=== PATIENT | male | born 1935 | race Caucasian/White ===

== ENCOUNTER → 2016-12-05 | Outpatient (CLI) | payer MEDICARE ==
[2016-07-16 11:00] VITALS: BP 94/51
[~2016-12-05] MED LIST: AMOX1TAB61 PO; ASPI-482 PO; ASPI325T11 PO; ASPI325T70 PO; ATOR20TA58 PO; CALC-112 PO; CELE200C PO; CLOP75TA PO; COLC0.6C3 PO; DILT180C29 PO; DOCU-27 PO; DOXY100C2 PO; DOXY100T PO; FISH1CAP PO; GABA600T2 PO; GLUC1CAP30 PO; GLUC500T7 PO; HYDR-971 PO; LACT1CAP6 PO; MULT-18 PO; ONDA4TAB10 SL; OXYC-323 PO; TAMS0.4C97 PO; TRAM50TA PO; UBID200C4 PO; VALS80TA3 PO
--- NOTE | 2016-12-05 10:16 | RAD ---
Examination: MRI of the right shoulder without contrast HISTORY History of right shoulder pain for 8 months, history of rotator cuff repair COMPARISON None available. TECHNIQUE Multiplanar multisequence MR imaging of the right shoulder was performed without contrast FINDINGS Examination is somewhat limited due to mild motion artifact. The long head of the biceps tendon is not clearly identified in the bicipital groove. The long head of the biceps tendon may be displaced medially underneath the fibers of the subscapularis tendon. There is increased signal identified in the superior aspect of the subscapularis tendon likely tear of the subscapularis tendon particularly in superior fibers. Some of the inferior fibers appear intact. There is full-thickness tear of the supraspinatus tendon with tendon retraction to the level of the glenoid. There is superior translation of the humerus head in relation to the glenoid. There is moderate increased T2 signal identified in the rotator cuff region. There is thickened appearance of the infraspinatus tendon due to severe tendinosis. The conjoined portion of the infraspinatus tendon appears torn. There is some extension of fluid into the interstitial portion of the infraspinatus tendon measuring 1 centimeter in transverse dimension. The teres minor tendon appears intact. No evidence of labral tear identified. Severe degenerative changes identified in the glenohumeral joint. Prior surgical changes identified in the right shoulder. The acromion is type 2. There is mild increased T2 signal identified in the supraspinatus, infraspinatus, subscapularis muscle likely due to rotator cuff pathology. There is obliteration of fat in the rotator interval. There is moderate fatty atrophic changes of the infraspinatus muscle. There is mild fatty atrophic changes of the supraspinatus muscle. There is mild muscle bulk loss identified in the supraspinatus, infraspinatus muscles. IMPRESSION - Massive tear of the rotator cuff with retraction of the supraspinatus tendon up to the level of the glenoid. The superior fibers of the subscapularis tendon are torn with some retraction. Some of the fibers particularly the conjoined portion infraspinatus tendon appear torn. - There is moderate thickened appearance of the infraspinatus tendon likely due to severe tendinosis with a extension of a fluid into the interstitial portion of the infraspinatus tendon due to the interstitial tear. There is marked superior translation of the humerus head in relation to the glenoid likely due to massive rotator cuff tear. - The long head of the biceps tendon is not clearly identified in the bicipital groove. The long head of the biceps tendon may be displaced medially underneath the fibers of the subscapularis tendon - Moderate edema identified in the muscles of the shoulder joint surrounding the rotator cuff muscle region likely secondary to tear of the rotator cuff. - Moderate degenerative changes glenohumeral joint, acromioclavicular joint. - Obliteration of fat plane in the rotator interval. Correlate for adhesive capsulitis. Electronically signed by: Cameron Vallejo (Dec 05, 2016 10:14:38)
== END | disposition home or self-care (01) ==
LOC: MRI 07:54
PROVIDERS: ATTEND Orthopaedic Surgery Sports Medicine
DX: M25.511 Pain in right shoulder (principal)
CPT/HCPCS: 73221

== ENCOUNTER 2016-12-08 07:53 | Day surgery (SDC) | payer MEDICARE ==
[~2016-12-08] VITALS: Ht 172.7 cm; Wt 74.8 kg
[~2016-12-08 07:53] MED LIST changes: +CEFAZOLIN 1GM IVPB FOR OMNI 50 ML IV ONE; -DOCU-27 PO; +FENTANYL PF 100 MCG/2 ML VIAL. IV PRN; -HYDR-971 PO; +HYDROMORPHONE 2 MG/ML VIAL. IV PRN; +IV RINGERS,LACTATED 1000ML 1,000 ML IV SCH; +LIDOCAINE 1% 1 ML SYRINGE. ID PRN; +MORPHINE SULFATE 2 MG/ML DISP.SYRIN. IV PRN; -ONDA4TAB10 SL; +ONDANSETRON PF 4 MG/2 ML VIAL. IV PRN; +PROCHLORPERAZINE 10 MG/2 ML VIAL. IV PRN
[2016-12-08] MEDS ORDERED: FENTANYL PF 100 MCG/2 ML VIAL. ONE (08:53)
[2016-12-08] MEDS ORDERED: MIDAZOLAM HCL 2 MG/2 ML VIAL. ONE (08:53)
[2016-12-08] MEDS ORDERED: LIDOCAINE 2% 20 ML VIAL. ONE (09:07)
[2016-12-08] MEDS ORDERED: 0.9 % SODIUM CHLORIDE 50 ML VIAL. IJ ONE (09:09)
[2016-12-08] MEDS ORDERED: LIDOCAINE 1% 20 ML VIAL. ONE (09:18)
[2016-12-08] MEDS ORDERED: BUPIVACAINE MPF 0.5% 30 ML VIAL. ONE (09:18)
--- NOTE | 2016-12-08 09:32 | PDOC ---
BRIEF OPERATIVE NOTE Date: Dec 08, 2016 Pre-Op Diagnosis L CTS Post-Op Diagnosis same Procedure Performed Open L CTS Surgeon Dimitri Anesthesia Type: General Blood Loss 5mL Complications none MORALES DRIVER II, MD Dec 08, 2016 09:32
--- NOTE | 2016-12-08 09:33 | DISCH ---
DISCHARGE INSTRUCTIONS Condition on Discharge Condition on Discharge: Stable Activity After Discharge Activity Instructions for Disc: No restrictions Bathing Instructions: Shower-keep dressing dry Lifting Instructions after Dis: No heavy lifting, No pulling or pushing, Do not lift >10 pounds Weight Bearing Status after Di: As tolerated Diet after Discharge Diet after Discharge: Regular Wound Incision Care Wound/Incision Care: Ice to area for comfort, Keep wound/cast CDI, Change dressing Contacting the DR. after DC Call your doctor for: Concerns you may have Follow-Up Follow up with: Dimitri in 2wks Treatment/Equipment after DC Adaptive Equipment Issued: None MORALES DRIVER II, MD Dec 08, 2016 09:33
[2016-12-08] MEDS: FENTANYL PF 100 MCG/2 ML VIAL. IV PRN ×2 (11:14→11:26)
[2016-12-08] MEDS ORDERED: HYDROCODONE/APAP 5/325MG TABLET. ONE (11:21)
[2016-12-08] MEDS ORDERED: HYDR-971 PO (11:22)
[2016-12-08] MEDS ORDERED: ONDA4TAB10 SL (11:23)
[2016-12-08] MEDS ORDERED: DOCU-27 PO (11:23)
[2016-12-08 11:45] VITALS: BP 136/67
[2016-12-08] MEDS ORDERED: HYDROCODONE/APAP 5/325MG TABLET. PO ONE (12:00)
--- NOTE | 2016-12-08 17:23 | OP ---
DATE OF SURGERY: 12/08/2016 SURGEON: Javan Driver MD SLOPE TENDER: None. ANESTHESIA: [employer] block with IV sedation. PREOPERATIVE DIAGNOSIS: Left carpal tunnel syndrome. POSTOPERATIVE DIAGNOSIS: Left carpal tunnel syndrome. PROCEDURE PERFORMED: Open left carpal tunnel release. ESTIMATED BLOOD LOSS: 5 mL. TOURNIQUET TIME: 23 minutes. REASON FOR PROCEDURE: The patient is a very pleasant 80-year-old gentleman with progressive numbness and tingling in median nerve distribution and had electromyographically proven carpal tunnel syndrome. He had tried and failed an injection plus a nighttime splint. Because of this, we had discussion of risks, benefits, alternatives of proceeding with the above surgery and he elected to proceed. DESCRIPTION OF PROCEDURE: The patient was greeted in the preoperative area by myself. The correct extremity was marked and verified. He had a Royce block IV placed in the preop area. He was taken back to the operative suite and antibiotics started en route. Once in the OR, he had successful induction of Royce block with IV sedation per the anesthesiology team. He was transferred gently supine to the OR table and secured to the bed. The left upper extremity was prepped and draped in our usual sterile fashion and we conducted a standard preoperative timeout. I made my right carpal tunnel incision over volar wrist crease progressing distally from his distal most wrist crease. I dissected the subcutaneous tissue with hemostat and used a self retainer. I incised the palmar fascia in line with the skin incision with a scalpel and dissected down and identified the transverse carpal ligament, which I then released with a scalpel. I then used Ragnell retractor at the distal aspect of the incision and a tenotomy to spread above and below the remainder of the ligament and then incised this completing the release distally. I then repeated this maneuver for the distal antebrachial fascia and incised this in an ulnar directed fashion. I then used the tip of the scissors to palpate to ensure I had accomplished full release which I had. I cauterized a couple of small bleeders with bipolar cautery. I irrigated out the operative field with sterile normal saline and closed the skin with a 2-0 nylon in a vertical mattress fashion. The arm and hand were then cleansed and dried, Steri-Strips followed by Xeroform and a soft bulky dressing was then applied. The patient tolerated the surgery well. Tourniquet was let down. He was transferred gently supine to the recovery room cart and taken to PACU in stable and extubated condition. Postop plan is for him to be nonweightbearing. He was given wound care instructions. He will follow up with me in 2 weeks, sooner should problems arise. JAVAN DRIVER MD DR: RACHEL/angela JOB#: [id number] / [id number] NICKY
== END 2016-12-08 12:10 | disposition home or self-care (01) ==
LOC: SURG 07:53
PROVIDERS: ATTEND Orthopaedic Surgery Sports Medicine
DX: G56.02 Carpal tunnel syndrome, left upper limb (principal); I10 Essential (primary) hypertension; E78.00 Pure hypercholesterolemia, unspecified; M19.90 Unspecified osteoarthritis, unspecified site; E03.9 Hypothyroidism, unspecified; F41.9 Anxiety disorder, unspecified; Z98.42 Cataract extraction status, left eye; Z98.41 Cataract extraction status, right eye; Z96.651 Presence of right artificial knee joint
CPT/HCPCS: 64721; J0690; J2250; J3010; J3490

== ENCOUNTER → 2016-12-31 | Outpatient (CLI) | payer MEDICARE ==
[2016-12-08 11:45] VITALS: BP 136/67
[~2016-12-31] MED LIST changes: -CEFAZOLIN 1GM IVPB FOR OMNI 50 ML IV ONE; +DOCU-27 PO; -FENTANYL PF 100 MCG/2 ML VIAL. IV PRN; +HYDR-971 PO; -HYDROMORPHONE 2 MG/ML VIAL. IV PRN; -IV RINGERS,LACTATED 1000ML 1,000 ML IV SCH; -LIDOCAINE 1% 1 ML SYRINGE. ID PRN; -MORPHINE SULFATE 2 MG/ML DISP.SYRIN. IV PRN; +ONDA4TAB10 SL; -ONDANSETRON PF 4 MG/2 ML VIAL. IV PRN; -PROCHLORPERAZINE 10 MG/2 ML VIAL. IV PRN
--- NOTE | 2016-12-31 13:59 | RAD ---
PROCEDURE MRI lumbar spine without contrast. HISTORY Chronic low back pain with bilateral leg radiculopathy, spinal stenosis TECHNIQUE Sagittal and axial T1 and T2 and sagittal STIR images were acquired of the lumbar spine. Contrast: None COMPARISON 12/25/2015 FINDINGS There is again grade 1 anterior spondylolisthesis at L3-4, negligible anterior spondylolisthesis at L2-3. Lumbar vertebral body stature is unchanged. There is again multilevel advanced degenerative disc disease throughout the lumbar spine, also of visualized inferior thoracic levels. There is again variable degenerative endplate change. There is again prominent edema about the L4-5 endplates, somewhat increased at T12-L1 and also increased about small inferior L3 Schmorl's node. Conus terminates at the mid to inferior aspect of L2. There is mild smooth lumbar levoscoliosis centered upon thoracolumbar junction. There are probable cysts of the visualized mid to inferior right kidney. Not fully included, there is a shallow posterior protrusion at T10-11, which in combination with buckling of the ligamentum flavum likely results in mild spinal stenosis. There is also shallow posterior protrusion at T11-12. T12-L1: There is mild facet hypertrophic change and buckling of the ligamentum flavum. There is a shallow protrusion eccentric to the far right lateral recess more prominent than previously. Spinal canal is adequate. There is mild narrowing of the right neural foramen, left neural foramen adequate. L1-2: There is negligible disc osteophyte complex. There is mild buckling of the ligamentum flavum and mild to moderate facet degenerative change. Spinal canal is overall adequate. There is minimal narrowing of the right neural foramen, left neural foramen adequate. L2-3: There is again likely left laminectomy defect, possible right laminectomy defect. Spinal canal is adequate. Neural foramina are not significantly narrowed. L3-4: There is again left laminectomy defect. There is mild partial uncovering of the posterior aspect of the disc due to spondylolisthesis. Spinal canal is adequate. There is very mild narrowing of the left neural foramen, right neural foramen overall adequate. L4-5: There is again moderate facet hypertrophic change and buckling of the ligamentum flavum. There is again disc osteophyte complex and superimposed shallow broad posterior bulge/protrusion. There is a somewhat greater degree of overall severe spinal stenosis, lateral recess stenosis bilaterally with contact of the descending L5 nerve roots. There is again moderate left and [id number] right neural foramina compromise. L5-S1: There is again disc osteophyte complex. Spinal canal is adequate. There is mild facet degenerative change. There is mild neural foramina compromise greater on the left. IMPRESSION 1. There is a somewhat greater degree of severe spinal stenosis at L4-5, lateral recess stenosis bilaterally at this level with contact of the descending L5 nerve roots. 2. There is again multilevel advanced degenerative disc disease of the thoracolumbar spine, multilevel spondylosis. There is persistent prominent edema of the L4-5 endplates, somewhat increased endplate edema at T12-L1 although likely reactive/degenerative in etiology. 3. There is mild to moderate neural foramina compromise bilaterally greater on the left at L4-5, other minimal narrowing as stated. 4. There is multilevel lumbar facet degenerative change, grade 1 anterior spondylolisthesis at L3-4 and negligible anterior spondylolisthesis at L2-3. 5. Conus terminates at the mid to inferior aspect of L2. Electronically signed by: Martinez Larkin MD (Dec 31, 2016 13:58:17)
== END | disposition home or self-care (01) ==
LOC: MRI 10:42
PROVIDERS: ATTEND Orthopaedic Surgery Sports Medicine
DX: M48.06 Spinal stenosis, lumbar region (principal)
CPT/HCPCS: 72148

== ENCOUNTER → 2017-01-22 | Outpatient (CLI) | payer MEDICARE ==
--- NOTE | 2017-01-22 11:33 | RAD ---
PROCEDURE MRI of the cervical spine without contrast 01/22/2017 HISTORY Neck pain which radiates down the right arm. TECHNIQUE Unenhanced T1 weighted, T2 weighted and inversion recovery sagittal and gradient echo and T2 weighted axial images of the cervical spine were obtained. FINDINGS Mild lateral curvature of the cervical spine is seen convex to the left. There is straightening of the normal cervical lordosis. There appears to be incomplete segmentation of the C3 and C4 vertebrae. Degenerative signal changes and loss of height are seen involving all of the remaining discs of the cervical spine. Degenerative signal changes are seen within the marrow surrounding these discs. No area of abnormal signal intensity is seen involving the cervical spinal cord. At the C2-3 disc space there is a mild generalized disc bulge. Degenerative changes are seen involving the uncovertebral and facet joints, right greater than left. These findings do not result in significant central spinal canal stenosis. Mild right greater than left neural foraminal stenosis is seen. At the C3-4 level degenerative changes are seen involving the uncovertebral and facet joints, right greater than left. Posterior vertebral body osteophyte formation is noted. These findings do not result in significant central spinal canal stenosis. Very mild bilateral neural foraminal stenosis is seen. At the C4-5 disc space there is a mild generalized disc bulge. This is eccentric to the left. Degenerative changes are seen involving the uncovertebral and facet joints bilaterally. These findings when combined do not result in significant central spinal canal stenosis. Mild left neural foraminal stenosis is seen. The right neural foramina is patent. At the C5-6 disc space there is mild to moderate generalized disc bulge. This is eccentric to the right. Degenerative changes are seen involving the uncovertebral and facet joints bilaterally. These findings efface the anterior CSF resulting in mild right greater than left central spinal canal stenosis with minimal right-sided cord impingement. Moderate bilateral neural foraminal stenosis is seen. At the C6-7 disc space there is a mild generalized disc bulge. This is eccentric to the left. Degenerative changes are seen involving the uncovertebral and facet joints, left greater than right. These findings when combined result mild left-sided central spinal canal stenosis without evidence of cord impingement. Mild to moderate left greater than right neural foraminal stenosis is seen. The C7-T1 disc space there is a mild generalized disc bulge. Degenerative changes are seen involving the facet joints, left greater than right. These findings when combined do not result in significant central spinal canal stenosis. Mild bilateral neural foraminal stenosis is seen. IMPRESSION Degenerative changes are seen throughout the cervical spine. These findings result in mild right greater than left central spinal canal stenosis with minimal right-sided cord impingement at C5-6 and mild left-sided central spinal canal stenosis at C6-7. Multilevel neural foraminal stenosis is seen as outlined above. Electronically signed by: Toni Luther MD (Jan 22, 2017 11:31:55)
== END | disposition home or self-care (01) ==
LOC: MRI 15:35
PROVIDERS: ATTEND Neurological Surgery
DX: M48.02 Spinal stenosis, cervical region (principal); M43.8X2 Other specified deforming dorsopathies, cervical region; M40.50 Lordosis, unspecified, site unspecified; M25.78 Osteophyte, vertebrae
CPT/HCPCS: 72141

== ENCOUNTER → 2017-01-23 | Outpatient (CLI) | payer MEDICARE ==
--- NOTE | 2017-01-22 15:49 | HP ---
ADMIT DATE: DATE OF SURGERY: 01/28/2017. HISTORY OF PRESENT ILLNESS: The patient is a pleasant 81-year-old who is having difficulty with low back pain and pain which radiates across the top of both of his hips. He also notices pain in both of his lateral legs that occurs with standing and activities. The problems have been progressive over the years. Many years ago, he underwent lumbar laminectomy. He says his surgeon, which was me, told him that in the future, he may require an instrumented fusion. He says with sitting, his pain is 1/10. Standing and walking ____ to a 6/10. Getting up of bed every day is very difficult for him in the mornings. He takes [place] to help. PAST MEDICAL HISTORY: Arthritis, blood transfusion, cold sores, cardiac disease, shingles, stomach disease, head and neck injury, heart disease, osteoporosis, Lyme disease. PAST SURGICAL HISTORY: Cardiac cath in 2012, cardiac bypass in 2008, hernia 2012, bilateral rotator cuff repair, lumbar surgery, right knee surgery, hernia repair in . FAMILY HISTORY: Cancer, diabetes, cardiac disease, hypertension. SOCIAL HISTORY: He is . Retired. Nondrinker. Nonsmoker. Uses caffeine daily. No history of drug use or abuse. Exercises weekly. ALLERGIES: No known drug allergies. CURRENT MEDICATIONS: Celebrex, tramadol, Diovan, doxycycline, Citracal, aspirin, multivitamins, glucosamine, CoQ10, probiotics, diltiazem, fish oil, gabapentin, Flomax, Plavix, [place]. REVIEW OF SYSTEMS: A 12-point review of systems was obtained and is noncontributory except for that mentioned above. PHYSICAL EXAMINATION: NEUROSURGERY EXAMINATION: GENERAL APPEARANCE: Alert, pleasant, in no acute distress. HEENT: Normocephalic, atraumatic. SKIN: Warm and dry. BACK: Well healed lumbar incision. MUSCULOSKELETAL: Lumbar paraspinal muscle bulk is normal, restricted range of motion of lumbar spine, [id number] tenderness of lower lumbar spine with palpation, normal range of motion of the lower extremities bilaterally. Internal and external rotation of the hips was also negative. EXTREMITIES: No clubbing, cyanosis, or edema. NEUROLOGIC: Alert and oriented x 3, normal recent and remote memory, strength 5/5 in bilateral lower extremities, sensory was intact to light touch in the lower extremities bilaterally, reflexes were present and symmetric in bilateral lower extremities, knee jerks were absent, ankle jerks were also absent bilaterally, negative straight leg raising bilaterally, normal gait. IMAGING: I reviewed a lumbar MRI scan. On that study, grade 1 anterolisthesis is seen at L3-L4 and postoperative changes are also seen at that level. At L4-L5, there is severe spinal stenosis present as well as a lateral recess stenosis. ASSESSMENT: 1. Spinal stenosis, lumbar region. 2. Radiculopathy, lumbar region. 3. Spondylolisthesis, lumbar region. PLAN: I believe his current problems are related to the spinal stenosis at L4-L5 and recommend a bilateral lumbar hemilaminotomies to decompress. I did discuss this with him in detail. He understands the surgery and the risks and expected postoperative course. He would like to go ahead. We will make the arrangements. DICTATED BY: Braulio Small RN CHLOE ALBARRAN MD DR: HOLLEY/angela JOB#: [id number] / [id number]
== END | disposition home or self-care (01) ==
LOC: SURGPAT 13:22
PROVIDERS: ATTEND Neurological Surgery
DX: M48.06 Spinal stenosis, lumbar region (principal); M54.16 Radiculopathy, lumbar region
CPT/HCPCS: 36415; 87641

== ENCOUNTER 2017-01-28 07:04 | Day surgery (SDC) | payer MEDICARE ==
--- NOTE | 2017-01-27 12:55 | HP ---
ADMIT DATE: 01/28/2017 DATE OF SURGERY: 01/28/2017. HISTORY OF PRESENT ILLNESS: The patient is a pleasant 81-year-old who is having difficulty with low back pain and pain which radiates across the top of both of his hips. He also notices pain in both of his lateral legs that occurs with standing and activities. The problems have been progressive over the years. Many years ago, he underwent lumbar laminectomy. He says his surgeon, which was me, told him that in the future, he may require an instrumented fusion. He says with sitting, his pain is 1/10. Standing and walking ____ to a 6/10. Getting up of bed every day is very difficult for him in the mornings. He takes [place] to help. PAST MEDICAL HISTORY: Arthritis, blood transfusion, cold sores, cardiac disease, shingles, stomach disease, head and neck injury, heart disease, osteoporosis, Lyme disease. PAST SURGICAL HISTORY: Cardiac cath in 2012, cardiac bypass in 2008, hernia 2012, bilateral rotator cuff repair, lumbar surgery, right knee surgery, hernia repair in . FAMILY HISTORY: Cancer, diabetes, cardiac disease, hypertension. SOCIAL HISTORY: He is . Retired. Nondrinker. Nonsmoker. Uses caffeine daily. No history of drug use or abuse. Exercises weekly. ALLERGIES: No known drug allergies. CURRENT MEDICATIONS: Celebrex, tramadol, Diovan, doxycycline, Citracal, aspirin, multivitamins, glucosamine, CoQ10, probiotics, diltiazem, fish oil, gabapentin, Flomax, Plavix, [place]. REVIEW OF SYSTEMS: A 12-point review of systems was obtained and is noncontributory except for that mentioned above. PHYSICAL EXAMINATION: NEUROSURGERY EXAMINATION: GENERAL APPEARANCE: Alert, pleasant, in no acute distress. HEENT: Normocephalic, atraumatic. SKIN: Warm and dry. BACK: Well healed lumbar incision. MUSCULOSKELETAL: Lumbar paraspinal muscle bulk is normal, restricted range of motion of lumbar spine, [id number] tenderness of lower lumbar spine with palpation, normal range of motion of the lower extremities bilaterally. Internal and external rotation of the hips was also negative. EXTREMITIES: No clubbing, cyanosis, or edema. NEUROLOGIC: Alert and oriented x 3, normal recent and remote memory, strength 5/5 in bilateral lower extremities, sensory was intact to light touch in the lower extremities bilaterally, reflexes were present and symmetric in bilateral lower extremities, knee jerks were absent, ankle jerks were also absent bilaterally, negative straight leg raising bilaterally, normal gait. IMAGING: I reviewed a lumbar MRI scan. On that study, grade 1 anterolisthesis is seen at L3-L4 and postoperative changes are also seen at that level. At L4-L5, there is severe spinal stenosis present as well as a lateral recess stenosis. ASSESSMENT: 1. Spinal stenosis, lumbar region. 2. Radiculopathy, lumbar region. 3. Spondylolisthesis, lumbar region. PLAN: I believe his current problems are related to the spinal stenosis at L4-L5 and recommend a bilateral lumbar hemilaminotomies to decompress. I did discuss this with him in detail. He understands the surgery and the risks and expected postoperative course. He would like to go ahead. We will make the arrangements. DICTATED BY: Braulio Small RN CHLOE ALBARRAN MD DR: HOLLEY/angela JOB#: [id number] / [id number]
[~2017-01-28] VITALS: Ht 172.7 cm; Wt 75.3 kg
[~2017-01-28 07:04] MED LIST changes: +BACITRACIN 50,000 UNIT in IV NORMAL SALINE 1000ML BAG 1,000 ML IRR ONE; +BUPIVAC MPF-EPI 0.5%-1:200000 30 ML VIAL. ONE; +CEFAZOLIN 2GM PREMIX 50 ML IV PRN; +FENTANYL PF 100 MCG/2 ML VIAL. IV PRN; +GELATIN SPONGE SIZE 100. ONE; +HYDROMORPHONE 2 MG/ML VIAL. IV PRN; +IV RINGERS,LACTATED 1000ML 1,000 ML IV SCH; +KETOROLAC 60 MG/2 ML SYRINGE FOR OR. ONE; +LIDOCAINE 1% 1 ML SYRINGE. ID PRN; +MORPHINE SULFATE 2 MG/ML DISP.SYRIN. IV PRN; +ONDANSETRON PF 4 MG/2 ML VIAL. IV PRN; +PROCHLORPERAZINE 10 MG/2 ML VIAL. IV PRN; +THROMBIN 20,000 UNIT SPRAY.SYRN KIT TP ONE
[2017-01-28] MEDS ORDERED: LIDOCAINE 2% 100 MG/5 ML DISP.SYRIN. ONE (08:11)
[2017-01-28] MEDS ORDERED: ONDANSETRON PF 4 MG/2 ML VIAL. ONE (08:11)
[2017-01-28] MEDS ORDERED: FENTANYL PF 100 MCG/2 ML VIAL. ONE (08:11)
[2017-01-28] MEDS ORDERED: DEXAMETHASONE SOD PHOS 20 MG/5 ML VIAL. ONE (08:11)
[2017-01-28] MEDS ORDERED: MINERAL OIL/PETROLATUM,WHITE OPHTH OINT 3.5GM TUBE. ONE (08:11)
[2017-01-28] MEDS ORDERED: ROCURONIUM 50 MG/5 ML VIAL. ONE (08:11)
[2017-01-28] MEDS ORDERED: REMIFENTANIL 2 MG VIAL. IV ONE (08:11)
[2017-01-28] MEDS ORDERED: PROPOFOL 20 ML IV ONE (08:11)
[2017-01-28] MEDS ORDERED: DESFLURANE > 120 MINUTES IH ONE (08:11)
[2017-01-28] MEDS ORDERED: PROPOFOL 0 ML IV ONE (08:11)
[2017-01-28] MEDS ORDERED: 0.9 % SODIUM CHLORIDE 50 ML VIAL. IJ ONE (08:12)
[2017-01-28] MEDS ORDERED: EPHEDRINE PF IN SALINE 50 MG/5 ML DISP.SYRIN. IV ONE (08:59)
[2017-01-28] MEDS ORDERED: GLYCOPYRROLATE 1 MG/5 ML VIAL. ONE (09:40)
[2017-01-28] MEDS ORDERED: PROPOFOL 50 ML IV ONE (10:32)
[2017-01-28] MEDS ORDERED: NEOSTIGMINE METHYLSULFATE 5 MG/5 ML SYRINGE. ONE (10:54)
--- NOTE | 2017-01-28 11:20 | DISCH ---
DISCHARGE INSTRUCTIONS Condition on Discharge Condition on Discharge: Stable Activity After Discharge Activity Instructions for Disc: Activity as tolerated, Avoid exertion Other activity instructions: no driving for a week Bathing Instructions: Shower-keep dressing dry Lifting Instructions after Dis: No heavy lifting, No pulling or pushing, Do not lift >10 pounds Diet after Discharge Additional Diet Restrictions: resume home diet Wound Incision Care Wound/Incision Care: Ice to area for comfort Other wound/incision instructi: may remove dressing in 48 hrs if dry then may shower- no soaking Contacting the after DC Call your doctor for: Concerns you may have Follow-Up Follow up with: Dr. Albarran's nurse in 2 weeks [phone] CHLOE ALBARRAN MD Jan 28, 2017 11:20
[2017-01-28] MEDS ORDERED: DOCU-27 PO (11:23)
[2017-01-28] MEDS ORDERED: HYDR-2679 PO (11:23)
[2017-01-28] MEDS ORDERED: HYDROCODONE/APAP 7.5/325MG TABLET. PO PRN (12:30)
[2017-01-28 13:18] VITALS: BP 136/63
--- NOTE | 2017-01-29 22:02 | OP ---
DATE OF SURGERY: 01/28/2017 PREOPERATIVE DIAGNOSES: Lumbar spinal stenosis, L4-L5. POSTOPERATIVE DIAGNOSIS: Lumbar spinal stenosis, L4-L5. OPERATION PERFORMED: Lumbar laminectomy L4-L5. The operation was done with EMG monitoring, fluoroscopy, microscopic dissection. SURGEON: Shashank Albarran M.D. GELATIN POWDER MIXER: Forrest Ordonez MD, assisted with the surgery, assisted with the exposure, the decompression as well as the closure. OPERATIVE INDICATIONS: The patient is a very pleasant 81-year-old man who in the past has undergone surgery at L3-L4 and had done well from that. On imaging studies currently he has developed very severe stenosis at L4-L5 and developed symptoms in his lower extremities associated with this. I recommended bilateral lumbar microdecompressive surgery to fully decompress the entire region. He understood the surgery and the risks involved and wished to go ahead. DESCRIPTION OF PROCEDURE: Following general endotracheal anesthesia, the patient was positioned prone on the Sundar table. His lumbar region was prepped and draped in the standard fashion. CHRIS hose and AV impulse boots were applied for DVT prophylaxis. The microscope was draped. Fluoroscopy was draped and brought into field. Monitoring was established. Ancef 2 grams were given less than 1 hour prior to initiation of the surgery. Using fluoroscopic guidance, an incision was made directly over the L4-L5 interspace. I dissected down through the skin and subcutaneous tissue and I reflected the paraspinal muscles and placed self-retaining retractor. I brought in the microscope and beginning in the left side, I burred down a very generous hemilaminotomy and I carried this to the midline. I then grasped and trimmed away very thickened ligamentum flavum and peeled this from medial to lateral and I performed a partial foraminotomy laterally and I carried my thickened ligamentum removal all the way past the lateral edge of the dura. I palpated the disc, which was firm and no discectomy was warranted and the majority of the problem was from very thickened, calcified ligament. When the left side was decompressed I moved to the right side in a similar fashion, created a very generous hemilaminotomy and carried this from medially, laterally and full and then removed very thickened ligamentum flavum again performing partial foraminotomy and fully decompressing the dura. Medially, then I undercut the dura and I worked until I had completed a decompression across to the contralateral side, and again at this level I palpated the disc on the right side, again, it was firm and no discectomy was warranted at this point. Then I irrigated copious antibiotic solution. I did use small amounts of bone wax when necessary. I irrigated, I then closed the wound in layers with absorbable suture. The skin was closed with 4-0 subcuticular stitch. I closed the wound after I had obtained excellent hemostasis and a full decompression. I was quite pleased with the surgery. SHASHANK ALBARRAN MD DR: HOLLEY/angela JOB#: [id number] / [id number] NICKY
--- NOTE | 2017-01-30 14:00 | PATHOLOGY ---
PATHOLOGY REPORT * * * * * * * * FINAL DIAGNOSIS: Intervertebral disc, "lumbar decompression," removal: - Fragments of fibrocartilage with degenerative changes. - Fragments of unremarkable bone. (VISHAL:; d/t: 01/30/17) REPORT ELECTRONICALLY SIGNED BY: Helena Hendricks M.D. DATE/TIME: 01/30/2017 13:59 * * * * * * * * GROSS PATHOLOGY: Received in formalin labeled "Daryn Murdock and lumbar decompression," are multiple pieces of red-brown to white-brown, rubbery, gritty, and glistening fibrous tissue admixed with bone measuring 6.8 x 5.8 x 1.3 cm in aggregate dimensions. The tissue is submitted representatively in cassette A1, following decalcification. (TTL; 01/29/2017) INITIAL CPT CODE(S): A; 66330, 35478 Professional services [place] [address] Technical services performed by [facility] at [address] [place] [address]. SPECIMEN(S) RECEIVED: A.Lumbar decompression CLINICAL HISTORY: Lumbar stenosis PATIENT: DARYN MURDOCK /AGE: 2 1935 (Age: 81) PATIENT #: [id number] ALT CASE #: SPECIMEN COLLECTION DATE: 01/28/2017 SPECIMEN RECEIVED DATE: 01/28/2017 [facility] - [address] [place] [address] - PHONE: [phone] * * * END OF REPORT * * *
== END 2017-01-28 13:55 | disposition home or self-care (01) ==
LOC: SURG 07:04
PROVIDERS: ATTEND Neurological Surgery
DX: M48.06 Spinal stenosis, lumbar region (principal); I25.10 Atherosclerotic heart disease of native coronary artery without angina pectoris; E78.00 Pure hypercholesterolemia, unspecified; I10 Essential (primary) hypertension; M19.90 Unspecified osteoarthritis, unspecified site; E66.9 Obesity, unspecified; E03.9 Hypothyroidism, unspecified; Z98.42 Cataract extraction status, left eye; Z98.41 Cataract extraction status, right eye; Z86.73 Personal history of transient ischemic attack (TIA), and cerebral infarction without residual deficits
CPT/HCPCS: 63047; 76000; 97162; J0690; J1100; J1885; J2405; J2704; J2710; J3010; J3490; J7030; J7120

== ENCOUNTER → 2017-06-25 | Outpatient (CLI) | payer MEDICARE ==
[~2017-06-25] MED LIST changes: -BACITRACIN 50,000 UNIT in IV NORMAL SALINE 1000ML BAG 1,000 ML IRR ONE; -BUPIVAC MPF-EPI 0.5%-1:200000 30 ML VIAL. ONE; -CEFAZOLIN 2GM PREMIX 50 ML IV PRN; +DOCU-109 PO; -DOCU-27 PO; -FENTANYL PF 100 MCG/2 ML VIAL. IV PRN; -GELATIN SPONGE SIZE 100. ONE; +GLUC500T10 PO; -GLUC500T7 PO; +HYDR-2679 PO; -HYDROMORPHONE 2 MG/ML VIAL. IV PRN; +IOHEXOL 180 MG/ML 10 ML VIAL. ONE; -IV RINGERS,LACTATED 1000ML 1,000 ML IV SCH; -KETOROLAC 60 MG/2 ML SYRINGE FOR OR. ONE; -LIDOCAINE 1% 1 ML SYRINGE. ID PRN; -MORPHINE SULFATE 2 MG/ML DISP.SYRIN. IV PRN; -ONDANSETRON PF 4 MG/2 ML VIAL. IV PRN; -PROCHLORPERAZINE 10 MG/2 ML VIAL. IV PRN; -THROMBIN 20,000 UNIT SPRAY.SYRN KIT TP ONE; -UBID200C4 PO; +UBID200C7 PO; +methylPREDNISolone ACETATE 40 MG/ML VIAL. ONE; +methylPREDNISolone ACETATE 80 MG/ML VIAL. ONE
--- NOTE | 2017-06-25 20:12 | PAIN ---
DATE OF SERVICE: 06/25/2017 DIAGNOSES: Lumbar radiculopathy with lumbar degenerative disk disease, spinal stenosis and post-lumbar laminectomy syndrome. HISTORY OF PRESENT ILLNESS: The patient is an 81-year-old male who returns for followup status post previous lumbar epidural steroid injection. He has had surgery in the meantime with lumbar decompressive laminectomy at L4-L5 level and that was on 04/30/2017. The patient reportedly did fairly well with this, but still has persistent pain in the left leg radiating into the posterior gluteus, posterior thigh, lateral thigh, anterior thigh, posterior lower leg and lateral lower leg which is on and off in intensity with aching and sharp, shooting and becoming more and more noticeable. The patient reports worse with standing and walking. Rates it as 9 on a scale of 10. It is 2 on a scale of 10 today, but is mainly a 6 on a scale of 10 on average. The patient reports it does not awake him from sleep at night, he feels better with lying down or sitting, worse with standing, walking, again radiating into the legs somewhat like he had before surgery. The patient reports no new motor or sensory deficits, no new bowel or bladder incontinence or other complaints. PHYSICAL EXAMINATION: VITAL SIGNS: The patient's blood pressure is 136/82, pulse 56, respirations 16, temperature 97.8 degrees Fahrenheit. Weight is 167 pounds. GENERAL: The patient is awake, alert, oriented, appropriate, very pleasant demeanor. HEENT: Head is normocephalic, atraumatic. Extraocular movements are intact, symmetrical. Oral cavity, mucous membranes are moist and pink. Dentition is intact. NECK: Shows anterior throat supple. CHEST: Shows breath sounds clear to auscultation bilaterally. HEART: Shows S1 and S2 clear. ABDOMEN: Soft, nontender, nondistended. No palpable organomegaly. No rebound or guarding demonstrated. BACK: Shows spine grossly midline. Well-healed surgical scars noted in the lumbar distribution with some flattening of lumbar lordotic curvature. Lumbar paraspinous musculature shows symmetrical on inspection and on palpation shows some moderate tenderness in the low lumbar distribution as well as the middle lumbar distribution, but only diffusely in the paraspinous muscles without radiation. EXTREMITIES: Lower extremities show deep tendon reflexes at 1+ in the patellar and tendo calcaneus tendons. Motor exam is approximately 4 on a scale of 5 with quadriceps and hamstring flexion and 5/5 with dorsiflexion, extension and equal and symmetrical. Peripheral pulses are 1+ posterior tibial. No peripheral edema is noted. Options were discussed with the patient and the patient's old chart was reviewed. His current medication regimen updated. Current review of systems updated today as well. We will proceed with lumbar epidural steroid injection today with fluoroscopic guidance. Risks were again discussed including, but not limited to bleeding, infection, possibility of epidural hematoma and subsequent neurologic compromise, dural puncture, headaches, spinal cord and/or nerve damage, side effects of steroid medication and poor results regarding pain control. The patient understands and wishes to proceed. The patient will return to clinic in approximately 2 weeks for followup, was counseled as to return appointment, activity level and side effects to be aware of. DIAGNOSIS: Lumbar radiculopathy with lumbar degenerative disk disease, spinal stenosis and post-lumbar laminectomy syndrome. PROCEDURES: Lumbar epidural steroid injection in translaminar approach at L5-S1 level using C-arm fluoroscopic guidance under sterile prep and drape using local anesthetic. Medication injected a total of 120 mg Depo-Medrol plus 10 mL of preservative-free normal saline and 2 mL of Isovue for contrast. CONDITION AT DISCHARGE: Stable. The patient tolerated procedure well, had no complications. KIMBERLEE MEDINA MD DR: IVANA/angela JOB#: [id number] / [id number]
== END | disposition home or self-care (01) ==
LOC: PNCL 10:04
PROVIDERS: ATTEND Anesthesiology
DX: M51.16 Intervertebral disc disorders with radiculopathy, lumbar region (principal); M48.06 Spinal stenosis, lumbar region; M96.1 Postlaminectomy syndrome, not elsewhere classified; E78.00 Pure hypercholesterolemia, unspecified; I25.10 Atherosclerotic heart disease of native coronary artery without angina pectoris; E03.9 Hypothyroidism, unspecified; F41.9 Anxiety disorder, unspecified; Z98.41 Cataract extraction status, right eye; Z98.42 Cataract extraction status, left eye; Z86.69 Personal history of other diseases of the nervous system and sense organs; Z96.651 Presence of right artificial knee joint; Z87.39 Personal history of other diseases of the musculoskeletal system and connective tissue; Z82.49 Family history of ischemic heart disease and other diseases of the circulatory system
CPT/HCPCS: 62323; J1030; J1040

== ENCOUNTER → 2017-07-16 | Outpatient (CLI) | payer MEDICARE ==
--- NOTE | 2017-07-16 13:17 | PAIN ---
DATE OF SERVICE: 07/16/2017 DIAGNOSES: Lumbar radiculopathy with lumbar spinal stenosis, degenerative disk disease and post-lumbar laminectomy syndrome. HISTORY OF PRESENT ILLNESS: The patient is an 81-year-old male who returns for followup status post lumbar epidural steroid injection x 1 on 06/25/2017. The patient did very well, about 80% to 90% improvement until about the last week or so. The patient reports pain has been returning now in the left lower extremity and low back with increased fatigability with the legs, especially on the left side. Rates it a 5 on a scale of 10 at its worst, 3 on average and at zero at its least. The patient reports much better with lying down, sitting down. He sleeps well at night, does not awaken her from sleep, better with sitting but worse with standing, walking and gets some shortness of breath as well. The patient reports no new motor or sensory deficits, no new bowel or bladder incontinence or other complaints. The patient has some pain in the left hand and we will reevaluate this for potential cervical radiculopathy in this region. PHYSICAL EXAMINATION: VITAL SIGNS: Today, the patient's blood pressure is 122/58, pulse 60, respirations 18, temperature 98.2 degrees Fahrenheit, height is 5 feet 8 inches, weighs 168 pounds. GENERAL: The patient is awake, alert, oriented, appropriate, very pleasant demeanor. HEENT: Head shows normocephalic, atraumatic. Extraocular movements are intact and symmetrical. Oral cavity, mucous membranes are moist and pink. Dentition is intact. NECK: Shows anterior throat supple without palpable lymphadenopathy noted. Swallow reflex is symmetrical. CHEST: Shows normal on inspection. Breath sounds are clear to auscultation bilaterally. HEART: Shows S1 and S2 clear. ABDOMEN: Soft, nontender, nondistended. No palpable organomegaly with no rebound or guarding demonstrated. BACK: Shows spine grossly in midline. Cervical paraspinous musculature shows some mild tenderness with palpation, but only diffusely in the inferior aspect of the cervical spine. Full rotational motion of the cervical spine is maintained with lateral rotation as well as extension and forward flexion. The patient's low back shows well healed surgical scar. Lumbar paraspinous musculature shows symmetrical on inspection with palpation shows some moderate tenderness bilaterally, but only in the middle and lower distribution only diffusely and only to a mild extent. No radiation. The patient has good rotational motion of lumbar spine, both laterally as well as extension and flexion. EXTREMITIES: Lower extremities show deep tendon reflexes 2+ in the patellar and tendo calcaneus tendons are 1+. Motor exam is approximately 4 on a scale of 5, but equal and symmetrical bilaterally. Upper extremities show some weakness with ditcher operator strength on the left at about 4/5 and right shows 5/5 ditcher operator strength. Options were discussed with the patient and the patient's old chart was reviewed as his current medication regimen updated. Current review of systems updated today as well. We will proceed with a second lumbar epidural steroid injection today with fluoroscopic guidance. Risks were again discussed including, but not limited to bleeding, infection, possibility of epidural hematoma, subsequent neurologic compromise, dural puncture, headaches, spinal cord and/or nerve damage, side effects of steroid medication and poor results regarding pain control. The patient understands and wishes to proceed. The patient will return to clinic in approximately 2 weeks for followup, was counseled on return appointment, activity level and side effects to be aware of. DIAGNOSIS: Lumbar radiculopathy with degenerative disk disease post-laminectomy syndrome and spinal stenosis. PROCEDURE: Lumbar epidural steroid injection in translaminar approach at L5-S1 level using C-arm fluoroscopic guidance under sterile prep and drape using local anesthetic. MEDICATION INJECTED: A total of 120 mg Depo-Medrol plus 10 mL preservative-free normal saline and 2 mL Isovue for contrast. CONDITION AT DISCHARGE: Stable. The patient tolerated procedure well, had no complications. KIMBERLEE MEDINA MD DR: IVANA/angela JOB#: [id number] / [id number]
== END | disposition home or self-care (01) ==
LOC: PNCL 10:11
PROVIDERS: ATTEND Anesthesiology
DX: M51.16 Intervertebral disc disorders with radiculopathy, lumbar region (principal); M96.1 Postlaminectomy syndrome, not elsewhere classified; M48.06 Spinal stenosis, lumbar region; I25.10 Atherosclerotic heart disease of native coronary artery without angina pectoris; E78.00 Pure hypercholesterolemia, unspecified; I10 Essential (primary) hypertension; M17.10 Unilateral primary osteoarthritis, unspecified knee; E03.9 Hypothyroidism, unspecified; Z98.42 Cataract extraction status, left eye; Z98.41 Cataract extraction status, right eye; Z86.73 Personal history of transient ischemic attack (TIA), and cerebral infarction without residual deficits; Z86.69 Personal history of other diseases of the nervous system and sense organs; Z87.39 Personal history of other diseases of the musculoskeletal system and connective tissue; Z96.651 Presence of right artificial knee joint
CPT/HCPCS: 62323; J1030; J1040

== ENCOUNTER → 2017-08-24 | Outpatient (CLI) | payer MEDICARE ==
--- NOTE | 2017-08-24 16:08 | PAIN ---
DATE OF SERVICE: 08/24/2017 DATE OF SERVICE: 08/24/2017 DIAGNOSES: Lumbar radiculopathy with lumbar degenerative disk disease, lumbar spinal stenosis with post-lumbar laminectomy syndrome. HISTORY OF PRESENT ILLNESS: The patient is an 81-year-old male who returns for followup status post lumbar epidural steroid injections x 2, last seen on 07/16/2017. The patient did well 90% improvement after the last injection. The patient reports the pain is returning now in the low back and into the left lower extremity to some extent. The patient reports it is aching, burning, cramping, stabbing. It is on and off though, it is not present at all times, worse with standing, walking, changing positions, bending or stooping, but better with lying down or sitting. He reports he sleeps through the night without difficulty. The patient rates his pain as an 8 on a scale of 10 at its worst, 6 on average, 3 at its least, and is a 3 today. PHYSICAL EXAMINATION: VITAL SIGNS: The patient's blood pressure is 140/70, pulse 63, respirations 16, temperature 98.0 degrees Fahrenheit, height is 5 feet 8 inches, weight is 169 pounds. GENERAL: The patient is awake, alert, oriented, appropriate, very pleasant demeanor. HEENT: Head shows normocephalic, atraumatic. Extraocular movements are intact and symmetrical. Oral cavity, mucous membranes are moist and pink. Dentition is intact. NECK: Shows anterior throat supple without palpable lymphadenopathy noted. Swallow reflex is symmetrical. CHEST: Shows normal on inspection. Breath sounds are clear to auscultation bilaterally. HEART: Shows S1 and S2 clear. No murmurs auscultated. ABDOMEN: Soft, nontender, nondistended. BACK: Shows spine grossly in midline, flattening of lumbar lordotic curvature is again noted with well-healed surgical scar noted in the midline. The patient shows only very minor tenderness with palpation in the lower lumbar distribution of paraspinous musculature bilaterally without radiation. EXTREMITIES: Lower extremities showed deep tendon reflexes 2+ in the patella, 1+ in calcaneus tendons are equal. Motor exam is approximately 4 on a scale of 5, but symmetrical with dorsiflexion, extension, quadriceps and hamstring flexion bilaterally. PLAN: Options were discussed with the patient and the patient's old chart was reviewed as his current medication regimen updated. Current review of systems updated today as well. We will proceed with a lumbar epidural steroid injection. It is the third in the series. Risks were again discussed including, but not limited to bleeding, infection, possibility of epidural hematoma, subsequent neurologic compromise, dural punctures, headaches, spinal cord and/or nerve damage, side effects of steroid medication and poor results regarding pain control. The patient understands and wishes to proceed. The patient will return to clinic in approximately 2 weeks for followup, was counseled on return appointment, activity level and side effects to be aware of. Start his Plavix again tomorrow a.m. DIAGNOSIS: Lumbar radiculopathy with lumbar spinal stenosis, degenerative disease and post-lumbar laminectomy syndrome. PROCEDURES: Lumbar epidural steroid injection in translaminar approach at the L5-S1 level using C-arm fluoroscopic guidance under sterile prep and drape using local anesthetic. MEDICATION INJECTED: A total of 120 mg Depo-Medrol plus 10 mL of preservative-free normal saline and 2 mL of Isovue for contrast. CONDITION AT DISCHARGE: Stable. The patient tolerated procedure well, had no complications. KIMBERLEE MEDINA MD DR: IVANA/angela JOB#: [id number] / [id number]
== END | disposition home or self-care (01) ==
LOC: PNCL 11:11
PROVIDERS: ATTEND Anesthesiology
DX: M51.16 Intervertebral disc disorders with radiculopathy, lumbar region (principal); M48.061 Spinal stenosis, lumbar region without neurogenic claudication; M96.1 Postlaminectomy syndrome, not elsewhere classified; E78.00 Pure hypercholesterolemia, unspecified; I10 Essential (primary) hypertension; E03.9 Hypothyroidism, unspecified; F41.9 Anxiety disorder, unspecified; Z96.651 Presence of right artificial knee joint; Z98.41 Cataract extraction status, right eye; Z98.42 Cataract extraction status, left eye; Z86.69 Personal history of other diseases of the nervous system and sense organs; Z87.39 Personal history of other diseases of the musculoskeletal system and connective tissue
CPT/HCPCS: 62323; J1030; J1040

== ENCOUNTER → 2017-08-28 | Outpatient (CLI) | payer MEDICARE ==
[~2017-08-28] MED LIST changes: -IOHEXOL 180 MG/ML 10 ML VIAL. ONE; -methylPREDNISolone ACETATE 40 MG/ML VIAL. ONE; -methylPREDNISolone ACETATE 80 MG/ML VIAL. ONE
--- NOTE | 2017-08-28 12:05 | RAD ---
EXAM: Cervical spine MRI without contrast. HISTORY: Right upper extremity radiculopathy. TECHNIQUE: Multiplanar, multisequence magnetic resonance imaging of the cervical spine was performed without contrast. COMPARISON: 01/22/2017 FINDINGS: There is cervical kyphosis. There is slight anterolisthesis of T1 on T2 and T2 on T3. There is noninstrumented fusion at C3-C4. There is severe degenerative endplate remodeling with disc space narrowing and osteophytosis at the remainder of the cervical levels. No suspicious osseous lesion is seen. There is no acute or subacute fracture. No spinal cord lesion is seen. The skull base and posterior fossa are unremarkable. There are median sternotomy wires. At C2-C3, there is endplate remodeling. There is moderate right and mild left facet arthropathy. There is buckling of the ligamentum flavum. There is mild right foraminal stenosis. At C3-C4, there is noninstrumented fusion. There is moderate right and mild left facet arthropathy. There is mild left foraminal stenosis. At C4-C5, there is a diffuse disc bulge and endplate osteophytosis. There is mild to moderate bilateral facet arthropathy. There is uncovertebral arthropathy. There is buckling of the ligamentum flavum. There is mild to moderate right and moderate to severe left foraminal stenosis. There is flattening of the ventral aspect of the spinal cord without significant central canal stenosis. At C5-C6, there is a broad-based posterior central disc protrusion superimposed on a disc bulge and endplate osteophytosis. There is mild bilateral facet arthropathy. There is uncovertebral arthropathy. There is moderate to severe bilateral foraminal stenosis. There is deformation of the ventral aspect of the spinal cord and mild central canal stenosis measuring 9.2 mm in anterior posterior dimension. At C6-C7, there is a disc bulge and endplate osteophytosis. There is mild bilateral facet arthropathy. There is uncovertebral arthropathy. There is buckling of the ligamentum flavum. There is moderate right and moderate to severe left foraminal stenosis. There is flattening of the ventral aspect of the spinal cord without significant central canal stenosis. At C7-T1, there is a disc bulge and endplate osteophytosis. There is uncovertebral arthropathy. There is moderate to severe bilateral foraminal stenosis. IMPRESSION: 1. Multilevel degenerative change within the cervical spine, described in detail above. This results in significant foraminal stenosis at the aforementioned levels. These findings are similar compared to the prior study, allowing for differences in technique. 2. Cervical kyphosis and slight listhesis at the upper thoracic levels. Electronically signed by: Salina Miles MD (08/28/2017 12:02 PM) [id number]
== END | disposition home or self-care (01) ==
LOC: MRI 10:49
PROVIDERS: ATTEND Internal Medicine Cardiovascular Disease
DX: M48.02 Spinal stenosis, cervical region (principal); M54.12 Radiculopathy, cervical region; M40.292 Other kyphosis, cervical region; M47.892 Other spondylosis, cervical region
CPT/HCPCS: 72141

== ENCOUNTER → 2017-09-22 | Outpatient (CLI) | payer MEDICARE ==
[~2017-09-22] MED LIST changes: +CLON0.1T PO; +FURO-68 PO; +HYDR12.53 PO; +IOHEXOL 180 MG/ML 10 ML VIAL. ONE; +METO-239 PO; +METO25TA4 PO; +POTASSIUM CHLO10 MEQ PO; +methylPREDNISolone ACETATE 40 MG/ML VIAL. ONE; +methylPREDNISolone ACETATE 80 MG/ML VIAL. ONE
--- NOTE | 2017-09-22 11:50 | PAIN ---
DATE OF SERVICE: 09/22/2017 DIAGNOSES: 1. Lumbar radiculopathy with lumbar degenerative disk disease, lumbar spinal stenosis and post-lumbar laminectomy syndrome. 2. Cervical radiculopathy with cervical degenerative disk disease and cervical spinal stenosis. HISTORY OF PRESENT ILLNESS: The patient is an 81-year-old male who returns for followup status post lumbar epidural steroid injections x 3. The patient did very well with these with about 90% improvement overall. The patient is having some significant pain in his neck, however, visited his neurosurgeon, did an MRI scan showing significant areas of stenosis and degenerative changes, most severe at C5-C6, C6-7, with stenosis bilaterally at various levels as noted. The patient reports the pain is radiating to bilateral upper extremities, have some burning in his left hand, worse at night and in the fingers, on the left hand as well. Still some low back pain, but doing much better. Still some left lower extremity pain as well, but again significantly improved. His chief complaint is neck pain radiating to upper extremities is noted. The patient reports it is a 5 on a scale of 10 at its worse, 3 on average, 2 at its least and is a 3 today. The patient reports a dull, tingling, burning, cramping, tingling, with on and off intensity, but always present. The patient reports no new motor or sensory deficits, no new bowel or bladder incontinence. We discussed the MRI scan with the patient today. The patient reports it wakes him from sleep at night more than his low back, about every 4-5 hours on average. He can reposition and usually gets back to sleep. PHYSICAL EXAMINATION: VITAL SIGNS: The patient's blood pressure 115/68, pulse 60, respirations are 18, temperature 98.2 degrees Fahrenheit. Height is 5 feet 8 inches, weight is 169 pounds. GENERAL: The patient is awake, alert, oriented, appropriate, very pleasant demeanor. HEENT: Head shows normocephalic, atraumatic. Extraocular movements are intact, symmetrical. Oral cavity, mucous membranes moist and pink. Dentition is intact. NECK: Shows anterior throat supple without palpable lymphadenopathy noted. Swallow reflex symmetrical. CHEST: Shows normal on inspection. Breath sounds are clear to auscultation bilaterally. HEART: Shows S1, S2 clear. No murmurs auscultated. ABDOMEN: Soft, nontender, nondistended. No palpable organomegaly. No rebound or guarding demonstrated. BACK: Shows spine grossly midline, normal-appearing thoracic kyphosis, slightly exaggerated and some flattening of lumbar lordotic curvature. Well-healed surgical scar noted. The patient's cervical lordotic curvature is normal in appearance, with palpation shows moderate tenderness in the inferior aspect of the cervical paraspinous muscles bilaterally without significant radiation. The patient has good rotational motion, with some minor tenderness with extension, but not with forward flexion and past 45 degrees, right and left lateral rotation, complaining of minor tenderness in the base of the neck as well. EXTREMITIES: Upper extremities show deep tendon reflexes 2+ in the biceps and triceps tendons. Motor exam is strong with tip length checker strength at about 5/5 bilaterally, tip length checker strength, bicep and tricep flexion. Peripheral pulses are 2+ in the radial distribution. No peripheral edema is noted. Options were discussed with the patient. The patient's old chart was reviewed. His current medication regimen updated. Current review of systems updated today as well. We will proceed with a cervical epidural steroid injection with fluoroscopic guidance today. Risks were again discussed including, but not limited to bleeding, infection, possibility of epidural hematoma, subsequent neurologic compromise, dural puncture, headache, spinal cord and/or nerve damage, side effects of steroid medication and poor results regarding pain control. The patient understands and wished to proceed. The patient to return to clinic in approximately 2 weeks for followup, was counseled on return appointment, activity level and side effects to be aware of. DIAGNOSES: Cervical radiculopathy with cervical degenerative disk disease, cervical spinal stenosis. PROCEDURE: Cervical epidural steroid injection, translaminar approach at the C6-C7 level using C-arm fluoroscopic guidance under sterile prep and drape using local anesthetic. MEDICATION INJECTED: Total of 120 mg Depo-Medrol plus 5 mL of preservative free normal saline and 2 mL Isovue for contrast. CONDITION AT DISCHARGE: Stable. The patient tolerated procedure well, had no complications. KIMBERLEE MEDINA MD DR: IVANA/angela JOB#: [id number] / [id number]
== END ==
LOC: PNCL 10:34
PROVIDERS: ATTEND Anesthesiology
DX: M50.10 Cervical disc disorder with radiculopathy, unspecified cervical region (principal); M48.02 Spinal stenosis, cervical region; M51.16 Intervertebral disc disorders with radiculopathy, lumbar region; M48.061 Spinal stenosis, lumbar region without neurogenic claudication; M96.1 Postlaminectomy syndrome, not elsewhere classified
CPT/HCPCS: 62321; J1030; J1040; Q9965

== ENCOUNTER → 2017-10-09 | Outpatient (CLI) | payer MEDICARE ==
[~2017-10-09] MED LIST changes: +BARIUM SULFATE 340 GM SUSPENSION. PO ONE; +BARIUM SULFATE 60% 355 ML SUSP PO ONE; +BARIUM SULFATE 96% 397 GM ENEMA. PR ONE; -FURO-68 PO; -IOHEXOL 180 MG/ML 10 ML VIAL. ONE; -METO-239 PO; -METO25TA4 PO; -POTASSIUM CHLO10 MEQ PO; +SIMETHICONE/SOD BICARB/CITRIC ACID PACKET. PO ONE; -methylPREDNISolone ACETATE 40 MG/ML VIAL. ONE; -methylPREDNISolone ACETATE 80 MG/ML VIAL. ONE
--- NOTE | 2017-10-09 09:12 | RAD ---
Double contrast upper GI, 10/09/2017: History: Hiatal hernia with reflux This study was performed utilizing high density barium and gas-forming crystals followed by regular liquid barium. 2.4 minutes of fluoroscopy time was utilized. 15 static and dynamic fluoroscopic sequences were recorded. The swallowing mechanism is intact. There are tertiary contractions in the distal esophagus. There is a large hiatal hernia with 1/2-1/3 of the stomach lying above the level of the diaphragmatic hiatus. The GE junction opens up normally. No gastroesophageal reflux was demonstrated. The stomach and duodenum show no evidence of mass or ulceration. The visualized loops of proximal small bowel are unremarkable. IMPRESSION: Large hiatal hernia
== END | disposition home or self-care (01) ==
LOC: RAD 08:45
PROVIDERS: ATTEND Internal Medicine Gastroenterology
DX: K44.9 Diaphragmatic hernia without obstruction or gangrene (principal); K21.9 Gastro-esophageal reflux disease without esophagitis
CPT/HCPCS: 74246

== ENCOUNTER 2017-10-26 21:19 | Inpatient (IN) | payer MEDICARE ==
[~2017-10-26] VITALS: Ht 172.7 cm; Wt 74.2 kg
[~2017-10-26 21:19] MED LIST changes: -BARIUM SULFATE 340 GM SUSPENSION. PO ONE; -BARIUM SULFATE 60% 355 ML SUSP PO ONE; -BARIUM SULFATE 96% 397 GM ENEMA. PR ONE; -SIMETHICONE/SOD BICARB/CITRIC ACID PACKET. PO ONE
[2017-10-26] MEDS ORDERED: CLOP75TA PO (21:47)
[2017-10-26] MEDS ORDERED: METO25TA4 PO (21:47)
--- NOTE | 2017-10-26 21:47 | PHYS DOC ---
Past Medical History Past Medical History: Anxiety, CAD, High Cholesterol, Hypertension, Other Additional Past Medical Histor: CABG x 4 in 2009, Lyme Disease Past Surgical History: Other Additional Past Surgical Histo: CABG x4 in 2009,Bilat rotator cuff,Bilat inguinal hernia repair. Alcohol Use: None Drug Use: None Adult General Chief Complaint Chief Complaint: SHORTNESS OF BREATH HPI HPI Patient is a 81 year old male who presents with complaint of shortness of breath. Patient states that he has history of congestive heart failure and has been having dyspnea on exertion symptoms over the past 3 months, however he states they have drastically changed over the past 2-3 days. The patient states that he attends cardiac rehabilitation here at [facility] in states that his normal dry weight is 163 pounds. Patient states that his last weight was 173 pounds measured approximately 4 days apart. Patient is noticed worsening swelling in his lower extremities and states that he is unable to walk normal distances without getting severely short of breath. Patient denies any fevers or productive cough. Patient follows a Dr. Ocasio of cardiology and Dr. Swanson for primary care. Patient denies any chest pain. Review of Systems Review of Systems Constitutional: Denies fever or chills [] Eyes: Denies change in visual acuity, redness, or eye pain [] HENT: Denies nasal congestion or sore throat [] Respiratory: Shortness of breath[] Cardiovascular: Dyspnea on exertion, lower extremity edema, denies chest pain[] GI: Denies abdominal pain, nausea, vomiting, bloody stools or diarrhea [] : Denies dysuria or hematuria [] Musculoskeletal: Denies back pain or joint pain [] Integument: Denies rash or skin lesions [] Neurologic: Denies headache, focal weakness or sensory changes [] Endocrine: Denies polyuria or polydipsia [] All other systems were reviewed and found to be within normal limits, except as documented in this note. Allergies Allergies Allergies Coded Allergies Type Severity Reaction Last Updated Verified No Known Drug Allergies 01/28/17 No Physical Exam Physical Exam Constitutional: Alert, afebrile, appears in mild respiratory distress. [] HENT: Normocephalic, atraumatic, bilateral external ears normal, oropharynx moist, no oral exudates, nose normal. [] Eyes: PERRLA, EOMI, conjunctiva normal, no discharge. [] Neck: Normal range of motion, no tenderness, supple, no stridor. [] Cardiovascular:Heart rate regular rhythm, no murmur [] Lungs & Thorax: Mildly restricted air movement bilaterally, no wheezes, faint rales present in the bilateral lung bases[] Abdomen: Bowel sounds normal, soft, no tenderness, no masses, no pulsatile masses. [] Skin: Warm, dry, no erythema, no rash. [] Back: No tenderness, no CVA tenderness. [] Extremities: No tenderness, no cyanosis, no clubbing, ROM intact, 2+ pitting edema in the bilateral lower extremities. [] Neurologic: Alert and oriented X 3, normal motor function, normal sensory function, no focal deficits noted. [] Current Patient Data Vital Signs Vital Signs Date Time Temp Pulse Resp B/P (MAP) Pulse Ox O2 Delivery O2 Flow Rate FiO2 10/26/17 21:25 98.6 66 18 134/58 (83) 99 Room Air 98.6 Lab Values Laboratory Tests Test 10/26/17 21:30 White Blood Count 6.6 x10^3/uL (4.0-11.0) Red Blood Count 3.67 x10^6/uL (4.30-5.70) L Hemoglobin 12.6 g/dL (13.0-17.5) L Hematocrit 37.2 % (39.0-53.0) L Mean Corpuscular Volume 101 fL (79-100) H Mean Corpuscular Hemoglobin 34 pg (25-35) Mean Corpuscular Hemoglobin Concent 34 g/dL (31-37) Red Cell Distribution Width 14.6 % (11.5-14.5) H Platelet Count 246 x10^3/uL (140-400) Neutrophils (%) (Auto) 59 % (31-73) Lymphocytes (%) (Auto) 28 % (24-48) Monocytes (%) (Auto) 8 % (0-9) Eosinophils (%) (Auto) 4 % (0-3) H Basophils (%) (Auto) 0 % (0-3) Neutrophils # (Auto) 3.9 x10^3uL (1.8-7.7) Lymphocytes # (Auto) 1.9 x10^3/uL (1.0-4.8) Monocytes # (Auto) 0.6 x10^3/uL (0.0-1.1) Eosinophils # (Auto) 0.3 x10^3/uL (0.0-0.7) Basophils # (Auto) 0.0 x10^3/uL (0.0-0.2) Sodium Level 146 mmol/L (136-145) H Potassium Level 4.5 mmol/L (3.5-5.1) Chloride Level 107 mmol/L (98-107) Carbon Dioxide Level 27 mmol/L (21-32) Anion Gap 12 (6-14) Blood Urea Nitrogen 36 mg/dL (8-26) H Creatinine 1.5 mg/dL (0.7-1.3) H Estimated GFR (Cockcroft-Gault) 45.0 BUN/Creatinine Ratio 24 (6-20) H Glucose Level 160 mg/dL (70-99) H Calcium Level 8.3 mg/dL (8.5-10.1) L Total Bilirubin 0.3 mg/dL (0.2-1.0) Aspartate Amino Transferase (AST) 36 U/L (15-37) Alanine Aminotransferase (ALT) 39 U/L (16-63) Alkaline Phosphatase 61 U/L (46-116) Creatine Kinase 288 U/L (39-308) Creatine Kinase MB (Mass) 9.0 ng/mL (0.0-3.6) H Creatine Kinase MB Relative Index 3.1 % (0-4) Troponin I Quantitative < 0.017 ng/mL (0.000-0.055) KH-Zoa-M-Type Natriuretic Peptide 691 pg/mL (0-449) H Total Protein 6.1 g/dL (6.4-8.2) L Albumin 3.2 g/dL (3.4-5.0) L Albumin/Globulin Ratio 1.1 (1.0-1.7) Laboratory Tests 10/26/17 21:30 Laboratory Tests 10/26/17 21:30 EKG EKG Interpreted by me: Heart rate 57, sinus rhythm, normal intervals, left axis deviation, no acute ST/T-wave abnormalities present[] Radiology/Procedures Radiology/Procedures One view AP chest x-ray interpreted by me: Cardiomegaly present, mild pulmonary vascular congestion, no interstitial edema, no effusions[] Course & Med Decision Making Course & Med Decision Making Pertinent Labs and Imaging studies reviewed. (See chart for details) Patient is not hypoxic on room air, however the patient does have significant dyspnea on exertion and has gained 10 pounds of water weight in a short amount of time. I spoke with the patient's cake icer and packer, Dr. Ocasio, who voiced agreement to have patient admitted to the hospital for IV diuresis. Patient admitted to Dr. Schmid. Tamy Disclaimer Tamy Disclaimer This electronic medical record was generated, in whole or in part, using a voice recognition dictation system. Departure Departure Impression: Primary Impression: Acute on chronic congestive heart failure Additional Impressions: Acute renal insufficiency Mild protein malnutrition Disposition: ADMITTED INPATIENT Admitting Physician: Mabel Schmid Condition: STABLE Referrals: TESSA SWANSON MD (PCP) Problem Qualifiers Primary Impression: Acute on chronic congestive heart failure Congestive heart failure type: unspecified congestive heart failure type Qualified Codes: I50.9 - Heart failure, unspecified JOSE ALBERTO JASSO MD Oct 26, 2017 21:47
[2017-10-26 21:50] LABS: BASO % 0 % (0-3); EOS % 4 % (0-3); HEMATOCRIT 37.2 % (39.0-53.0); HEMOGLOBIN 12.6 g/dL (13.0-17.5); LYMPH # 1.9 x10^3/uL (1.0-4.8); LYMPH % 28 % (24-48); MEAN CORPUSCULAR HEMOGLOBIN 34 pg (25-35); MEAN CORPUSCULAR HGB CONC 34 g/dL (31-37); MEAN CORPUSCULAR VOLUME 101 fL (79-100); MONO % 8 % (0-9); NEUT % 59 % (31-73); PLATELET COUNT 246 x10^3/uL (140-400); RED BLOOD COUNT 3.67 x10^6/uL (4.30-5.70); RED CELL DISTRIBUTION WIDTH 14.6 % (11.5-14.5); WHITE BLOOD COUNT 6.6 x10^3/uL (4.0-11.0)
[2017-10-26 22:01] LABS: CALCIUM 8.3 mg/dL (8.5-10.1); CREATININE 1.5 mg/dL (0.7-1.3); POTASSIUM 4.5 mmol/L (3.5-5.1)
[2017-10-26 22:07] LABS: ALBUMIN 3.2 g/dL (3.4-5.0); ALBUMIN/GLOBULIN RATIO 1.1 (1.0-1.7); TOTAL BILIRUBIN 0.3 mg/dL (0.2-1.0); TOTAL PROTEIN 6.1 g/dL (6.4-8.2)
[2017-10-26] MEDS ORDERED: FUROSEMIDE 40 MG/4 ML VIAL. IVP ONE (22:15)
[2017-10-26 22:44] VITALS: BP 103/49
[2017-10-26 23:23] LABS: BILIRUBIN,URINE NEGATIVE (NEG); GLUCOSE,URINE NEGATIVE (NEG); NITRITE,URINE NEGATIVE (NEG); PH,URINE 5.5; PROTEIN,URINE NEGATIVE (NEG-TRACE); UROBILINOGEN,URINE 0.2 mg/dL (0.2 mg/dL)
[2017-10-26 23:28] LABS: BACTERIA,URINE 0 /HPF (0-FEW); RBC,URINE 0 /HPF (0-2); SQUAMOUS EPITHELIAL CELL,UR OCC /LPF; WBC,URINE 0 /HPF (0-4)
[2017-10-27 02:40] VITALS: BP 110/53
[2017-10-27 07:00] VITALS: BP 135/57
--- NOTE | 2017-10-27 07:06 | EKG ---
[facility] [address] [place] [address] Test Date: 2017-10-26 Test Time: 21:31:19 Pat Name: BRAULIO PRESTON Department: Room: 252 1 Gender: M Cardiothoracic Anesthesia Technician: : [id number] Requested By: JOSE ALBERTO JASSO Order Number: [id number] Reading MD: Garrett Castro Measurements Intervals [place] Rate: 57 P: 49 MO: 172 QRS: -45 QRSD: 114 T: 33 QT: 420 QTc: 412 Interpretive Statements SINUS RHYTHM ABNORMAL LEFT AXIS DEVIATION LEFT ANTERIOR FASCICULAR BLOCK QRS(T) CONTOUR ABNORMALITY CONSISTENT WITH ANTEROSEPTAL INFARCT PROBABLY OLD ABNORMAL ECG Electronically Signed On 11-06-2017 9:06:54 PRINTING AND STAMPING SUPERVISOR by Garrett Castro
--- NOTE | 2017-10-27 07:28 | RAD ---
Portable chest, 10/26/2017: History: Shortness of breath, bilateral leg swelling There has been a previous median sternotomy. The heart is within normal limits in size. There is a moderate sized retrocardiac mass containing gas compatible with a hiatal hernia. The pulmonary vascularity is normal. There is unchanged blunting of the left lateral costophrenic angle compatible with scarring. No acute infiltrate is seen. The bony structures are demineralized. IMPRESSION: 1. Moderate sized hiatal hernia. 2. Left basilar scarring. 3. No acute abnormality is detected.
[2017-10-27 10:40] VITALS: BP 119/75
[2017-10-27] MEDS ORDERED: HYDROcodone/APAP 7.5/325MG 1 TAB TABLET PO PRN (11:45)
[2017-10-27] MEDS ORDERED: FUROSEMIDE 40 MG/4 ML VIAL. IVP ONE (13:15)
[2017-10-27] MEDS: ASPIRIN ENTERIC COATED 81 MG TABLET.DR. PO SCH (13:27)
[2017-10-27] MEDS: hydroCHLOROthiazide 25 MG TABLET PO SCH (13:27)
[2017-10-27] MEDS: GABAPENTIN 300 MG CAPSULE. PO SCH (13:31)
[2017-10-27] MEDS: TAMSULOSIN 0.4 MG CAP.ER.24H. PO SCH (13:32)
[2017-10-27] MEDS: CELECOXIB 200 MG CAPSULE. PO SCH (13:33)
[2017-10-27] MEDS: cloNIDine HCL 0.1 MG TABLET PO SCH (13:33)
[2017-10-27] MEDS: CLOPIDOGREL BISULFATE 75 MG TABLET PO SCH (13:34)
--- NOTE | 2017-10-27 14:55 | PDOC2 ---
CONSULT Date of Consult Date of Consult DATE: 10/27/17 TIME: 14:51 Reason for Consult Reason for Consult: CHF Identification/Chief Complaint Chief Complaint Shortness of breath Problems: Source Source: Patient History of Present Illness Reason for Visit: Mr. Murdock is an 81 y/o male with a PMH of CHF who presented with c/c of shortness of breath for past couple of days. States he also had swelling in his feet and noticed this while trying to put on his work boots. Past Medical History Cardiovascular: CAD, HTN, Hyperlipidemia CENTRAL NERVOUS SYSTEM: TIA GI: GERD Hepatobiliary: No pertinent hx Psych: No pertinent hx Musculoskeletal: Osteoarthritis Past Surgical History Past Surgical History: CABG, Cataract Removal, Hernia Repair, Other Family History Family History: Cancer, Diabetes, Heart Disease, Osteo Arthiritis, Stroke Social History ALCOHOL: none Drugs: None Current Problem List Problem List Problems Medical Problems: (1) Acute on chronic congestive heart failure Status: Acute (2) Acute renal insufficiency Status: Acute (3) Mild protein malnutrition Status: Acute Current Medications Current Medications Current Medications Furosemide (Lasix) 60 mg 1X ONCE IVP Last administered on 10/26/17 22:16; Start 10/26/17 at 22:15; Stop 10/26/17 at 22:16; Status DC Aspirin (Ecotrin) 81 mg DAILY PO Last administered on 10/27/17 13:27; Start 10/27/17 at 12:00 Celecoxib (CeleBREX) 200 mg DAILY PO Last administered on 10/27/17 13:33; Start 10/27/17 at 12:00 Clonidine HCl (Catapres) 0.1 mg DAILY PO Last administered on 10/27/17 13:33 ; Start 10/27/17 at 12:00 Clopidogrel Bisulfate (Plavix) 75 mg DAILY PO Last administered on 10/27/17 13:34; Start 10/27/17 at 12:00 Diltiazem HCl (Cardizem 24hr Cd) 240 mg DAILY PO ; Start 10/27/17 at 12:00; Stop 10/27/17 at 12:00; Status DC Docusate Sodium (Colace) 100 mg BID PO ; Start 10/27/17 at 21:00 Hydrochlorothiazide (Hydrodiuril) 25 mg DAILY PO Last administered on 13:27; Start 10/27/17 at 12:00 Acetaminophen/ Hydrocodone Bitart (Lortab 7.5/325) 1 tab PRN Q6HRS PRN PO PAIN ; Start 10/27/17 at 11:45 Metoprolol Tartrate (Lopressor) 25 mg BID PO ; Start 10/27/17 at 21:00 Tamsulosin HCl (Flomax) 0.4 mg DAILY PO Last administered on 10/27/17 13:32; Start 10/27/17 at 12:00 Tramadol HCl (Ultram) 50 mg BID PO ; Start 10/27/17 at 21:00 Gabapentin (Neurontin) 600 mg DAILY PO Last administered on 10/27/17 13:31; Start 10/27/17 at 12:00 Diltiazem HCl (Cardizem 24hr Cd) 240 mg DAILY PO Last administered on 13:32; Start 10/27/17 at 12:00 Furosemide (Lasix) 40 mg 1X ONCE IVP Last administered on 10/27/17 13:34; Start 10/27/17 at 13:15; Stop 10/27/17 at 13:19; Status DC Active Scripts Active Colace (Docusate Sodium) 100 Mg Capsule 100 Mg PO BID Lortab 7.5-325 mg Tablet (Hydrocodone/Acetaminophen) 1 Each Tablet 1 Tab PO PRN Q6HRS PRN Reported Metoprolol Tartrate 25 Mg Tablet 25 Mg PO BID Clopidogrel (Clopidogrel Bisulfate) 75 Mg Tablet 75 Mg PO DAILY Clonidine Hcl 0.1 Mg Tablet 0.1 Mg PO DAILY Hydrochlorothiazide Capsule (Hydrochlorothiazide) 12.5 Mg Capsule 25 Mg PO DAILY Glucosamine Hcl 500 Mg Tablet 500 Mg PO DAILY Doxycycline Hyclate 100 Mg Capsule 1 Cap PO BID Tramadol Hcl 50 Mg Tablet 1 Tab PO BID Celebrex (Celecoxib) 200 Mg Capsule 1 Cap PO DAILY Aspir 81 (Aspirin) 81 Mg Tablet.dr 1 Tab PO DAILY Flomax (Tamsulosin Hcl) 0.4 Mg Cap.er.24h 1 Cap PO DAILY LAST DOSE GIVEN: DATE:04-25-16 TIME:9:00 a.m. NEXT DOSE DUE: DATE:04-26-16 TIME:9:00 a.m. Gabapentin 600 Mg Tablet 600 Mg PO DAILY LAST DOSE GIVEN: DATE:04-24-16 TIME:9:00 p.m. NEXT DOSE DUE: DATE:04-25-16 TIME:9:00 p.m. Fish Oil 1,200 Mg Fish Oil (Fish Oil/Dha/Epa) 1 Each Capsule 1 Each PO DAILY LAST DOSE GIVEN: DATE:04-25-16 TIME:9:00 a.m. NEXT DOSE DUE: DATE:04-26-16 TIME:9:00 a.m. Diltiazem 24HR Cd (Diltiazem Hcl) 180 Mg Cap.er.24h 240 Mg PO DAILY LAST DOSE GIVEN: DATE:04-25-16 TIME:9:00 a.m. NEXT DOSE DUE: DATE:04-26-16 TIME:9:0 a.m. Probiotic (Lactobacillus Acidophilus) 1 Each Capsule 1 Each PO DAILY LAST DOSE GIVEN: DATE:04-25-16 TIME:9:00 a.m. NEXT DOSE DUE: DATE:04-26-16 TIME:9:00 a.m. Co Q-10 (Ubidecarenone) 200 Mg Capsule 200 Mg PO DAILY Not taken while in hosp. May resume at home as directed. Daily Vitamin (Multivitamin) 1 Each Tablet 1 Each PO DAILY LAST DOSE GIVEN: DATE:04-25-16 TIME:9:00 a.m. NEXT DOSE DUE: DATE:04-26-16 TIME:9:00 a.m. Citracal + D Er Tablet (Calcium Carb & Cit/Vitamin D3) 1 Each Tablet.er 1 Each PO DAILY LAST DOSE GIVEN: DATE:04-25-16 TIME:9:00 a.m. NEXT DOSE DUE: DATE:04-26-16 TIME:9:00 a.m. Allergies Allergies: Coded Allergies: No Known Drug Allergies (Unverified , 01/28/17) ROS General: No: Chills, Night Sweats, Fatigue, Malaise, Appetite, Other PSYCHOLOGICAL ROS: No: Anxiety, Behavioral Disorder, Concentration difficultie , Decreased libido, Depression, Disorientation, Hallucinations, Hostility, Irritablity, Memory difficulties, Mood Swings, Obsessive thoughts, Physical abuse, Sexual abuse, Sleep disturbances, Suicidal ideation, Other Eyes: No Blurry vision, No Decreased vision, No Double vision, No Dry eyes, No Excessive tearing, No Eye Pain, No Itchy Eyes, No Loss of vision, No Photophobia , No Scotomata, No Uses contacts, No Uses glasses, No Other HEENT: No: Heacaches, Visual Changes, Hearing change, Nasal congestion, Nasal discharge, Oral lesions, Sinus pain, Sore Throat, Epistaxis, Sneezing, Snoring, Tinnitus, Vertigo, Vocal changes, Other ALLERGY AND IMMUNOLOGY: No: Hives, Insect Bite Sensitivity, Itchy/Watery Eyes, Nasal Congestion, Post Nasal Drip, Seasonal Allergies, Other Hematological and Lymphatic: No: Bleeding Problems, Blood Clots, Blood Transfusions, Brusing, Night Sweats, Pallor, Swollen Lymph Nodes, Other ENDOCRINE: No: Breast Changes, Galactorrhea, Hair Pattern Changes, Hot Flashes , Malaise/lethargy, Mood Swings, Palpitations, Polydipsia/polyuria, Skin Changes , Temperature Intolerance, Unexpected Weight Changes, Other Breast: No New/Changing Breast Lumps, No Nipple changes, No Nipple discharge, No Other Respiratory: YES: Shortness of breath, SOB with excertion Cardiovascular: No Chest Pain, No Palpitations, No Orthopnea, No Paroxysmal Noc. Dyspnea, No Edema, No Lt Headedness, No Other Gastrointestinal: No Nausea, No Vomiting, No Abdominal Pain, No Diarrhea, No Constipation, No Melena, No Hematochezia, No Other Genitourinary: No Dysuria, No Frequency, No Incontinence, No Hematuria, No Retention, No Discharge, No Urgency, No Pain, No Flank Pain, No Other, No , No , No , No , No , No , No Musculoskeletal: Yes Swelling In: (bilateral lower extremity) Neurological: No Behavorial Changes, No Bowel/Bladder ControlChng, No Confusion , No Dizziness, No Gait Disturbance, No Headaches, No Impaired Coord/balance, No Memory Loss, No Numbness/Tingling, No Seizures, No Speech Problems, No Tremors, No Visual Changes, No Weakness, No Other Skin: No Dry Skin, No Eczema, No Hair Changes, No Lumps, No Mole Changes, No Mottling, No Nail Changes, No Pruritus, No Rash, No Skin Lesion Changes, No Other, No Acne Physical Exam General: Alert, Oriented X3, Cooperative HEENT: Atraumatic Lungs: Clear to auscultation, Normal air movement, Other (bibasilar rales. No wheezing at this time) Heart: Regular rate, No murmurs Abdomen: Soft Extremities: No clubbing, No cyanosis, Other (1-2+ edema) Skin: No rashes Vitals VITALS Vital Signs Date Time Temp Pulse Resp B/P (MAP) Pulse Ox O2 Delivery O2 Flow Rate FiO2 10/27/17 13:33 58 119/75 10/27/17 10:40 98.0 18 98 Room Air 98.0 Labs Labs Laboratory Tests Test 10/26/17 21:30 10/26/17 23:15 White Blood Count 6.6 x10^3/uL (4.0-11.0) Red Blood Count 3.67 x10^6/uL (4.30-5.70) Hemoglobin 12.6 g/dL (13.0-17.5) Hematocrit 37.2 % (39.0-53.0) Mean Corpuscular Volume 101 fL (79-100) Mean Corpuscular Hemoglobin 34 pg (25-35) Mean Corpuscular Hemoglobin Concent 34 g/dL (31-37) Red Cell Distribution Width 14.6 % (11.5-14.5) Platelet Count 246 x10^3/uL (140-400) Neutrophils (%) (Auto) 59 % (31-73) Lymphocytes (%) (Auto) 28 % (24-48) Monocytes (%) (Auto) 8 % (0-9) Eosinophils (%) (Auto) 4 % (0-3) Basophils (%) (Auto) 0 % (0-3) Neutrophils # (Auto) 3.9 x10^3uL (1.8-7.7) Lymphocytes # (Auto) 1.9 x10^3/uL (1.0-4.8) Monocytes # (Auto) 0.6 x10^3/uL (0.0-1.1) Eosinophils # (Auto) 0.3 x10^3/uL (0.0-0.7) Basophils # (Auto) 0.0 x10^3/uL (0.0-0.2) Sodium Level 146 mmol/L (136-145) Potassium Level 4.5 mmol/L (3.5-5.1) Chloride Level 107 mmol/L (98-107) Carbon Dioxide Level 27 mmol/L (21-32) Anion Gap 12 (6-14) Blood Urea Nitrogen 36 mg/dL (8-26) Creatinine 1.5 mg/dL (0.7-1.3) Estimated GFR (Cockcroft-Gault) 45.0 BUN/Creatinine Ratio 24 (6-20) Glucose Level 160 mg/dL (70-99) Calcium Level 8.3 mg/dL (8.5-10.1) Total Bilirubin 0.3 mg/dL (0.2-1.0) Aspartate Amino Transf (AST/SGOT) 36 U/L (15-37) Alanine Aminotransferase (ALT/SGPT) 39 U/L (16-63) Alkaline Phosphatase 61 U/L (46-116) Creatine Kinase 288 U/L (39-308) Creatine Kinase MB (Mass) 9.0 ng/mL (0.0-3.6) Creatine Kinase MB Relative Index 3.1 % (0-4) Troponin I Quantitative < 0.017 ng/mL (0.000-0.055) AC-Lsr-I-Type Natriuretic Peptide 691 pg/mL (0-449) Total Protein 6.1 g/dL (6.4-8.2) Albumin 3.2 g/dL (3.4-5.0) Albumin/Globulin Ratio 1.1 (1.0-1.7) Urine Collection Type Unknown Urine Color Yellow Urine Clarity Clear Urine pH 5.5 Urine Specific Connell 1.010 Urine Protein Negative mg/dL (NEG-TRACE) Urine Glucose (UA) Negative mg/dL (NEG) Urine Ketones (Stick) Negative mg/dL (NEG) Urine Blood Negative (NEG) Urine Nitrite Negative (NEG) Urine Bilirubin Negative (NEG) Urine Urobilinogen Dipstick 0.2 mg/dL (0.2 mg/dL) Urine Leukocyte Esterase Negative (NEG) Urine RBC 0 /HPF (0-2) Urine WBC 0 /HPF (0-4) Urine Squamous Epithelial Cells Occ /LPF Urine Bacteria 0 /HPF (0-FEW) Urine Hyaline Casts Occasional /HPF Urine Mucus Slight /LPF Laboratory Tests Test 10/26/17 21:30 10/26/17 23:15 White Blood Count 6.6 x10^3/uL (4.0-11.0) Red Blood Count 3.67 x10^6/uL (4.30-5.70) Hemoglobin 12.6 g/dL (13.0-17.5) Hematocrit 37.2 % (39.0-53.0) Mean Corpuscular Volume 101 fL (79-100) Mean Corpuscular Hemoglobin 34 pg (25-35) Mean Corpuscular Hemoglobin Concent 34 g/dL (31-37) Red Cell Distribution Width 14.6 % (11.5-14.5) Platelet Count 246 x10^3/uL (140-400) Neutrophils (%) (Auto) 59 % (31-73) Lymphocytes (%) (Auto) 28 % (24-48) Monocytes (%) (Auto) 8 % (0-9) Eosinophils (%) (Auto) 4 % (0-3) Basophils (%) (Auto) 0 % (0-3) Neutrophils # (Auto) 3.9 x10^3uL (1.8-7.7) Lymphocytes # (Auto) 1.9 x10^3/uL (1.0-4.8) Monocytes # (Auto) 0.6 x10^3/uL (0.0-1.1) Eosinophils # (Auto) 0.3 x10^3/uL (0.0-0.7) Basophils # (Auto) 0.0 x10^3/uL (0.0-0.2) Sodium Level 146 mmol/L (136-145) Potassium Level 4.5 mmol/L (3.5-5.1) Chloride Level 107 mmol/L (98-107) Carbon Dioxide Level 27 mmol/L (21-32) Anion Gap 12 (6-14) Blood Urea Nitrogen 36 mg/dL (8-26) Creatinine 1.5 mg/dL (0.7-1.3) Estimated GFR (Cockcroft-Gault) 45.0 BUN/Creatinine Ratio 24 (6-20) Glucose Level 160 mg/dL (70-99) Calcium Level 8.3 mg/dL (8.5-10.1) Total Bilirubin 0.3 mg/dL (0.2-1.0) Aspartate Amino Transf (AST/SGOT) 36 U/L (15-37) Alanine Aminotransferase (ALT/SGPT) 39 U/L (16-63) Alkaline Phosphatase 61 U/L (46-116) Creatine Kinase 288 U/L (39-308) Creatine Kinase MB (Mass) 9.0 ng/mL (0.0-3.6) Creatine Kinase MB Relative Index 3.1 % (0-4) Troponin I Quantitative < 0.017 ng/mL (0.000-0.055) BZ-Rur-C-Type Natriuretic Peptide 691 pg/mL (0-449) Total Protein 6.1 g/dL (6.4-8.2) Albumin 3.2 g/dL (3.4-5.0) Albumin/Globulin Ratio 1.1 (1.0-1.7) Urine Collection Type Unknown Urine Color Yellow Urine Clarity Clear Urine pH 5.5 Urine Specific Connell 1.010 Urine Protein Negative mg/dL (NEG-TRACE) Urine Glucose (UA) Negative mg/dL (NEG) Urine Ketones (Stick) Negative mg/dL (NEG) Urine Blood Negative (NEG) Urine Nitrite Negative (NEG) Urine Bilirubin Negative (NEG) Urine Urobilinogen Dipstick 0.2 mg/dL (0.2 mg/dL) Urine Leukocyte Esterase Negative (NEG) Urine RBC 0 /HPF (0-2) Urine WBC 0 /HPF (0-4) Urine Squamous Epithelial Cells Occ /LPF Urine Bacteria 0 /HPF (0-FEW) Urine Hyaline Casts Occasional /HPF Urine Mucus Slight /LPF Assessment/Plan Assessment/Plan Acute CHF exacerbation And has improved since he was seen in the ER and given IV Lasix. I would like to continue with the IV Lasix We will get an echocardiogram to evaluate the present left ventricular function. Thank you very much for asking me to participate in the care of this patient CLAUS VUONG MD Oct 27, 2017 14:55
[2017-10-27 15:25] VITALS: BP 104/55
--- NOTE | 2017-10-27 17:16 | HP ---
ADMIT DATE: 10/27/2017 CHIEF COMPLAINT: Shortness of breath, leg swelling. HISTORY OF PRESENT ILLNESS: The patient is an 81-year-old gentleman with past medical history of hypertension, CAD, who presented to the Emergency Room with shortness of breath. He relates that his symptoms started on Thursday when he noted that his feet seem to be more swollen as he was trying to put on boots for shoveling snow. He became more dyspneic over the weekend and and decided to come into the hospital for further evaluation. He relates that he had been in cardiac rehabilitation program here at [facility] over the past few months, dry weight is 163, last weight at home, however, had been 173. He specifically denies any history of CHF in the past. He did have a 4-vessel bypass in 2008, but never had leg swelling or shortness of breath like this. He does complain of shortness of breath at baseline, which he attributes to a hiatal hernia, which is currently under workup for surgery. He denies any chest pain over the past few days. Denies any dizziness, arm pain, nausea, vomiting. In the Emergency Room, he was found with signs of fluid overload and was aggressively diuresed with IV Lasix with much improvement in his symptoms. PAST MEDICAL HISTORY: CAD status post CABG x 4 in 2008, hypertension, hypercholesterolemia, GERD, hiatal hernia, anxiety, bilateral inguinal hernia repair, bilateral rotator cuff repair. FAMILY HISTORY: Positive for CAD in his father. Only sister had ovarian cancer. SOCIAL HISTORY: Never smoked, no toxic habits. ALLERGIES: No known drug allergies. MEDICATIONS: MAR reconciled with home medications. REVIEW OF SYSTEMS: His shortness of breath has now completely resolved. The swelling in his lower extremities is likewise much improved. He denies any ongoing symptoms save for his chronic baseline shortness of breath which is minimal at rest. PHYSICAL EXAMINATION: VITAL SIGNS: From today show a blood pressure of 104/55, heart rate of 56, respiratory rate at 18. He is afebrile. GENERAL: This is an 81-year-old gentleman, well-nourished, alert and oriented, in no acute distress. HEENT: Shows no scleral icterus. NECK: Supple. LUNGS: Clear to auscultation bilaterally without any rales or wheezing. ABDOMEN: Has positive bowel sounds, soft, nontender. EXTREMITIES: Show trace edema. SKIN: Warm, soft and dry without any rash. NEUROLOGIC: He appears grossly intact. LABORATORY DATA: CBC with a WBC of 6.6, hemoglobin 12.6, MCV of 101, platelets of 246. Chemistries with a BUN and creatinine of 36 and 1.5. Sodium at 146, electrolytes otherwise okay. Albumin at 3.2. Initial troponin negative. IMAGING: Chest x-ray with a moderate sized hiatal hernia, left basilar scarring, no acute abnormality detected. ASSESSMENT AND PLAN: The patient is an 81-year-old gentleman with a heart history of coronary artery disease and coronary artery bypass graft 9 years ago. Apparently, this is his first episode of suspected congestive heart failure. He did respond well to Lasix. We will await echocardiogram. Dr. Ocasio, has been consulted already, he knows the patient well, has seen him about 3 or 4 weeks ago. We will continue all his home medications otherwise. Hopefully, with stability, he will be able to go home in the a.m. MILENA FLORENTINO MD DR: TIFFANIE/nts JOB#: [id number] / [id number]
[2017-10-27 19:15] VITALS: BP 114/55
[2017-10-27] MEDS: METOPROLOL TART IMMED RELEASE 25 MG TABLET. PO SCH (20:07)
[2017-10-27] MEDS: traMADol 50 MG TABLET PO SCH (20:08)
[2017-10-27] MEDS: DOCUSATE SODIUM 100 MG CAPSULE. PO SCH (20:08)
[2017-10-27 23:15] VITALS: BP 112/58
[2017-10-28 03:10] VITALS: BP 106/53
[2017-10-28 07:31] VITALS: BP 98/50
[2017-10-28] MEDS: CLOPIDOGREL BISULFATE 75 MG TABLET PO SCH (08:35)
[2017-10-28] MEDS: ASPIRIN ENTERIC COATED 81 MG TABLET.DR. PO SCH (08:35)
[2017-10-28] MEDS: traMADol 50 MG TABLET PO SCH ×2 (08:35→21:12)
[2017-10-28] MEDS: TAMSULOSIN 0.4 MG CAP.ER.24H. PO SCH (08:35)
[2017-10-28] MEDS: CELECOXIB 200 MG CAPSULE. PO SCH (08:35)
[2017-10-28] MEDS: GABAPENTIN 300 MG CAPSULE. PO SCH (09:00)
[2017-10-28] MEDS: DOCUSATE SODIUM 100 MG CAPSULE. PO SCH ×2 (09:00→21:12)
[2017-10-28] MEDS: hydroCHLOROthiazide 25 MG TABLET PO SCH (09:00)
[2017-10-28] MEDS: METOPROLOL TART IMMED RELEASE 25 MG TABLET. PO SCH (09:00)
[2017-10-28] MEDS: cloNIDine HCL 0.1 MG TABLET PO SCH (09:00)
[2017-10-28 10:55] VITALS: BP 98/54
[2017-10-28] MEDS ORDERED: METOPROLOL SUCC 24HR ER 25 MG TAB.ER.24H. PO SCH ×2 (12:00→21:00)
--- NOTE | 2017-10-28 12:47 | PDOC ---
PROGRESS NOTES Subjective Subjective Mr. Murdock feels much better today. His breathing is significantly improved. Objective Objective Vital Signs Date Time Temp Pulse Resp B/P (MAP) Pulse Ox O2 Delivery O2 Flow Rate FiO2 10/28/17 10:55 97.9 50 18 98/54 (69) 96 Room Air 97.9 Intake and Output 10/28/17 07:00 Intake Total 1410 ml Output Total 1650 ml Balance -240 ml Intake Oral 1410 ml Output Urine Total 1650 ml Physical Exam Abdomen: Soft Heart: Regular rate, No murmurs Extremities: No clubbing, No cyanosis General: Alert, Oriented X3, Cooperative HEENT: Atraumatic Lungs: Clear to auscultation, Normal air movement Diagnosis HEART FAILURE: CHF Assessment Assessment Problems Medical Problems: (1) Acute on chronic congestive heart failure Status: Acute (2) Acute renal insufficiency Status: Acute (3) Mild protein malnutrition Status: Acute Plan Plan of Care Will get Echo today to assess current LV function Continue diuresis Start Metoprolol succinate 25mg QD Comment Review of Relevant I have reviewed the following items nimisha (where applicable) has been applied. Labs Laboratory Tests Test 10/26/17 21:30 10/26/17 23:15 White Blood Count 6.6 x10^3/uL (4.0-11.0) Red Blood Count 3.67 x10^6/uL (4.30-5.70) Hemoglobin 12.6 g/dL (13.0-17.5) Hematocrit 37.2 % (39.0-53.0) Mean Corpuscular Volume 101 fL (79-100) Mean Corpuscular Hemoglobin 34 pg (25-35) Mean Corpuscular Hemoglobin Concent 34 g/dL (31-37) Red Cell Distribution Width 14.6 % (11.5-14.5) Platelet Count 246 x10^3/uL (140-400) Neutrophils (%) (Auto) 59 % (31-73) Lymphocytes (%) (Auto) 28 % (24-48) Monocytes (%) (Auto) 8 % (0-9) Eosinophils (%) (Auto) 4 % (0-3) Basophils (%) (Auto) 0 % (0-3) Neutrophils # (Auto) 3.9 x10^3uL (1.8-7.7) Lymphocytes # (Auto) 1.9 x10^3/uL (1.0-4.8) Monocytes # (Auto) 0.6 x10^3/uL (0.0-1.1) Eosinophils # (Auto) 0.3 x10^3/uL (0.0-0.7) Basophils # (Auto) 0.0 x10^3/uL (0.0-0.2) Sodium Level 146 mmol/L (136-145) Potassium Level 4.5 mmol/L (3.5-5.1) Chloride Level 107 mmol/L (98-107) Carbon Dioxide Level 27 mmol/L (21-32) Anion Gap 12 (6-14) Blood Urea Nitrogen 36 mg/dL (8-26) Creatinine 1.5 mg/dL (0.7-1.3) Estimated GFR (Cockcroft-Gault) 45.0 BUN/Creatinine Ratio 24 (6-20) Glucose Level 160 mg/dL (70-99) Calcium Level 8.3 mg/dL (8.5-10.1) Total Bilirubin 0.3 mg/dL (0.2-1.0) Aspartate Amino Transf (AST/SGOT) 36 U/L (15-37) Alanine Aminotransferase (ALT/SGPT) 39 U/L (16-63) Alkaline Phosphatase 61 U/L (46-116) Creatine Kinase 288 U/L (39-308) Creatine Kinase MB (Mass) 9.0 ng/mL (0.0-3.6) Creatine Kinase MB Relative Index 3.1 % (0-4) Troponin I Quantitative < 0.017 ng/mL (0.000-0.055) GX-Vvh-L-Type Natriuretic Peptide 691 pg/mL (0-449) Total Protein 6.1 g/dL (6.4-8.2) Albumin 3.2 g/dL (3.4-5.0) Albumin/Globulin Ratio 1.1 (1.0-1.7) Urine Collection Type Unknown Urine Color Yellow Urine Clarity Clear Urine pH 5.5 Urine Specific [place] 1.010 Urine Protein Negative mg/dL (NEG-TRACE) Urine Glucose (UA) Negative mg/dL (NEG) Urine Ketones (Stick) Negative mg/dL (NEG) Urine Blood Negative (NEG) Urine Nitrite Negative (NEG) Urine Bilirubin Negative (NEG) Urine Urobilinogen Dipstick 0.2 mg/dL (0.2 mg/dL) Urine Leukocyte Esterase Negative (NEG) Urine RBC 0 /HPF (0-2) Urine WBC 0 /HPF (0-4) Urine Squamous Epithelial Cells Occ /LPF Urine Bacteria 0 /HPF (0-FEW) Urine Hyaline Casts Occasional /HPF Urine Mucus Slight /LPF Medications Current Medications Furosemide (Lasix) 60 mg 1X ONCE IVP Last administered on 10/26/17 22:16; Start 10/26/17 at 22:15; Stop 10/26/17 at 22:16; Status DC Aspirin (Ecotrin) 81 mg DAILY PO Last administered on 10/28/17 08:35; Start 10/27/17 at 12:00 Celecoxib (CeleBREX) 200 mg DAILY PO Last administered on 10/28/17 08:35; Start 10/27/17 at 12:00 Clonidine HCl (Catapres) 0.1 mg DAILY PO Last administered on 10/27/17 13:33 ; Start 10/27/17 at 12:00 Clopidogrel Bisulfate (Plavix) 75 mg DAILY PO Last administered on 10/28/17 08:35; Start 10/27/17 at 12:00 Diltiazem HCl (Cardizem 24hr Cd) 240 mg DAILY PO ; Start 10/27/17 at 12:00; Stop 10/27/17 at 12:00; Status DC Docusate Sodium (Colace) 100 mg BID PO ; Start 10/27/17 at 21:00 Hydrochlorothiazide (Hydrodiuril) 25 mg DAILY PO Last administered on 13:27; Start 10/27/17 at 12:00 Acetaminophen/ Hydrocodone Bitart (Lortab 7.5/325) 1 tab PRN Q6HRS PRN PO PAIN ; Start 10/27/17 at 11:45 Metoprolol Tartrate (Lopressor) 25 mg BID PO Last administered on 10/27/17 20 :07; Start 10/27/17 at 21:00; Stop 10/28/17 at 11:07; Status DC Tamsulosin HCl (Flomax) 0.4 mg DAILY PO Last administered on 10/28/17 08:35; Start 10/27/17 at 12:00 Tramadol HCl (Ultram) 50 mg BID PO Last administered on 10/28/17 08:35; Start 10/27/17 at 21:00 Gabapentin (Neurontin) 600 mg DAILY PO Last administered on 10/27/17 13:31; Start 10/27/17 at 12:00 Diltiazem HCl (Cardizem 24hr Cd) 240 mg DAILY PO Last administered on 08:37; Start 10/27/17 at 12:00 Furosemide (Lasix) 40 mg 1X ONCE IVP Last administered on 10/27/17 13:34; Start 10/27/17 at 13:15; Stop 10/27/17 at 13:19; Status DC Metoprolol Succinate (Toprol Xl) 25 mg DAILY PO ; Start 10/28/17 at 12:00 Active Scripts Active Colace (Docusate Sodium) 100 Mg Capsule 100 Mg PO BID Lortab 7.5-325 mg Tablet (Hydrocodone/Acetaminophen) 1 Each Tablet 1 Tab PO PRN Q6HRS PRN Reported Metoprolol Tartrate 25 Mg Tablet 25 Mg PO BID Clopidogrel (Clopidogrel Bisulfate) 75 Mg Tablet 75 Mg PO DAILY Clonidine Hcl 0.1 Mg Tablet 0.1 Mg PO DAILY Hydrochlorothiazide Capsule (Hydrochlorothiazide) 12.5 Mg Capsule 25 Mg PO DAILY Glucosamine Hcl 500 Mg Tablet 500 Mg PO DAILY Doxycycline Hyclate 100 Mg Capsule 1 Cap PO BID Tramadol Hcl 50 Mg Tablet 1 Tab PO BID Celebrex (Celecoxib) 200 Mg Capsule 1 Cap PO DAILY Aspir 81 (Aspirin) 81 Mg Tablet.dr 1 Tab PO DAILY Flomax (Tamsulosin Hcl) 0.4 Mg Cap.er.24h 1 Cap PO DAILY LAST DOSE GIVEN: DATE:04-25-16 TIME:9:00 a.m. NEXT DOSE DUE: DATE:04-26-16 TIME:9:00 a.m. Gabapentin 600 Mg Tablet 600 Mg PO DAILY LAST DOSE GIVEN: DATE:04-24-16 TIME:9:00 p.m. NEXT DOSE DUE: DATE:04-25-16 TIME:9:00 p.m. Fish Oil 1,200 Mg Fish Oil (Fish Oil/Dha/Epa) 1 Each Capsule 1 Each PO DAILY LAST DOSE GIVEN: DATE:04-25-16 TIME:9:00 a.m. NEXT DOSE DUE: DATE:04-26-16 TIME:9:00 a.m. Diltiazem 24HR Cd (Diltiazem Hcl) 180 Mg Cap.er.24h 240 Mg PO DAILY LAST DOSE GIVEN: DATE:04-25-16 TIME:9:00 a.m. NEXT DOSE DUE: DATE:04-26-16 TIME:9:0 a.m. Probiotic (Lactobacillus Acidophilus) 1 Each Capsule 1 Each PO DAILY LAST DOSE GIVEN: DATE:04-25-16 TIME:9:00 a.m. NEXT DOSE DUE: DATE:04-26-16 TIME:9:00 a.m. Co Q-10 (Ubidecarenone) 200 Mg Capsule 200 Mg PO DAILY Not taken while in hosp. May resume at home as directed. Daily Vitamin (Multivitamin) 1 Each Tablet 1 Each PO DAILY LAST DOSE GIVEN: DATE:04-25-16 TIME:9:00 a.m. NEXT DOSE DUE: DATE:04-26-16 TIME:9:00 a.m. Citracal + D Er Tablet (Calcium Carb & Cit/Vitamin D3) 1 Each Tablet.er 1 Each PO DAILY LAST DOSE GIVEN: DATE:04-25-16 TIME:9:00 a.m. NEXT DOSE DUE: DATE:04-26-16 TIME:9:00 a.m. Vitals/I & O Vital Sign - Last 24 Hours 10/27/17 10/27/17 10/27/17 10/27/17 13:32 13:33 15:25 19:15 Temp 98.4 98.2 98.4 98.2 Pulse 58 58 56 51 Resp 18 19 B/P (MAP) 119/75 119/75 104/55 (71) 114/55 (74) Pulse Ox 100 99 O2 Delivery Room Air Room Air 10/27/17 10/27/17 10/27/17 10/27/17 20:00 20:07 20:08 21:08 Pulse 51 Resp 20 20 B/P (MAP) 114/55 Pulse Ox 99 O2 Delivery Room Air Room Air 10/27/17 10/28/17 10/28/17 10/28/17 23:15 03:10 07:31 07:37 Temp 98.1 98.1 97.7 98.1 98.1 97.7 Pulse 57 62 45 Resp 18 19 20 B/P (MAP) 112/58 (76) 106/53 (70) 98/50 (66) Pulse Ox 98 98 95 O2 Delivery Room Air Room Air Room Air Room Air 10/28/17 10/28/17 10/28/17 10/28/17 08:35 08:37 09:00 09:00 Pulse 56 50 56 B/P (MAP) 104/60 98/54 104/60 Pulse Ox 95 O2 Delivery Room Air 10/28/17 10/28/17 09:35 10:55 Temp 97.9 97.9 Pulse 50 Resp 18 B/P (MAP) 98/54 (69) Pulse Ox 95 96 O2 Delivery Room Air Room Air Intake and Output 10/27/17 10/27/17 10/28/17 15:00 23:00 07:00 Intake Total 720 ml 490 ml 200 ml Output Total 800 ml 850 ml Balance 720 ml -310 ml -650 ml CLAUS VUONG MD Oct 28, 2017 12:47
[2017-10-28 14:20] VITALS: BP 108/50
--- NOTE | 2017-10-28 16:23 | PDOC ---
PROGRESS NOTES Chief Complaint Chief Complaint Acute hypoxic respir failure ASSESSMENT AND PLAN: 1. CHF: new; suspected diastolic. echo pending. much improved with lasix diuresis 2. CAD: hx CABG 2007; trop neg. cont home meds; BB added by Dr Ocasio; BP, HR borderline low; close monitoring 3. Anemia: macrocytic, mild. check B12/folate 4. Dispo: home when cleared by cardiology 30 min spent in discussing cardiac issues and new meds. History of Present Illness History of Present Illness breathing at baseline, ankle swelling almost resolved. no CP Vitals Vitals Vital Signs Date Time Temp Pulse Resp B/P (MAP) Pulse Ox O2 Delivery O2 Flow Rate FiO2 10/28/17 14:20 98.0 61 20 108/50 (69) 95 Room Air 98.0 Physical Exam General: Alert, Oriented X3, Cooperative, No acute distress Heart: Regular rate, No murmurs Lungs: Clear Abdomen: Normal bowel sounds, Soft, No tenderness Extremities: No clubbing, No cyanosis, Other (trace ankle edema) Skin: No rashes MILENA FLORENTINO MD Oct 28, 2017 16:23
[2017-10-28 19:36] VITALS: BP 124/64
--- NOTE | 2017-10-28 20:29 | CARD ---
MR#: [id number] Date of Study: 10/28/2017 Ordering Physician: REYNOLD OCASIO, Referring Physician: SHADY RIBERA, Tech: Destiny Almeida APPROVED REPORT EXAM: Two-dimensional and M-mode echocardiogram with Doppler and color Doppler. Other Information Quality : Average INDICATION Dyspnea Peripheral Edema Fatigue Murmur Congestive Heart Failure 2D DIMENSIONS RVDd1.6 (2.9-3.5cm)Left Atrium(2D)3.0 (1.6-4.0cm) IVSd0.9 (0.7-1.1cm)Aortic Root(2D)3.0 (2.0-3.7cm) LVDd4.9 (3.9-5.9cm)LVOT Diameter1.9 (1.8-2.4cm) PWd0.8 (0.7-1.1cm)LVDs2.7 (2.5-4.0cm) FS (%) 33.0 %SV83.2 ml LVEF(%)50.0 (>50%) Aortic Valve AoV Peak Karthik.122.2cm/[place] Peak GR.6.0mmHg LVOT Peak Karthik.80.2cm/sAVA (VMAX)1.83cm2 Mitral Valve MV E Jugzdroj81.4cm/sMV DECEL [id number] MV A Itokqmhi657.4cm/sMV [id number] E/A Ratio0.8MVA (PHT)4.24cm2 TDI E/Lateral E'8.8E/Medial E'12.6 Tricuspid Valve TR P. [id number]/sRAP [id number] TR Peak Gr.[id number] LEFT VENTRICLE The left ventricle is dilated There is normal left ventricular wall thickness. The left ventricular s ystolic function is low normal. The Ejection Fraction is 50%. Hypokinesis of the mid-distal anterosep celestine wall Transmitral Doppler flow pattern is Grade II-pseudonormal filling dynamics. RIGHT VENTRICLE The right ventricle is dilated There is normal right ventricular wall thickness. The right ventricula r systolic function is decreased ATRIA The left atrium size is dilated The right atrium size is dilated The interatrial septum is intact wit h no evidence for an atrial septal defect or patent foramen ovale as noted on 2-D or Doppler imaging. AORTIC VALVE The aortic valve is moderately thickened but opens well. The aortic valve is tri-cuspid. Doppler and Color Flow revealed trace aortic regurgitation. There is no significant aortic valvular stenosis. MITRAL VALVE The mitral valve is moderately thickened. There is no evidence of mitral valve prolapse. There is no mitral valve stenosis. Doppler and Color-flow revealed mild to moderate mitral regurgitation. TRICUSPID VALVE The tricuspid valve is normal in structure Doppler and Color Flow revealed mild to moderate tricuspid regurgitation. There is pulmonary hypertension with a PA pressure was estimated at 51 mmHg PULMONIC VALVE The pulmonary valve is normal in structure Doppler and Color Flow revealed mild to moderate pulmonic valvular regurgitation. GREAT VESSELS The aortic root is normal in size. The ascending aorta is normal in size. The IVC is normal in size a nd collapses >50% with inspiration. PERICARDIAL EFFUSION There is no pleural effusion. There is no evidence of significant pericardial effusion. Critical Notification Critical Value: No <Conclusion> The left ventricle is dilated The left ventricular systolic function is low normal. The Ejection Fraction is 50%. Hypokinesis of the mid-distal anteroseptal wall Transmitral Doppler flow pattern is Grade II-pseudonormal filling dynamics. The right ventricle is dilated The right ventricular systolic function is decreased The left atrium size is dilated The right atrium size is dilated The aortic valve is moderately thickened but opens well. The aortic valve is tri-cuspid. Doppler and Color Flow revealed trace aortic regurgitation. Doppler and Color-flow revealed mild to moderate mitral regurgitation. The mitral valve is moderately thickened. Doppler and Color Flow revealed mild to moderate tricuspid regurgitation. There is pulmonary hyperte nsion with a PA pressure estimated at 51 mmHg Doppler and Color Flow revealed mild to moderate pulmonic valvular regurgitation. There is no evidence of significant pericardial effusion. Signed by : Reynold Ocasio MD Electronically Approved : 10/28/2017 20:29:15
[2017-10-28] MEDS ORDERED: GABAPENTIN 300 MG CAPSULE. PO SCH (21:00)
[2017-10-28 23:12] VITALS: BP 108/48
[2017-10-29 03:00] VITALS: BP 118/66
[2017-10-29 07:00] VITALS: BP 118/71
[2017-10-29 07:37] LABS: BASO % 1 % (0-3); EOS % 4 % (0-3); HEMATOCRIT 39.7 % (39.0-53.0); HEMOGLOBIN 13.1 g/dL (13.0-17.5); LYMPH # 1.9 x10^3/uL (1.0-4.8); LYMPH % 31 % (24-48); MEAN CORPUSCULAR HEMOGLOBIN 33 pg (25-35); MEAN CORPUSCULAR HGB CONC 33 g/dL (31-37); MEAN CORPUSCULAR VOLUME 101 fL (79-100); MONO % 10 % (0-9); NEUT % 55 % (31-73); PLATELET COUNT 235 x10^3/uL (140-400); RED BLOOD COUNT 3.93 x10^6/uL (4.30-5.70); RED CELL DISTRIBUTION WIDTH 14.4 % (11.5-14.5); WHITE BLOOD COUNT 6.2 x10^3/uL (4.0-11.0)
[2017-10-29 08:20] LABS: ALBUMIN 3.1 g/dL (3.4-5.0); ALBUMIN/GLOBULIN RATIO 1.1 (1.0-1.7); CALCIUM 8.3 mg/dL (8.5-10.1); CREATININE 1.2 mg/dL (0.7-1.3); GFR 58.3; POTASSIUM 4.2 mmol/L (3.5-5.1); TOTAL BILIRUBIN 0.4 mg/dL (0.2-1.0)
[2017-10-29] MEDS: traMADol 50 MG TABLET PO SCH (08:25)
[2017-10-29] MEDS: CLOPIDOGREL BISULFATE 75 MG TABLET PO SCH (08:25)
[2017-10-29] MEDS: ASPIRIN ENTERIC COATED 81 MG TABLET.DR. PO SCH (08:25)
[2017-10-29] MEDS: TAMSULOSIN 0.4 MG CAP.ER.24H. PO SCH (08:26)
[2017-10-29] MEDS: CELECOXIB 200 MG CAPSULE. PO SCH (08:26)
[2017-10-29] MEDS: DOCUSATE SODIUM 100 MG CAPSULE. PO SCH (08:28)
[2017-10-29] MEDS: hydroCHLOROthiazide 25 MG TABLET PO SCH (08:28)
[2017-10-29 09:16] LABS: FOLATE 23.02 ng/ml (3.2-20.0)
[2017-10-29 10:58] VITALS: BP 126/68
[2017-10-29 11:03] VITALS: BP 126/67
[2017-10-29] MEDS: cloNIDine HCL 0.1 MG TABLET PO SCH (11:03)
--- NOTE | 2017-10-29 14:53 | PDOC ---
PROGRESS NOTES Subjective Subjective Mr. Murdock states he feels much better today. He would like to go home. Stable cardiac salazar. No chest pain. SOB significantly improved. Objective Objective Vital Signs Date Time Temp Pulse Resp B/P (MAP) Pulse Ox O2 Delivery O2 Flow Rate FiO2 10/29/17 11:03 68 126/67 10/29/17 10:58 97.8 18 95 Room Air 97.8 Intake and Output 10/29/17 07:00 Intake Total 600 ml Output Total 625 ml Balance -25 ml Intake Oral 600 ml Output Urine Total 625 ml Physical Exam Abdomen: Soft Heart: Regular rate, No murmurs Extremities: No clubbing, No cyanosis General: Alert, Oriented X3, Cooperative HEENT: Atraumatic Lungs: Normal air movement Diagnosis HEART FAILURE: CHF Assessment Assessment Problems Medical Problems: (1) Acute on chronic congestive heart failure Status: Acute (2) Acute renal insufficiency Status: Acute (3) Mild protein malnutrition Status: Acute Stable cardiac salazar. Discharge ok from cardiac standpoint. Plan Plan of Care Will need follow up in 3 weeks. Please start on Lasix 40mg PO daily And Potassium Cl 10 mEq PO daily Recommend low sodium diet and fluid restriction of 2000cc daily Comment Review of Relevant I have reviewed the following items nimisha (where applicable) has been applied. Labs Laboratory Tests Test 10/29/17 07:28 White Blood Count 6.2 x10^3/uL (4.0-11.0) Red Blood Count 3.93 x10^6/uL (4.30-5.70) Hemoglobin 13.1 g/dL (13.0-17.5) Hematocrit 39.7 % (39.0-53.0) Mean Corpuscular Volume 101 fL (79-100) Mean Corpuscular Hemoglobin 33 pg (25-35) Mean Corpuscular Hemoglobin Concent 33 g/dL (31-37) Red Cell Distribution Width 14.4 % (11.5-14.5) Platelet Count 235 x10^3/uL (140-400) Neutrophils (%) (Auto) 55 % (31-73) Lymphocytes (%) (Auto) 31 % (24-48) Monocytes (%) (Auto) 10 % (0-9) Eosinophils (%) (Auto) 4 % (0-3) Basophils (%) (Auto) 1 % (0-3) Neutrophils # (Auto) 3.4 x10^3uL (1.8-7.7) Lymphocytes # (Auto) 1.9 x10^3/uL (1.0-4.8) Monocytes # (Auto) 0.6 x10^3/uL (0.0-1.1) Eosinophils # (Auto) 0.2 x10^3/uL (0.0-0.7) Basophils # (Auto) 0.0 x10^3/uL (0.0-0.2) Sodium Level 142 mmol/L (136-145) Potassium Level 4.2 mmol/L (3.5-5.1) Chloride Level 104 mmol/L (98-107) Carbon Dioxide Level 31 mmol/L (21-32) Anion Gap 7 (6-14) Blood Urea Nitrogen 31 mg/dL (8-26) Creatinine 1.2 mg/dL (0.7-1.3) Estimated GFR (Cockcroft-Gault) 58.3 BUN/Creatinine Ratio 26 (6-20) Glucose Level 101 mg/dL (70-99) Calcium Level 8.3 mg/dL (8.5-10.1) Total Bilirubin 0.4 mg/dL (0.2-1.0) Aspartate Amino Transf (AST/SGOT) 25 U/L (15-37) Alanine Aminotransferase (ALT/SGPT) 29 U/L (16-63) Alkaline Phosphatase 59 U/L (46-116) Total Protein 6.0 g/dL (6.4-8.2) Albumin 3.1 g/dL (3.4-5.0) Albumin/Globulin Ratio 1.1 (1.0-1.7) Vitamin B12 Level 539 pg/mL (247-911) Serum Folate 23.02 ng/ml (3.2-20.0) Laboratory Tests Test 10/29/17 07:28 White Blood Count 6.2 x10^3/uL (4.0-11.0) Red Blood Count 3.93 x10^6/uL (4.30-5.70) Hemoglobin 13.1 g/dL (13.0-17.5) Hematocrit 39.7 % (39.0-53.0) Mean Corpuscular Volume 101 fL (79-100) Mean Corpuscular Hemoglobin 33 pg (25-35) Mean Corpuscular Hemoglobin Concent 33 g/dL (31-37) Red Cell Distribution Width 14.4 % (11.5-14.5) Platelet Count 235 x10^3/uL (140-400) Neutrophils (%) (Auto) 55 % (31-73) Lymphocytes (%) (Auto) 31 % (24-48) Monocytes (%) (Auto) 10 % (0-9) Eosinophils (%) (Auto) 4 % (0-3) Basophils (%) (Auto) 1 % (0-3) Neutrophils # (Auto) 3.4 x10^3uL (1.8-7.7) Lymphocytes # (Auto) 1.9 x10^3/uL (1.0-4.8) Monocytes # (Auto) 0.6 x10^3/uL (0.0-1.1) Eosinophils # (Auto) 0.2 x10^3/uL (0.0-0.7) Basophils # (Auto) 0.0 x10^3/uL (0.0-0.2) Sodium Level 142 mmol/L (136-145) Potassium Level 4.2 mmol/L (3.5-5.1) Chloride Level 104 mmol/L (98-107) Carbon Dioxide Level 31 mmol/L (21-32) Anion Gap 7 (6-14) Blood Urea Nitrogen 31 mg/dL (8-26) Creatinine 1.2 mg/dL (0.7-1.3) Estimated GFR (Cockcroft-Gault) 58.3 BUN/Creatinine Ratio 26 (6-20) Glucose Level 101 mg/dL (70-99) Calcium Level 8.3 mg/dL (8.5-10.1) Total Bilirubin 0.4 mg/dL (0.2-1.0) Aspartate Amino Transf (AST/SGOT) 25 U/L (15-37) Alanine Aminotransferase (ALT/SGPT) 29 U/L (16-63) Alkaline Phosphatase 59 U/L (46-116) Total Protein 6.0 g/dL (6.4-8.2) Albumin 3.1 g/dL (3.4-5.0) Albumin/Globulin Ratio 1.1 (1.0-1.7) Vitamin B12 Level 539 pg/mL (247-911) Serum Folate 23.02 ng/ml (3.2-20.0) Medications Current Medications Furosemide (Lasix) 60 mg 1X ONCE IVP Last administered on 10/26/17 22:16; Start 10/26/17 at 22:15; Stop 10/26/17 at 22:16; Status DC Aspirin (Ecotrin) 81 mg DAILY PO Last administered on 10/29/17 08:25; Start 10/27/17 at 12:00 Celecoxib (CeleBREX) 200 mg DAILY PO Last administered on 10/29/17 08:26; Start 10/27/17 at 12:00 Clonidine HCl (Catapres) 0.1 mg DAILY PO Last administered on 10/29/17 11:03 ; Start 10/27/17 at 12:00 Clopidogrel Bisulfate (Plavix) 75 mg DAILY PO Last administered on 10/29/17 08:25; Start 10/27/17 at 12:00 Diltiazem HCl (Cardizem 24hr Cd) 240 mg DAILY PO ; Start 10/27/17 at 12:00; Stop 10/27/17 at 12:00; Status DC Docusate Sodium (Colace) 100 mg BID PO Last administered on 10/28/17 21:12; Start 10/27/17 at 21:00 Hydrochlorothiazide (Hydrodiuril) 25 mg DAILY PO Last administered on 08:28; Start 10/27/17 at 12:00 Acetaminophen/ Hydrocodone Bitart (Lortab 7.5/325) 1 tab PRN Q6HRS PRN PO PAIN ; Start 10/27/17 at 11:45 Metoprolol Tartrate (Lopressor) 25 mg BID PO Last administered on 10/27/17 20 :07; Start 10/27/17 at 21:00; Stop 10/28/17 at 11:07; Status DC Tamsulosin HCl (Flomax) 0.4 mg DAILY PO Last administered on 10/29/17 08:26; Start 10/27/17 at 12:00 Tramadol HCl (Ultram) 50 mg BID PO Last administered on 10/29/17 08:25; Start 10/27/17 at 21:00 Gabapentin (Neurontin) 600 mg DAILY PO Last administered on 10/27/17 13:31; Start 10/27/17 at 12:00; Stop 10/28/17 at 20:05; Status DC Diltiazem HCl (Cardizem 24hr Cd) 240 mg DAILY PO Last administered on 08:25; Start 10/27/17 at 12:00 Furosemide (Lasix) 40 mg 1X ONCE IVP Last administered on 10/27/17 13:34; Start 10/27/17 at 13:15; Stop 10/27/17 at 13:19; Status DC Metoprolol Succinate (Toprol Xl) 25 mg DAILY PO ; Start 10/28/17 at 12:00; Stop 10/28/17 at 20:05; Status DC Gabapentin (Neurontin) 600 mg HS PO Last administered on 10/28/17 21:11; Start 10/28/17 at 21:00 Metoprolol Succinate (Toprol Xl) 25 mg HS PO ; Start 10/28/17 at 21:00 Active Scripts Active Colace (Docusate Sodium) 100 Mg Capsule 100 Mg PO BID Lortab 7.5-325 mg Tablet (Hydrocodone/Acetaminophen) 1 Each Tablet 1 Tab PO PRN Q6HRS PRN Reported Metoprolol Tartrate 25 Mg Tablet 25 Mg PO BID Clopidogrel (Clopidogrel Bisulfate) 75 Mg Tablet 75 Mg PO DAILY Clonidine Hcl 0.1 Mg Tablet 0.1 Mg PO DAILY Hydrochlorothiazide Capsule (Hydrochlorothiazide) 12.5 Mg Capsule 25 Mg PO DAILY Glucosamine Hcl 500 Mg Tablet 500 Mg PO DAILY Doxycycline Hyclate 100 Mg Capsule 1 Cap PO BID Tramadol Hcl 50 Mg Tablet 1 Tab PO BID Celebrex (Celecoxib) 200 Mg Capsule 1 Cap PO DAILY Aspir 81 (Aspirin) 81 Mg Tablet.dr 1 Tab PO DAILY Flomax (Tamsulosin Hcl) 0.4 Mg Cap.er.24h 1 Cap PO DAILY LAST DOSE GIVEN: DATE:04-25-16 TIME:9:00 a.m. NEXT DOSE DUE: DATE:04-26-16 TIME:9:00 a.m. Gabapentin 600 Mg Tablet 600 Mg PO DAILY LAST DOSE GIVEN: DATE:04-24-16 TIME:9:00 p.m. NEXT DOSE DUE: DATE:04-25-16 TIME:9:00 p.m. Fish Oil 1,200 Mg Fish Oil (Fish Oil/Dha/Epa) 1 Each Capsule 1 Each PO DAILY LAST DOSE GIVEN: DATE:04-25-16 TIME:9:00 a.m. NEXT DOSE DUE: DATE:04-26-16 TIME:9:00 a.m. Diltiazem 24HR Cd (Diltiazem Hcl) 180 Mg Cap.er.24h 240 Mg PO DAILY LAST DOSE GIVEN: DATE:04-25-16 TIME:9:00 a.m. NEXT DOSE DUE: DATE:04-26-16 TIME:9:0 a.m. Probiotic (Lactobacillus Acidophilus) 1 Each Capsule 1 Each PO DAILY LAST DOSE GIVEN: DATE:04-25-16 TIME:9:00 a.m. NEXT DOSE DUE: DATE:04-26-16 TIME:9:00 a.m. Co Q-10 (Ubidecarenone) 200 Mg Capsule 200 Mg PO DAILY Not taken while in hosp. May resume at home as directed. Daily Vitamin (Multivitamin) 1 Each Tablet 1 Each PO DAILY LAST DOSE GIVEN: DATE:04-25-16 TIME:9:00 a.m. NEXT DOSE DUE: DATE:04-26-16 TIME:9:00 a.m. Citracal + D Er Tablet (Calcium Carb & Cit/Vitamin D3) 1 Each Tablet.er 1 Each PO DAILY LAST DOSE GIVEN: DATE:04-25-16 TIME:9:00 a.m. NEXT DOSE DUE: DATE:04-26-16 TIME:9:00 a.m. Vitals/I & O Vital Sign - Last 24 Hours 10/28/17 10/28/17 10/28/17 10/28/17 19:36 20:00 21:00 23:12 Temp 98.2 98.1 98.2 98.1 Pulse 62 56 64 Resp 20 22 B/P (MAP) 124/64 (84) 108/48 (68) Pulse Ox 96 96 O2 Delivery Room Air Room Air Room Air 10/29/17 10/29/17 10/29/17 10/29/17 03:00 07:00 07:42 08:25 Temp 99.4 97.8 99.4 97.8 Pulse 68 67 Resp 22 18 B/P (MAP) 118/66 (83) 118/71 (87) Pulse Ox 96 97 97 O2 Delivery Room Air Room Air Room Air Room Air 10/29/17 10/29/17 10/29/1728/17 08:25 09:25 10:58 11:03 Temp 97.8 97.8 Pulse 79 65 68 Resp 18 B/P (MAP) 118/71 126/68 (87) 126/67 Pulse Ox 97 95 O2 Delivery Room Air Room Air Intake and Output 10/28/17 10/28/17 10/29/17 15:00 23:00 07:00 Intake Total 0 ml 600 ml Output Total 625 ml Balance 0 ml -25 ml CLAUS VUONG MD Oct 29, 2017 14:53
[2017-10-29] MEDS ORDERED: POTASSIUM CHLO10 MEQ PO (15:04)
[2017-10-29] MEDS ORDERED: FURO-68 PO (15:04)
[2017-10-29] MEDS ORDERED: METO-239 PO (15:13)
[2017-10-30] MEDS ORDERED: POTASSIUM CHLORIDE 10 MEQ TABLET.ER. PO SCH (08:00)
[2017-10-30] MEDS ORDERED: FUROSEMIDE 40 MG TABLET. PO SCH (09:00)
--- NOTE | 2017-10-30 18:44 | DS ---
DATE OF DISCHARGE: 10/29/2017 CHIEF COMPLAINT: Acute hypoxic respiratory failure. HOSPITAL COURSE: The patient is an 81-year-old gentleman with known heart disease who presented to the Emergency Room with acute hypoxic respiratory failure and lower extremity edema. He was found with CHF exacerbation, a new diagnosis for him. Echo revealed a PA pressure of 51 and ejection fraction of 50. He was aggressively diuresed with Lasix with good resolution of his symptoms. He was deemed stable for discharge on the . PHYSICAL EXAMINATION: VITAL SIGNS: Show a blood pressure of 118/71, heart rate of 67, respiratory rate at 18. He is afebrile. GENERAL: This is an 81-year-old gentleman, alert and oriented, no acute distress. LUNGS: Clear. HEART: Regular rate and rhythm. ABDOMEN: Has positive bowel sounds, soft, nontender. EXTREMITIES: Show trace edema. DISCHARGE DIAGNOSES: Congestive heart failure exacerbation. DISCHARGE DISPOSITION: To home. DISCHARGE CONDITION: Improved. DISCHARGE MEDICATIONS: Please refer to MAR. DISCHARGE INSTRUCTIONS: The patient will follow up with Dr. Ocasio in 2 weeks and see his primary care physician, Dr. Patel within a month. MILENA FLORENTINO MD DR: UR/nts JOB#: [id number] / [id number] TESSA Brown MD MTDD
== END 2017-10-29 16:24 | disposition home or self-care (01) | DRG 291 ==
LOC: ER 21:19 → 2 SOUTH 21:51
PROVIDERS: ADMIT Internal Medicine; ATTEND Internal Medicine
DX: I11.0 Hypertensive heart disease with heart failure (principal); J96.01 Acute respiratory failure with hypoxia; E44.1 Mild protein-calorie malnutrition; D53.9 Nutritional anemia, unspecified; Z95.1 Presence of aortocoronary bypass graft; I50.9 Heart failure, unspecified; F41.9 Anxiety disorder, unspecified; E78.00 Pure hypercholesterolemia, unspecified; I25.10 Atherosclerotic heart disease of native coronary artery without angina pectoris; Z68.24 Body mass index [BMI] 24.0-24.9, adult; K21.9 Gastro-esophageal reflux disease without esophagitis; Z83.3 Family history of diabetes mellitus; E78.5 Hyperlipidemia, unspecified; Z86.73 Personal history of transient ischemic attack (TIA), and cerebral infarction without residual deficits; M19.90 Unspecified osteoarthritis, unspecified site; Z82.3 Family history of stroke; Z82.49 Family history of ischemic heart disease and other diseases of the circulatory system; N28.9 Disorder of kidney and ureter, unspecified; K44.9 Diaphragmatic hernia without obstruction or gangrene
CPT/HCPCS: 36415; 71010; 80053; 81001; 82553; 82607; 82746; 83880; 84484; 85025; 93005; 93306; 96374; J1940; 99285-25

== ENCOUNTER → 2017-12-17 | Outpatient (CLI) | payer MEDICARE ==
[~2017-12-17] MED LIST changes: -AMOX1TAB61 PO; -ASPI-482 PO; -ASPI325T11 PO; -ASPI325T70 PO; -ATOR20TA58 PO; -CALC-112 PO; -CELE200C PO; -CLON0.1T PO; -CLOP75TA PO; -COLC0.6C3 PO; -DILT180C29 PO; -DOCU-109 PO; -DOXY100C2 PO; -DOXY100T PO; -FISH1CAP PO; -GABA600T2 PO; -GLUC1CAP30 PO; -GLUC500T10 PO; -HYDR-2679 PO; -HYDR-971 PO; -HYDR12.53 PO; +IOHEXOL 180 MG/ML 10 ML VIAL.; -LACT1CAP6 PO; -MULT-18 PO; -ONDA4TAB10 SL; -OXYC-323 PO; -TAMS0.4C97 PO; -TRAM50TA PO; -UBID200C7 PO; -VALS80TA3 PO; +methylPREDNISolone ACETATE 40 MG/ML VIAL.; +methylPREDNISolone ACETATE 80 MG/ML VIAL.
== END | disposition home or self-care (01) ==
LOC: PNCL 08:52
DX: M51.16 Intervertebral disc disorders with radiculopathy, lumbar region (principal); M48.061 Spinal stenosis, lumbar region without neurogenic claudication; M96.1 Postlaminectomy syndrome, not elsewhere classified; I11.0 Hypertensive heart disease with heart failure; I50.9 Heart failure, unspecified; E78.00 Pure hypercholesterolemia, unspecified; E03.9 Hypothyroidism, unspecified; F41.9 Anxiety disorder, unspecified; M19.90 Unspecified osteoarthritis, unspecified site; Z86.39 Personal history of other endocrine, nutritional and metabolic disease; Z98.41 Cataract extraction status, right eye; Z98.42 Cataract extraction status, left eye; Z86.69 Personal history of other diseases of the nervous system and sense organs; Z87.39 Personal history of other diseases of the musculoskeletal system and connective tissue; Z96.651 Presence of right artificial knee joint
CPT/HCPCS: 62323; J1030; J1040; Q9965

== ENCOUNTER 2018-01-30 13:26 | Emergency (ER) | payer MEDICARE ==
[2018-01-30 14:01] LABS: ADD MAN DIFF? NO
[2018-01-30 14:03] LABS: BASO # 0.1 x10^3/uL (0.0-0.2); BASO % 1 % (0-3); EOS # 0.2 x10^3/uL (0.0-0.7); EOS % 3 % (0-3); HEMATOCRIT 44.2 % (39.0-53.0); HEMOGLOBIN 15.2 g/dL (13.0-17.5); LYMPH # 1.9 x10^3/uL (1.0-4.8); LYMPH % 21 % (24-48); MEAN CORPUSCULAR HEMOGLOBIN 32 pg (25-35); MEAN CORPUSCULAR HGB CONC 34 g/dL (31-37); MEAN CORPUSCULAR VOLUME 94 fL (79-100); MONO # 0.7 x10^3/uL (0.0-1.1); MONO % 8 % (0-9); NEUT # 6.1 x10^3uL (1.8-7.7); NEUT % 67 % (31-73); PLATELET COUNT 384 x10^3/uL (140-400); RED BLOOD COUNT 4.69 x10^6/uL (4.30-5.70); RED CELL DISTRIBUTION WIDTH 13.4 % (11.5-14.5)
[2018-01-30 14:14] LABS: ANION GAP 7 (6-14); BLOOD UREA NITROGEN 24 mg/dL (8-26); BUN/CREATININE RATIO 15 (6-20); CARBON DIOXIDE 32 mmol/L (21-32); CHLORIDE 97 mmol/L (98-107); CREATININE 1.6 mg/dL (0.7-1.3); GFR 41.7; GLUCOSE 119 mg/dL (70-99); SODIUM 136 mmol/L (136-145)
[2018-01-30 14:19] LABS: ALBUMIN 3.2 g/dL (3.4-5.0); ALBUMIN/GLOBULIN RATIO 0.9 (1.0-1.7); ALK PHOS 94 U/L (46-116); ALT (SGPT) 34 U/L (16-63); AST (SGOT) 24 U/L (15-37); MAGNESIUM 0.7 mg/dL (1.8-2.4); TOTAL BILIRUBIN 0.5 mg/dL (0.2-1.0); TOTAL PROTEIN 6.8 g/dL (6.4-8.2)
[2018-01-30] MEDS: GLUCAGON,HUMAN RECOMBINANT 1 MG/ML VIAL. IV (14:20)
[2018-01-30] MEDS: MIDAZOLAM HCL/PF 2 MG/2 ML VIAL. IV (14:21)
[2018-01-30] MEDS: IV NORMAL SALINE 1000ML BAG 1,000 ML IV (14:21)
[2018-01-30 14:24] LABS: TROPONINI < 0.017 ng/mL (0.000-0.055)
[2018-01-30 14:27] LABS: CKMB INDEX 2.4 % (0-4); CKMB MASS 1.8 ng/mL (0.0-3.6); CREATINE KINASE 75 U/L (39-308)
[2018-01-30 14:27] LABS: NT-PRO BNP 394 pg/mL (0-449)
[2018-01-30 14:30] LABS: LIPASE 76 U/L (73-393)
== END 2018-01-30 15:39 | disposition home or self-care (01) ==
LOC: ER 13:26
DX: R10.13 Epigastric pain (principal); F41.9 Anxiety disorder, unspecified; M19.90 Unspecified osteoarthritis, unspecified site; I25.10 Atherosclerotic heart disease of native coronary artery without angina pectoris; I11.0 Hypertensive heart disease with heart failure; I50.9 Heart failure, unspecified; E78.00 Pure hypercholesterolemia, unspecified; Z95.1 Presence of aortocoronary bypass graft; Z96.651 Presence of right artificial knee joint
CPT/HCPCS: 36415; 71045; 80053; 82553; 83690; 83735; 83880; 84484; 85025; 93005; 96361; 96374; 96375; 99285-25; J1610; J2250; J7030

== ENCOUNTER → 2018-02-16 | Outpatient (CLI) | payer MEDICARE ==
[~2018-02-16] MED LIST changes: +BARIUM SULFATE 60% 355 ML SUSP PO; -IOHEXOL 180 MG/ML 10 ML VIAL.; +SIMETHICONE/SOD BICARB/CITRIC ACID PACKET. PO; -methylPREDNISolone ACETATE 40 MG/ML VIAL.; -methylPREDNISolone ACETATE 80 MG/ML VIAL.
[2018-02-16] MEDS: BARIUM SULFATE 340 GM SUSPENSION. PO (15:15)
== END | disposition home or self-care (01) ==
LOC: RAD 14:18
DX: K22.4 Dyskinesia of esophagus (principal); K21.9 Gastro-esophageal reflux disease without esophagitis; Z98.890 Other specified postprocedural states
CPT/HCPCS: 74220

== ENCOUNTER → 2018-04-21 | Outpatient (CLI) | payer MEDICARE ==
[~2018-04-21] MED LIST changes: -BARIUM SULFATE 60% 355 ML SUSP PO; +BUPIVACAINE MPF 0.25% 30 ML VIAL.; +IOHEXOL 180 MG/ML 10 ML VIAL.; +LIDOCAINE 1% PF 2 ML VIAL.; -SIMETHICONE/SOD BICARB/CITRIC ACID PACKET. PO; +methylPREDNISolone ACETATE 40 MG/ML VIAL.; +methylPREDNISolone ACETATE 80 MG/ML VIAL.
== END ==
LOC: PNCL 10:59
DX: M51.16 Intervertebral disc disorders with radiculopathy, lumbar region (principal); M96.1 Postlaminectomy syndrome, not elsewhere classified; M48.02 Spinal stenosis, cervical region; M50.10 Cervical disc disorder with radiculopathy, unspecified cervical region; I25.2 Old myocardial infarction; I25.10 Atherosclerotic heart disease of native coronary artery without angina pectoris; I50.9 Heart failure, unspecified; Z95.1 Presence of aortocoronary bypass graft; Z95.5 Presence of coronary angioplasty implant and graft; E78.00 Pure hypercholesterolemia, unspecified; I11.0 Hypertensive heart disease with heart failure; K21.9 Gastro-esophageal reflux disease without esophagitis; M19.90 Unspecified osteoarthritis, unspecified site; Z96.651 Presence of right artificial knee joint; E03.9 Hypothyroidism, unspecified; F32.9 Major depressive disorder, single episode, unspecified; F41.9 Anxiety disorder, unspecified; Z98.890 Other specified postprocedural states; Z98.42 Cataract extraction status, left eye; Z98.41 Cataract extraction status, right eye; Z86.73 Personal history of transient ischemic attack (TIA), and cerebral infarction without residual deficits; Z85.828 Personal history of other malignant neoplasm of skin; Z82.49 Family history of ischemic heart disease and other diseases of the circulatory system; Z80.41 Family history of malignant neoplasm of ovary; Z82.5 Family history of asthma and other chronic lower respiratory diseases
CPT/HCPCS: 62323; J1030; J1040; J3490; Q9965

== ENCOUNTER 2018-04-23 12:33 | Emergency (ER) | payer MEDICARE ==
[2018-04-23 13:04] LABS: ADD MAN DIFF? NO
[2018-04-23 13:08] LABS: BASO % 0 % (0-3); EOS # 0.1 x10^3/uL (0.0-0.7); EOS % 1 % (0-3); HEMATOCRIT 39.6 % (39.0-53.0); HEMOGLOBIN 13.5 g/dL (13.0-17.5); LYMPH # 1.8 x10^3/uL (1.0-4.8); LYMPH % 20 % (24-48); MEAN CORPUSCULAR HEMOGLOBIN 33 pg (25-35); MEAN CORPUSCULAR HGB CONC 34 g/dL (31-37); MEAN CORPUSCULAR VOLUME 96 fL (79-100); MONO # 0.6 x10^3/uL (0.0-1.1); MONO % 7 % (0-9); NEUT # 6.4 x10^3uL (1.8-7.7); NEUT % 72 % (31-73); PLATELET COUNT 240 x10^3/uL (140-400); RED BLOOD COUNT 4.12 x10^6/uL (4.30-5.70); RED CELL DISTRIBUTION WIDTH 14.2 % (11.5-14.5); WHITE BLOOD COUNT 8.9 x10^3/uL (4.0-11.0)
[2018-04-23 13:36] LABS: BILIRUBIN,URINE NEGATIVE (NEG); CLARITY,URINE CLEAR; COLOR,URINE YELLOW; GLUCOSE,URINE NEGATIVE (NEG); NITRITE,URINE NEGATIVE (NEG); PH,URINE 7.5; PROTEIN,URINE NEGATIVE (NEG-TRACE); UROBILINOGEN,URINE 0.2 mg/dL (0.2 mg/dL)
[2018-04-23 13:45] LABS: ANION GAP 8 (6-14); BLOOD UREA NITROGEN 27 mg/dL (8-26); BUN/CREATININE RATIO 23 (6-20); CALCIUM 9.1 mg/dL (8.5-10.1); CARBON DIOXIDE 30 mmol/L (21-32); CHLORIDE 100 mmol/L (98-107); CREATININE 1.2 mg/dL (0.7-1.3); GFR 58.1; GLUCOSE 99 mg/dL (70-99); POTASSIUM 4.3 mmol/L (3.5-5.1); SODIUM 138 mmol/L (136-145)
[2018-04-23 13:49] LABS: BACTERIA,URINE 0 /HPF (0-FEW); RBC,URINE 0 /HPF (0-2); SQUAMOUS EPITHELIAL CELL,UR FEW /LPF; WBC,URINE 0 /HPF (0-4)
[2018-04-23 13:52] LABS: TROPONINI < 0.017 ng/mL (0.000-0.055)
[2018-04-23 13:53] LABS: ALBUMIN 3.7 g/dL (3.4-5.0); ALBUMIN/GLOBULIN RATIO 1.1 (1.0-1.7); ALK PHOS 118 U/L (46-116); ALT (SGPT) 32 U/L (16-63); AST (SGOT) 30 U/L (15-37); MAGNESIUM 2.1 mg/dL (1.8-2.4); TOTAL BILIRUBIN 0.3 mg/dL (0.2-1.0)
[2018-04-23 13:56] LABS: CKMB INDEX 3.8 % (0-4); CKMB MASS 4.8 ng/mL (0.0-3.6); CREATINE KINASE 128 U/L (39-308)
[2018-04-23 13:56] LABS: NT-PRO BNP 891 pg/mL (0-449)
[2018-04-23 13:57] LABS: THYROID STIM HORMONE (TSH) 6.109 uIU/mL (0.358-3.74)
[2018-04-23 14:13] LABS: D-DIMER 1.13 ug/mlFEU (0.00-0.50)
[2018-04-23] MEDS ORDERED: CONTRAST GIVEN. MC (15:30)
[2018-04-23] MEDS: IOHEXOL 300 MG/ML 100ML VIAL. IV (15:32)
== END 2018-04-23 16:49 | disposition home or self-care (01) ==
LOC: ER 12:33
DX: R07.89 Other chest pain (principal); R00.2 Palpitations; K80.20 Calculus of gallbladder without cholecystitis without obstruction; E03.9 Hypothyroidism, unspecified; F41.9 Anxiety disorder, unspecified; M19.90 Unspecified osteoarthritis, unspecified site; I11.0 Hypertensive heart disease with heart failure; I50.9 Heart failure, unspecified; I25.10 Atherosclerotic heart disease of native coronary artery without angina pectoris; E78.00 Pure hypercholesterolemia, unspecified; Z96.651 Presence of right artificial knee joint
CPT/HCPCS: 36415; 71045; 71275; 80053; 81001; 82553; 83735; 83880; 84443; 84484; 85025; 85379; 85610; 93005; 99285-25; Q9967

== ENCOUNTER → 2018-07-01 | Outpatient (CLI) | payer MEDICARE ==
[2018-04-23 15:12] VITALS: BP 166/77
[~2018-07-01] MED LIST changes: +AMOX1TAB61 PO; +ASPI-482 PO; +ASPI325T11 PO; +ASPI325T70 PO; +ATOR20TA58 PO; -BUPIVACAINE MPF 0.25% 30 ML VIAL.; +CALC-112 PO; +CELE200C PO; +CLON0.1T PO; +CLOP75TA PO; +COLC0.6C3 PO; +DILT180C29 PO; +DOCU-109 PO; +DOXY100C2 PO; +DOXY100T PO; +FISH1CAP PO; +FURO-68 PO; +GABA600T2 PO; +GLUC1CAP30 PO; +GLUC500T10 PO; +HYDR-2679 PO; +HYDR-971 PO; +HYDR12.53 PO; -IOHEXOL 180 MG/ML 10 ML VIAL.; +IOHEXOL 180 MG/ML 10 ML VIAL. ONE; +KETO10TA PO; +LACT1CAP6 PO; +LEVO75TA5 PO; -LIDOCAINE 1% PF 2 ML VIAL.; +LIDOCAINE 2% PF 2ML VIAL. ONE; +METO-239 PO; +METO25TA4 PO; +MULT-18 PO; +ONDA4TAB10 SL; +OXYC-323 PO; +PHEN-444 PO; +POLY17PO29 PO; +POTA10TA12 PO; +TAMS0.4C97 PO; +TRAM50TA PO; +UBID200C7 PO; +VALS80TA3 PO; +VENL37.57 PO; -methylPREDNISolone ACETATE 40 MG/ML VIAL.; +methylPREDNISolone ACETATE 40 MG/ML VIAL. ONE; -methylPREDNISolone ACETATE 80 MG/ML VIAL.; +methylPREDNISolone ACETATE 80 MG/ML VIAL. ONE
--- NOTE | 2018-07-02 01:50 | PAIN ---
DATE OF SERVICE: 07/01/2018 PROGRESS NOTE FOR PAIN CLINIC DIAGNOSES: Lumbar radiculopathy with lumbar spinal stenosis, lumbar degenerative disk disease and post-lumbar laminectomy syndrome. HISTORY OF PRESENT ILLNESS: The patient is an 82-year-old male who returns for followup status post lumbar epidural steroid injections, most recently on 04/21/2018. The patient did very well with about 80% improvement initially over the first month or so and then, the pain began to return over the past 3-4 weeks. The patient reports at this time in the low back, bilateral lower extremities, worse on the left side than the right, as it has been previously, mostly in the left leg and knee, also the posterior gluteus, posterior thigh and posterior calf. The patient reports no new motor or sensory deficits but reports the pain is 10 on a scale 10 at its worst, 4 on average, 2 at its least and is a 4 today. The patient reports it is worse with standing, walking, trying to bend or stoop or do any activity around his home. Initially, he was doing much better with all these activities but now is much painful. The patient reports he sleeps well at night and that does not awaken him from sleep. PHYSICAL EXAMINATION: VITAL SIGNS: The patient's blood pressure 120/62, pulse 68, respirations 18, temperature 98.0 degrees Fahrenheit, height is 5 feet 8 inches and weighs 152 pounds. GENERAL: The patient is awake, alert, oriented, appropriate and very pleasant demeanor. HEENT: Head shows normocephalic and atraumatic. Extraocular movements are intact and symmetrical. Oral cavity: Mucous membranes moist and pink. Dentition is intact. NECK: Shows anterior throat supple without palpable lymphadenopathy noted. Swallow reflex symmetrical. CHEST: Shows normal with inspection. Breath sounds clear to auscultation bilaterally. HEART: Shows S1 and S2 clear. No murmurs auscultated. ABDOMEN: Soft, nontender and nondistended. No palpable organomegaly is noted. No rebound or guarding demonstrated. BACK: The patient's back shows spine grossly in the midline. Slight exaggeration of the thoracic kyphosis, some minor flattening of the lumbar lordotic curvature. Lumbar paraspinous muscle shows symmetrical on inspection, with well-healed surgical scarring noted in the lumbar distribution. Lumbar paraspinous muscle shows moderate tenderness with palpation bilaterally without significant radiation, however. The patient's back shows limited rotational motion but not secondary to pain secondary to mechanical movement in the low back bilaterally. EXTREMITIES: Lower extremities show deep tendon reflexes at 2+ in the patellar, 1+ tendo-calcaneus tendons are equal. Motor exam is strong with 5/5 dorsiflexion, extension, quadriceps and hamstring flexion and equal. Peripheral pulses are 1+. No peripheral edema is noted. Options were discussed with the patient. The patient's old chart was reviewed as well as his current medication regimen updated. Current review of systems updated today as well and we will proceed with a lumbar epidural steroid injection today, the first in this series. Risks were again discussed including, but not limited to bleeding, infection, possibility of epidural hematoma, subsequent neurological compromise, dural puncture, headaches, spinal cord and/or nerve damage, side effects of steroid medication and poor results regarding pain control. The patient understands and wished to proceed. The patient will return to the clinic in approximately 2 weeks for followup, was counseled as to return appointment, activity level and side effects to be aware of. DIAGNOSES: Lumbar radiculopathy with lumbar spinal stenosis, lumbar degenerative disk disease and post-lumbar laminectomy syndrome. PROCEDURE: Lumbar epidural steroid injection, translaminar approach, L5-S1 level using C-arm fluoroscopic guidance under sterile prep and drape using local anesthetic. MEDICATION INJECTED: A total of 120 mg Depo-Medrol plus 10 mL of preservative-free normal saline and 2 mL of Isovue for contrast. CONDITION AT DISCHARGE: Stable. The patient tolerated the procedure well and had no complications. KIMBERLEE MEDINA MD DR: IVANA/angela JOB#: [id number] / [id number]
== END | disposition home or self-care (01) ==
LOC: PNCL 14:27
PROVIDERS: ATTEND Anesthesiology
DX: M51.16 Intervertebral disc disorders with radiculopathy, lumbar region (principal); M48.061 Spinal stenosis, lumbar region without neurogenic claudication; M96.1 Postlaminectomy syndrome, not elsewhere classified
CPT/HCPCS: 62323; J1030; J1040; J2001; Q9965

== ENCOUNTER → 2018-09-06 | Outpatient (CLI) | payer MEDICARE ==
[2018-04-23 15:12] VITALS: BP 166/77
[~2018-09-06] MED LIST changes: -IOHEXOL 180 MG/ML 10 ML VIAL. ONE; -LIDOCAINE 2% PF 2ML VIAL. ONE; -methylPREDNISolone ACETATE 40 MG/ML VIAL. ONE; -methylPREDNISolone ACETATE 80 MG/ML VIAL. ONE
--- NOTE | 2018-09-06 16:24 | RAD ---
MRI of the lumbar spine without contrast 09/06/2018 CLINICAL HISTORY: Chronic low back pain which radiates down the left thigh with a history of previous lumbar spine surgery. TECHNIQUE: Unenhanced T1-weighted and T2-weighted sagittal and axial and inversion recovery sagittal images of the lumbar spine were obtained. FINDINGS: Comparison study is dated 12/31/2016. Mild S-shaped curvature of the thoracolumbar spine is seen. Degenerative signal changes and loss of height are seen involving all of the disks of the lumbar spine. Degenerative signal changes are seen within the marrow surrounding these discs. The conus medullaris is normal in position and signal characteristics. At the L1-2 disc space there is a mild generalized disc bulge. This is eccentric to the right. Degenerative changes are seen involving the facet joints bilaterally. There is moderate ligamentum flavum hypertrophy bilaterally. These findings when combined result in mild right-sided central spinal canal stenosis. Mild right neural foraminal stenosis is seen. The left neural foramen is patent. At the L2-3 disc space there is a mild generalized disc bulge. The patient is post left hemilaminotomy. Degenerative changes are seen involving the facet joints bilaterally. These findings when combined do not result in significant central spinal canal or neural foraminal stenosis. At the L3-4 disc space, the patient is post left hemilaminotomy. There is a mild generalized disc bulge. Degenerative changes are seen involving the facet joints bilaterally. These findings when combined do not result in significant central spinal canal stenosis. No neural foraminal stenosis is seen. At the L4-5 disc space there is a moderate generalized disc bulge. The patient is post bilateral hemilaminotomy. Epidural scarring surrounds the posterior aspect of the thecal sac. Degenerative changes are seen involving the facet joints bilaterally. These findings result in mild central spinal canal stenosis. This has improved since the previous examination. Mild bilateral neural foraminal stenosis is seen. At the L5-S1 disc space there is a mild generalized disc bulge. Degenerative changes are seen involving the facet joints bilaterally. These findings do not result in significant central spinal canal stenosis. Mild bilateral neural foraminal stenosis is seen. IMPRESSION: 1. Postsurgical changes are seen as outlined above. 2. The changes of degenerative disc disease are seen involving the lumbar spine. These findings result in mild right-sided central spinal canal stenosis at L1-2 and mild central spinal canal stenosis at L4-5. The stenosis at L4-5 has improved since previous examination. Multilevel mild neural foraminal stenosis is seen as outlined above. Electronically signed by: Toni Luther MD (09/06/2018 4:20 PM) [id number]
== END | disposition home or self-care (01) ==
LOC: MRI 13:36
PROVIDERS: ATTEND Orthopaedic Surgery
DX: M51.36 Other intervertebral disc degeneration, lumbar region (principal); M48.061 Spinal stenosis, lumbar region without neurogenic claudication; M48.07 Spinal stenosis, lumbosacral region; G89.29 Other chronic pain
CPT/HCPCS: 72148

== ENCOUNTER → 2018-10-07 | Outpatient (CLI) | payer MEDICARE ==
[2018-04-23 15:12] VITALS: BP 166/77
[~2018-10-07] MED LIST changes: +GADOBUTROL 7.5 MMOL/7.5 ML VIAL IV ONE; +HYDR-3164 PO; -HYDR-971 PO; -HYDR12.53 PO; +HYDR12.575 PO; -OXYC-323 PO; +OXYC1TAB15 PO
--- NOTE | 2018-10-07 18:15 | KCIC ---
MRI of the Brain/IACs without and with contrast 10/07/2018 Clinical History: Left sided hearing loss. Technique: Unenhanced T1-weighted sagittal and axial and FLAIR, T2-weighted and diffusion-weighted axial images of the brain were obtained. Thin section T1-weighted axial and T2-weighted axial and coronal images through the IACs were obtained. After the intravenous administration of 7 cc of Gadavist, enhanced T1-weighted axial and coronal images of the brain were obtained. Additionally enhanced thin section T1-weighted axial and coronal images through the IACs were obtained. Findings: Comparison study is dated 12/25/2015. Some of the images are degraded by patient motion. There is generalized parenchymal atrophy. Patchy, confluent and multiple small focal areas of abnormally increased signal intensity are seen within the periventricular and subcortical white matter of both cerebral hemispheres along with the sadiq on the FLAIR and T2-weighted images consistent with areas of relatively extensive small vessel ischemic disease. Small old areas of infarction are seen involving both cerebellar hemispheres. These measure 2 mm to 5 mm in size. No acute parenchymal abnormality is seen. No extra-axial fluid collection is noted. There is no MRI evidence of acute ischemia/infarction. MRI images through the IACs are within normal limits. No abnormal soft tissue mass or area of abnormal contrast enhancement is seen. Mild mucosal thickening in seen scattered throughout the paranasal sinuses. There are minimal bilateral mastoid effusions. Normal flow voids are seen within the major vascular structures surrounding the brain parenchyma. Impression: 1. No acute parenchymal abnormality is seen. 2. Negative MRI of the IACs. Electronically signed by: Toni Luther MD (10/07/2018 6:12 PM) [email or web address]
== END | disposition home or self-care (01) ==
LOC: KCIC MRI 15:13
PROVIDERS: ATTEND Family Medicine
DX: H90.42 Sensorineural hearing loss, unilateral, left ear, with unrestricted hearing on the contralateral side (principal); Z79.01 Long term (current) use of anticoagulants
CPT/HCPCS: 70553; 82565; A9585

== ENCOUNTER 2018-10-21 21:10 | Observation (INO) | payer MEDICARE ==
[~2018-10-21] VITALS: Ht 172.7 cm; Wt 68.5 kg
[~2018-10-21 21:10] MED LIST changes: -GADOBUTROL 7.5 MMOL/7.5 ML VIAL IV ONE
[2018-10-21 22:01] LABS: BASO % 0 % (0-3); EOS % 0 % (0-3); HEMATOCRIT 39.6 % (39.0-53.0); LYMPH # 1.1 x10^3/uL (1.0-4.8); LYMPH % 11 % (24-48); MEAN CORPUSCULAR HEMOGLOBIN 34 pg (25-35); MEAN CORPUSCULAR HGB CONC 35 g/dL (31-37); MEAN CORPUSCULAR VOLUME 96 fL (79-100); MONO # 0.6 x10^3/uL (0.0-1.1); MONO % 6 % (0-9); NEUT # 8.1 x10^3uL (1.8-7.7); NEUT % 83 % (31-73); PLATELET COUNT 214 x10^3/uL (140-400); RED BLOOD COUNT 4.11 x10^6/uL (4.30-5.70); RED CELL DISTRIBUTION WIDTH 12.9 % (11.5-14.5); WHITE BLOOD COUNT 9.8 x10^3/uL (4.0-11.0)
[2018-10-21 22:15] LABS: CALCIUM 9.3 mg/dL (8.5-10.1); CREATININE 1.3 mg/dL (0.7-1.3)
[2018-10-21] MEDS ORDERED: MECLIZINE HCL 12.5 MG TABLET. PO ONE (22:15)
[2018-10-21 22:20] LABS: ALBUMIN 3.7 g/dL (3.4-5.0); TOTAL PROTEIN 6.5 g/dL (6.4-8.2)
[2018-10-21 22:21] LABS: ALBUMIN/GLOBULIN RATIO 1.3 (1.0-1.7); TOTAL BILIRUBIN 0.3 mg/dL (0.2-1.0)
--- NOTE | 2018-10-21 22:23 | PHYS DOC ---
Past Medical History Past Medical History: Anxiety, Arthritis, CAD, CHF, High Cholesterol, Hypertension, Other Additional Past Medical Histor: CABG x 4 in 2009, Lyme Disease, HIATAL HERNIA Past Surgical History: Coronary Bypass Surgery, Knee Replacement, Other Additional Past Surgical Histo: CABG x4 in 2009,BX rotator,BX inguinal hernia repair, R KNEE REPL. BACK Alcohol Use: None Drug Use: None Adult General Chief Complaint Chief Complaint: NAUSEA/VOMITING/DIARRHA HPI HPI Patient is a 82 year old male with a hx of CAD with a CABG in 2009 and HTN who presents for dizziness, nausea, and retching. The patient reports that 3 days ago he had a intra-auricular corticosteroid injection in his ear to aid with some hearing difficulties he developed over the past few months. He reports feeling otherwise well until this morning when he began to feel lightheaded and dizzy. Around 530 pm this afternoon his Sx became much worse and he began to experience "room dancing" dizziness as well as nausea and nystagmus. The patient denies having Sx similar to this in the past. He has no hx of vertigo or CVA/TIA. He reports that this steroid injection was the 3rd of a series of 3 injections he received for hearing loss in his left ear. He denies recent travel , sick contacts and eating any strange foods recently. He had been eating and drinking normally until tonight. He did not take his BP medications tonight due to nausea. Denies CP, fevers, chills, abd pain and SOB. No other Sx at this time. Review of Systems Review of Systems Constitutional: + lightheadedness. Denies fever or chills [] Eyes: Denies change in visual acuity, redness, or eye pain [] HENT: Denies nasal congestion or sore throat [] Respiratory: Denies cough or shortness of breath [] Cardiovascular: No additional information not addressed in HPI [] GI: + nausea and retching. Denies abdominal pain, bloody stools or diarrhea [] : Denies dysuria or hematuria [] Musculoskeletal: Denies back pain or joint pain [] Integument: Denies rash or skin lesions [] Neurologic: + PRICE, + dizziness, Denies focal weakness or sensory changes [] Endocrine: Denies polyuria or polydipsia [] All other systems were reviewed and found to be within normal limits, except as documented in this note. Current Medications Current Medications Current Medications Medications (Trade) Dose Ordered Sig/Juan C Start Time Stop Time Status Last Admin Dose Admin Lorazepam (Ativan) 0.5 mg 1X ONCE 10/21/18 22:30 10/21/18 22:31 DC 10/21/18 22:24 0.5 MG Meclizine HCl (Antivert) 25 mg 1X ONCE 10/21/18 22:15 10/21/18 22:16 DC 10/21/18 22:24 25 MG Allergies Allergies Allergies Coded Allergies Type Severity Reaction Last Updated Verified No Known Drug Allergies 01/18/18 No Physical Exam Physical Exam Constitutional: Well developed, well nourished, mild distress, non-toxic appearance. [] HENT: Normocephalic, atraumatic, bilateral external ears normal, oropharynx moist, no oral exudates, nose normal. [] Eyes: + horizontal nystagmus to the right present with gaze in all directions. PERRLA, conjunctiva normal, no discharge. [] Neck: Normal range of motion, no tenderness, supple, no stridor. [] Cardiovascular:Heart rate regular rhythm, no murmur [] Lungs & Thorax: Bilateral breath sounds clear to auscultation [] Abdomen: Bowel sounds normal, soft, no tenderness, no masses, no pulsatile masses. [] Skin: Warm, dry, no erythema, no rash. [] Back: No tenderness, no CVA tenderness. [] Extremities: No tenderness, no cyanosis, no clubbing, ROM intact, no edema. [] Neurologic: Alert and oriented X 3, normal motor function, normal sensory function, no focal deficits noted. FNF normal bilat, No dysmetria, no dysphasia. Psychologic: Affect normal, judgement normal, mood normal. [] Current Patient Data Vital Signs Vital Signs Date Time Temp Pulse Resp B/P (MAP) Pulse Ox O2 Delivery O2 Flow Rate FiO2 10/21/18 23:43 59 194/83 (120) 98 Room Air 10/21/18 21:22 97.5 18 97.5 Lab Values Laboratory Tests Test 10/21/18 21:50 White Blood Count 9.8 x10^3/uL (4.0-11.0) Red Blood Count 4.11 x10^6/uL (4.30-5.70) L Hemoglobin 14.0 g/dL (13.0-17.5) Hematocrit 39.6 % (39.0-53.0) Mean Corpuscular Volume 96 fL (79-100) Mean Corpuscular Hemoglobin 34 pg (25-35) Mean Corpuscular Hemoglobin Concent 35 g/dL (31-37) Red Cell Distribution Width 12.9 % (11.5-14.5) Platelet Count 214 x10^3/uL (140-400) Neutrophils (%) (Auto) 83 % (31-73) H Lymphocytes (%) (Auto) 11 % (24-48) L Monocytes (%) (Auto) 6 % (0-9) Eosinophils (%) (Auto) 0 % (0-3) Basophils (%) (Auto) 0 % (0-3) Neutrophils # (Auto) 8.1 x10^3uL (1.8-7.7) H Lymphocytes # (Auto) 1.1 x10^3/uL (1.0-4.8) Monocytes # (Auto) 0.6 x10^3/uL (0.0-1.1) Eosinophils # (Auto) 0.0 x10^3/uL (0.0-0.7) Basophils # (Auto) 0.0 x10^3/uL (0.0-0.2) Sodium Level 141 mmol/L (136-145) Potassium Level 4.0 mmol/L (3.5-5.1) Chloride Level 104 mmol/L (98-107) Carbon Dioxide Level 27 mmol/L (21-32) Anion Gap 10 (6-14) Blood Urea Nitrogen 29 mg/dL (8-26) H Creatinine 1.3 mg/dL (0.7-1.3) Estimated GFR (Cockcroft-Gault) 53.0 BUN/Creatinine Ratio 22 (6-20) H Glucose Level 183 mg/dL (70-99) H Calcium Level 9.3 mg/dL (8.5-10.1) Total Bilirubin 0.3 mg/dL (0.2-1.0) Aspartate Amino Transferase (AST) 30 U/L (15-37) Alanine Aminotransferase (ALT) 38 U/L (16-63) Alkaline Phosphatase 96 U/L (46-116) Troponin I Quantitative < 0.017 ng/mL (0.000-0.055) Total Protein 6.5 g/dL (6.4-8.2) Albumin 3.7 g/dL (3.4-5.0) Albumin/Globulin Ratio 1.3 (1.0-1.7) Laboratory Tests 10/21/18 21:50 Laboratory Tests 10/21/18 21:50 EKG EKG [] Interpretation Time: Normal sinus rhythm rate is 60 left anterior fascicular block QRS 114 QTC 450 no obvious ischemia or STEMI was identified interpreted by me the time of encounter Radiology/Procedures Radiology/Procedures [] Impressions: Findings: Axial images of the head were obtained without contrast. Atrophy is present. No intracranial hemorrhage, midline shift, or mass effect. Chronic ischemic changes white matter noted. There is calcific density at the superior aspect of the third ventricle level but this is unchanged compared to previous exams. A place of the right frontal sinus noted. Mild mucosal thickening of ethmoid air cells evident. Globes and optic nerves are unremarkable. Impression: No intracranial hemorrhage. Electronically signed by: Herber Zimmerman MD (10/21/2018 10:47 PM) [facility] DICTATED and SIGNED BY: MATI FUNG MD DATE: 10/21/182243 Course & Med Decision Making Course & Med Decision Making Pertinent Labs and Imaging studies reviewed. (See chart for details) Assessment: 82 y/o male presents with dizziness 1. Peripheral vertigo-bppv seems highly likely based on recent ear manipulation 2. Central vertigo - no signs on exam. ct head neg for bleed. 3. low suspicion ACS/[place] will get troponins to eval Plan: labs CT head w/o EKG UA Nausea and dizziness control After treatment in the emergency room with meclizine and Ativan the patient is having still some difficulty ambulating he is a little somnolent from the Ativan and also is unsteady we will admit the patient overnight for observation and reevaluation in the morning. Again I do not see any objective signs of central vertigo on examination. admit to service of best. Tamy Disclaimer Tamy Disclaimer This electronic medical record was generated, in whole or in part, using a voice recognition dictation system. Departure Departure Impression: Primary Impression: Vertigo Disposition: ADMITTED INPATIENT Admitting Physician: Clay, Nial Condition: STABLE Referrals: TESSA SWANSON MD (PCP) KEATON MERCADO MD Oct 21, 2018 22:23
--- NOTE | 2018-10-21 22:50 | RAD ---
Examination: CT HEAD WO CONTRAST History: dizzy, no priors Comparison/Correlation: None Findings: Axial images of the head were obtained without contrast. Atrophy is present. No intracranial hemorrhage, midline shift, or mass effect. Chronic ischemic changes white matter noted. There is calcific density at the superior aspect of the third ventricle level but this is unchanged compared to previous exams. A place of the right frontal sinus noted. Mild mucosal thickening of ethmoid air cells evident. Globes and optic nerves are unremarkable. Impression: No intracranial hemorrhage. Electronically signed by: Herber Zimmerman MD (10/21/2018 10:47 PM) [facility]
[2018-10-22] VITALS (8 sets, daily range): BP systolic 119–191; BP diastolic 56–91
--- NOTE | 2018-10-22 00:37 | EKG ---
[facility] [address] [place] [address] Test Date: 2018-10-21 Test Time: 21:20:56 Pat Name: BRAULIO PRESTON Department: Room: Gender: [facility] Nurse: : 1935 Requested By: KEATON MERCADO Order Number: [id number] Reading MD: Measurements Intervals [place] Rate: 60 P: 41 HI: 168 QRS: -49 QRSD: 114 T: 46 QT: 450 QTc: 450 Interpretive Statements SINUS RHYTHM LEFT ATRIAL ABNORMALITY ABNORMAL LEFT AXIS DEVIATION LEFT ANTERIOR FASCICULAR BLOCK QRS(T) CONTOUR ABNORMALITY CONSISTENT WITH ANTEROSEPTAL INFARCT AGE UNDETERMINED ABNORMAL ECG RI6.01 No previous ECG available for comparison
[2018-10-22] MEDS ORDERED: CLOP75TA PO (01:56)
[2018-10-22] MEDS ORDERED: DILT240C2 PO (01:56)
[2018-10-22] MEDS ORDERED: LABETALOL 20 MG/4 ML DISP.SYRIN. IVP PRN (02:15)
[2018-10-22] MEDS: IV NORMAL SALINE 1000ML BAG 1,000 ML IV SCH ×3 (05:36→17:43)
[2018-10-22] MEDS ORDERED: ONDANSETRON PF 4 MG/2 ML VIAL. IV PRN (09:45)
[2018-10-22] MEDS ORDERED: MECLIZINE HCL 12.5 MG TABLET. PO PRN (11:15)
--- NOTE | 2018-10-22 11:26 | SSS ---
ADMIT DATE: 10/22/2018 CHIEF COMPLAINT: Nausea, vomiting, diarrhea and dizziness. HISTORY OF PRESENT ILLNESS: The patient is a pleasant 82-year-old male who had an intra-auricular corticosteroid injection in his right ear 3 days ago. He has now developed nausea, vomiting, dizziness, has some associated anxiety. Rates it at 10/10. At the end of the vomit, he had a little bit of blood. I suspect he had a Lorelei-Mojica tear. I discussed the case with ER physician. We are going to admit the patient and consult ENT. PAST MEDICAL HISTORY: Anxiety, arthritis, CAD, CHF, hyperlipidemia, hypertension, CABG, Lyme disease, hiatal hernia, knee replacement, inguinal hernia repair, right knee replacement. ALLERGIES: None. FAMILY HISTORY: Diabetes. SOCIAL HISTORY: Does not drink, smoke or take drugs. He is retired. MEDICATIONS: Reviewed. He is on 24 home medications including Flomax, doxycycline, Plavix, Cardizem, aspirin, Celebrex, Ultram, gabapentin, calcium, Lasix, hydrochlorothiazide, probiotic, Colace, MiraLax, Synthroid, Phenergan, fish oil, vitamins, glucosamine, CoQ10. REVIEW OF SYSTEMS: GENERAL: No history of weight change, weakness or fevers. SKIN: No bruising, hair changes or rashes. HEENT: He complains of ear pain with some dizziness. NOSE AND THROAT: No history of nosebleeds, hoarseness or sore throat. HEART: No history of palpitations, chest pain or shortness of breath on exertion. LUNGS: Denies cough, hemoptysis, wheezing or shortness of breath. GASTROINTESTINAL: He complains of nausea. GENITOURINARY: No history of frequency, urgency, hesitancy or nocturia. NEUROLOGIC: Denies history of numbness, tingling, tremor or weakness. PSYCHIATRIC: No history of panic, anxiety or depression. ENDOCRINE: No history of heat or cold intolerance, polyuria or polydipsia. EXTREMITIES: Denies muscle weakness, joint pain, pain on walking or stiffness. PHYSICAL EXAMINATION: VITAL SIGNS: Temperature 98, pulse 52, respirations 16, blood pressure 120/56. GENERAL: He is alert, cooperative, trying to eat breakfast. Daughter and were present. They seem to be anxious, but are good support for him. HEART: Normal S1, S2. LUNGS: Clear to auscultation. ABDOMEN: Soft, positive bowel sounds, no organomegaly. EXTREMITIES: Trace edema. SKIN: No rashes. ENDOCRINE: No thyromegaly. LYMPHATICS: No cervical nodes. HEMATOPOIETIC: No bruising. PSYCHIATRIC: He is anxious. NEUROLOGICAL: No focal deficits. LABORATORY DATA: Hematology is normal. Electrolytes are normal other than a BUN of 29. Troponin is 0. ASSESSMENT AND PLAN: Probable vestibular dysfunction in an elderly male who had a recent injection to his ear with steroids. We will go ahead and consult ENT. We are going to give him p.r.n. Zofran, p.r.n. Antivert, home meds, IV fluids, PT, OT. Hope to discharge tomorrow if he is stable. PRANAV GIORDANO DO DR: ANNA/angela JOB#: [id number] / [id number]
--- NOTE | 2018-10-22 18:20 | PDOC2 ---
Consult: CC: dizziness HPI: 82 year old male that was previously seen by myself in clinic. Patient had developed sudden left-sided sensorineural hearing loss in late September 2018. He underwent left intratympanic steroid injections-- first completed . Second completed 10/19/18. Planned for third and final injection next week. He was doing well afterwards-- ear felt fullness, tinnitus persisted. Yesterday (48 hours after injection) he reports feeling heart palpitations and pre-syncopal feeling when working on car outside. He then developed severe nausea and wretching-- no jazzmine vomiting. He also felt that he would fall and was quite off balance. No jzazmine room spinning noted. He reports symptoms continued until he presented to ER. He had noted several other episodes of feeling that heart rate was elevated prior to imbalance starting. He was admitted for observation yesterday evening. He has some episodes of elevated blood pressure since admissions, periodic PVC's. He reports nausea has stopped. He feels off balance still. He does report that left-ear tinnitus has stopped. He does have left ear fullness, gurgling sound at times in that ear. No jazzmine otalgia. PAST MEDICAL HISTORY: Anxiety, arthritis, CAD, CHF, hyperlipidemia, hypertension, CABG, Lyme disease, hiatal hernia, knee replacement, inguinal hernia repair, right knee replacement. ALLERGIES: None. FAMILY HISTORY: Diabetes. SOCIAL HISTORY: Does not drink, smoke or take drugs. He is retired. MEDICATIONS: Reviewed. He is on 24 home medications including Flomax, doxycycline, Plavix, Cardizem, aspirin, Celebrex, Ultram, gabapentin, calcium, Lasix, hydrochlorothiazide, probiotic, Colace, MiraLax, Synthroid, Phenergan, fish oil, vitamins, glucosamine, CoQ10. REVIEW OF SYSTEMS: GENERAL: No history of weight change, weakness or fevers. SKIN: No bruising, hair changes or rashes. HEENT: He complains of ear pain with some dizziness. NOSE AND THROAT: No history of nosebleeds, hoarseness or sore throat. HEART: No history of palpitations, chest pain or shortness of breath on exertion. LUNGS: Denies cough, hemoptysis, wheezing or shortness of breath. GASTROINTESTINAL: He complains of nausea. GENITOURINARY: No history of frequency, urgency, hesitancy or nocturia. NEUROLOGIC: Denies history of numbness, tingling, tremor or weakness. PSYCHIATRIC: No history of panic, anxiety or depression. ENDOCRINE: No history of heat or cold intolerance, polyuria or polydipsia. EXTREMITIES: Denies muscle weakness, joint pain, pain on walking or stiffness. Exam: VSS Afebrile today General: AAO X 3, NAD Ears: Left: mild scarring at site of injection. No effusions noted, no infection seen; Right: normal tympanic membrane Nose: Normal turbinates, septum OC/OP: moist mucous membranes, normal Neuro: EOMI. No jazzmine nystagmus. Concord-Hallpike: negative bilaterally Results: Labs relatively normal. CT Head (10-22-18): No acute intracranial hemorrhage. No evidence of ear infection or mastoid inflammation MRI IAC (10-08-18): No evidence of retrocochlear pathology. Audiogram (09-30-18): Right ear: Mild sloping to moderately-severe sensorineural hearing loss, 92% word recognition scores, Type A tympanogram; Left ear: Moderately-severe sloping to profound sensorineural hearing loss (air- bone gap at 250 Hz only), 36% word recognition scores, Type A tympanogram Assessment: 82 year old male that initially presented on 09-30-18 with sudden left-sided sensorineural hearing loss. Normal MRI IAC. He underwent second of 3 planned intratympanic steroid injections in clinic on 10/19/18. Patient presented to ER with acute onset of dizziness/imbalance yesterday and associated nausea. Patient also has PVC's, fluctuating BP and anxiety contributing to symptoms. I am unsure of underlying etiology of symptoms. No bacterial infection seen on exam or CT imaging. Acute inner ear pathology may be due to viral vestibular neuronitis, TIA symptoms and/or left eustachian tube dysfunction since injection. Cardiac etiology not completely excluded but negative work-up so far this hospitalization. - Recommend continuing symptomatic care with zofran, meclizine, valium PRN. - Consider starting oral steroids Prednisone 40mg for 5 days with slow taper ( 20 mg for 5 days, 10mg for 5 days) to help resolve any acute inner ear inflammation. I will not order as want to make sure hospitalist team feels not contraindicated prior to starting. - Start nasal flonase to help acute left eustachian tube dysfunction. I also recommended frequent valsalva. - Recommend attempting physical therapy/ambulation with walker. - Patient to follow up in clinic next , 10/18/18 as scheduled with repeat audiogram. May need to consider outpatient vestibular therapy if no acute improvement in symptoms by that time. RADHA BUCKNER MD Oct 22, 2018 18:20
[2018-10-22] MEDS ORDERED: ALPRAZolam 0.25 MG TABLET PO ONE (18:30)
[2018-10-22] MEDS: OMEGA-3 FATTY ACIDS/FISH OIL 1,000 MG CAPSULE. PO SCH (18:30)
[2018-10-22] MEDS: MULTIVITAMIN with MINERAL TABLET. PO SCH (18:30)
[2018-10-22] MEDS ORDERED: traMADol 50 MG TABLET PO PRN (21:00)
[2018-10-22] MEDS: GABAPENTIN 300 MG CAPSULE. PO SCH (21:55)
[2018-10-22] MEDS: ASPIRIN ENTERIC COATED 81 MG TABLET.DR. PO SCH (21:56)
[2018-10-22] MEDS: CELECOXIB 100 MG CAPSULE. PO SCH (21:57)
[2018-10-22] MEDS: TAMSULOSIN 0.4 MG CAP.ER.24H. PO SCH (21:57)
[2018-10-22] MEDS: LEVOTHYROXINE 75 MCG TABLET PO SCH (21:57)
[2018-10-22] MEDS: DOXYCYCLINE HYCLATE 100 MG TABLET PO SCH (21:58)
[2018-10-22] MEDS: VENLAFAXINE XR 37.5 MG CAP.ER.24H. PO SCH (21:58)
[2018-10-22] MEDS: LACTOBACILLUS RHAMNOSUS GG 1 CAPSULE. PO SCH (21:59)
[2018-10-22] MEDS: CLOPIDOGREL BISULFATE 75 MG TABLET PO SCH (21:59)
[2018-10-22] MEDS: FLUTICASONE 50MCG/NASAL SPRAY 16GM BOTTLE. NS SCH (22:00)
[2018-10-23 03:35] VITALS: BP 129/70
[2018-10-23] MEDS: LEVOTHYROXINE 75 MCG TABLET PO SCH (07:00)
[2018-10-23 07:51] VITALS: BP 132/66
[2018-10-23] MEDS ORDERED: FUROSEMIDE 40 MG TABLET. PO SCH (09:00)
[2018-10-23] MEDS ORDERED: NON FORMULARY ITEM (Glucosamine Hcl 500 MG) PO SCH (09:00)
[2018-10-23] MEDS ORDERED: NON FORMULARY ITEM (Ubidecarenone (Co Q-10) 200 MG) PO SCH (09:00)
[2018-10-23] MEDS: MULTIVITAMIN with MINERAL TABLET. PO SCH (09:03)
[2018-10-23] MEDS: VENLAFAXINE XR 37.5 MG CAP.ER.24H. PO SCH (09:03)
[2018-10-23] MEDS: FLUTICASONE 50MCG/NASAL SPRAY 16GM BOTTLE. NS SCH (09:03)
[2018-10-23 09:04] VITALS: BP 132/66
[2018-10-23] MEDS: LACTOBACILLUS RHAMNOSUS GG 1 CAPSULE. PO SCH (09:04)
[2018-10-23] MEDS: CELECOXIB 100 MG CAPSULE. PO SCH (09:04)
[2018-10-23] MEDS: ASPIRIN ENTERIC COATED 81 MG TABLET.DR. PO SCH (09:04)
[2018-10-23] MEDS: OMEGA-3 FATTY ACIDS/FISH OIL 1,000 MG CAPSULE. PO SCH (09:04)
[2018-10-23] MEDS: GABAPENTIN 300 MG CAPSULE. PO SCH (09:04)
[2018-10-23] MEDS: DOXYCYCLINE HYCLATE 100 MG TABLET PO SCH (09:05)
[2018-10-23] MEDS: CLOPIDOGREL BISULFATE 75 MG TABLET PO SCH (09:05)
[2018-10-23] MEDS: TAMSULOSIN 0.4 MG CAP.ER.24H. PO SCH (09:05)
--- NOTE | 2018-10-23 11:27 | PDOC ---
PROGRESS NOTES Chief Complaint Chief Complaint Vertigo History of Present Illness History of Present Illness Pt seen and examined, spoke with nursing staff. Pt has no complaints. Pt notes that vertigo has resolved and that he is wanting to go home. Vitals Vitals Vital Signs Date Time Temp Pulse Resp B/P (MAP) Pulse Ox O2 Delivery O2 Flow Rate FiO2 10/23/18 09:04 63 132/66 10/23/18 07:52 Room Air 10/23/18 07:51 97.6 17 99 97.6 Physical Exam Lungs: Clear Review of Systems Review of Systems Denies CP Denies SOB Denies N/V Assessment and Plan Assessmemt and Plan Assessment: Vertigo Plan: Home meds D/C today Comment Review of Relevant I have reviewed the following items nimisha (where applicable) has been applied. Labs Laboratory Tests Test 10/21/18 21:50 10/22/18 07:30 White Blood Count 9.8 x10^3/uL (4.0-11.0) Red Blood Count 4.11 x10^6/uL (4.30-5.70) Hemoglobin 14.0 g/dL (13.0-17.5) Hematocrit 39.6 % (39.0-53.0) Mean Corpuscular Volume 96 fL (79-100) Mean Corpuscular Hemoglobin 34 pg (25-35) Mean Corpuscular Hemoglobin Concent 35 g/dL (31-37) Red Cell Distribution Width 12.9 % (11.5-14.5) Platelet Count 214 x10^3/uL (140-400) Neutrophils (%) (Auto) 83 % (31-73) Lymphocytes (%) (Auto) 11 % (24-48) Monocytes (%) (Auto) 6 % (0-9) Eosinophils (%) (Auto) 0 % (0-3) Basophils (%) (Auto) 0 % (0-3) Neutrophils # (Auto) 8.1 x10^3uL (1.8-7.7) Lymphocytes # (Auto) 1.1 x10^3/uL (1.0-4.8) Monocytes # (Auto) 0.6 x10^3/uL (0.0-1.1) Eosinophils # (Auto) 0.0 x10^3/uL (0.0-0.7) Basophils # (Auto) 0.0 x10^3/uL (0.0-0.2) Sodium Level 141 mmol/L (136-145) Potassium Level 4.0 mmol/L (3.5-5.1) Chloride Level 104 mmol/L (98-107) Carbon Dioxide Level 27 mmol/L (21-32) Anion Gap 10 (6-14) Blood Urea Nitrogen 29 mg/dL (8-26) Creatinine 1.3 mg/dL (0.7-1.3) Estimated GFR (Cockcroft-Gault) 53.0 BUN/Creatinine Ratio 22 (6-20) Glucose Level 183 mg/dL (70-99) Calcium Level 9.3 mg/dL (8.5-10.1) Total Bilirubin 0.3 mg/dL (0.2-1.0) Aspartate Amino Transf (AST/SGOT) 30 U/L (15-37) Alanine Aminotransferase (ALT/SGPT) 38 U/L (16-63) Alkaline Phosphatase 96 U/L (46-116) Troponin I Quantitative < 0.017 ng/mL (0.000-0.055) < 0.017 ng/mL (0.000-0.055) Total Protein 6.5 g/dL (6.4-8.2) Albumin 3.7 g/dL (3.4-5.0) Albumin/Globulin Ratio 1.3 (1.0-1.7) Medications Current Medications Meclizine HCl (Antivert) 25 mg 1X ONCE PO Last administered on 10/21/18at 22: 24; Start 10/21/18 at 22:15; Stop 10/21/18 at 22:16; Status DC Lorazepam (Ativan) 0.5 mg 1X ONCE IV Last administered on 10/21/18at 22:24; Start 10/21/18 at 22:30; Stop 10/21/18 at 22:31; Status DC Sodium Chloride 1,000 ml @ 75 mls/hr [id number] IV Last administered on at 17:43; Start 10/22/18 at 00:04; Stop 10/23/18 at 00:03; Status DC Labetalol HCl (Normodyne Iv Push) 20 mg PRN Q2HR PRN IVP HYPERTENSION, SEE COMMENTS Last administered on 10/22/18at 03:08; Start 10/22/18 at 02:15 Influenza Virus Vaccine (Afluria Trivalent [id number] Syringe) 0.5 ml ONCE ONCE VAX IM ; Start 10/22/18 at 09:00; Stop 10/22/18 at 09:01; Status DC Ondansetron HCl (Zofran) 4 mg PRN Q6HRS PRN IV NAUSEA/VOMITING; Start at 09:45 Meclizine HCl (Antivert) 12.5 mg PRN Q6HRS PRN PO DIZZINESS; Start 10/22/18 at 11:15 Aspirin (Ecotrin) 81 mg DAILY PO Last administered on 10/23/18 09:04; Start 10/22/18 at 18:30 Clopidogrel Bisulfate (Plavix) 75 mg DAILYWBKFT PO Last administered on at 09:05; Start 10/22/18 at 18:30 Furosemide (Lasix) 40 mg DAILY PO Last administered on 10/23/18at 09:03; Start 10/23/18 at 09:00 Levothyroxine Sodium (Synthroid) 75 mcg DAILY07 PO Last administered on at 21:57; Start 10/22/18 at 18:30 Tamsulosin HCl (Flomax) 0.4 mg DAILY PO Last administered on 10/23/18at 09:05; Start 10/22/18 at 18:30 Tramadol HCl (Ultram) 50 mg PRN Q8HRS PRN PO PAIN Last administered on at 23:25; Start 10/22/18 at 21:00 Celecoxib (CeleBREX) 200 mg DAILY PO Last administered on 10/23/18at 09:04; Start 10/22/18 at 18:30 Diltiazem HCl (Cardizem 24hr Cd) 240 mg DAILY PO Last administered on 09:04; Start 10/22/18 at 18:30 Fish Oil (Fish Oil) 1,000 mg DAILY PO Last administered on 10/23/18at 09:04; Start 10/22/18 at 18:30 Gabapentin (Neurontin) 600 mg DAILY PO Last administered on 10/23/18 09:04; Start 10/22/18 at 18:30 Non-Formulary Medication (Glucosamine Hcl ) 500 mg DAILY PO ; Start 10/23/18 at 09:00; Status UNV Lactobacillus Rhamnosus (Culturelle) 1 cap QODAY PO ; Start 10/24/18 at 09:00; Stop 10/24/18 at 09:00; Status DC Multivitamins (Thera M Plus) 1 tab DAILY PO Last administered on 10/23/18at 09: 03; Start 10/22/18 at 18:30 Non-Formulary Medication (Ubidecarenone (Co Q-10)) 200 mg DAILY PO ; Start at 09:00; Status UNV Venlafaxine HCl (Effexor Xr) 37.5 mg DAILY PO Last administered on 10/23/18at 09:03; Start 10/22/18 at 18:30 Alprazolam (Xanax) 0.25 mg 1X ONCE PO Last administered on 10/22/18at 21:57; Start 10/22/18 at 18:30; Stop 10/22/18 at 18:31; Status DC Doxycycline Hyclate (Vibra-Tab) 100 mg BID PO Last administered on 10/23/18at 09:05; Start 10/22/18 at 21:00 Lactobacillus Rhamnosus (Culturelle) 1 cap BID PO Last administered on at 09:04; Start 10/22/18 at 21:00 Fluticasone Propionate (Flonase) 1 spray BID NS Last administered on at 09:03; Start 10/22/18 at 21:00 Active Scripts Active Phenazopyridine Hcl 200 Mg Tablet 200 Mg PO PRN TID PRN Ketorolac Tromethamine 10 Mg Tablet 10 Mg PO PRN Q6HRS PRN Lasix (Furosemide) 40 Mg Tablet 1 Tab PO DAILY Colace (Docusate Sodium) 100 Mg Capsule 100 Mg PO BID Reported Clopidogrel (Clopidogrel Bisulfate) 75 Mg Tablet 1 Tab PO 3X/WEEK Cardizem Cd (Diltiazem Hcl) 240 Mg Cap.er.24h 1 Cap PO DAILY Levothyroxine Sodium 75 Mcg Tablet 1 Tab PO DAILY Miralax (Polyethylene Glycol 3350) 17 Gm Powd.pack 1 Pkt PO PRN PRN Probiotic (Lactobacillus Acidophilus) 1 Each Capsule 1 Each PO QODAY Venlafaxine Hcl Er (Venlafaxine Hcl) 37.5 Mg Cap.er.24h 37.5 Mg PO DAILY Doxycycline Hyclate 100 Mg Tablet 100 Mg PO BID Clopidogrel (Clopidogrel Bisulfate) 75 Mg Tablet 75 Mg PO DAILY Hydrochlorothiazide Capsule (Hydrochlorothiazide) 12.5 Mg Capsule 25 Mg PO DAILY Glucosamine Hcl 500 Mg Tablet 500 Mg PO DAILY Tramadol Hcl 50 Mg Tablet 1 Tab PO BID Celebrex (Celecoxib) 200 Mg Capsule 1 Cap PO DAILY Aspir 81 (Aspirin) 81 Mg Tablet.dr 1 Tab PO DAILY Flomax (Tamsulosin Hcl) 0.4 Mg Cap.er.24h 1 Cap PO DAILY LAST DOSE GIVEN: DATE:04-25-16 TIME:9:00 a.m. NEXT DOSE DUE: DATE:04-26-16 TIME:9:00 a.m. Gabapentin 600 Mg Tablet 600 Mg PO DAILY LAST DOSE GIVEN: DATE:04-24-16 TIME:9:00 p.m. NEXT DOSE DUE: DATE:04-25-16 TIME:9:00 p.m. Fish Oil 1,200 Mg Fish Oil (Fish Oil/Dha/Epa) 1 Each Capsule 1 Each PO DAILY LAST DOSE GIVEN: DATE:04-25-16 TIME:9:00 a.m. NEXT DOSE DUE: DATE:04-26-16 TIME:9:00 a.m. Diltiazem 24HR Cd (Diltiazem Hcl) 180 Mg Cap.er.24h 240 Mg PO DAILY LAST DOSE GIVEN: :04-25-16 TIME:9:00 a.m. NEXT DOSE DUE: :04-26-16 TIME:9:0 a.m. Co Q-10 (Ubidecarenone) 200 Mg Capsule 200 Mg PO DAILY Not taken while in hosp. May resume at home as directed. Daily Vitamin (Multivitamin) 1 Each Tablet 1 Each PO DAILY LAST DOSE GIVEN: DATE:04-25-16 TIME:9:00 a.m. NEXT DOSE DUE: DATE:04-26-16 TIME:9:00 a.m. Citracal + D Er Tablet (Calcium Carb & Cit/Vitamin D3) 1 Each Tablet.er 1 Each PO DAILY LAST DOSE GIVEN: DATE:04-25-16 TIME:9:00 a.m. NEXT DOSE DUE: DATE:04-26-16 TIME:9:00 a.m. Vitals/I & O Vital Sign - Last 24 Hours 10/22/18 10/22/18 10/22/18 10/22/18 15:00 19:10 20:00 21:56 Temp 98.8 99.1 98.8 99.1 Pulse 53 72 72 Resp 17 B/P (MAP) 143/60 (87) 177/73 (107) 177/73 Pulse Ox 98 98 O2 Delivery Room Air Room Air Room Air 10/22/18 10/22/18 10/23/18 10/23/18 23:19 23:25 00:30 03:35 Temp 98.7 98.6 98.7 98.6 Pulse 85 65 Resp 17 17 B/P (MAP) 129/75 (93) 129/70 (89) Pulse Ox 96 96 96 98 O2 Delivery Room Air Room Air Room Air Room Air 10/23/18 10/23/18 10/23/18 07:51 07:52 09:04 Temp 97.6 97.6 Pulse 58 63 Resp B/P (MAP) 132/66 (88) 132/66 Pulse Ox 99 O2 Delivery Room Air Room Air Intake and Output 10/22/18 10/22/18 10/23/18 15:01 23:01 07:01 Intake Total 180 ml 200 ml Output Total 625 ml 450 ml 600 ml Balance -625 ml -270 ml -400 ml PRANAV GIORDANO III DO Oct 23, 2018 11:27
[2018-10-23] MEDS ORDERED: predniSONE 20 MG TABLET PO ONE (11:45)
--- NOTE | 2018-10-23 13:19 | PDOC2 ---
CONSULT Date of Consult Date of Consult DATE: 10/23/18 TIME: 13:13 Reason for Consult Reason for Consult: dizziness Referring Physician Referring Physician: Dr. Ng Identification/Chief Complaint Chief Complaint Nausea, vertigo Source Source: Chart review, Patient History of Present Illness Reason for Visit: The patient is an 82-year-old male who was admitted through the emergency room for episodes of nausea and vertigo. He has recently had injections to his to the area of his injury or and following this had episodes of dizziness and vertigo. He was admitted and monitored overnight and is feeling better this morning. He has been seen by the ENT service. From a cardiac viewpoint he does have a history of coronary disease, bypass surgery and previous heart failure. However his EKG shows a sinus rhythm with no acute ischemic changes. His rhythm has been stable overnight. Troponin has been normal 2. CT head scan shows no acute changes. He is feeling better this morning. Past Medical History Cardiovascular: CAD, HTN, Hyperlipidemia CENTRAL NERVOUS SYSTEM: TIA GI: GERD Hepatobiliary: No pertinent hx Psych: No pertinent hx Musculoskeletal: Osteoarthritis Renal/: Benign prostatic enlarg. Past Surgical History Past Surgical History: CABG, Cataract Removal, Hernia Repair, Total knee replacement, Other Family History Family History: Cancer, Diabetes, Heart Disease, Osteo Arthiritis, Stroke Social History No ALCOHOL: none Drugs: None Current Problem List Problem List Problems Medical Problems: (1) Vertigo Status: Acute Current Medications Current Medications Current Medications Meclizine HCl (Antivert) 25 mg 1X ONCE PO Last administered on 10/21/18at 22: 24; Start 10/21/18 at 22:15; Stop 10/21/18 at 22:16; Status DC Lorazepam (Ativan) 0.5 mg 1X ONCE IV Last administered on 10/21/18at 22:24; Start 10/21/18 at 22:30; Stop 10/21/18 at 22:31; Status DC Sodium Chloride 1,000 ml @ 75 mls/hr [id number] IV Last administered on at 17:43; Start 10/22/18 at 00:04; Stop 10/23/18 at 00:03; Status DC Labetalol HCl (Normodyne Iv Push) 20 mg PRN Q2HR PRN IVP HYPERTENSION, SEE COMMENTS Last administered on 10/22/18at 03:08; Start 10/22/18 at 02:15 Influenza Virus Vaccine (Afluria Trivalent [id number] Syringe) 0.5 ml ONCE ONCE VAX IM ; Start 10/22/18 at 09:00; Stop 10/22/18 at 09:01; Status DC Ondansetron HCl (Zofran) 4 mg PRN Q6HRS PRN IV NAUSEA/VOMITING; Start at 09:45 Meclizine HCl (Antivert) 12.5 mg PRN Q6HRS PRN PO DIZZINESS; Start 10/22/18 at 11:15 Aspirin (Ecotrin) 81 mg DAILY PO Last administered on 10/23/18 09:04; Start 10/22/18 at 18:30 Clopidogrel Bisulfate (Plavix) 75 mg DAILYWBKFT PO Last administered on 09:05; Start 10/22/18 at 18:30 Furosemide (Lasix) 40 mg DAILY PO Last administered on 10/23/18at 09:03; Start 10/23/18 at 09:00 Levothyroxine Sodium (Synthroid) 75 mcg DAILY07 PO Last administered on at 21:57; Start 10/22/18 at 18:30 Tamsulosin HCl (Flomax) 0.4 mg DAILY PO Last administered on 10/23/18at 09:05; Start 10/22/18 at 18:30 Tramadol HCl (Ultram) 50 mg PRN Q8HRS PRN PO PAIN Last administered on at 23:25; Start 10/22/18 at 21:00 Celecoxib (CeleBREX) 200 mg DAILY PO Last administered on 10/23/18 09:04; Start 10/22/18 at 18:30 Diltiazem HCl (Cardizem 24hr Cd) 240 mg DAILY PO Last administered on 09:04; Start 10/22/18 at 18:30 Fish Oil (Fish Oil) 1,000 mg DAILY PO Last administered on 10/23/18 09:04; Start 10/22/18 at 18:30 Gabapentin (Neurontin) 600 mg DAILY PO Last administered on 10/23/18 09:04; Start 10/22/18 at 18:30 Non-Formulary Medication (Glucosamine Hcl ) 500 mg DAILY PO ; Start 10/23/18 at 09:00; Status UNV Lactobacillus Rhamnosus (Culturelle) 1 cap QODAY PO ; Start 10/24/18 at 09:00; Stop 10/24/18 at 09:00; Status DC Multivitamins (Thera M Plus) 1 tab DAILY PO Last administered on 10/23/18at 09: 03; Start 10/22/18 at 18:30 Non-Formulary Medication (Ubidecarenone (Co Q-10)) 200 mg DAILY PO ; Start at 09:00; Status UNV Venlafaxine HCl (Effexor Xr) 37.5 mg DAILY PO Last administered on 10/23/18at 09:03; Start 10/22/18 at 18:30 Alprazolam (Xanax) 0.25 mg 1X ONCE PO Last administered on 10/22/18at 21:57; Start 10/22/18 at 18:30; Stop 10/22/18 at 18:31; Status DC Doxycycline Hyclate (Vibra-Tab) 100 mg BID PO Last administered on 10/23/18at 09:05; Start 10/22/18 at 21:00 Lactobacillus Rhamnosus (Culturelle) 1 cap BID PO Last administered on at 09:04; Start 10/22/18 at 21:00 Fluticasone Propionate (Flonase) 1 spray BID NS Last administered on at 09:03; Start 10/22/18 at 21:00 Prednisone (Prednisone) 40 mg 1X ONCE PO Last administered on 10/23/18at 11:47 ; Start 10/23/18 at 11:45; Stop 10/23/18 at 11:46; Status DC Active Scripts Active Phenazopyridine Hcl 200 Mg Tablet 200 Mg PO PRN TID PRN Ketorolac Tromethamine 10 Mg Tablet 10 Mg PO PRN Q6HRS PRN Lasix (Furosemide) 40 Mg Tablet 1 Tab PO DAILY Colace (Docusate Sodium) 100 Mg Capsule 100 Mg PO BID Reported Clopidogrel (Clopidogrel Bisulfate) 75 Mg Tablet 1 Tab PO 3X/WEEK Cardizem Cd (Diltiazem Hcl) 240 Mg Cap.er.24h 1 Cap PO DAILY Levothyroxine Sodium 75 Mcg Tablet 1 Tab PO DAILY Miralax (Polyethylene Glycol 3350) 17 Gm Powd.pack 1 Pkt PO PRN PRN Probiotic (Lactobacillus Acidophilus) 1 Each Capsule 1 Each PO QODAY Venlafaxine Hcl Er (Venlafaxine Hcl) 37.5 Mg Cap.er.24h 37.5 Mg PO DAILY Doxycycline Hyclate 100 Mg Tablet 100 Mg PO BID Clopidogrel (Clopidogrel Bisulfate) 75 Mg Tablet 75 Mg PO DAILY Hydrochlorothiazide Capsule (Hydrochlorothiazide) 12.5 Mg Capsule 25 Mg PO DAILY Glucosamine Hcl 500 Mg Tablet 500 Mg PO DAILY Tramadol Hcl 50 Mg Tablet 1 Tab PO BID Celebrex (Celecoxib) 200 Mg Capsule 1 Cap PO DAILY Aspir 81 (Aspirin) 81 Mg Tablet.dr 1 Tab PO DAILY Flomax (Tamsulosin Hcl) 0.4 Mg Cap.er.24h 1 Cap PO DAILY LAST DOSE GIVEN: DATE:04-25-16 TIME:9:00 a.m. NEXT DOSE DUE: DATE:04-26-16 TIME:9:00 a.m. Gabapentin 600 Mg Tablet 600 Mg PO DAILY LAST DOSE GIVEN: DATE:04-24-16 TIME:9:00 p.m. NEXT DOSE DUE: DATE:04-25-16 TIME:9:00 p.m. Fish Oil 1,200 Mg Fish Oil (Fish Oil/Dha/Epa) 1 Each Capsule 1 Each PO DAILY LAST DOSE GIVEN: DATE:04-25-16 TIME:9:00 a.m. NEXT DOSE DUE: DATE:04-26-16 TIME:9:00 a.m. Diltiazem 24HR Cd (Diltiazem Hcl) 180 Mg Cap.er.24h 240 Mg PO DAILY LAST DOSE GIVEN: DATE:04-25-16 TIME:9:00 a.m. NEXT DOSE DUE: DATE:04-26-16 TIME:9:0 a.m. Co Q-10 (Ubidecarenone) 200 Mg Capsule 200 Mg PO DAILY Not taken while in hosp. May resume at home as directed. Daily Vitamin (Multivitamin) 1 Each Tablet 1 Each PO DAILY LAST DOSE GIVEN: DATE:04-25-16 TIME:9:00 a.m. NEXT DOSE DUE: DATE:04-26-16 TIME:9:00 a.m. Citracal + D Er Tablet (Calcium Carb & Cit/Vitamin D3) 1 Each Tablet.er 1 Each PO DAILY LAST DOSE GIVEN: DATE:04-25-16 TIME:9:00 a.m. NEXT DOSE DUE: DATE:04-26-16 TIME:9:00 a.m. Allergies Allergies: Coded Allergies: No Known Drug Allergies (Unverified , 01/18/18) ROS General: YES: Fatigue HEENT: YES: Vertigo Gastrointestinal: Yes Nausea Physical Exam General: No acute distress HEENT: Atraumatic Lungs: Clear to auscultation Heart: Regular rate Abdomen: Normal bowel sounds Vitals VITALS Vital Signs Date Time Temp Pulse Resp B/P (MAP) Pulse Ox O2 Delivery O2 Flow Rate FiO2 10/23/18 09:04 63 132/66 10/23/18 07:52 Room Air 10/23/18 07:51 97.6 17 99 97.6 Labs Labs Laboratory Tests Test 10/21/18 21:50 10/22/18 07:30 White Blood Count 9.8 x10^3/uL (4.0-11.0) Red Blood Count 4.11 x10^6/uL (4.30-5.70) Hemoglobin 14.0 g/dL (13.0-17.5) Hematocrit 39.6 % (39.0-53.0) Mean Corpuscular Volume 96 fL (79-100) Mean Corpuscular Hemoglobin 34 pg (25-35) Mean Corpuscular Hemoglobin Concent 35 g/dL (31-37) Red Cell Distribution Width 12.9 % (11.5-14.5) Platelet Count 214 x10^3/uL (140-400) Neutrophils (%) (Auto) 83 % (31-73) Lymphocytes (%) (Auto) 11 % (24-48) Monocytes (%) (Auto) 6 % (0-9) Eosinophils (%) (Auto) 0 % (0-3) Basophils (%) (Auto) 0 % (0-3) Neutrophils # (Auto) 8.1 x10^3uL (1.8-7.7) Lymphocytes # (Auto) 1.1 x10^3/uL (1.0-4.8) Monocytes # (Auto) 0.6 x10^3/uL (0.0-1.1) Eosinophils # (Auto) 0.0 x10^3/uL (0.0-0.7) Basophils # (Auto) 0.0 x10^3/uL (0.0-0.2) Sodium Level 141 mmol/L (136-145) Potassium Level 4.0 mmol/L (3.5-5.1) Chloride Level 104 mmol/L (98-107) Carbon Dioxide Level 27 mmol/L (21-32) Anion Gap 10 (6-14) Blood Urea Nitrogen 29 mg/dL (8-26) Creatinine 1.3 mg/dL (0.7-1.3) Estimated GFR (Cockcroft-Gault) 53.0 BUN/Creatinine Ratio 22 (6-20) Glucose Level 183 mg/dL (70-99) Calcium Level 9.3 mg/dL (8.5-10.1) Total Bilirubin 0.3 mg/dL (0.2-1.0) Aspartate Amino Transf (AST/SGOT) 30 U/L (15-37) Alanine Aminotransferase (ALT/SGPT) 38 U/L (16-63) Alkaline Phosphatase 96 U/L (46-116) Troponin I Quantitative < 0.017 ng/mL (0.000-0.055) < 0.017 ng/mL (0.000-0.055) Total Protein 6.5 g/dL (6.4-8.2) Albumin 3.7 g/dL (3.4-5.0) Albumin/Globulin Ratio 1.3 (1.0-1.7) Images Images CT head scan shows no acute changes. Assessment/Plan Assessment/Plan 1. Nausea and vertigo. Largely resolved. Most consistent with recent injections. Seen by the ENT service. 2. History of coronary artery disease with previous bypass surgery. Troponins normal 2. No acute ischemic EKG changes. No chest pain. We'll continue on present cardiac medical treatment. May increase activity as tolerated. 3. Hypertension. Controlled. 4. Hyperlipidemia. Continue on statin medications. Thank you for allowing us to participate in the care of your patient. MARY BAUTISTA MD Oct 23, 2018 13:19
[2018-10-24] MEDS ORDERED: LACTOBACILLUS RHAMNOSUS GG 1 CAPSULE. PO SCH (09:00)
--- NOTE | 2018-10-26 23:14 | DS ---
DATE OF DISCHARGE: 10/23/2018 ADMISSION DIAGNOSES: Intractable vertigo with nausea and vomiting. DISCHARGE DIAGNOSIS: Resolving vertigo. HOSPITAL COURSE: The patient is a pleasant 82-year-old male who presented with intractable vertigo. He had his ears injected with a steroid recently. We watched him on the monitored floor. We gave him antiemetics and fluids, did some physical therapy and occupational therapy. I did consult his ENT, Dr. Desire Crawford. Over the past few days, he has done better. He is alert and oriented this morning and wants to go home. We plan to discharge with close outpatient followup. DISPOSITION: Home. ACTIVITY: As tolerated. DIET: Low sodium. MEDICATIONS: Please see the MRAD. TOTAL TIME: 35 minutes. PRANAV GIORDANO DO DR: ANNA/angela JOB#: [id number] / [id number]
== END 2018-10-23 13:22 | disposition home or self-care (01) ==
LOC: ER 21:10 → 2 SOUTH 10-22
PROVIDERS: ADMIT Internal Medicine; ATTEND Internal Medicine
DX: R42 Dizziness and giddiness (principal); E78.5 Hyperlipidemia, unspecified; F41.9 Anxiety disorder, unspecified; I11.0 Hypertensive heart disease with heart failure; I50.9 Heart failure, unspecified; I25.10 Atherosclerotic heart disease of native coronary artery without angina pectoris; I49.3 Ventricular premature depolarization; K21.9 Gastro-esophageal reflux disease without esophagitis; Z96.651 Presence of right artificial knee joint; Z95.1 Presence of aortocoronary bypass graft; Z86.73 Personal history of transient ischemic attack (TIA), and cerebral infarction without residual deficits; Z83.3 Family history of diabetes mellitus; Z82.3 Family history of stroke
CPT/HCPCS: 36415; 70450; 80053; 84484; 85025; 90471; 90756; 93005; 96361; 96374; 96375; 97161; 99284; G0378; G8978; G8979; G8980; J2060; J3490; J7030; J7512; J8597; G0379; Q2035

== ENCOUNTER → 2018-11-29 | Outpatient (CLI) | payer MEDICARE ==
[2018-10-22 23:19] VITALS: BP 129/75
[~2018-11-29] MED LIST changes: +DILT240C2 PO
--- NOTE | 2018-11-29 12:13 | CARD ---
MR#: [id number] Date of Study: 11/29/2018 Ordering Physician: KAELA GOMES, Referring Physician: KAELA GOMES, Tech: APPROVED REPORT PROCEDURE: IMPLANTABLE LOOP RECORDER; REASON; Palpitations. PROCEDURE DETAILS: After appropriate informed consent, the chest was prepped and draped in usual sterile fashion. The left parasternal space was infiltrated with 30 mL of lidocaine. Next, using a scalpel a 0.25inch incision to the subcutaneous fascia was made. Next, using the premade tunneling tool, the loop recorder was placed in the subcutaneous space withou t difficulty. The incision was closed with steri-stips and the patient tolerated the procedure well. No acute complications. Device: Confirm Rx ICM 3500, [id number]. R wave amplitude: 0.26 mV <Conclusion> Successful implantation of a loop recorder for palpitations. Signed by : Kaela Gomes, Electronically Approved : 11/29/2018 12:10:52
== END | disposition home or self-care (01) ==
LOC: LINQ 10:36
PROVIDERS: ATTEND Internal Medicine Cardiovascular Disease
DX: R00.2 Palpitations (principal)
CPT/HCPCS: 33285; C1764; 33282

== ENCOUNTER → 2019-01-07 | Outpatient (CLI) | payer MEDICARE ==
[2018-12-10 11:00] VITALS: BP 118/64
[~2019-01-07] MED LIST changes: +ATOR40TA59 PO; +CARV6.2511 PO; -GABA600T2 PO; +GABA600T7 PO; +MECL12.52 PO; +MECL25TA3 PO; +REGADENOSON 0.4 MG/5 ML DISP.SYRIN. IV ONE; +TICA90TA PO
[2019-01-07 09:42] LABS: ALBUMIN 3.4 g/dL (3.4-5.0); ALBUMIN/GLOBULIN RATIO 1.1 (1.0-1.7); CALCIUM 8.8 mg/dL (8.5-10.1); CREATININE 1.3 mg/dL (0.7-1.3); GFR 52.9; POTASSIUM 4.7 mmol/L (3.5-5.1); TOTAL BILIRUBIN 0.6 mg/dL (0.2-1.0); TOTAL PROTEIN 6.5 g/dL (6.4-8.2)
[2019-01-07 09:47] LABS: CHOLESTEROL/HDL RATIO 3.2
--- NOTE | 2019-01-07 13:07 | RAD ---
MR#: [id number] Date of Study: 01/07/2019 Ordering Physician: KAELA DARNELL, Referring Physician: KARINE OLIVER Tech: RT Chema Hanks) (N) APPROVED REPORT Test Type: Pharmacological Stress Nurse/Tech: Yolie Head RN Test Indications: 3 vessel CAD Cardiac History: CABG 2008, HTN, Medications: See EMR Medical History: See EMR Resting ECG: SR with BBB and PVC (bigeminy at times). ST elevation in lead V3 and V4. Resting Heart Rate: 61 bpm Resting Blood Pressure: 141/53mmHg Pretest Chest Pain: No chest pain Nurse/Tech Notes S1 S2. Lungs clear. Loop recorder present. Consent: The procedure was explained to the patient in lay terms. Informed consent was witnessed. Willis eout was entered into [employer] History and Stress Test performed by RT Demario (R) (N) Pharm. Details Pharmacologic stress testing was performed using 0.4mg per 5ml of regadenoson given intravenously ove r 7-10 seconds. Stress Symptoms Pt c/o chest pressure 2/10 starting in Stage 1 at 0100. Chest pressure increased to 3/10 at stage R a t 0355. Pt also c/o of bilateral leg achiness and weakness. POST EXERCISE Reason for Termination: Infusion complete Max HR: 72 bpm Max Blood Pressure: 134/47mmHg Blood Pressure response to exercise: Normal blood pressure response during stress. Heart Rate response to exercise: normal Chest Pain: No. Chest pressure. See stress symptoms Arrhythmia: No. No change from baseline which had frequent PVC's. Intermittent notched T waves. ST Change: Yes. V2, V5, V6. increasing from baseline in V3 and V4 INTERPRETATION Stress EKG Conclusion: No evidence of ischemic EKG changes. Imaging Protocol IMAGE PROTOCOL: Rest Tc-99m/stress Tc-99m 1 day Rest: Stress: Viability: Radiopharm.Tc99m XozgcejfqMn78f Sestamibi [id number] 33mCi Duration 15min. 12min. Img Date 01/07/2019 01/07/2019 Inj-Img [id number]. 60min. Rest Admin Site:IV - Right ForearmAdministrator:RT Demario (R)(N) Stress Admin Site: IV - Right ForearmAdministrator: RT Demario (R)(N) STRESS DATA End Diast. Vol.98.0mlAv. Heart Rate65.0bpm End Syst. Vol.28.0mlCO Index BSA0.0L/min Myocardial Uwxw636.0gEject. Risdtddr86.0% Stress Rates Pk. Fill Rate2.36EDV/secLVtime Pk. Fill 100.85msec Pk. Empty Rate3.61ESV/secLVtime Pk. Lsprc891.55msec 11/04 Pk. Fill1.59EDV/sec Stress Scores Regional WT0.00Summed WT0.00 Regional WM0.00Summed WM5.00 The rest and stress images show normal perfusion, normal contraction and thickening. LV Perf. Quant 17 Seg. SSS2.00 17 Seg. SRS8.00 17 Seg. SDS0.00 Stress Defect Extent (% LAD)0.60Rest Defect Extent (% LAD)0.00Rev. Defect Extent (% LAD)0.00 Stress Defect Extent (% LCX) 0.00Rest Defect Extent (% LCX)36.30Rev. Defect Extent (% LCX)0.00 Stress Defect Extent (% RCA)0.00Rest Defect Extent (% RCA)0.00Rev. Defect Extent (% RCA)0.00 Stress Defect Extent (% BRITNI)1.70Rest Defect Extent (% BRITNI)8.30Rev. Defect Extent (% BRITNI)0.00 Other Information Quality:Fair Risk Assessment: Low Risk Conclusion 1. No evidence of EKG changes with stress testing. 2. Normal perfusion at stress/rest. 3. Low risk study. 4. EF > 60%. Signed by : Kaela Darnell, Electronically Approved : 01/07/2019 13:06:57
== END | disposition home or self-care (01) ==
LOC: NM 09:10
PROVIDERS: ATTEND Internal Medicine Cardiovascular Disease
DX: I25.10 Atherosclerotic heart disease of native coronary artery without angina pectoris (principal); I45.4 Nonspecific intraventricular block; I10 Essential (primary) hypertension
CPT/HCPCS: 36415; 78452; 80053; 80061; 83721; 83880; 84443; 93017; 96374; A9500; J2785

== ENCOUNTER → 2019-01-31 | Outpatient (CLI) | payer MEDICARE ==
[2018-12-10 11:00] VITALS: BP 118/64
[~2019-01-31] MED LIST changes: +IOHEXOL 180 MG/ML 10 ML VIAL. ONE; -REGADENOSON 0.4 MG/5 ML DISP.SYRIN. IV ONE; +methylPREDNISolone ACETATE 40 MG/ML VIAL. ONE; +methylPREDNISolone ACETATE 80 MG/ML VIAL. ONE
--- NOTE | 2019-02-01 03:22 | PAIN ---
DATE OF SERVICE: 01/31/2019 PROGRESS NOTE FOR PAIN CLINIC DIAGNOSES: Lumbar radiculopathy with lumbar spinal stenosis, lumbar degenerative disk disease and post-lumbar laminectomy syndrome. HISTORY OF PRESENT ILLNESS: The patient is an 83-year-old male who returns for followup status post lumbar epidural steroid injection, last seen on 07/01/2018. The patient did very well with near 100% improvement after his injection with just one injection. The patient reports the pain has now returned over the past month or two in the low back and the left lower extremity, mostly in the posterior gluteus, posterior thigh, lateral thigh, posterior calf into the foot. The patient reports it is worse with standing, walking and changing positions, better with sitting or lying down, does not awaken him from sleep at night. Initially, she had increased distance walking, doing work activities at home, household activities, working on his automotive projects without significant difficulty. The patient reports the pain is returning now, is limiting these activities. The patient reports the pain is a 9 on a scale of 10 at its worst, 6 on average, 2 at its least and is a 6 today. Described as burning, aching, sharp, radiating in the left leg, is described on and off in intensity, again worse with standing and walking, better with sitting or lying down. The patient reports no new motor or sensory deficits, no new bowel or bladder incontinence. PHYSICAL EXAMINATION: VITAL SIGNS: The patient's blood pressure is 134/65, pulse 69, respirations 18, temperature 98.3 degrees Fahrenheit. Height 5 feet 8 inches, weighs 157 pounds. GENERAL: The patient is awake, alert, oriented, appropriate, very pleasant demeanor. HEENT: Head is normocephalic, atraumatic. Extraocular movements are intact and symmetrical. Oral cavity: Mucous membranes are moist and pink. Dentition is intact. NECK: Shows the anterior throat is supple without palpable lymphadenopathy noted. Swallow reflex symmetrical. CHEST: Shows normal with inspection. Breath sounds are clear to auscultation bilaterally. HEART: Shows S1, S2 clear. No murmurs auscultated. ABDOMEN: Soft, nontender, nondistended. No palpable organomegaly is noted. No rebound or guarding demonstrated. BACK: Shows spine grossly in the midline. Normal appearing thoracic kyphosis and minor flattening of lumbar lordotic curvature. Well-healed surgical scar noted. Lumbar paraspinous muscle shows symmetrical on inspection, with palpation shows some moderate tenderness diffusely throughout the upper, middle and lower distribution of the paraspinous musculature without radiation. The patient has good rotational motion both laterally as well as extension and flexion without significant pain. EXTREMITIES: The patient's lower extremities show deep tendon reflexes at 2+ in the patellar and 1+ in the tendo-calcaneus tendons. Motor exam is strong with 5/5 dorsiflexion, extension, quadriceps and hamstring flexion symmetrical. Peripheral pulses are 1+ in posterior tibial. No peripheral edema is noted bilaterally. Options were discussed with the patient. The patient's old chart was reviewed as his current medication regimen updated. Current review of systems updated today as well. We will proceed with a lumbar epidural steroid injection, the first in this series today with fluoroscopic guidance. Risks were again discussed including, but not limited to bleeding, infection, possibility of epidural hematoma, subsequent neurological compromise, dural puncture, headaches, spinal cord and/or nerve damage, side effects of steroid medication and poor results regarding pain control. The patient understands and wished to proceed. The patient is to return to the clinic in approximately 2 weeks for followup, was counseled on return appointment, activity level and side effects to be aware of. DIAGNOSES: Lumbar radiculopathy with lumbar degenerative disk disease, lumbar spinal stenosis, post-lumbar laminectomy syndrome. PROCEDURE: Lumbar epidural steroid injection, translaminar approach, L5-S1 level using C-arm fluoroscopic guidance under sterile prep and drape using local anesthetic. MEDICATION INJECTED: A total of 120 mg of Depo-Medrol plus 10 mL of preservative-free normal saline and 2 mL of Isovue for contrast. CONDITION ON DISCHARGE: Stable. The patient tolerated the procedure well, had no complications. KIMBERLEE MEDINA MD DR: IVANA/angela JOB#: [id number] / [id number]
== END | disposition home or self-care (01) ==
LOC: PNCL 09:55
PROVIDERS: ATTEND Anesthesiology
DX: M51.16 Intervertebral disc disorders with radiculopathy, lumbar region (principal); M48.061 Spinal stenosis, lumbar region without neurogenic claudication; M96.1 Postlaminectomy syndrome, not elsewhere classified; Z88.8 Allergy status to other drugs, medicaments and biological substances
CPT/HCPCS: 62323; J1030; J1040; Q9965

== ENCOUNTER 2019-02-01 11:57 | Inpatient (IN) | payer MEDICARE ==
[~2019-02-01] VITALS: Ht 172.7 cm; Wt 71.7 kg
[2019-02-01] VITALS (8 sets, daily range): BP systolic 129–186; BP diastolic 63–86
[~2019-02-01 11:57] MED LIST changes: -ATOR40TA59 PO; -CARV6.2511 PO; -IOHEXOL 180 MG/ML 10 ML VIAL. ONE; -TICA90TA PO; -methylPREDNISolone ACETATE 40 MG/ML VIAL. ONE; -methylPREDNISolone ACETATE 80 MG/ML VIAL. ONE
[2019-02-01] MEDS ORDERED: NITROGLYCERIN SUBLINGUAL 0.4 MG BOTTLE OF 25. SL PRN (12:15)
[2019-02-01] MEDS ORDERED: ASPIRIN 325 MG TABLET PO ONE (12:15)
[2019-02-01 12:18] LABS: BASO % 0 % (0-3); EOS % 0 % (0-3); HEMOGLOBIN 13.5 g/dL (13.0-17.5); LYMPH # 1.1 x10^3/uL (1.0-4.8); LYMPH % 6 % (24-48); MEAN CORPUSCULAR HEMOGLOBIN 31 pg (25-35); MEAN CORPUSCULAR HGB CONC 33 g/dL (31-37); MEAN CORPUSCULAR VOLUME 95 fL (79-100); MONO % 6 % (0-9); PLATELET COUNT 212 x10^3/uL (140-400); WHITE BLOOD COUNT 17.2 x10^3/uL (4.0-11.0)
[2019-02-01 12:19] LABS: NEUT % 88 % (31-73)
[2019-02-01 12:33] LABS: CALCIUM 8.9 mg/dL (8.5-10.1); CREATININE 1.2 mg/dL (0.7-1.3); POTASSIUM 4.5 mmol/L (3.5-5.1); PROTHROMBIN TIME PATIENT 14.6 SEC (11.7-14.0)
[2019-02-01 12:38] LABS: ALBUMIN 3.4 g/dL (3.4-5.0); ALBUMIN/GLOBULIN RATIO 1.1 (1.0-1.7); TOTAL BILIRUBIN 0.4 mg/dL (0.2-1.0); TOTAL PROTEIN 6.4 g/dL (6.4-8.2)
--- NOTE | 2019-02-01 12:41 | EKG ---
[facility] [address] [place] [address] Test Date: 2019-02-01 Test Time: 12:05:31 Pat Name: BRAULIO PRESTON Department: Room: Gender: M Alumni Coordinator: : 1935 Requested By: ASIA PABON Order Number: [id number] Reading MD: Nick Darnell MD Measurements Intervals [place] Rate: 75 P: 21 GA: 154 QRS: -53 QRSD: 108 T: 50 QT: 370 QTc: 420 Interpretive Statements SR RBBB LAFB NON-SPECIFIC ST/T CHANGES Electronically Signed On 02-01-2019 15:52:38 CDT by Nick Darnell MD
--- NOTE | 2019-02-01 12:45 | RAD ---
PORTABLE CHEST 1V History: CHEST PAIN. Comparison: April 23, 2018. FINDINGS: manager urology overlies the left hemithorax. Cardiomediastinal silhouette remains enlarged, unchanged. No evidence of pneumothorax. Blunting of left costophrenic angle is again seen. No evidence of pleural fluid accumulation. No infiltrate identified. IMPRESSION: Stable exam. No acute infiltrate. Electronically signed by: Rodo Garnica MD (02/01/2019 12:42 PM) [facility]
[2019-02-01 12:51] LABS: % BANDS 7 % (0-9); % LYMPHS 5 % (24-48); % MONOS 5 % (0-10); % SEGS 83 % (35-66); PLT ESTIMATE ADEQUATE (ADEQUATE)
--- NOTE | 2019-02-01 12:52 | PHYS DOC ---
Past Medical History Past Medical History: Anxiety, Arthritis, CAD, CHF, High Cholesterol, Hypertension, Other Additional Past Medical Histor: CABG x 4 in 2009, Lyme Disease, HIATAL HERNIA Past Surgical History: Coronary Bypass Surgery, Knee Replacement, Other Additional Past Surgical Histo: CABG x4 in 2009,BX rotator,BX inguinal hernia repair, R KNEE REPL. BACK Alcohol Use: None Drug Use: None Adult General Chief Complaint Chief Complaint: CHEST PAIN HPI HPI Patient is a 83 year old male presented to ER today for evaluation of substernal chest pain that started around 9 AM this morning when he was walking to the barn. Patient said he was also feeling that his heart beat was skipping as well associated with trouble breathing. Patient denies any cough, no fever. Patient denies any abdominal pain, no nausea vomiting. Patient has history coronary disease, had quadruple bypass in the past. Review of Systems Review of Systems Constitutional: Denies fever or chills [] Eyes: Denies change in visual acuity, redness, or eye pain [] HENT: Denies nasal congestion or sore throat [] Respiratory: Denies cough or shortness of breath [] Cardiovascular: No additional information not addressed in HPI [] GI: Denies abdominal pain, nausea, vomiting, bloody stools or diarrhea [] : Denies dysuria or hematuria [] Musculoskeletal: Denies back pain or joint pain [] Integument: Denies rash or skin lesions [] Neurologic: Denies headache, focal weakness or sensory changes [] Endocrine: Denies polyuria or polydipsia [] All other systems were reviewed and found to be within normal limits, except as documented in this note. Current Medications Current Medications Current Medications Medications (Trade) Dose Ordered Sig/Juan C Start Time Stop Time Status Last Admin Dose Admin Aspirin (Julius Aspirin) 325 mg 1X ONCE 02/01/19 12:15 02/01/19 12:16 DC 02/01/19 12:26 325 MG Aspirin (Ecotrin) 81 mg [id number] 02/02/19 08:00 Atorvastatin Calcium (Lipitor) 20 mg QHS 02/01/19 21:00 Diltiazem HCl (Cardizem 24hr Cd) 240 mg DAILY 02/02/19 09:00 Heparin Sodium/ Sodium Chloride 1,000 ml @ As Directed STK-MED ONCE 02/01/19 15:21 02/01/19 15:22 DC Hydralazine HCl (Apresoline Inj) 10 mg PRN Q4HRS PRN 02/01/19 14:45 Lidocaine HCl (Xylocaine-Mpf 1% 2ml Vial) 2 ml STK-MED ONCE 02/01/19 15:21 02/01/19 15:22 DC Nitroglycerin (Nitrostat) 0.4 mg PRN Q5MIN PRN 02/01/19 12:15 02/02/19 12:14 02/01/19 12:30 0.4 MG Allergies Allergies Allergies Coded Allergies Type Severity Reaction Last Updated Verified No Known Drug Allergies 01/18/18 No Physical Exam Physical Exam Constitutional: Well developed, well nourished, no acute distress, non-toxic appearance. [] HENT: Normocephalic, atraumatic, bilateral external ears normal, oropharynx moist, no oral exudates, nose normal. [] Eyes: PERRLA, EOMI, conjunctiva normal, no discharge. [] Neck: Normal range of motion, no tenderness, supple, no stridor. [] Cardiovascular:Heart rate regular rhythm, no murmur [] Lungs & Thorax: Bilateral breath sounds clear to auscultation [] Abdomen: Bowel sounds normal, soft, no tenderness, no masses, no pulsatile masses. [] Skin: Warm, dry, no erythema, FACIAL FLUSH. Back: No tenderness, no CVA tenderness. [] Extremities: No tenderness, no cyanosis, no clubbing, ROM intact, no edema. [] Neurologic: Alert and oriented X 3, normal motor function, normal sensory function, no focal deficits noted. [] Psychologic: Affect normal, judgement normal, mood normal. [] Current Patient Data Vital Signs Vital Signs Date Time Temp Pulse Resp B/P (MAP) Pulse Ox O2 Delivery O2 Flow Rate FiO2 02/01/19 13:15 78 23 187/85 (119) 98 Room Air 02/01/19 12:00 98.4 98.4 Lab Values Laboratory Tests Test 02/01/19 12:08 02/01/19 13:10 White Blood Count 17.2 x10^3/uL (4.0-11.0) H Red Blood Count 4.30 x10^6/uL (4.30-5.70) Hemoglobin 13.5 g/dL (13.0-17.5) Hematocrit 41.0 % (39.0-53.0) Mean Corpuscular Volume 95 fL (79-100) Mean Corpuscular Hemoglobin 31 pg (25-35) Mean Corpuscular Hemoglobin Concent 33 g/dL (31-37) Red Cell Distribution Width 14.0 % (11.5-14.5) Platelet Count 212 x10^3/uL (140-400) Neutrophils (%) (Auto) 88 % (31-73) H Lymphocytes (%) (Auto) 6 % (24-48) L Monocytes (%) (Auto) 6 % (0-9) Eosinophils (%) (Auto) 0 % (0-3) Basophils (%) (Auto) 0 % (0-3) Neutrophils # (Auto) 15.0 x10^3uL (1.8-7.7) H Lymphocytes # (Auto) 1.1 x10^3/uL (1.0-4.8) Monocytes # (Auto) 1.0 x10^3/uL (0.0-1.1) Eosinophils # (Auto) 0.0 x10^3/uL (0.0-0.7) Basophils # (Auto) 0.0 x10^3/uL (0.0-0.2) Segmented Neutrophils % 83 % (35-66) H Band Neutrophils % 7 % (0-9) Lymphocytes % 5 % (24-48) L Monocytes % 5 % (0-10) Platelet Estimate Adequate (ADEQUATE) Prothrombin Time 14.6 SEC (11.7-14.0) H Prothrombin Time INR 1.2 (0.8-1.1) H PTT 32 SEC (24-38) Sodium Level 142 mmol/L (136-145) Potassium Level 4.5 mmol/L (3.5-5.1) Chloride Level 103 mmol/L (98-107) Carbon Dioxide Level 26 mmol/L (21-32) Anion Gap 13 (6-14) Blood Urea Nitrogen 26 mg/dL (8-26) Creatinine 1.2 mg/dL (0.7-1.3) Estimated GFR (Cockcroft-Gault) 58.0 BUN/Creatinine Ratio 22 (6-20) H Glucose Level 88 mg/dL (70-99) Calcium Level 8.9 mg/dL (8.5-10.1) Magnesium Level 2.0 mg/dL (1.8-2.4) Total Bilirubin 0.4 mg/dL (0.2-1.0) Aspartate Amino Transferase (AST) 34 U/L (15-37) Alanine Aminotransferase (ALT) 37 U/L (16-63) Alkaline Phosphatase 99 U/L (46-116) Creatine Kinase 170 U/L (39-308) Creatine Kinase MB (Mass) 5.5 ng/mL (0.0-3.6) H Creatine Kinase MB Relative Index 3.2 % (0-4) Troponin I Quantitative < 0.017 ng/mL (0.000-0.055) GT-Xsw-G-Type Natriuretic Peptide 1388 pg/mL (0-449) H Total Protein 6.4 g/dL (6.4-8.2) Albumin 3.4 g/dL (3.4-5.0) Albumin/Globulin Ratio 1.1 (1.0-1.7) Lipase 51 U/L (73-393) L Urine Collection Type Unknown Urine Color Yellow Urine Clarity Clear Urine pH 5.0 Urine Specific [place] 1.015 Urine Protein Negative mg/dL (NEG-TRACE) Urine Glucose (UA) Negative mg/dL (NEG) Urine Ketones (Stick) Negative mg/dL (NEG) Urine Blood Negative (NEG) Urine Nitrite Negative (NEG) Urine Bilirubin Negative (NEG) Urine Urobilinogen Dipstick 0.2 mg/dL (0.2 mg/dL) Urine Leukocyte Esterase Negative (NEG) Urine RBC 0 /HPF (0-2) Urine WBC 1-4 /HPF (0-4) Urine Bacteria Few /HPF (0-FEW) Urine Hyaline Casts Moderate /HPF Urine Mucus Mod /LPF Laboratory Tests 02/01/19 12:08 Laboratory Tests 02/01/19 12:08 EKG EKG EKG was read by this physician at 1206, rate of 76 BPM, NO STEMI. [] Radiology/Procedures Radiology/Procedures [][facility] [address] [place], [place] [id number] IMAGING REPORT Signed PATIENT: BRAULIO PRESTON ACCOUNT: [id number] : 1935 LOCATION: ER AGE: 83 SEX: M EXAM STATUS: REG ER ORD. PHYSICIAN: ASIA PABON DO REASON: CHEST PAIN PROCEDURE: PORTABLE CHEST 1V PORTABLE CHEST 1V History: CHEST PAIN. Comparison: April 23, 2018. FINDINGS: casey saw operator overlies the left hemithorax. Cardiomediastinal silhouette remains enlarged, unchanged. No evidence of pneumothorax. Blunting of left costophrenic angle is again seen. No evidence of pleural fluid accumulation. No infiltrate identified. IMPRESSION: Stable exam. No acute infiltrate. Electronically signed by: Rodo Garnica MD (02/01/2019 12:42 PM) [facility] DICTATED and SIGNED BY: RODO GARNICA MD DATE: 02/01/19 124 Course & Med Decision Making Course & Med Decision Making Pertinent Labs and Imaging studies reviewed. (See chart for details) Patient said he felt much better now. However with his symptoms and history, This physician concern that he has unstable angina. He will need to be admitted for further evaluation. Patient said he cannot stay because nobody can take care of his dogs at home. This physician consulted his cd technician, whom came down to see patient , concurred that he needed to be admitted to the hospital also. Dragon Disclaimer Dragon Disclaimer This electronic medical record was generated, in whole or in part, using a voice recognition dictation system. Departure Departure Impression: Primary Impression: Chest pain Disposition: 09 ADMITTED INPATIENT Admitting Physician: Other (DR. CLAUS GREENFIELD) Condition: IMPROVED Referrals: TESSA SWANSON MD (PCP) ASIA PABON DO Feb 01, 2019 12:52
[2019-02-01 13:22] LABS: BILIRUBIN,URINE NEGATIVE (NEG); CLARITY,URINE CLEAR; COLOR,URINE YELLOW; NITRITE,URINE NEGATIVE (NEG); PROTEIN,URINE NEGATIVE (NEG-TRACE); UROBILINOGEN,URINE 0.2 mg/dL (0.2 mg/dL)
[2019-02-01 13:29] LABS: BACTERIA,URINE FEW /HPF (0-FEW); HYALINE CASTS, URINE MODERATE /HPF; RBC,URINE 0 /HPF (0-2)
[2019-02-01] MEDS ORDERED: hydrALAZINE 20 MG/ML VIAL. IVP PRN (14:45)
--- NOTE | 2019-02-01 14:45 | PDOC2 ---
[employer]IT[employer] FARM[employer] SPORTS INFORMATION DIRECTOR 02/01/19 1445: CARDIAC CONSULT DATE OF CONSULT Date of Consult DATE: 02/01/19 TIME: 14:23 REASON FOR CONSULT Reason for Consult: chest pain REFERRING PHYSICIAN Referring Physician: Car SOURCE Source: Chart review, Patient HISTORY OF PRESENT ILLNESS HISTORY OF PRESENT ILLNESS This is a pleasant 83 yo male admitted for complains of chest pain. Reports that he has been having intermittent chest heaviness particularly with exertion. Today he had midchest heaviness nonradiating. He said that there is something wrong. He gets SOA with exertion. His discomfort lasted for about 2 hours and finally better with x1 NTG in ED. No nausea or vomiting, diaphoresis. Sometimes felt like his heart skips at times. His BP at home noted at 190s which went down to 150s. No recent falls or injury, Denies any heartburn. He is currently hesitant to be admitted citing that he has 2 dogs that he is worried about and nobody could take care of them. He also has tax appoitment on . PAST MEDICAL HISTORY Cardiovascular: CAD, HTN, Hyperlipidemia, Other (right moderate carotid artery disease) Pulmonary: No pertinent hx CENTRAL NERVOUS SYSTEM: Carpal Tunnel Syndrome GI: GERD Heme/Onc: No pertinent hx Hepatobiliary: No pertinent hx Psych: Anxiety Musculoskeletal: low back pain, Osteoarthritis Rheumatologic: No pertinent hx Infectious disease: No pertinent hx ENT: No pertinent hx Renal/: Benign prostatic enlarg. Endocrine: Hypothyroidism Dermatology: No pertinent hx PAST SURGICAL HISTORY Past Surgical History: Arthroscopy (RTC repair), CABG (x4 remotely), Cataract Removal, Hernia Repair (right inguinal;hiatal hernia repair ( Sofi fundoplication)), Total knee replacement (right), Other (PCI/stents post CABG; back surgery; loop recorder) FAMILY HISTORY Family History: Hypertension SOCIAL HISTORY Smoke: No ALCOHOL: none Drugs: None Lives: Alone CURRENT MEDICATIONS CURRENT MEDICATIONS Current Medications Medications (Trade) Dose Ordered Sig/Juan C Route PRN Reason Start Time Stop Time Status Last Admin Dose Admin Aspirin (Julius Aspirin) 325 mg 1X ONCE PO 02/01/19 12:15 02/01/19 12:16 DC 02/01/19 12:26 Nitroglycerin (Nitrostat) 0.4 mg PRN Q5MIN PRN SL CP RATING > 1/10 02/01/19 12:15 02/02/19 12:14 02/01/19 12:30 ALLERGIES ALLERGIES: Coded Allergies: No Known Drug Allergies (Unverified , 01/18/18) ROS Review of System 14 point ROS evaluation with pertinent positives noted per HPI PHYSICAL EXAM General: Alert, Oriented X3, Cooperative, No acute distress HEENT: Atraumatic, Mucous membr. moist/pink Lungs: Clear to auscultation, Normal air movement Heart: Regular rate (SR), Normal S1, Normal S2, Other Abdomen: Soft, No tenderness, No masses Extremities: No cyanosis, No edema Skin: No breakdown, No significant lesion Neuro: Normal speech, Sensation intact Psych/Mental Status: Mental status NL, Mood NL MUSCULOSKELETAL: Osteoarthritic changes both hands VITALS VITALS Vital Signs Date Time Temp Pulse Resp B/P (MAP) Pulse Ox O2 Delivery O2 Flow Rate FiO2 02/01/19 13:15 78 23 187/85 (119) 98 Room Air 02/01/19 12:00 98.4 98.4 LABS Lab: Laboratory Tests Test 02/01/19 12:08 02/01/19 13:10 White Blood Count 17.2 x10^3/uL (4.0-11.0) Red Blood Count 4.30 x10^6/uL (4.30-5.70) Hemoglobin 13.5 g/dL (13.0-17.5) Hematocrit 41.0 % (39.0-53.0) Mean Corpuscular Volume 95 fL (79-100) Mean Corpuscular Hemoglobin 31 pg (25-35) Mean Corpuscular Hemoglobin Concent 33 g/dL (31-37) Red Cell Distribution Width 14.0 % (11.5-14.5) Platelet Count 212 x10^3/uL (140-400) Neutrophils (%) (Auto) 88 % (31-73) Lymphocytes (%) (Auto) 6 % (24-48) Monocytes (%) (Auto) 6 % (0-9) Eosinophils (%) (Auto) 0 % (0-3) Basophils (%) (Auto) 0 % (0-3) Neutrophils # (Auto) 15.0 x10^3uL (1.8-7.7) Lymphocytes # (Auto) 1.1 x10^3/uL (1.0-4.8) Monocytes # (Auto) 1.0 x10^3/uL (0.0-1.1) Eosinophils # (Auto) 0.0 x10^3/uL (0.0-0.7) Basophils # (Auto) 0.0 x10^3/uL (0.0-0.2) Segmented Neutrophils % 83 % (35-66) Band Neutrophils % 7 % (0-9) Lymphocytes % 5 % (24-48) Monocytes % 5 % (0-10) Platelet Estimate Adequate (ADEQUATE) Prothrombin Time 14.6 SEC (11.7-14.0) Prothromb Time International Ratio 1.2 (0.8-1.1) Activated Partial Thromboplast Time 32 SEC (24-38) Sodium Level 142 mmol/L (136-145) Potassium Level 4.5 mmol/L (3.5-5.1) Chloride Level 103 mmol/L (98-107) Carbon Dioxide Level 26 mmol/L (21-32) Anion Gap 13 (6-14) Blood Urea Nitrogen 26 mg/dL (8-26) Creatinine 1.2 mg/dL (0.7-1.3) Estimated GFR (Cockcroft-Gault) 58.0 BUN/Creatinine Ratio 22 (6-20) Glucose Level 88 mg/dL (70-99) Calcium Level 8.9 mg/dL (8.5-10.1) Magnesium Level 2.0 mg/dL (1.8-2.4) Total Bilirubin 0.4 mg/dL (0.2-1.0) Aspartate Amino Transf (AST/SGOT) 34 U/L (15-37) Alanine Aminotransferase (ALT/SGPT) 37 U/L (16-63) Alkaline Phosphatase 99 U/L (46-116) Creatine Kinase 170 U/L (39-308) Creatine Kinase MB (Mass) 5.5 ng/mL (0.0-3.6) Creatine Kinase MB Relative Index 3.2 % (0-4) Troponin I Quantitative < 0.017 ng/mL (0.000-0.055) XV-Gvq-Y-Type Natriuretic Peptide 1388 pg/mL (0-449) Total Protein 6.4 g/dL (6.4-8.2) Albumin 3.4 g/dL (3.4-5.0) Albumin/Globulin Ratio 1.1 (1.0-1.7) Lipase 51 U/L (73-393) Urine Collection Type Unknown Urine Color Yellow Urine Clarity Clear Urine pH 5.0 Urine Specific [place] 1.015 Urine Protein Negative mg/dL (NEG-TRACE) Urine Glucose (UA) Negative mg/dL (NEG) Urine Ketones (Stick) Negative mg/dL (NEG) Urine Blood Negative (NEG) Urine Nitrite Negative (NEG) Urine Bilirubin Negative (NEG) Urine Urobilinogen Dipstick 0.2 mg/dL (0.2 mg/dL) Urine Leukocyte Esterase Negative (NEG) Urine RBC 0 /HPF (0-2) Urine WBC 1-4 /HPF (0-4) Urine Bacteria Few /HPF (0-FEW) Urine Hyaline Casts Moderate /HPF Urine Mucus Mod /LPF ECHOCARDIOGRAM ECHOCARDIOGRAM <Conclusion> Left ventricle systolic function is normal. The Ejection Fraction is 55%. There is normal LV segmental wall motion. Transmitral Doppler flow pattern is Grade I-abnormal relaxation pattern. Mild to moderate mitral regurgitation. Mild tricuspid regurgitation. There is mild pulmonary hypertension. The PA pressure was estimated at 37 mmHg. There is no evidence of significant pericardial effusion. DATE: 12/08/18 1040 STRESS TEST STRESS TEST Conclusion 1. No evidence of EKG changes with stress testing. 2. Normal perfusion at stress/rest. 3. Low risk study. 4. EF > 60%. DATE: 01/07/19 1306 ASSESSMENT/PLAN ASSESSMENT/PLAN 1. Chest pain: concerning for UA. 2. CAD; past CABG, stents as well 3. Loop recorder: placed due to palpitations. No significant arrhythmia per recent check. 4. Accelerated HTN: BP improved. 5. Hypothyroidism Recommendations 1. [facility] recommended, pt hesitant to proceed citing nobody would take care of his dogs in his house currently. will discuss with primary assistant curator. 2. ASA. On plavix tiw. Continue with home BP regimen. Hydralazine IV PRN. KAELA GOMES MD 02/01/19 6567: CARDIAC CONSULT ASSESSMENT/PLAN ASSESSMENT/PLAN Pt. seen and examined. Agree with above BLOCKING MACHINE OPERATOR note. 83 y.o man well known to us. He has had chronic intermittent dyspnea and chest pain. Recent MPI and echo wnl but he continues to have lifestyle limiting chest pain relieved with NTG and presented to the ER. DDx is HTN versus intrinsic CAD He would like definitely evaluation. Will proceed with LHC/cors/grafts. Thanks T[employer]IT[employer] SPORTS INFORMATION DIRECTOR Feb 01, 2019 14:45 KAELA GOMES MD Feb 01, 2019 15:39
[2019-02-01] MEDS ORDERED: LIDOCAINE 1% PF 2 ML VIAL. ONE (15:21)
[2019-02-01] MEDS ORDERED: LIDOCAINE 1% Multi-Dose 20 ML VIAL. ONE (15:36)
--- NOTE | 2019-02-01 15:47 | PDOC ---
MODERATE SEDATION ASSESSMENT RISKS/ALTERNATIVES Risks/Alternatives Risks and alternatives of this type of sedation and procedure discussed with: RISK/ALTERNATIVES: Patient H & P ON CHART H & P H & P on chart and reviewed for co-morbid conditions and appropriate labs. H&P ON CHART: Yes STATUS PREG STATUS ASSESSED: N/A MEDS/ALLERGIES REVIEWED Meds/Allergies Reviewed Medications and Allergies including time and route of recently administered narcotics and sedatives. MEDS/ALLERGIES REVIEWED: Yes ASA RATING ASA RATING: II AIRWAY ASSESSMENT Airway Assessment Airway patency, oral function limitations, presence of caps, crowns, dentures, partials, and ability to extend neck assessed. AIRWAY ASSESSMENT: Yes MALLAMPATI SCORE MALLAMPATI SCORE: II PRE-SEDATION ASSESSMENT PRE-SEDATION ASSESSMENT: Yes KAELA GOMES MD Feb 01, 2019 15:47
[2019-02-01] MEDS ORDERED: fentaNYL PF VIAL 100 MCG/2 ML VIAL ONE (16:10)
[2019-02-01] MEDS ORDERED: MIDAZOLAM HCL/PF 2 MG/2 ML VIAL. ONE (16:11)
[2019-02-01] MEDS ORDERED: fentaNYL PF VIAL 100 MCG/2 ML VIAL IV ONE (16:30)
[2019-02-01] MEDS ORDERED: MIDAZOLAM HCL/PF 2 MG/2 ML VIAL. IV ONE (16:30)
[2019-02-01] MEDS ORDERED: LIDOCAINE 1% Multi-Dose 20 ML VIAL. INJ ONE (16:30)
[2019-02-01] MEDS ORDERED: IODIXANOL 320 MG/ML 100 ML VIAL. IART ONE (16:30)
[2019-02-01] MEDS ORDERED: BIVALIRUDIN 250 MG VIAL. IV ONE ×2 (16:34→16:45)
[2019-02-01] MEDS ORDERED: IODIXANOL 320 MG/ML 100 ML VIAL. ONE (16:38)
[2019-02-01] MEDS ORDERED: ONDANSETRON PF 4 MG/2 ML VIAL. IV PRN (16:45)
[2019-02-01] MEDS ORDERED: ZOLPIDEM 5 MG TABLET. PO PRN (16:45)
[2019-02-01] MEDS ORDERED: CONTRAST GIVEN. MC PRN (16:45)
[2019-02-01] MEDS ORDERED: PHENAZOPYRIDINE HCL 200 MG PO PRN (16:45)
[2019-02-01] MEDS ORDERED: POLYETHYLENE GLYCOL PO PRN (16:45)
[2019-02-01] MEDS ORDERED: KETOROLAC TROMETHAMINE 10 MG TABLET PO PRN ×2 (16:45→17:00)
[2019-02-01] MEDS ORDERED: ELECTROLYTE (NON-ICU) PROTOCOL MC PRN (16:45)
[2019-02-01] MEDS ORDERED: LACTULOSE 20 GM/30 ML SOLUTION. PO PRN ×2 (16:45→17:00)
[2019-02-01] MEDS ORDERED: NITROGLYCERIN 200 MCG/2 ML SYRINGE FOR CATH/VASC LAB. ONE (16:54)
[2019-02-01] MEDS ORDERED: TICAGRELOR 90 MG TABLET. PO ONE (17:00)
--- NOTE | 2019-02-01 17:24 | PDOC ---
Provider Note Provider Note Patient underwent cath and has known three vessel CAD. 4/4 grafts patent. Severe RCA proximal stenosis. PCI with .0 Resolute MAXWELL. Good results. Final report to follow. 3 hours of flat time. Has right sided angioseal in place. Good pulses. Continue asa, ticagrelor, statin therapy. Plan for DC in a.m. if no acute issues overnight. KAELA GOMES MD Feb 01, 2019 17:24
[2019-02-01] MEDS ORDERED: NITROGLYCERIN 200 MCG/2 ML SYRINGE FOR CATH/VASC LAB. IART ONE (17:30)
--- NOTE | 2019-02-01 17:50 | NUR ---
Patient arrived to room 204 via bed from lab systems analyst at 1750. Daughter at bedside. Pt A&OX4. Complaints of chest pain rating 5/10. R groin dressing CDI. Frequent VS set up & patient placed on ekg monitor tech. The patient, BRAULIO PRESTON, 83 y/o, M admitted by CLAUS GREENFIELD MD, was given written information regarding hospital policies, unit procedures and contact persons. Valuables were checked and noted. Will continue to monitor.
[2019-02-01] MEDS ORDERED: PHENAZOPYRIDINE 200 MG TABLET. PO PRN (18:00)
[2019-02-01] MEDS ORDERED: AMOX1TAB61 PO (18:25)
[2019-02-01] MEDS ORDERED: DOXY100T PO (18:25)
--- NOTE | 2019-02-01 19:40 | PDOC1 ---
History and Physical Date of Admission Date of Admission 02/01/2019 Identification/Chief Complaint Problems: (1) Chest pain Source Source: Chart review, Patient History of Present Illness History of Present Illness Patient is an 83-year-old gentleman with past medical history of coronary 30 mL was post CABG approximately in 2006. The patient was in his usual state of health until more or less 2 months ago when he started noticing palpitations which were white bothersome to him. He is currently wearing a loop recorder but today the patient noticed that his heart was skipping every other beat was quite bothersome and he could keep track off it. Patient in the time my evaluation is in no apparent distress the patient denies dyspnea, he denies blurred vision, no loss of consciousness has been reported. Patient denies angina per se no chest discomfort has been reported, no pressure-like sensation , no sensation of impending doom he mainly came in due to the palpitations that have been bothering him for now quite some time. He has been followed up in the outpatient setting no recent changes to his medications have been done the patient denies excess caffeine no power drinks no herbal supplements or other sort of new medications have been voiced by the patient. Patient lives at home by himself. Independent. No abdominal pain no nausea no vomiting no neurological deficits were noted. He is being admitted for angina equivalent evaluation Past Medical History Cardiovascular: CAD, HTN, Hyperlipidemia, Other (right moderate carotid artery disease) Pulmonary: No pertinent hx CENTRAL NERVOUS SYSTEM: Carpal Tunnel Syndrome GI: GERD Heme/Onc: No pertinent hx Hepatobiliary: No pertinent hx Psych: Anxiety Rheumatologic: No pertinent hx Infectious disease: No pertinent hx ENT: No pertinent hx Renal/: Benign prostatic enlarg. Endocrine: Hypothyroidism Dermatology: No pertinent hx Past Surgical History Past Surgical History: Arthroscopy (RTC repair), CABG (x4 remotely), Cataract Removal, Hernia Repair (right inguinal;hiatal hernia repair ( Sofi fundoplication)), Total knee replacement (right), Other (PCI/stents post CABG; back surgery; loop recorder) Family History Family History: Hypertension Social History Smoke: No ALCOHOL: none Drugs: None Current Problem List Problem List Problems Medical Problems: (1) Chest pain Status: Acute Current Medications Current Medications Current Medications Medications (Trade) Dose Ordered Sig/Juan C Start Time Stop Time Status Last Admin Dose Admin Aspirin (Julius Aspirin) 325 mg 1X ONCE 02/01/19 12:15 02/01/19 12:16 DC 02/01/19 12:26 325 MG Aspirin (Ecotrin) 81 mg HS 02/01/19 21:00 02/01/19 21:00 DC Atorvastatin Calcium (Lipitor) 20 mg QHS 02/01/19 21:00 02/01/19 21:00 DC Bivalirudin (Angiomax) 250 mg 1X ONCE 02/01/19 16:45 02/01/19 17:40 DC 02/01/19 16:37 250 MG Calcium/Vitamin D (Oscal D 500mg/ 200uts) 1 tab [id number] 02/02/19 08:00 Celecoxib (CeleBREX) 200 mg DAILY 02/02/19 09:00 Clopidogrel Bisulfate (Plavix) 75 mg DAILY 02/02/19 09:00 UNV Diltiazem HCl (Cardizem 24hr Cd) 240 mg DAILY 02/02/19 09:00 Docusate Sodium (Colace) 100 mg BID 02/01/19 21:00 Fentanyl Citrate (Fentanyl 2ml Vial) 100 mcg 1X ONCE 02/01/19 16:30 02/01/19 16:32 DC 02/01/19 16:30 75 MCG Fish Oil (Fish Oil) 1,000 mg DAILY 02/02/19 09:00 Furosemide (Lasix) 40 mg DAILY 02/02/19 09:00 Gabapentin (Neurontin) 600 mg HS 02/01/19 21:00 Heparin Sodium/ Sodium Chloride (HEPARIN for ARTERIAL LINE FLUSH) 1,000 unit 1X ONCE 02/01/19 16:30 02/01/19 16:32 DC 02/01/19 16:30 1,000 UNIT Hydralazine HCl (Apresoline Inj) 10 mg PRN Q4HRS PRN 02/01/19 14:45 02/01/19 19:19 10 MG Info (CONTRAST GIVEN -- Rx MONITORING) 1 each PRN DAILY PRN 02/01/19 16:45 02/03/19 16:44 Info (Non-Icu Electrolyte Protocol) 1 ea PRN DAILY PRN 02/01/19 16:45 Iodixanol (Visipaque 320) 100 ml STK-MED ONCE 02/01/19 16:38 02/01/19 16:39 DC Ketorolac Tromethamine (Toradol) 10 mg PRN Q6HRS PRN 02/01/19 17:00 02/06/19 16:44 Lactobacillus Rhamnosus (Culturelle) 1 cap Q48H 02/01/19 21:00 Lactulose (Lactulose) 20 gm PRN Q12HR PRN 02/01/19 17:00 Levothyroxine Sodium (Synthroid) 75 mcg DAILY 02/02/19 09:00 Lidocaine HCl (Lidocaine 1% 20ml Vial) 20 ml 1X ONCE 02/01/19 16:30 02/01/19 16:32 DC 02/01/19 16:30 10 ML Lidocaine HCl (Xylocaine-Mpf 1% 2ml Vial) 2 ml STK-MED ONCE 02/01/19 15:21 02/01/19 15:22 DC Meclizine HCl (Antivert) 25 mg TID 02/01/19 21:00 Midazolam HCl (Versed) 2 mg 1X ONCE 02/01/19 16:30 02/01/19 16:32 DC 02/01/19 16:30 1 MG Multivitamins (Thera M Plus) 1 tab DAILY 02/02/19 09:00 Nitroglycerin (Nitroglycerin) 400 mcg 1X ONCE 02/01/19 17:30 02/01/19 17:34 DC 02/01/19 17:30 400 MCG Nitroglycerin (Nitrostat) 0.4 mg PRN Q5MIN PRN 02/01/19 12:15 02/02/19 12:14 02/01/19 12:30 0.4 MG Non-Formulary Medication (Calcium Carb & Cit/Vitamin D3 (Citracal + D Er Tablet)) 1 each DAILY 02/02/19 09:00 02/02/19 09:00 DC Non-Formulary Medication (Celecoxib (Celebrex)) 1 cap DAILY 02/02/19 09:00 02/02/19 09:00 DC Non-Formulary Medication (Diltiazem Hcl (Cardizem Cd)) 1 cap DAILY 02/02/19 09:00 02/02/19 09:00 DC Non-Formulary Medication (Fish Oil/Dha/ Epa (Fish Oil 1,200 Mg Fish Oil)) 1 each DAILY 02/02/19 09:00 02/02/19 09:00 DC Non-Formulary Medication (Gabapentin ) 600 mg HS 02/01/19 21:00 02/01/19 21:00 DC Non-Formulary Medication (Glucosamine Hcl ) 500 mg DAILY 02/02/19 09:00 Cancel Non-Formulary Medication (Lactobacillus Acidophilus (Probiotic)) 1 each QODAY 02/03/19 09:00 02/03/19 09:00 DC Non-Formulary Medication (Meclizine Hcl ) 1 tab DAILY 02/02/19 09:00 UNV Non-Formulary Medication (Multivitamin (Daily Vitamin)) 1 each DAILY 02/02/19 09:00 02/02/19 09:00 DC Non-Formulary Medication (Phenazopyridine Hcl ) 200 mg PRN TID PRN 02/01/19 16:45 02/01/19 16:47 DC Non-Formulary Medication (Polyethylene Glycol 3350 (Miralax)) 1 pkt PRN PRN 02/01/19 16:45 02/01/19 16:47 DC Non-Formulary Medication (Ubidecarenone (Co Q-10)) 200 mg HS 02/01/19 21:00 UNV Non-Formulary Medication (Venlafaxine Hcl (Venlafaxine Hcl Er)) 37.5 mg DAILY 02/02/19 09:00 02/02/19 09:00 DC Ondansetron HCl (Zofran) 4 mg PRN Q6HRS PRN 02/01/19 16:45 Phenazopyridine HCl (Pyridium) 200 mg PRN TID PRN 02/01/19 18:00 Polyethylene Glycol (miraLAX PACKET) 17 gm PRN DAILY PRN 02/02/19 09:00 Tamsulosin HCl (Flomax) 0.4 mg DAILY 02/02/19 09:00 Ticagrelor (Brilinta) 180 mg 1X ONCE 02/01/19 17:00 02/01/19 17:03 DC 02/01/19 17:00 180 MG Tramadol HCl (Ultram) 50 mg BID 02/01/19 21:00 Venlafaxine HCl (Effexor Xr) 37.5 mg DAILY 02/02/19 09:00 Zolpidem Tartrate (Ambien) 5 mg PRN QHS PRN 02/01/19 16:45 Allergies Allergies Allergies Coded Allergies Type Severity Reaction Last Updated Verified colchicine Adverse Reaction Intermediate Nausea 02/01/19 Yes ROS Review of System CONSTITUTIONAL: No fever or chills EYES: No recent changes SKIN: No rash or itching CARDIOVASCULAR: No chest pain, syncope, +palpitations, no edema RESPIRATORY: No SOB or cough GASTROINTESTINAL: No nausea, vomiting or abdominal pain NEUROLOGICAL: No headaches or weakness ENDOCRINE: No cold or heat intolerance GENITOURINARY: No urgency or frequency of urination MUSCULOSKELETAL: No back pain or joint pain LYMPHATICS: No enlarged lymph nodes PSYCHIATRIC: No anxiety or depression Physical Exam Physical Exam GEN.: No apparent distress. Alert and oriented. HEENT: Head is normocephalic, atraumatic NECK: Supple. LUNGS: Clear to auscultation. HEART: RRR, S1, S2 present. Peripheral pulses intact holosystolic murmur 3 out of 6 intensity ABDOMEN: Soft, nontender. Positive bowel sounds. EXTREMITIES: Without any cyanosis. NEUROLOGIC: Normal speech, normal tone PSYCHIATRIC: Normal affect, normal mood. SKIN: No ulcerations Vitals Vitals Vital Signs Date Time Temp Pulse Resp B/P (MAP) Pulse Ox O2 Delivery O2 Flow Rate FiO2 02/01/19 19:19 61 181/83 02/01/19 17:12 12 99 Nasal Cannula 2.0 02/01/19 12:00 98.4 98.4 Labs Labs Laboratory Tests Test 02/01/19 12:08 02/01/19 13:10 White Blood Count 17.2 x10^3/uL (4.0-11.0) Red Blood Count 4.30 x10^6/uL (4.30-5.70) Hemoglobin 13.5 g/dL (13.0-17.5) Hematocrit 41.0 % (39.0-53.0) Mean Corpuscular Volume 95 fL (79-100) Mean Corpuscular Hemoglobin 31 pg (25-35) Mean Corpuscular Hemoglobin Concent 33 g/dL (31-37) Red Cell Distribution Width 14.0 % (11.5-14.5) Platelet Count 212 x10^3/uL (140-400) Neutrophils (%) (Auto) 88 % (31-73) Lymphocytes (%) (Auto) 6 % (24-48) Monocytes (%) (Auto) 6 % (0-9) Eosinophils (%) (Auto) 0 % (0-3) Basophils (%) (Auto) 0 % (0-3) Neutrophils # (Auto) 15.0 x10^3uL (1.8-7.7) Lymphocytes # (Auto) 1.1 x10^3/uL (1.0-4.8) Monocytes # (Auto) 1.0 x10^3/uL (0.0-1.1) Eosinophils # (Auto) 0.0 x10^3/uL (0.0-0.7) Basophils # (Auto) 0.0 x10^3/uL (0.0-0.2) Segmented Neutrophils % 83 % (35-66) Band Neutrophils % 7 % (0-9) Lymphocytes % 5 % (24-48) Monocytes % 5 % (0-10) Platelet Estimate Adequate (ADEQUATE) Prothrombin Time 14.6 SEC (11.7-14.0) Prothromb Time International Ratio 1.2 (0.8-1.1) Activated Partial Thromboplast Time 32 SEC (24-38) Sodium Level 142 mmol/L (136-145) Potassium Level 4.5 mmol/L (3.5-5.1) Chloride Level 103 mmol/L (98-107) Carbon Dioxide Level 26 mmol/L (21-32) Anion Gap 13 (6-14) Blood Urea Nitrogen 26 mg/dL (8-26) Creatinine 1.2 mg/dL (0.7-1.3) Estimated GFR (Cockcroft-Gault) 58.0 BUN/Creatinine Ratio 22 (6-20) Glucose Level 88 mg/dL (70-99) Calcium Level 8.9 mg/dL (8.5-10.1) Magnesium Level 2.0 mg/dL (1.8-2.4) Total Bilirubin 0.4 mg/dL (0.2-1.0) Aspartate Amino Transf (AST/SGOT) 34 U/L (15-37) Alanine Aminotransferase (ALT/SGPT) 37 U/L (16-63) Alkaline Phosphatase 99 U/L (46-116) Creatine Kinase 170 U/L (39-308) Creatine Kinase MB (Mass) 5.5 ng/mL (0.0-3.6) Creatine Kinase MB Relative Index 3.2 % (0-4) Troponin I Quantitative < 0.017 ng/mL (0.000-0.055) TK-Wmz-H-Type Natriuretic Peptide 1388 pg/mL (0-449) Total Protein 6.4 g/dL (6.4-8.2) Albumin 3.4 g/dL (3.4-5.0) Albumin/Globulin Ratio 1.1 (1.0-1.7) Lipase 51 U/L (73-393) Urine Collection Type Unknown Urine Color Yellow Urine Clarity Clear Urine pH 5.0 Urine Specific [place] 1.015 Urine Protein Negative mg/dL (NEG-TRACE) Urine Glucose (UA) Negative mg/dL (NEG) Urine Ketones (Stick) Negative mg/dL (NEG) Urine Blood Negative (NEG) Urine Nitrite Negative (NEG) Urine Bilirubin Negative (NEG) Urine Urobilinogen Dipstick 0.2 mg/dL (0.2 mg/dL) Urine Leukocyte Esterase Negative (NEG) Urine RBC 0 /HPF (0-2) Urine WBC 1-4 /HPF (0-4) Urine Bacteria Few /HPF (0-FEW) Urine Hyaline Casts Moderate /HPF Urine Mucus Mod /LPF Laboratory Tests Test 02/01/19 12:08 02/01/19 13:10 White Blood Count 17.2 x10^3/uL (4.0-11.0) Red Blood Count 4.30 x10^6/uL (4.30-5.70) Hemoglobin 13.5 g/dL (13.0-17.5) Hematocrit 41.0 % (39.0-53.0) Mean Corpuscular Volume 95 fL (79-100) Mean Corpuscular Hemoglobin 31 pg (25-35) Mean Corpuscular Hemoglobin Concent 33 g/dL (31-37) Red Cell Distribution Width 14.0 % (11.5-14.5) Platelet Count 212 x10^3/uL (140-400) Neutrophils (%) (Auto) 88 % (31-73) Lymphocytes (%) (Auto) 6 % (24-48) Monocytes (%) (Auto) 6 % (0-9) Eosinophils (%) (Auto) 0 % (0-3) Basophils (%) (Auto) 0 % (0-3) Neutrophils # (Auto) 15.0 x10^3uL (1.8-7.7) Lymphocytes # (Auto) 1.1 x10^3/uL (1.0-4.8) Monocytes # (Auto) 1.0 x10^3/uL (0.0-1.1) Eosinophils # (Auto) 0.0 x10^3/uL (0.0-0.7) Basophils # (Auto) 0.0 x10^3/uL (0.0-0.2) Segmented Neutrophils % 83 % (35-66) Band Neutrophils % 7 % (0-9) Lymphocytes % 5 % (24-48) Monocytes % 5 % (0-10) Platelet Estimate Adequate (ADEQUATE) Prothrombin Time 14.6 SEC (11.7-14.0) Prothromb Time International Ratio 1.2 (0.8-1.1) Activated Partial Thromboplast Time 32 SEC (24-38) Sodium Level 142 mmol/L (136-145) Potassium Level 4.5 mmol/L (3.5-5.1) Chloride Level 103 mmol/L (98-107) Carbon Dioxide Level 26 mmol/L (21-32) Anion Gap 13 (6-14) Blood Urea Nitrogen 26 mg/dL (8-26) Creatinine 1.2 mg/dL (0.7-1.3) Estimated GFR (Cockcroft-Gault) 58.0 BUN/Creatinine Ratio 22 (6-20) Glucose Level 88 mg/dL (70-99) Calcium Level 8.9 mg/dL (8.5-10.1) Magnesium Level 2.0 mg/dL (1.8-2.4) Total Bilirubin 0.4 mg/dL (0.2-1.0) Aspartate Amino Transf (AST/SGOT) 34 U/L (15-37) Alanine Aminotransferase (ALT/SGPT) 37 U/L (16-63) Alkaline Phosphatase 99 U/L (46-116) Creatine Kinase 170 U/L (39-308) Creatine Kinase MB (Mass) 5.5 ng/mL (0.0-3.6) Creatine Kinase MB Relative Index 3.2 % (0-4) Troponin I Quantitative < 0.017 ng/mL (0.000-0.055) EI-Bav-B-Type Natriuretic Peptide 1388 pg/mL (0-449) Total Protein 6.4 g/dL (6.4-8.2) Albumin 3.4 g/dL (3.4-5.0) Albumin/Globulin Ratio 1.1 (1.0-1.7) Lipase 51 U/L (73-393) Urine Collection Type Unknown Urine Color Yellow Urine Clarity Clear Urine pH 5.0 Urine Specific [place] 1.015 Urine Protein Negative mg/dL (NEG-TRACE) Urine Glucose (UA) Negative mg/dL (NEG) Urine Ketones (Stick) Negative mg/dL (NEG) Urine Blood Negative (NEG) Urine Nitrite Negative (NEG) Urine Bilirubin Negative (NEG) Urine Urobilinogen Dipstick 0.2 mg/dL (0.2 mg/dL) Urine Leukocyte Esterase Negative (NEG) Urine RBC 0 /HPF (0-2) Urine WBC 1-4 /HPF (0-4) Urine Bacteria Few /HPF (0-FEW) Urine Hyaline Casts Moderate /HPF Urine Mucus Mod /LPF VTE Prophylaxis Ordered VTE Prophylaxis Devices: No VTE Pharmacological Prophylaxi: Yes Assessment/Plan Assessment/Plan Angina equivalent. Patient will be evaluated by cardiology with a cardiac catheterization History off coronary artery disease status post CABG several years ago and subsequent PCI and stenting on 2 occasions last [address] Ocasio Palpitations currently undergoing evaluation with a loop recorder History of essential hypertension History off Hypothyroidism Plan: Admit to telemetry floor Follow recommendations from cardiology Cardiac catheterization as per telecommunications consultant Further recommendations will be based on the clinical course Resume home medications DVT prophylaxis SCD and CLAUS Ferro MD Feb 01, 2019 19:40
[2019-02-01] MEDS: DOCUSATE SODIUM 100 MG CAPSULE. PO SCH (20:41)
[2019-02-01] MEDS: traMADol 50 MG TABLET PO SCH (20:42)
[2019-02-01] MEDS ORDERED: NON FORMULARY ITEM (Ubidecarenone (Co Q-10) 200 MG) PO SCH ×2 (21:00)
[2019-02-01] MEDS ORDERED: DOCUSATE SODIUM 100 MG CAPSULE. PO SCH (21:00)
[2019-02-01] MEDS ORDERED: GABAPENTIN 300 MG CAPSULE. PO SCH (21:00)
[2019-02-01] MEDS ORDERED: NON FORMULARY ITEM (Meclizine Hcl 25 MG) PO SCH (21:00)
[2019-02-01] MEDS ORDERED: ATORVASTATIN CALCIUM 20 MG TABLET PO SCH (21:00)
[2019-02-01] MEDS ORDERED: ATORVASTATIN CALCIUM 40 MG TABLET. PO SCH (21:00)
[2019-02-01] MEDS ORDERED: ASPIRIN ENTERIC COATED 81 MG TABLET.DR. PO SCH (21:00)
[2019-02-01] MEDS ORDERED: NON FORMULARY ITEM (Gabapentin 600 MG) PO SCH (21:00)
[2019-02-01] MEDS ORDERED: LACTOBACILLUS RHAMNOSUS GG 1 CAPSULE. PO SCH (21:00)
[2019-02-02 02:45] VITALS: BP 119/60
[2019-02-02 05:08] LABS: BASO % 0 % (0-3); EOS % 0 % (0-3); HEMATOCRIT 38.7 % (39.0-53.0); HEMOGLOBIN 12.6 g/dL (13.0-17.5); LYMPH # 0.8 x10^3/uL (1.0-4.8); LYMPH % 7 % (24-48); MEAN CORPUSCULAR HEMOGLOBIN 31 pg (25-35); MEAN CORPUSCULAR HGB CONC 33 g/dL (31-37); MEAN CORPUSCULAR VOLUME 96 fL (79-100); MONO # 0.6 x10^3/uL (0.0-1.1); MONO % 6 % (0-9); NEUT # 9.6 x10^3uL (1.8-7.7); NEUT % 87 % (31-73); PLATELET COUNT 183 x10^3/uL (140-400); RED BLOOD COUNT 4.02 x10^6/uL (4.30-5.70); RED CELL DISTRIBUTION WIDTH 14.2 % (11.5-14.5); WHITE BLOOD COUNT 11.1 x10^3/uL (4.0-11.0)
[2019-02-02 05:24] LABS: CALCIUM 8.4 mg/dL (8.5-10.1); CREATININE 1.3 mg/dL (0.7-1.3); GFR 52.9; POTASSIUM 4.5 mmol/L (3.5-5.1)
[2019-02-02 07:00] VITALS: BP 155/72
--- NOTE | 2019-02-02 07:15 | CARD ---
MR#: [id number] Date of Study: 02/01/2019 Ordering Physician: TORITO FARMER, Referring Physician: ASIA PABON, Tech: RT Boom (R) GINO APPROVED REPORT Technologist: RT Boom (R) Nurse: Lauren Velasquez RN Procedure(s) performed: Moderate Sedation 60 miinutes flouro time 7.9 minutes Contrast Vi sipaque 146cc's dose 153.04 Gycm2 LHC, Coronary angiography, Bypass angiography PCI of the RCA HISTORY The patient is a 83 year-old male with a history of : coronary artery disease, hypertension, dyslipid emia. INDICATION The indication(s) include : unstable angina . CSHA Clinical Frailty Scale CS Clinical Frailty Scale: Mildly Frail Heart Failure Heart Failure: No PROCEDURE NARRATIVE After explaining the risks and benefits of the procedure and alternatives, informed consent was obtai marcos. The patient was brought electively to the cardiac catheterization lab in a fasting state. A riki eout was performed confirming the patient's name, date of , procedure, and site of procedure. A ll necessary personnel were wearing the appropriate protective equipment and radiation monitor device s. (See nursing notes for medications administered). The right groin was sterilely prepped and drap ed in the usual fashion. The right groin was infiltrated with 10 mL of 2% lidocaine for subcutaneous anesthesia. A 6 F sheath was inserted into the right femoral artery without difficulty. Right and left coronary angiography was performed using a JR4 and JL4 catheter. Left ventricular end diastolic pressure was obtained with a pigtail catheter and pullback was performed. Bypass angiography was per formed with a ONEILL and JR4 catheters. All catheter exchanges and advancements were performed over a guidewire. At case completion the right femoral sheath was removed and hemostasis was achieved with an Angioseal Device after limited femoral angiography confirmed adequate vessel size and anatomy. Th ere were no acute complications. HEMODYNAMICS: AO: 160/80 LVEDP 20 mm Hg No gradient on LV to aortic pullback. LEFT VENTRICULOGRAM: Deferred due to known normal EF. CORONARY ANGIOGRAPHY: LM is a large caliber vessel with normal angiographic appearance. LAD is a moderate caliber vessel with proximal to mid 90% disease and a mid 100% occlusion. The mid a nd distal vessel is seen to fill via a ONEILL graft and has no significant disease. Ramus is a small caliber vessel with an ostial occlusion and is seen to fill via a patent vein graft. LCx is a moderate caliber non-dominant vessel with a mid subtotal occlusion. OM1 is a moderate caliber vessel with a proximal occlusion. The mid and distal vessel fills via a pat ent vein graft. RCA is a large caliber dominant vessel with a proximal 80% stenosis. The distal vessel has a 40% sten osis. RPDA is ostially occluded at the site of a previous stent and had robust left to right collaterals fr om the apical LAD. RPL is a moderate caliber bifurcating vessel without significant disease. BYPASS ANGIOGRAPHY: ONEILL to LAD - Widely patent without anastomotic stenosis. SVG to OM1/OM2 sequential graft - Widely patent without anastomotic stenosis. SVG to Ramus - Widely patent without anastomotic stenosis. INTERVENTIONAL TECHNIQUE: PCI OF THE RCA Bivalirudin was used for anticoagulation. Through a 6 [place] JR4 guide catheter a pro-water wire was used to traverse the proximal RCA stenosis. Next a 3.0 x 15 mm balloon was used to perform angioplast y. Subsequently, the lesion was stented with a 4.0 x 30 mm resolute drug-eluting stent. Post PCI elizabeth ography demonstrated excellent stent expansion with KINA-3 flow and no evidence of guide or wire-rela amanda complications. KINA Flow KINA Flow (Pre-Intervention): KINA-3 KIAN Flow (Post-Intervention): KINA-3 Conclusion 1. Mildly elevated left sided filling pressures. 2. Three vessel coronary disease. 3. 4/4 left sided grafts patent. 4. Successful PCI of the RCA with implantation of a 4.0/30 mm MAXWELL Recommendations ASA 81mg daily Ticagrelor 90 mg bid x 30 days and then switch back to Plavix. Continue home statin therapy therapy Cardiac rehab Signed by : Nick Darnell, Electronically Approved : 02/02/2019 07:15:05
[2019-02-02] MEDS ORDERED: CALCIUM CARB/VIT D3 500/200 TABLET. PO SCH (08:00)
[2019-02-02] MEDS ORDERED: ASPIRIN ENTERIC COATED 81 MG TABLET.DR. PO SCH (08:00)
[2019-02-02] MEDS: OMEGA-3 FATTY ACIDS/FISH OIL 1,000 MG CAPSULE. PO SCH ×2 (08:09→08:20)
[2019-02-02] MEDS: traMADol 50 MG TABLET PO SCH (08:09)
[2019-02-02] MEDS: DOCUSATE SODIUM 100 MG CAPSULE. PO SCH (08:10)
[2019-02-02] MEDS: MULTIVITAMIN with MINERAL TABLET. PO SCH ×2 (08:12→08:20)
[2019-02-02] MEDS ORDERED: LEVOTHYROXINE 75 MCG TABLET PO SCH ×5 (09:00→09:30)
[2019-02-02] MEDS ORDERED: VITAMIN D3 PO SCH ×3 (09:00→09:30)
[2019-02-02] MEDS ORDERED: FUROSEMIDE 40 MG TABLET. PO SCH ×5 (09:00→09:30)
[2019-02-02] MEDS ORDERED: DHA PO SCH ×4 (09:00→09:30)
[2019-02-02] MEDS ORDERED: DILTIAZEM HCL PO SCH ×3 (09:00→09:30)
[2019-02-02] MEDS ORDERED: CLOPIDOGREL BISULFATE 75 MG TABLET PO SCH ×10 (09:00→09:30)
[2019-02-02] MEDS ORDERED: CELECOXIB PO SCH ×4 (09:00→09:30)
[2019-02-02] MEDS ORDERED: VENLAFAXINE XR 37.5 MG CAP.ER.24H. PO SCH (09:00)
[2019-02-02] MEDS ORDERED: CELECOXIB 100 MG CAPSULE. PO SCH ×2 (09:00)
[2019-02-02] MEDS ORDERED: MECLIZINE HCL 12.5 MG TABLET. PO SCH (09:00)
[2019-02-02] MEDS ORDERED: VENLAFAXINE HCL 37.5 MG PO SCH ×4 (09:00→09:30)
[2019-02-02] MEDS ORDERED: NON FORMULARY ITEM (Meclizine Hcl 1 TAB) PO SCH ×5 (09:00→09:30)
[2019-02-02] MEDS ORDERED: FISH OIL PO SCH ×4 (09:00→09:30)
[2019-02-02] MEDS ORDERED: TAMSULOSIN 0.4 MG CAP.ER.24H. PO SCH (09:00)
[2019-02-02] MEDS ORDERED: GABAPENTIN 300 MG CAPSULE. PO SCH (09:00)
[2019-02-02] MEDS ORDERED: CIT PO SCH ×3 (09:00→09:30)
[2019-02-02] MEDS ORDERED: NON FORMULARY ITEM (Glucosamine Hcl 500 MG) PO SCH (09:00)
[2019-02-02] MEDS ORDERED: CALCIUM CARB PO SCH ×3 (09:00→09:30)
[2019-02-02] MEDS ORDERED: POLYETHYLENE GLYCOL 3350 17 GM PACKET. PO PRN ×4 (09:00→14:00)
[2019-02-02] MEDS ORDERED: NON FORMULARY ITEM (Gabapentin 600 MG) PO SCH ×4 (09:00→09:30)
[2019-02-02] MEDS ORDERED: TICAGRELOR 90 MG TABLET. PO SCH (09:00)
[2019-02-02] MEDS ORDERED: EPA PO SCH ×4 (09:00→09:30)
[2019-02-02] MEDS ORDERED: MULTIVITAMIN PO SCH ×4 (09:00→09:30)
--- NOTE | 2019-02-02 11:47 | PDOC ---
CARDIO Progress Notes Date and Time Date of Service 02/02/2019 Time of Evaluation 1130 Subjective Subjective: No Chest Pain, No shortness of breath, No Palpitations Vitals Vitals Vital Signs Date Time Temp Pulse Resp B/P (MAP) Pulse Ox O2 Delivery O2 Flow Rate FiO2 02/02/19 08:11 65 02/02/19 08:00 Room Air 02/02/19 07:00 98.2 16 155/72 (99) 100 98.2 02/01/19 17:12 2.0 Weight Weight [ ] Input and Output Intake and Output Intake and Output 02/02/19 06:59 Intake Total 300 ml Output Total 200 ml Balance 100 ml Intake Oral 300 ml Output Urine Total 200 ml Laboratory Labs Laboratory Tests Test 02/01/19 12:08 02/01/19 13:10 02/02/19 04:10 White Blood Count 17.2 x10^3/uL (4.0-11.0) 11.1 x10^3/uL (4.0-11.0) Red Blood Count 4.30 x10^6/uL (4.30-5.70) 4.02 x10^6/uL (4.30-5.70) Hemoglobin 13.5 g/dL (13.0-17.5) 12.6 g/dL (13.0-17.5) Hematocrit 41.0 % (39.0-53.0) 38.7 % (39.0-53.0) Mean Corpuscular Volume 95 fL (79-100) 96 fL (79-100) Mean Corpuscular Hemoglobin 31 pg (25-35) 31 pg (25-35) Mean Corpuscular Hemoglobin Concent 33 g/dL (31-37) 33 g/dL (31-37) Red Cell Distribution Width 14.0 % (11.5-14.5) 14.2 % (11.5-14.5) Platelet Count 212 x10^3/uL (140-400) 183 x10^3/uL (140-400) Neutrophils (%) (Auto) 88 % (31-73) 87 % (31-73) Lymphocytes (%) (Auto) 6 % (24-48) 7 % (24-48) Monocytes (%) (Auto) 6 % (0-9) 6 % (0-9) Eosinophils (%) (Auto) 0 % (0-3) 0 % (0-3) Basophils (%) (Auto) 0 % (0-3) 0 % (0-3) Neutrophils # (Auto) 15.0 x10^3uL (1.8-7.7) 9.6 x10^3uL (1.8-7.7) Lymphocytes # (Auto) 1.1 x10^3/uL (1.0-4.8) 0.8 x10^3/uL (1.0-4.8) Monocytes # (Auto) 1.0 x10^3/uL (0.0-1.1) 0.6 x10^3/uL (0.0-1.1) Eosinophils # (Auto) 0.0 x10^3/uL (0.0-0.7) 0.0 x10^3/uL (0.0-0.7) Basophils # (Auto) 0.0 x10^3/uL (0.0-0.2) 0.0 x10^3/uL (0.0-0.2) Segmented Neutrophils % 83 % (35-66) Band Neutrophils % 7 % (0-9) Lymphocytes % 5 % (24-48) Monocytes % 5 % (0-10) Platelet Estimate Adequate (ADEQUATE) Prothrombin Time 14.6 SEC (11.7-14.0) Prothromb Time International Ratio 1.2 (0.8-1.1) Activated Partial Thromboplast Time 32 SEC (24-38) Sodium Level 142 mmol/L (136-145) 142 mmol/L (136-145) Potassium Level 4.5 mmol/L (3.5-5.1) 4.5 mmol/L (3.5-5.1) Chloride Level 103 mmol/L (98-107) 105 mmol/L (98-107) Carbon Dioxide Level 26 mmol/L (21-32) 29 mmol/L (21-32) Anion Gap 13 (6-14) 8 (6-14) Blood Urea Nitrogen 26 mg/dL (8-26) 27 mg/dL (8-26) Creatinine 1.2 mg/dL (0.7-1.3) 1.3 mg/dL (0.7-1.3) Estimated GFR (Cockcroft-Gault) 58.0 52.9 BUN/Creatinine Ratio 22 (6-20) Glucose Level 88 mg/dL (70-99) 124 mg/dL (70-99) Calcium Level 8.9 mg/dL (8.5-10.1) 8.4 mg/dL (8.5-10.1) Magnesium Level 2.0 mg/dL (1.8-2.4) 2.0 mg/dL (1.8-2.4) Total Bilirubin 0.4 mg/dL (0.2-1.0) Aspartate Amino Transf (AST/SGOT) 34 U/L (15-37) Alanine Aminotransferase (ALT/SGPT) 37 U/L (16-63) Alkaline Phosphatase 99 U/L (46-116) Creatine Kinase 170 U/L (39-308) Creatine Kinase MB (Mass) 5.5 ng/mL (0.0-3.6) Creatine Kinase MB Relative Index 3.2 % (0-4) Troponin I Quantitative < 0.017 ng/mL (0.000-0.055) CI-Bqp-T-Type Natriuretic Peptide 1388 pg/mL (0-449) Total Protein 6.4 g/dL (6.4-8.2) Albumin 3.4 g/dL (3.4-5.0) Albumin/Globulin Ratio 1.1 (1.0-1.7) Lipase 51 U/L (73-393) Urine Collection Type Unknown Urine Color Yellow Urine Clarity Clear Urine pH 5.0 Urine Specific [place] 1.015 Urine Protein Negative mg/dL (NEG-TRACE) Urine Glucose (UA) Negative mg/dL (NEG) Urine Ketones (Stick) Negative mg/dL (NEG) Urine Blood Negative (NEG) Urine Nitrite Negative (NEG) Urine Bilirubin Negative (NEG) Urine Urobilinogen Dipstick 0.2 mg/dL (0.2 mg/dL) Urine Leukocyte Esterase Negative (NEG) Urine RBC 0 /HPF (0-2) Urine WBC 1-4 /HPF (0-4) Urine Bacteria Few /HPF (0-FEW) Urine Hyaline Casts Moderate /HPF Urine Mucus Mod /LPF Physical Exam HEENT: Neck Supple W Full Motion Chest: Symmetric LUNGS: Clear to Auscultation Heart: S1S2, RRR (SR no significant ectopies) Abdomen: Soft N/T Extremities: No Edema, No Calf Tenderness Neurology: alert, oriented, follow commands Other Exams right groin arteriomy site intact, no swelling or erythema, neurovascular status to bilateral LE intact. Assessment Assessment 1. Chest pain/ACS/UA: S/P PCI/MAXWELL to RCA with 4/4 left sided grafts patent. 2. CAD; past CABG, stents as well. EF and WM nml with recent TTE 3. Loop recorder: placed due to palpitations. No significant arrhythmia per recent check. 4. Accelerated HTN: controlled 5. Hypothyroidism 6. Asymptomatic SB episodes: lowest mid40s mainly with sleep otherwise maintaining SR 60-70s Recommendations 1. Follow up in 4 weeks 2. ASA. Birlinta for a month then plavix afterwards. Lipitor 40 mg qhs, Change cardizem 240 mg to coreg per CAD guidelines. Rxs given. 3. Cardiac rehab 4. HBPM bid for a week and to call if BP is not controlled. Post [facility] DC instructions per staff. TORITO FARMER APRN Feb 02, 2019 11:47
[2019-02-02 12:11] LABS: CHOLESTEROL/HDL RATIO 2.3
[2019-02-02] MEDS ORDERED: ATOR40TA59 PO (12:25)
[2019-02-02] MEDS ORDERED: TICA90TA PO (12:25)
[2019-02-02] MEDS ORDERED: CARV6.2511 PO (12:25)
[2019-02-02] MEDS ORDERED: CLOP75TA PO (13:08)
--- NOTE | 2019-02-02 13:20 | PDOC3 ---
Discharge Summary Visit Information Date of Admission: Feb 01, 2019 Date of Discharge: Feb 02, 2019 Admitting Diagnosis Comment: Angina equivalent. Patient will be evaluated by cardiology with a cardiac catheterization History of coronary artery disease status post CABG several years ago and subsequent PCI and stenting on 2 occasions last one by Dr. Ocasio Palpitations currently undergoing evaluation with a loop recorder History of essential hypertension History of Hypothyroidism Final Diagnosis Angina equivalent. Patient will be evaluated by cardiology with a cardiac catheterization History of coronary artery disease status post CABG several years ago and subsequent PCI and stenting on 2 occasions last one by Dr. Ocasio Palpitations currently undergoing evaluation with a loop recorder History of essential hypertension History of Hypothyroidism Brief Hospital Course Allergies Allergies Coded Allergies Type Severity Reaction Last Updated Verified colchicine Adverse Reaction Intermediate Nausea 02/01/19 Yes Vital Signs Vital Signs Date Time Temp Pulse Resp B/P (MAP) Pulse Ox O2 Delivery O2 Flow Rate FiO2 02/02/19 08:11 65 02/02/19 08:00 Room Air 02/02/19 07:00 98.2 16 155/72 (99) 100 98.2 02/01/19 17:12 2.0 Lab Results Laboratory Tests Test 02/01/19 12:08 02/01/19 13:10 02/02/19 04:10 White Blood Count 17.2 x10^3/uL (4.0-11.0) 11.1 x10^3/uL (4.0-11.0) Red Blood Count 4.30 x10^6/uL (4.30-5.70) 4.02 x10^6/uL (4.30-5.70) Hemoglobin 13.5 g/dL (13.0-17.5) 12.6 g/dL (13.0-17.5) Hematocrit 41.0 % (39.0-53.0) 38.7 % (39.0-53.0) Mean Corpuscular Volume 95 fL (79-100) 96 fL (79-100) Mean Corpuscular Hemoglobin 31 pg (25-35) 31 pg (25-35) Mean Corpuscular Hemoglobin Concent 33 g/dL (31-37) 33 g/dL (31-37) Red Cell Distribution Width 14.0 % (11.5-14.5) 14.2 % (11.5-14.5) Platelet Count 212 x10^3/uL (140-400) 183 x10^3/uL (140-400) Neutrophils (%) (Auto) 88 % (31-73) 87 % (31-73) Lymphocytes (%) (Auto) 6 % (24-48) 7 % (24-48) Monocytes (%) (Auto) 6 % (0-9) 6 % (0-9) Eosinophils (%) (Auto) 0 % (0-3) 0 % (0-3) Basophils (%) (Auto) 0 % (0-3) 0 % (0-3) Neutrophils # (Auto) 15.0 x10^3uL (1.8-7.7) 9.6 x10^3uL (1.8-7.7) Lymphocytes # (Auto) 1.1 x10^3/uL (1.0-4.8) 0.8 x10^3/uL (1.0-4.8) Monocytes # (Auto) 1.0 x10^3/uL (0.0-1.1) 0.6 x10^3/uL (0.0-1.1) Eosinophils # (Auto) 0.0 x10^3/uL (0.0-0.7) 0.0 x10^3/uL (0.0-0.7) Basophils # (Auto) 0.0 x10^3/uL (0.0-0.2) 0.0 x10^3/uL (0.0-0.2) Segmented Neutrophils % 83 % (35-66) Band Neutrophils % 7 % (0-9) Lymphocytes % 5 % (24-48) Monocytes % 5 % (0-10) Platelet Estimate Adequate (ADEQUATE) Prothrombin Time 14.6 SEC (11.7-14.0) Prothromb Time International Ratio 1.2 (0.8-1.1) Activated Partial Thromboplast Time 32 SEC (24-38) Sodium Level 142 mmol/L (136-145) 142 mmol/L (136-145) Potassium Level 4.5 mmol/L (3.5-5.1) 4.5 mmol/L (3.5-5.1) Chloride Level 103 mmol/L (98-107) 105 mmol/L (98-107) Carbon Dioxide Level 26 mmol/L (21-32) 29 mmol/L (21-32) Anion Gap 13 (6-14) 8 (6-14) Blood Urea Nitrogen 26 mg/dL (8-26) 27 mg/dL (8-26) Creatinine 1.2 mg/dL (0.7-1.3) 1.3 mg/dL (0.7-1.3) Estimated GFR (Cockcroft-Gault) 58.0 52.9 BUN/Creatinine Ratio 22 (6-20) Glucose Level 88 mg/dL (70-99) 124 mg/dL (70-99) Calcium Level 8.9 mg/dL (8.5-10.1) 8.4 mg/dL (8.5-10.1) Magnesium Level 2.0 mg/dL (1.8-2.4) 2.0 mg/dL (1.8-2.4) Total Bilirubin 0.4 mg/dL (0.2-1.0) Aspartate Amino Transf (AST/SGOT) 34 U/L (15-37) Alanine Aminotransferase (ALT/SGPT) 37 U/L (16-63) Alkaline Phosphatase 99 U/L (46-116) Creatine Kinase 170 U/L (39-308) Creatine Kinase MB (Mass) 5.5 ng/mL (0.0-3.6) Creatine Kinase MB Relative Index 3.2 % (0-4) Troponin I Quantitative < 0.017 ng/mL (0.000-0.055) RR-Lad-V-Type Natriuretic Peptide 1388 pg/mL (0-449) Total Protein 6.4 g/dL (6.4-8.2) Albumin 3.4 g/dL (3.4-5.0) Albumin/Globulin Ratio 1.1 (1.0-1.7) Lipase 51 U/L (73-393) Urine Collection Type Unknown Urine Color Yellow Urine Clarity Clear Urine pH 5.0 Urine Specific [place] 1.015 Urine Protein Negative mg/dL (NEG-TRACE) Urine Glucose (UA) Negative mg/dL (NEG) Urine Ketones (Stick) Negative mg/dL (NEG) Urine Blood Negative (NEG) Urine Nitrite Negative (NEG) Urine Bilirubin Negative (NEG) Urine Urobilinogen Dipstick 0.2 mg/dL (0.2 mg/dL) Urine Leukocyte Esterase Negative (NEG) Urine RBC 0 /HPF (0-2) Urine WBC 1-4 /HPF (0-4) Urine Bacteria Few /HPF (0-FEW) Urine Hyaline Casts Moderate /HPF Urine Mucus Mod /LPF Triglycerides Level 52 mg/dL (0-150) Cholesterol Level 156 mg/dL (0-200) LDL Cholesterol, Calculated 78 mg/dL (0-100) VLDL Cholesterol, Calculated 10 mg/dL (0-40) Non-HDL Cholesterol Calculated 88 mg/dL (0-129) HDL Cholesterol 68 mg/dL (40-60) Cholesterol/HDL Ratio 2.3 Laboratory Tests Test 02/01/19 13:10 02/02/19 04:10 Urine Collection Type Unknown Urine Color Yellow Urine Clarity Clear Urine pH 5.0 Urine Specific [place] 1.015 Urine Protein Negative mg/dL (NEG-TRACE) Urine Glucose (UA) Negative mg/dL (NEG) Urine Ketones (Stick) Negative mg/dL (NEG) Urine Blood Negative (NEG) Urine Nitrite Negative (NEG) Urine Bilirubin Negative (NEG) Urine Urobilinogen Dipstick 0.2 mg/dL (0.2 mg/dL) Urine Leukocyte Esterase Negative (NEG) Urine RBC 0 /HPF (0-2) Urine WBC 1-4 /HPF (0-4) Urine Bacteria Few /HPF (0-FEW) Urine Hyaline Casts Moderate /HPF Urine Mucus Mod /LPF White Blood Count 11.1 x10^3/uL (4.0-11.0) Red Blood Count 4.02 x10^6/uL (4.30-5.70) Hemoglobin 12.6 g/dL (13.0-17.5) Hematocrit 38.7 % (39.0-53.0) Mean Corpuscular Volume 96 fL (79-100) Mean Corpuscular Hemoglobin 31 pg (25-35) Mean Corpuscular Hemoglobin Concent 33 g/dL (31-37) Red Cell Distribution Width 14.2 % (11.5-14.5) Platelet Count 183 x10^3/uL (140-400) Neutrophils (%) (Auto) 87 % (31-73) Lymphocytes (%) (Auto) 7 % (24-48) Monocytes (%) (Auto) 6 % (0-9) Eosinophils (%) (Auto) 0 % (0-3) Basophils (%) (Auto) 0 % (0-3) Neutrophils # (Auto) 9.6 x10^3uL (1.8-7.7) Lymphocytes # (Auto) 0.8 x10^3/uL (1.0-4.8) Monocytes # (Auto) 0.6 x10^3/uL (0.0-1.1) Eosinophils # (Auto) 0.0 x10^3/uL (0.0-0.7) Basophils # (Auto) 0.0 x10^3/uL (0.0-0.2) Sodium Level 142 mmol/L (136-145) Potassium Level 4.5 mmol/L (3.5-5.1) Chloride Level 105 mmol/L (98-107) Carbon Dioxide Level 29 mmol/L (21-32) Anion Gap 8 (6-14) Blood Urea Nitrogen 27 mg/dL (8-26) Creatinine 1.3 mg/dL (0.7-1.3) Estimated GFR (Cockcroft-Gault) 52.9 Glucose Level 124 mg/dL (70-99) Calcium Level 8.4 mg/dL (8.5-10.1) Magnesium Level 2.0 mg/dL (1.8-2.4) Triglycerides Level 52 mg/dL (0-150) Cholesterol Level 156 mg/dL (0-200) LDL Cholesterol, Calculated 78 mg/dL (0-100) VLDL Cholesterol, Calculated 10 mg/dL (0-40) Non-HDL Cholesterol Calculated 88 mg/dL (0-129) HDL Cholesterol 68 mg/dL (40-60) Cholesterol/HDL Ratio 2.3 Brief Hospital Course under very H is some 83-year-old gentleman who presented with the above- mentioned diagnoses. Patient had a cardiac catheterization on the day of admission with ointment of a stent. Report of the cardiac third catheterization is as follows Procedure(s) performed: Moderate Sedation 60 miinutes flouro time 7.9 minutes Contrast Visipaque 146cc's dose 153.04 Gycm2 C, Coronary angiography, Bypass angiography PCI of the RCA HISTORY The patient is a 83 year-old male with a history of : coronary artery disease, hypertension, dyslipidemia. INDICATION The indication(s) include : unstable angina . [facility] Clinical Frailty Scale [facility] Clinical Frailty Scale: Mildly Frail Heart Failure Heart Failure: No PROCEDURE NARRATIVE After explaining the risks and benefits of the procedure and alternatives, informed consent was obtained. The patient was brought electively to the cardiac catheterization lab in a fasting state. A timeout was performed confirming the patient's name, date of , procedure, and site of procedure. All necessary personnel were wearing the appropriate protective equipment and radiation monitor devices. (See nursing notes for medications administered). The right groin was sterilely prepped and draped in the usual fashion. The right groin was infiltrated with 10 mL of 2% lidocaine for subcutaneous anesthesia. A 6 F sheath was inserted into the right femoral artery without difficulty. Right and left coronary angiography was performed using a JR4 and JL4 catheter. Left ventricular end diastolic pressure was obtained with a pigtail catheter and pullback was performed. Bypass angiography was performed with a ONEILL and JR4 catheters. All catheter exchanges and advancements were performed over a guidewire. At case completion the right femoral sheath was removed and hemostasis was achieved with an Angioseal Device after limited femoral angiography confirmed adequate vessel size and anatomy. There were no acute complications. HEMODYNAMICS: AO: 160/80 LVEDP 20 mm Hg No gradient on LV to aortic pullback. LEFT VENTRICULOGRAM: Deferred due to known normal EF. CORONARY ANGIOGRAPHY: LM is a large caliber vessel with normal angiographic appearance. LAD is a moderate caliber vessel with proximal to mid 90% disease and a mid 100 % occlusion. The mid and distal vessel is seen to fill via a ONEILL graft and has no significant disease. Ramus is a small caliber vessel with an ostial occlusion and is seen to fill via a patent vein graft. LCx is a moderate caliber non-dominant vessel with a mid subtotal occlusion. OM1 is a moderate caliber vessel with a proximal occlusion. The mid and distal vessel fills via a patent vein graft. RCA is a large caliber dominant vessel with a proximal 80% stenosis. The distal vessel has a 40% stenosis. RPDA is ostially occluded at the site of a previous stent and had robust left to right collaterals from the apical LAD. RPL is a moderate caliber bifurcating vessel without significant disease. BYPASS ANGIOGRAPHY: ONEILL to LAD - Widely patent without anastomotic stenosis. SVG to OM1/OM2 sequential graft - Widely patent without anastomotic stenosis. SVG to Ramus - Widely patent without anastomotic stenosis. INTERVENTIONAL TECHNIQUE: PCI OF THE RCA Bivalirudin was used for anticoagulation. Through a 6 [place] JR4 guide catheter a pro-water wire was used to traverse the proximal RCA stenosis. Next a 3.0 x 15 mm balloon was used to perform angioplasty. Subsequently, the lesion was stented with a 4.0 x 30 mm resolute drug-eluting stent. Post PCI angiography demonstrated excellent stent expansion with KINA-3 flow and no evidence of guide or wire-related complications. KINA Flow KINA Flow (Pre-Intervention): KINA-3 KINA Flow (Post-Intervention): KINA-3 Conclusion 1. Mildly elevated left sided filling pressures. 2. Three vessel coronary disease. 3. 4/4 left sided grafts patent. 4. Successful PCI of the RCA with implantation of a 4.0/30 mm MAXWELL Recommendations ASA 81mg daily Ticagrelor 90 mg bid x 30 days and then switch back to Plavix. Continue home statin therapy therapy Cardiac rehab Signed by : Nick Darnell, Electronically Approved : 02/02/2019 07:15:05 Patient recovered well from his procedure and will be going home in hemodynamically stable condition. He is in good spirits to be going home and he will be following up in the outpatient setting with cardiology. Changes to his medications are described below on this report. All oropharynx concerns were addressed the best of my ability signs and symptoms of alarm were discussed prior to discharge the acknowledged understanding of all the instructions His physical exam: GEN.: No apparent distress. Alert and oriented. HEENT: Head is normocephalic, atraumatic NECK: Supple. LUNGS: Clear to auscultation. HEART: RRR, S1, S2 present. Peripheral pulses intact holosystolic murmur 3 out of 6 intensity ABDOMEN: Soft, nontender. Positive bowel sounds. EXTREMITIES: Without any cyanosis. NEUROLOGIC: Normal speech, normal tone PSYCHIATRIC: Normal affect, normal mood. 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, #14 (Reported) Entered as Reported by: CASEY FORTUNE on 02/01/191824 Last Action: New Order on 02/01/191824 by CASEY FORTUNE Aspirin (Aspir 81) 81 Mg Tablet.dr, 1 TAB PO HS for blood thiner, #90 Ref 3 ( Reported) Entered as Reported by: DENAE TILLEY on 07/14/16 2214 Last Action: Continued on 02/01/191642 by CLAUS GREENFIELD MD Atorvastatin Calcium (Atorvastatin Calcium) 40 Mg Tablet, 20 MG PO QHS for dyslipidemia for 30 Days, #15 Prescribed by: CLAUS GREENFIELD MD on 02/02/19 1225 Calcium Carb & Cit/Vitamin D3 (Citracal + D Er Tablet) 1 Each Tablet.er, 1 EACH PO DAILY for calcium supplement, (Reported) LAST DOSE GIVEN: DATE:04-25-16 TIME:9:00 a.m. NEXT DOSE DUE: DATE:04-26-16 TIME :9:00 a.m. Entered as Reported by: COLTEN HO on 10/27/13 1311 Last Action: Converted on 02/01/191642 by CLAUS GREENFIELD MD Carvedilol (Carvedilol ) 6.25 Mg Tablet, 6.25 MG PO BIDWMEALS for CHF for 30 Days, #60 Prescribed by: CLAUS GREENFIELD MD on 02/02/19 1225 Celecoxib (Celebrex) 200 Mg Capsule, 1 CAP PO DAILY, #30 (Reported) Entered as Reported by: DENAE TILLEY on 07/14/164 Last Action: Converted on 02/01/191642 by CLAUS GREENFIELD MD Diltiazem Hcl (Cardizem Cd) 240 Mg Cap.er.24h, 1 CAP PO DAILY for HTN, #30 Ref 5 (Reported) Entered as Reported by: KAYLEN ELIZABETH on 10/22/18 0156 Last Action: Converted on 02/01/191642 by CLAUS GREENFIELD MD Docusate Sodium (Colace) 100 Mg Capsule, 100 MG PO BID, #60 Prescribed by: CHLOE ALBARRAN on 01/28/17 1123 Last Action: Continued on 02/01/191642 by CLAUS GREENFIELD MD Doxycycline Hyclate (Doxycycline Hyclate) 100 Mg Tablet, 1 TAB PO BID for lyme' s disease, #14 (Reported) Entered as Reported by: CASEY FORTUNE on 02/01/191824 Last Action: New Order on 02/01/191824 by CASEY FORTUNE Fish Oil/Dha/Epa (Fish Oil 1,200 Mg Fish Oil) 1 Each Capsule, 1 EACH PO DAILY for heart health, (Reported) LAST DOSE GIVEN: DATE:04-25-16 TIME:9:00 a.m. NEXT DOSE DUE: DATE:04-26-16 TIME :9:00 a.m. Entered as Reported by: SURESH WOLF on 12/25/15 1137 Last Action: Converted on 02/01/191642 by CLAUS GREENFIELD MD Furosemide (Lasix) 40 Mg Tablet, 1 TAB PO DAILY, #30 Ref 0 Prescribed by: MILENA FLORENTINO MD on 10/29/17 1504 Last Action: Continued on 02/01/191642 by CLAUS GREENFIELD MD Gabapentin (Gabapentin) 600 Mg Tablet, 600 MG PO HS for NEUROGENIC PAIN, ( Reported) Entered as Reported by: JENNIFER YOST on 12/09/18 0350 Last Action: Converted on 02/01/191642 by CLAUS GREENFIELD MD Glucosamine Hcl (Glucosamine Hcl) 500 Mg Tablet, 500 MG PO DAILY, (Reported) Entered as Reported by: NADYA MORILLO on 12/04/16 1248 Last Action: Converted on 02/01/191642 by CLAUS GREENFIELD MD Lactobacillus Acidophilus (Probiotic) 1 Each Capsule, 1 EACH PO QODAY, (Reported ) Entered as Reported by: SHIRIN VALDES on 01/15/18 0914 Last Action: Converted on 02/01/191642 by CLAUS GREENFIELD MD Levothyroxine Sodium (Levothyroxine Sodium) 75 Mcg Tablet, 1 TAB PO DAILY, #30 Ref 5 (Reported) Entered as Reported by: GATO RUSHING on 07/01/18 1455 Last Action: Continued on 02/01/191642 by CLAUS GREENFIELD MD Meclizine Hcl (Meclizine Hcl) 25 Mg Tablet, 1 TAB PO DAILY for dizzyness, #90 ( Reported) Entered as Reported by: GATO RUSHING on 01/31/19 1020 Last Action: Converted on 02/01/191642 by CLAUS GREENFIELD MD Multivitamin (Daily Vitamin) 1 Each Tablet, 1 EACH PO DAILY for vitamin supplement, (Reported) LAST DOSE GIVEN: DATE:04-25-16 TIME:9:00 a.m. NEXT DOSE DUE: DATE:04-26-16 TIME :9:00 a.m. Entered as Reported by: COLTEN HO on 10/27/13 1312 Last Action: Converted on 02/01/191642 by CLAUS GREENFIELD MD Tamsulosin Hcl (Flomax) 0.4 Mg Cap.er.24h, 1 CAP PO DAILY for urine hesistancy, #30 Ref 11 (Reported) LAST DOSE GIVEN: DATE:04-25-16 TIME:9:00 a.m. NEXT DOSE DUE: DATE:04-26-16 TIME :9:00 a.m. Entered as Reported by: SURESH WOLF on 12/25/15 1138 Last Action: Continued on 02/01/191642 by CLAUS GREENFIELD MD Ticagrelor (Brilinta) 90 Mg Tablet, 90 MG PO BID for CAD for 30 Days, #60 Prescribed by: CLAUS GREENFIELD MD on 02/02/19 1225 Tramadol Hcl (Tramadol Hcl) 50 Mg Tablet, 1 TAB PO BID, #60 (Reported) Entered as Reported by: DENAE TILLEY on 07/14/16 2244 Last Action: Continued on 02/01/191642 by CLAUS GREENFIELD MD Ubidecarenone (Co Q-10) 200 Mg Capsule, 200 MG PO HS for supplement, (Reported) Not taken while in hosp. May resume at home as directed. Entered as Reported by: COLTEN HO on 10/27/13 1313 Last Action: Converted on 02/01/191642 by CLAUS GREENFIELD MD Venlafaxine Hcl (Venlafaxine Hcl Er) 37.5 Mg Cap.er.24h, 37.5 MG PO DAILY, ( Reported) Entered as Reported by: SHIRIN VALDES on 01/15/18 0914 Last Action: Converted on 02/01/191642 by CLAUS GREENFIELD MD Scheduled PRN Ketorolac Tromethamine (Ketorolac Tromethamine) 10 Mg Tablet, 10 MG PO PRN Q6HRS PRN for MILD PAIN, #10 Prescribed by: ESTRELLA VALDEZ MD on 02/13/18 1309 Last Action: Continued on 02/01/191642 by CLAUS GREENFIELD MD Phenazopyridine Hcl (Phenazopyridine Hcl) 200 Mg Tablet, 200 MG PO PRN TID PRN for URINARY PAIN, #20 Prescribed by: ESTRELLA VALDEZ MD on 02/13/18 1309 Last Action: Converted on 02/01/191642 by CLAUS GREENFIELD MD Polyethylene Glycol 3350 (Miralax) 17 Gm Powd.pack, 1 PKT PO PRN PRN for CONSTIPATION, (Reported) Entered as Reported by: SHIRIN VALDES on 01/15/18 0914 Last Action: Converted on 02/01/191642 by CLAUS GREENFIELD MD Discontinued Medications Atorvastatin Calcium (Atorvastatin Calcium) 20 Mg Tablet, 1 TAB PO DAILY for cholesterol, #30 Ref 5 (Reported) Entered as Reported by: GATO RUSHING on 01/31/19 1020 Last Action: Continued on 02/01/191642 by CLAUS GREENFIELD MD Clopidogrel Bisulfate (Clopidogrel) 75 Mg Tablet, 1 TAB PO 3X/WEEK for antiplatelet, #90 Ref 1 (Reported) Entered as Reported by: KAYLEN ELIZABETH on 10/22/18 0156 Last Action: Edited on 02/01/191821 by CLAUS POWERS MD Feb 02, 2019 13:20
[2019-02-02] MEDS ORDERED: PHENAZOPYRIDINE 200 MG TABLET. PO PRN ×3 (13:45→14:00)
[2019-02-02] MEDS ORDERED: LACTULOSE 20 GM/30 ML SOLUTION. PO PRN ×3 (13:45→14:00)
--- NOTE | 2019-02-02 13:53 | NUR ---
Discharge Note: [facility] [place] Discharge instructions and discharge home medications reviewed with Patient and a copy given. All questions have been answered and understanding verbalized. The following instructions and handouts were given: Post cardiac cath, cholesterol,cardiac diet, CP, medications, ect. Discontinued lines and drains: Peripheral IV intact. Patient discharged to Home or Self Care with Friend via Wheelchair 4 written prescriptions given to patient
[2019-02-02] MEDS ORDERED: CARVEDILOL 6.25 MG TABLET. PO SCH (17:00)
[2019-02-03] MEDS ORDERED: NON FORMULARY ITEM (Lactobacillus Acidophilus (Probiotic) 1 EACH) PO SCH ×3 (09:00)
[2019-02-03] MEDS ORDERED: CALCIUM CARB/VIT D3 500/200 TABLET. PO SCH (09:00)
[2019-02-04] MEDS ORDERED: LACTOBACILLUS RHAMNOSUS GG 1 CAPSULE. PO SCH (09:00)
== END 2019-02-02 13:45 | disposition home or self-care (01) | DRG 246 ==
LOC: ER 11:57 → UNDOADMOB 15:34 → 2 NORTH 15:34 → ER 16:05 → UNDODISOB 02-02 13:40
PROVIDERS: ADMIT Internal Medicine; ATTEND Internal Medicine
PROC: 027034Z Dilation of Coronary Artery, One Artery with Drug-eluting Intraluminal Device, Percutaneous Approach (ICD-10-PCS; principal; 2019-02-02)
PROC: 4A023N7 Measurement of Cardiac Sampling and Pressure, Left Heart, Percutaneous Approach (ICD-10-PCS; 2019-02-02)
PROC: B2111ZZ Fluoroscopy of Multiple Coronary Arteries using Low Osmolar Contrast (ICD-10-PCS; 2019-02-02)
PROC: B2131ZZ Fluoroscopy of Multiple Coronary Artery Bypass Grafts using Low Osmolar Contrast (ICD-10-PCS; 2019-02-02)
PROC: B2181ZZ Fluoroscopy of Left Internal Mammary Bypass Graft using Low Osmolar Contrast (ICD-10-PCS; 2019-02-02)
DX: I25.119 Atherosclerotic heart disease of native coronary artery with unspecified angina pectoris (principal); I50.33 Acute on chronic diastolic (congestive) heart failure; F41.9 Anxiety disorder, unspecified; M19.90 Unspecified osteoarthritis, unspecified site; E78.00 Pure hypercholesterolemia, unspecified; E78.5 Hyperlipidemia, unspecified; K21.9 Gastro-esophageal reflux disease without esophagitis; I11.0 Hypertensive heart disease with heart failure; N40.0 Benign prostatic hyperplasia without lower urinary tract symptoms; E03.9 Hypothyroidism, unspecified; Z96.651 Presence of right artificial knee joint; Z95.1 Presence of aortocoronary bypass graft; Z82.49 Family history of ischemic heart disease and other diseases of the circulatory system; Z95.5 Presence of coronary angioplasty implant and graft
CPT/HCPCS: 92928; 93459; 99285; G0269; 36415; 71045; 80048; 80053; 80061; 81001; 82553; 83690; 83735; 83880; 84484; 85007; 85025; 85610; 85730; 93005; 99152; 99153; C1725; C1760; C1769; C1874; C1887; C1892; J0360; J0583; J1644; J2250; J3010; J3490; J8597; Q9967; C1771

== ENCOUNTER → 2019-03-02 | Outpatient (CLI) | payer MEDICARE ==
[2019-02-02 07:00] VITALS: BP 155/72
[~2019-03-02] MED LIST changes: +ATOR40TA59 PO; +CARV6.2511 PO; +TICA90TA PO
[2019-03-02 12:50] LABS: BASE EXCESS ABG 0 mmol/L (-3-3); HCO3 ABG 24 mmol/L (21-28); PCO2 ABG 36 mmHg (35-46); PO2 ABG 93 mmHg (65-108); SAT O2 ABG 97 % (92-99)
[2019-03-02 12:52] LABS: FIO2 ABG 21
== END | disposition home or self-care (01) ==
LOC: RT 12:09
PROVIDERS: ATTEND Internal Medicine Pulmonary Disease
DX: R06.02 Shortness of breath (principal)
CPT/HCPCS: 36600; 82805

== ENCOUNTER 2019-03-16 09:53 | Emergency (ER) | payer MEDICARE ==
[~2019-03-16] VITALS: Ht 177.8 cm; Wt 69.5 kg
[2019-03-16 10:23] LABS: CREATININE ISTAT 1.2 mg/dL (0.5-1.4); HEMOGLOBIN ISTAT 13.6 g/dL (14-18); ION CA ISTAT 1.15 mmol/L (1.13-1.32)
[2019-03-16 10:26] LABS: BASO % 1 % (0-3); EOS # 0.2 x10^3/uL (0.0-0.7); EOS % 4 % (0-3); HEMATOCRIT 42.1 % (39.0-53.0); HEMOGLOBIN 13.6 g/dL (13.0-17.5); LYMPH # 1.5 x10^3/uL (1.0-4.8); LYMPH % 30 % (24-48); MEAN CORPUSCULAR HEMOGLOBIN 31 pg (25-35); MEAN CORPUSCULAR HGB CONC 32 g/dL (31-37); MEAN CORPUSCULAR VOLUME 97 fL (79-100); MONO # 0.5 x10^3/uL (0.0-1.1); MONO % 10 % (0-9); NEUT # 2.7 x10^3uL (1.8-7.7); NEUT % 56 % (31-73); PLATELET COUNT 177 x10^3/uL (140-400); RED BLOOD COUNT 4.32 x10^6/uL (4.30-5.70); RED CELL DISTRIBUTION WIDTH 14.1 % (11.5-14.5); WHITE BLOOD COUNT 4.9 x10^3/uL (4.0-11.0)
[2019-03-16] MEDS ORDERED: IOHEXOL 350 MG/ML 100 ML VIAL. IV ONE (10:30)
[2019-03-16 10:33] LABS: PROTHROMBIN TIME PATIENT 13.8 SEC (11.7-14.0)
[2019-03-16 10:42] LABS: CALCIUM 8.8 mg/dL (8.5-10.1); CREATININE 1.4 mg/dL (0.7-1.3); GFR 48.5; POTASSIUM 4.2 mmol/L (3.5-5.1)
--- NOTE | 2019-03-16 10:43 | RAD ---
Examination: CT HEAD WO CONTRAST History: Code stroke, left arm numbness Comparison/Correlation: 10/21/2018 CT head without contrast Findings: Axial images of the head were obtained without contrast. Atrophy is present. No intracranial hemorrhage, midline shift, or mass effect. Small old left basal ganglier lacunar infarct is present. Old left insular lacunar infarct is also again seen. Left external capsule lacunar infarct is small in size. Punctate low-attenuation involving the right anterior limb of the internal capsule which may represent a lacunar infarct is also present. This is of indeterminate age. It is not definitely seen on the prior exam but that may be due to volume averaging considering its small size. No intracranial hemorrhage, midline shift, or mass effect. Bony structures are grossly unremarkable. Mucosal thickening of the ethmoid air cells noted. Impression: Lacunar infarcts are present but mostly old in appearance. Indeterminate age punctate right anterior limb internal capsule are lacunar infarct. No intracranial hemorrhage. 03/16/2019 at 1040 AM, Dr. Zhao informed. PQRS Compliance Statement: One or more of the following individualized dose reduction techniques were utilized for this examination: 1. Automated exposure control 2. Adjustment of the mA and/or kV according to patient size 3. Use of iterative reconstruction technique Electronically signed by: Herber Zimmerman MD (03/16/2019 10:40 AM) [id number]
[2019-03-16] MEDS ORDERED: CONTRAST GIVEN. MC PRN (10:45)
--- NOTE | 2019-03-16 10:45 | PHYS DOC ---
Past Medical History Past Medical History: Anxiety, Arthritis, CAD, CHF, High Cholesterol, Hypertension, Other Additional Past Medical Histor: CABG x 4 in 2009, Lyme Disease, HIATAL HERNIA Past Surgical History: Coronary Bypass Surgery, Knee Replacement, Other Additional Past Surgical Histo: CABG x4 in 2009,BX rotator,BX inguinal hernia repair, R KNEE REPL. BACK Alcohol Use: None Drug Use: None Adult General Chief Complaint Chief Complaint: NEURO SYMPTOMS/DEFICITS HPI HPI Patient is an 83 year old M who presents with left arm numbness. He says he went to the baseball game on Thursday and sat in an uncomfortable chair which made his back hurt. He went to the chiropractor yesterday to get this adjusted. Chiropractor also adjusted his neck. Today at 0945 he noticed left arm numbness that was kind of sudden in onset. He denies any weakness, difficulty speaking, difficulty walking, numbness in his face. He denies headache or neck pain at this time. He also saw his database design analyst yesterday who placed an external heart monitor. Review of Systems Review of Systems Constitutional: Denies fever or chills Eyes: Denies change in visual acuity, redness, or eye pain HENT: Denies nasal congestion or sore throat Respiratory: Denies cough or shortness of breath Cardiovascular: Denies CP GI: Denies abdominal pain, nausea, vomiting, bloody stools or diarrhea : Denies dysuria or hematuria Musculoskeletal: Denies back pain or joint pain Integument: Denies rash or skin lesions Neurologic: Denies headache, focal weakness; endorses R arm numbness All other systems were reviewed and found to be within normal limits, except as documented in this note. Current Medications Current Medications Current Medications Medications (Trade) Dose Ordered Sig/Juan C Start Time Stop Time Status Last Admin Dose Admin Gadoterate Meglumine (Dotarem) 14 ml 1X ONCE 03/16/19 14:00 03/16/19 14:01 DC 03/16/19 14:09 14 ML Info (CONTRAST GIVEN -- Rx MONITORING) 1 each PRN DAILY PRN 03/16/19 10:45 03/16/19 15:45 DC Iohexol (Omnipaque 350 Mg/ml) 75 ml 1X ONCE 03/16/19 10:30 03/16/19 10:31 DC 03/16/19 10:58 75 ML Allergies Allergies Allergies Coded Allergies Type Severity Reaction Last Updated Verified colchicine Adverse Reaction Intermediate Nausea 02/01/19 Yes Physical Exam Physical Exam Constitutional: Well developed, well nourished, no acute distress, non-toxic appearance. HENT: Normocephalic, atraumatic, bilateral external ears normal, oropharynx moist, no oral exudates, nose normal. Eyes: PERRLA, EOMI, conjunctiva normal, no discharge. Neck: Normal range of motion, no tenderness, supple, no stridor. Cardiovascular:Heart rate regular rhythm, no murmur Lungs & Thorax: Bilateral breath sounds clear to auscultation Abdomen: Bowel sounds normal, soft, no tenderness, no masses, no pulsatile masses. Skin: Warm, dry, no erythema, no rash. Back: No tenderness, no CVA tenderness. Extremities: No tenderness, no cyanosis, no clubbing, ROM intact, no edema. Neurologic: Alert and oriented X 3, normal motor function. Strength upper and lower extremities, sensation intact bilateral lower extremities and right upper extremity, patient says his left arm is completely numb and cannot feel light touch. Visual walker full to confrontation. No facial paralysis. Ambulates with a steady gait. Psychologic: Affect normal, judgement normal, mood normal. [] Current Patient Data Vital Signs Vital Signs Date Time Temp Pulse Resp B/P (MAP) Pulse Ox O2 Delivery O2 Flow Rate FiO2 03/16/19 15:00 53 17 98 03/16/19 10:00 97.6 133/89 (104) Room Air 97.6 Lab Values Laboratory Tests Test 03/16/19 10:13 03/16/19 10:15 03/16/19 10:17 03/16/19 14:32 Glucose (Fingerstick) 94 mg/dL (70-99) White Blood Count 4.9 x10^3/uL (4.0-11.0) Red Blood Count 4.32 x10^6/uL (4.30-5.70) Hemoglobin 13.6 g/dL (13.0-17.5) Hematocrit 42.1 % (39.0-53.0) Mean Corpuscular Volume 97 fL (79-100) Mean Corpuscular Hemoglobin 31 pg (25-35) Mean Corpuscular Hemoglobin Concent 32 g/dL (31-37) Red Cell Distribution Width 14.1 % (11.5-14.5) Platelet Count 177 x10^3/uL (140-400) Neutrophils (%) (Auto) 56 % (31-73) Lymphocytes (%) (Auto) 30 % (24-48) Monocytes (%) (Auto) 10 % (0-9) H Eosinophils (%) (Auto) 4 % (0-3) H Basophils (%) (Auto) 1 % (0-3) Neutrophils # (Auto) 2.7 x10^3uL (1.8-7.7) Lymphocytes # (Auto) 1.5 x10^3/uL (1.0-4.8) Monocytes # (Auto) 0.5 x10^3/uL (0.0-1.1) Eosinophils # (Auto) 0.2 x10^3/uL (0.0-0.7) Basophils # (Auto) 0.0 x10^3/uL (0.0-0.2) Prothrombin Time 13.8 SEC (11.7-14.0) Prothrombin Time INR 1.1 (0.8-1.1) Sodium Level 143 mmol/L (136-145) Potassium Level 4.2 mmol/L (3.5-5.1) Chloride Level 105 mmol/L (98-107) Carbon Dioxide Level 30 mmol/L (21-32) Anion Gap 8 (6-14) 18 mmol/L (6-14) H Blood Urea Nitrogen 28 mg/dL (8-26) H Creatinine 1.4 mg/dL (0.7-1.3) H Estimated GFR (Cockcroft-Gault) 48.5 BUN/Creatinine Ratio 20 (6-20) Glucose Level 99 mg/dL (70-99) 91 mg/dL (70-99) Calcium Level 8.8 mg/dL (8.5-10.1) Total Bilirubin 0.7 mg/dL (0.2-1.0) Aspartate Amino Transferase (AST) 37 U/L (15-37) Alanine Aminotransferase (ALT) 35 U/L (16-63) Alkaline Phosphatase 105 U/L (46-116) Troponin I Quantitative < 0.017 ng/mL (0.000-0.055) FA-Jfx-I-Type Natriuretic Peptide 1226 pg/mL (0-449) H Total Protein 6.1 g/dL (6.4-8.2) L Albumin 3.4 g/dL (3.4-5.0) Albumin/Globulin Ratio 1.3 (1.0-1.7) POC Hemoglobin 13.6 g/dL (14-18) L POC Hematocrit 40 % (37-52) POC Sodium 141 mmol/L (135-145) POC Potassium 4.0 mmol/L (3.5-5.0) POC Chloride 100 mmol/L (98-110) POC Total CO2 28 mmol/L (23-32) POC Blood Urea Nitrogen 26 mg/dL (8-26) POC Creatinine 1.2 mg/dL (0.5-1.4) POC Ionized Calcium (Tristan) 1.15 mmol/L (1.13-1.32) Urine Collection Type Unknown Urine Color Yellow Urine Clarity Clear Urine pH 7.0 Urine Specific Milliken >=1.030 Urine Protein Negative mg/dL (NEG-TRACE) Urine Glucose (UA) Negative mg/dL (NEG) Urine Ketones (Stick) Negative mg/dL (NEG) Urine Blood Negative (NEG) Urine Nitrite Negative (NEG) Urine Bilirubin Negative (NEG) Urine Urobilinogen Dipstick 0.2 mg/dL (0.2 mg/dL) Urine Leukocyte Esterase Negative (NEG) Urine RBC Occ /HPF (0-2) Urine WBC 0 /HPF (0-4) Urine Squamous Epithelial Cells None /LPF Urine Bacteria 0 /HPF (0-FEW) Laboratory Tests 03/16/19 10:15 Laboratory Tests 03/16/19 10:15 03/16/19 10:17 EKG EKG [] Radiology/Procedures Radiology/Procedures [] Course & Med Decision Making Course & Med Decision Making Pertinent Labs and Imaging studies reviewed. (See chart for details) 83-year-old male presents for left arm numbness since 944. On exam he has decreased sensation in the left arm but is otherwise neurologically intact and nontoxic appearing. Did have chiropractor neck adjustment yesterday. EKG: Sinus rhythm 56 bpm, no ST elev or depr, nrml intervals, nrml axis CBC, CMP, troponin, BNP Chest x-ray CT head without contrast CT head/neck with contrast Dr. Cartagena recs MRI. Pt refuses admission. MRI ordered for now. MRI neg for acute. All results discussed in detail with pt. He is frustrated that we still do not know why his arm is numb, I again recommended admission to the hospital but he refuses. Pt will leave AMA. Follow up with PMD. Discussed return precautions. Tamy Disclaimer Tamy Disclaimer This electronic medical record was generated, in whole or in part, using a voice recognition dictation system. Departure Departure Impression: Primary Impression: Left arm numbness Disposition: 07 AGAINST MEDICAL ADVICE Condition: STABLE Referrals: TESSA SWANSON MD (PCP) Patient Instructions: ADRIEL Fraga MD March 16, 2019 10:45
[2019-03-16 10:49] LABS: ALBUMIN 3.4 g/dL (3.4-5.0); ALBUMIN/GLOBULIN RATIO 1.3 (1.0-1.7); TOTAL BILIRUBIN 0.7 mg/dL (0.2-1.0); TOTAL PROTEIN 6.1 g/dL (6.4-8.2)
--- NOTE | 2019-03-16 11:02 | EKG ---
[facility] [address] [place] [address] Test Date: 2019-03-16 Test Time: 10:11:37 Pat Name: BRAULIO PRESTON Department: Room: Gender: M Air Drier: [id number] : 1935 Requested By: ADRIEL GORDON Order Number: [id number] Reading MD: Garrett Castro Measurements Intervals [place] Rate: 56 P: -34 WI: 132 QRS: -64 QRSD: 114 T: 21 QT: 448 QTc: 435 Interpretive Statements SINUS RHYTHM ABNORMAL LEFT AXIS DEVIATION LEFT ANTERIOR FASCICULAR BLOCK INCOMPLETE RIGHT BUNDLE BRANCH BLOCK ABNORMAL ECG Electronically Signed On 04-08-2019 12:03:58 CDT by Garrett Castro
--- NOTE | 2019-03-16 11:19 | RAD ---
CHEST AP ONLY History: Left arm numbness Comparison: February 01, 2019 Findings: Single view of the chest is submitted. There is been median sternotomy. There are now 2 electronic devices projecting over the mid left hemithorax. Pericardial cardiac silhouette is again somewhat enlarged, stable. There is unchanged minimal blunting of the left costophrenic sulcus. No pneumothorax is identified. There is no new lobar consolidation. There is again widening of the acromioclavicular distances bilaterally. Impression: 1. Radiographic findings are unchanged, similar mild blunting of the left costophrenic sulcus. Electronically signed by: Umang Larkin MD (03/16/2019 11:16 AM) [facility]
--- NOTE | 2019-03-16 11:43 | RAD ---
CTA of the head and neck with contrast 03/16/2019. Comparison made to noncontrast head CT dated 03/16/2019. CLINICAL INDICATION: Left arm numbness. Recent chiropractor adjustment. Evaluate vertebral arteries. TECHNIQUE: Contiguous axial imaging the head and neck performed following the intravenous administration of 75 cc Omnipaque 300. Study was performed as dedicated CTA with thin cut coronal and sagittal MIPS reconstructions and 3-D rotational reconstructions. One or more of the following individualized dose reduction techniques were utilized for this examination: 1. Automated exposure control 2. Adjustment of the mA and/or kV according to patient size 3. Use of iterative reconstruction technique. Carotid Stenosis calculations for CT, MR, and conventional angiography are based upon measurements of the distal ICA diameter in accordance with the NASCET methodology. Stenosis calculations for carotid ultrasound studies are derived from validated velocity criteria which are known to correlate with the NASCET methodology. FINDINGS: Contrast bolus is adequate. Aortic arch is normal in caliber. Mild calcific plaque at the bilateral subclavian arteries proximally resulting in minimal narrowing on the left and moderate to high-grade narrowing on the right, estimated at 60-70% stenosis. Mild scattered calcific plaque at the proximal and distal right vertebral artery which is otherwise patent. The left vertebral artery is somewhat hypoplastic relative to the right side and there is tortuosity proximally. No high-grade stenosis. Distal left vertebral artery appears to end in PICA. Basilar artery is well formed. Bilateral guest service supervisor are patent. There is near origin of the right DIESEL DINKEY OPERATOR. A small posterior communicating artery is seen on the left. Bilateral common carotid arteries are patent proximally. Focal calcific and soft plaque at the right carotid bifurcation and proximal right ICA results in multifocal areas of narrowing of the proximal vessel, estimated at 40-50% stenosis. There is also calcific plaque at the left carotid bifurcation and proximal left ICA with resultant mild luminal narrowing, estimated at 10-20% stenosis. The bilateral internal carotid arteries are otherwise patent to the skull base. No intimal flap. Petrous and cavernous internal carotid arteries are patent. PATRICIO and MCA branches are symmetric. No stenosis or aneurysm. No apparent branch vessel occlusion. Postcontrast imaging of the brain shows no abnormal enhancement. Dural venous sinuses are grossly patent. There is a soft tissue structures unremarkable. Thyroid gland unremarkable. Limited images of lung apices are clear. There is mild to moderate emphysema. Multilevel cervical spondylosis with moderate to severe multilevel foraminal narrowing, most severe at C5-C6. There is also mild central stenosis at C5-C6 and C6-C7. IMPRESSION: 1. No acute abnormality of the head or neck. No evidence of vertebral artery dissection. 2. 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 3. Atherosclerotic plaquing in both carotid bifurcation resulting in estimated 40-50% stenosis of the proximal right ICA and negligible narrowing on the left. Electronically signed by: Rodo Mclain MD (03/16/2019 11:40 AM) [id number]
[2019-03-16] MEDS ORDERED: GADOTERATE 7.5 MMOL/15ML VIAL. IVP ONE (14:00)
--- NOTE | 2019-03-16 14:25 | RAD ---
MRI Brain with and without contrast History: Left arm numbness Technique: Multiplanar, multi sequential pre and postcontrast MR imaging was performed of the brain. Comparison: October 07, 2018 Findings: There is mild motion degradation. There is no evidence of recent infarct or cytotoxic edema. Ventricles are within normal limits in size. There is again mild supratentorial atrophy more greatly affecting the parietal lobes.There is no significant midline shift, intraaxial mass effect, or focal abnormal extra-axial fluid collection. There is minimal T2 and FLAIR hyperintense signal abnormality of the supratentorial white matter bilaterally greatest of the periventricular white matter. There are a couple of small old right cerebellar old lacunar infarcts. There is no nodular parenchymal or leptomeningeal enhancement. There is preservation of the major intracranial flow-voids at the skull base. The cerebellar tonsils are normal in location. There is no significant abnormality of the pineal gland or pituitary gland. There has been lens surgery bilaterally. There is minimal bilateral ethmoid air cell and very mild left maxillary sinus mucosal thickening. Right frontal sinus is not pneumatized, limited pneumatization on the left. The mastoid air cells are aerated. There is preserved marrow signal of the clivus. Impression: 1. There is no evidence of recent infarct or abnormal intracranial enhancement. There is mild supratentorial atrophy more greatly affecting the parietal lobes. Overall mild T2 and FLAIR hyperintense signal abnormality of the supratentorial parenchyma is nonspecific, more commonly due to chronic microvascular ischemic disease in a patient of this age. Electronically signed by: Umang Larkin MD (03/16/2019 2:22 PM) [facility]
[2019-03-16 14:45] LABS: BILIRUBIN,URINE NEGATIVE (NEG); CLARITY,URINE CLEAR; COLOR,URINE YELLOW; NITRITE,URINE NEGATIVE (NEG); PROTEIN,URINE NEGATIVE (NEG-TRACE); UROBILINOGEN,URINE 0.2 mg/dL (0.2 mg/dL)
[2019-03-16 14:55] LABS: BACTERIA,URINE 0 /HPF (0-FEW); RBC,URINE OCC /HPF (0-2); WBC,URINE 0 /HPF (0-4)
[2019-03-16 15:00] VITALS: BP 152/69
== END 2019-03-16 15:23 | disposition home or self-care (01) ==
LOC: ER 09:53
DX: R20.0 Anesthesia of skin (principal); E78.00 Pure hypercholesterolemia, unspecified; I25.10 Atherosclerotic heart disease of native coronary artery without angina pectoris; I11.9 Hypertensive heart disease without heart failure; I50.9 Heart failure, unspecified; F41.9 Anxiety disorder, unspecified; Z95.1 Presence of aortocoronary bypass graft; Z98.890 Other specified postprocedural states; Z86.73 Personal history of transient ischemic attack (TIA), and cerebral infarction without residual deficits; Z88.8 Allergy status to other drugs, medicaments and biological substances
CPT/HCPCS: 36415; 70450; 70496; 70498; 70553; 71045; 80047; 80053; 81001; 82962; 83880; 84484; 85025; 85610; 93005; 96374; 99285; A9575; Q9967

== ENCOUNTER → 2019-04-20 | Outpatient (CLI) | payer MEDICARE ==
--- NOTE | 2019-04-21 23:11 | SLEEP ---
DATE OF STUDY: 04/20/2019 ATTENDING PHYSICIAN: Dr. Jonathan Patel. REFERRING PHYSICIANS: Dr. Back The patient is an 83-year-old who weighs 150 pounds with a BMI of 22. The patient's Houston score was 6. The patient underwent sleep study performed at [facility]. During the night of study, the patient spent 415 minutes in bed and slept for 332 minutes with a sleep efficiency of 80%. Sleep latency was 25 minutes with an absent REM sleep. Overall, sleep architecture showed an increased stage 1 and stage 2 sleep, absent slow wave and absent REM sleep. During the night of study, the patient had 64 obstructive apneas, 25 mixed apneas, no central apneas and 38 hypopneas. The patient's apnea-hypopnea index was 23 per hour with a supine index of 67 per hour. REM sleep was not observed. Nocturnal oximetry study revealed a mean oxygen saturation of 94% with the lowest of 87%. Only 1% of time oxygen saturation remained between 80% and 89%. EKG monitoring revealed no sustained arrhythmias. Normal sinus rhythm. Occasional sinus tachycardia observed. PLMS were seen at an index of 15 per hour and 4 per hour caused EEG arousals. The patient did meet the criteria for CPAP initiation, but it was late in the night of the study, as a result, there was not enough time to initiate CPAP. IMPRESSION: 1. Moderate sleep apnea-hypopnea syndrome at an AHI of 23 per hour. Absence of REM sleep can underestimate the severity of sleep apnea. 2. No clinically significant nocturnal hypoxia. 3. Mild PLMS. RECOMMENDATIONS: 1. The patient would benefit from treatment of sleep apnea with CPAP. 2. Once the patient is optimally treated, then follow up in 4-6 weeks to assess compliance with CPAP and to document clinical improvement. 3. Avoid GAS CHECK PAD MAKER depressants. 4. Caution regarding driving until symptoms of sleep apnea resolve with the use of CPAP. 5. PLMS does not need to be treated unless the patient has symptoms of restless legs during the day. PAT BARRETO MD DR: FABIOLA/angela JOB#: [id number] / [id number] NICKY
== END | disposition home or self-care (01) ==
LOC: SLPLAB 19:09
PROVIDERS: ATTEND Internal Medicine Pulmonary Disease
DX: G47.33 Obstructive sleep apnea (adult) (pediatric) (principal)
CPT/HCPCS: 95810

== ENCOUNTER → 2019-05-18 | Outpatient (CLI) | payer MEDICARE ==
--- NOTE | 2019-05-24 13:50 | SLEEP ---
DATE OF STUDY: 05/18/2019 SLEEP STUDY ATTENDING PHYSICIAN: Dr. Patel. REFERRING PHYSICIAN: Dr. Back. The patient is an 83-year-old who weighs 152 pounds with a BMI of 22. The patient had a previous sleep study and was found to have moderate SUZIE at an AHI of 23 per hour. There was no REM sleep observed which could have been underestimated the severity of sleep apnea. He was referred back for in-lab CPAP titration study. During the night study, the patient spent 416 minutes in bed and slept for 290 minutes with a low sleep efficiency of 70%. Sleep latency was 43 minutes with a REM latency of 393 minutes. Overall, sleep architecture showed increased stage 1 and stage 2 sleep, absent slow wave and significantly reduced REM sleep, which was only 1% of the total sleep time. EKG monitoring revealed an average heart rate of 54 beats per minute. There were frequent PACs observed. No sustained arrhythmias seen. PLMs were seen at index of 36 per hour and 5 per hour caused EEG arousals. The patient was started on CPAP at a pressure of 5 cm water and titrated up to 14 cm water. At the final pressure, the patient slept for 108 minutes. The patient's AHI was reduced to 1 per hour and oxygen saturations remained above 94%. The patient had supine sleep and brief REM sleep. Saturations remained above 94%. The patient used a medium size full face mask. IMPRESSION: 1. Moderate sleep apnea diagnosed previously. 2. Moderate periodic limb movements. RECOMMENDATIONS: 1. CPAP at 14 cm water, completely eliminated the patient's sleep apnea and should be used on a nightly basis. 2. The patient used a medium size full face mask. 3. Follow up in 4-6 weeks to assess compliance with CPAP and to document clinical improvement. 4. Avoid WELT SOLE LAYER depressants. 6. Caution regarding driving until symptoms of sleep apnea resolve with the use of CPAP. PAT BARRETO MD DR: FABIOLA/angela JOB#: [id number] / [id number] TESSA Brown MD, [place]
== END | disposition home or self-care (01) ==
LOC: RT 18:58
PROVIDERS: ATTEND Internal Medicine Pulmonary Disease
DX: G47.33 Obstructive sleep apnea (adult) (pediatric) (principal); G47.61 Periodic limb movement disorder
CPT/HCPCS: 95811

== ENCOUNTER → 2019-06-13 | Outpatient (CLI) | payer MEDICARE ==
[2019-06-13 10:02] LABS: ALBUMIN 3.3 g/dL (3.4-5.0); DIRECT BILIRUBIN 0.2 mg/dL (0.0-0.2); TOTAL BILIRUBIN 0.5 mg/dL (0.2-1.0); TOTAL PROTEIN 6.4 g/dL (6.4-8.2)
[2019-06-13 10:06] LABS: CHOLESTEROL/HDL RATIO 1.9
== END | disposition home or self-care (01) ==
LOC: LAB 09:22
PROVIDERS: ATTEND Internal Medicine Cardiovascular Disease
DX: E78.5 Hyperlipidemia, unspecified (principal)
CPT/HCPCS: 36415; 80061; 80076; 83721

== ENCOUNTER → 2019-07-27 | Outpatient (CLI) | payer MEDICARE ==
[2019-06-27 18:00] VITALS: BP 124/57
[~2019-07-27] MED LIST changes: +AMIO200T4 PO; +CRESTOR40 MG PO
[2019-07-27 11:43] LABS: CREATININE 1.6 mg/dL (0.7-1.3); GFR 41.6
--- NOTE | 2019-07-27 16:10 | RAD ---
Examination: CT ABD PEL W/ORAL CONTRST ONLY History: Right groin pain Comparison/Correlation: 02/08/2018 CT abdomen and pelvis without contrast Findings: Axial images of the abdomen and pelvis were obtained following oral contrast administration only. Sagittal and coronal reformatted images were provided. Pacemaker leads are present. Hiatal hernia is present. Surgical clips are present about the hiatal hernia. Surgical clips are noted in the left subdiaphragmatic region. Subtle nodular contour of the liver is questioned. Spleen is normal size. Multiple small calculi are present within the dependent aspect of the gallbladder. No biliary dilatation. Right renal lower pole cyst is present. Right upper pole cyst also noted. No radiopaque collecting system calculi. Urinary bladder is unremarkable. No ascites or pelvic free fluid. No enlarged abdominal or pelvic lymph nodes. Moderate quantity of stool is noted along the proximal colon. No inflammatory change about the cecum. Minimal diverticulosis is present. No ascites or pelvic free fluid. Prostate gland measures up to 5 cm transverse. Multilevel degenerative disc space narrowing and vacuum phenomenon is evident throughout the visualized spine. No lordosis of the lumbar spine identified. Surgical clips in the region of a small right inguinal hernia containing omental fat is present. Linear density at the left inguinal region is noted. Clinical and surgical history. Impression: Very small right inguinal hernia containing omental fat identified is unchanged upon comparison with CT abdomen and pelvis exam of 02/08/2018. Cholelithiasis. Borderline prostate size. Hiatal hernia. PQRS Compliance Statement: One or more of the following individualized dose reduction techniques were utilized for this examination: 1. Automated exposure control 2. Adjustment of the mA and/or kV according to patient size 3. Use of iterative reconstruction technique Electronically signed by: Herber Zimmerman MD (07/27/2019 4:07 PM) [facility]
== END | disposition home or self-care (01) ==
LOC: CT 11:00
PROVIDERS: ATTEND Surgery
DX: K40.90 Unilateral inguinal hernia, without obstruction or gangrene, not specified as recurrent (principal); K80.20 Calculus of gallbladder without cholecystitis without obstruction; K44.9 Diaphragmatic hernia without obstruction or gangrene; N28.1 Cyst of kidney, acquired; K57.90 Diverticulosis of intestine, part unspecified, without perforation or abscess without bleeding; M48.00 Spinal stenosis, site unspecified
CPT/HCPCS: 36415; 74176; 82565; 84520

== ENCOUNTER → 2019-08-02 | Outpatient (CLI) | payer MEDICARE ==
[2019-06-27 18:00] VITALS: BP 124/57
--- NOTE | 2019-08-02 10:34 | RAD ---
MR#: [id number] Date of Study: 08/02/2019 Ordering Physician: KAELA GOMES, Referring Physician: KAELA GOMES, Tech: Tunde Mejia MBA, RDMS, RVT, RDCS, RTR APPROVED REPORT Patient Location : OUT-PATIENT Indications non healng ulcer lt foot Past History GSV Harvesting for CABG : Left GSV Vein Stripping : Left GSV Findings Grayscale images of the right great saphenous vein are grossly unremarkable. The right great saphenou s vein measures 4.5 mm and does not reflux. They left great saphenous vein has been previously stripp ed. Bilateral lesser saphenous veins do not show any evidence of reflux. Critical Notification Critical Value: No <Conclusion> 1. Negative for reflux in the visualized greater and lesser saphenous veins. Left great saphenous vei n previously removed for bypass. Signed by : Kaela Gomes, Electronically Approved : 08/02/2019 10:34:03
--- NOTE | 2019-08-02 10:46 | RAD ---
MR#: [id number] Date of Study: 08/02/2019 Ordering Physician: KAELA GOMES, Referring Physician: KAELA GOMES, Tech: Tunde Mejia MBA, RDMS, RVT, RDCS, RTR APPROVED REPORT Patient Location: OUT-PATIENT Indications Non-healing Ulcer: VELOCITY AND DOPPLER WAVEFORM ANALYSIS RIGHT cm/secWaveformSeverity LEFT cm/secWaveform Severity dCFA 140.0BiphasicdCFA 96.0Biphasic Prof Fem Art. 42.0BiphasicProf Fem Art. 70.0Biphasic Fem Art Prox. 111.0BiphasicFem Art Prox. 114.0Biphasic Fem Art Mid. 123.0BiphasicFem Art Mid. 125.0Biphasic Fem Art Dist. 124.0BiphasicFem Art Dist. 115.0Biphasic Pop Art(Fossa) 151.0BiphasicPop Art(AK) 93.0Biphasic INTENSIVE CARE SPECIALIST Prox. 111.0BiphasicPTA Prox. 78.0Biphasic INTENSIVE CARE SPECIALIST Dist. 73.0BiphasicPTA Dist. 93.0Biphasic Per Art Mid. 58.0BiphasicPer Art Mid. 62.0Biphasic NADYA Prox. 59.0BiphasicATA Prox. 87.0Biphasic DPA 68BiphasicDPA 97Biphasic Findings Grayscale images the bilateral lower extremity arterial vessels reveals mild diffuse plaque. Spectral waveforms are mostly biphasic. There is three-vessel runoff below the knee without any significant o bstructive disease noted. Critical Notification Critical Value: No <Conclusion> No significant lower extremity arterial disease bilaterally. Signed by : Kaela Gomes, Electronically Approved : 08/02/2019 10:45:24
== END | disposition home or self-care (01) ==
LOC: US 09:15
PROVIDERS: ATTEND Internal Medicine Cardiovascular Disease
DX: I73.9 Peripheral vascular disease, unspecified (principal); L97.529 Non-pressure chronic ulcer of other part of left foot with unspecified severity; Z95.1 Presence of aortocoronary bypass graft
CPT/HCPCS: 93925; 93970

== ENCOUNTER → 2019-10-14 | Outpatient (CLI) | payer MEDICARE ==
[2019-06-27 18:00] VITALS: BP 124/57
--- NOTE | 2019-10-14 15:34 | CARD ---
MR#: [id number] Date of Study: 10/14/2019 Ordering Physician: DAGO SIMPSON, Referring Physician: DAGO SIMPSON, Tech: Elma Wu APPROVED REPORT EXAM: Two-dimensional and M-mode echocardiogram with Doppler and color Doppler. Other Information Quality : AverageHR: 60bpm Rhythm : Pacemaker INDICATION Arrhythmia Surgery/Intervention Pacemaker: Date: 2018 2D DIMENSIONS RVDd3.9 (2.9-3.5cm)Left Atrium(2D)4.1 (1.6-4.0cm) IVSd1.0 (0.7-1.1cm)Aortic Root(2D)3.2 (2.0-3.7cm) LVDd4.9 (3.9-5.9cm)LVOT Diameter2.2 (1.8-2.4cm) PWd1.1 (0.7-1.1cm)LVDs2.8 (2.5-4.0cm) FS (%) 43.1 %SV84.0 ml LVEF(%)74.1 (>50%) Aortic Valve AoV Peak Karthik.113.4cm/sAoV VTI23.6cm AO Peak GR.5.1mmHgLVOT Peak Karthik.78.7cm/s LVOT VTI 16.20cmAO Mean GR.3mmHg AKSHAT (VMAX)2.74fa7HTG (VTI)2.58cm2 Mitral Valve MV E Duyaadio85.6cm/sMV DECEL SEDE062qd MV A Tcjcumgp89.9cm/sMV E Mean Gr.1mmHg MV YES48miZ/A Ratio0.7 MVA (PHT)2.31cm2 TDI E/Lateral E'7.5E/Medial E'11.4 Pulmonary Valve PV Peak Mbqiigpu39.6cm/sPV Peak Grad.3mmHg Tricuspid Valve TR P. Gjzbghoh401bj/sRAP QFTYNZYY2rxOy TR Peak Gr.99feTjBBGC63tvHa Pulmonary Vein S1 Xasawuxj14.2cm/sD2 Ksajblzu14.5cm/s PVa tcauepiz583padb LEFT VENTRICLE The left ventricle is normal size. There is borderline to mild concentric left ventricular hypertroph y. The left ventricular systolic function is normal. The Ejection Fraction is 55-60%. There is normal LV segmental wall motion. Transmitral Doppler flow pattern is Grade I-abnormal relaxation pattern. RIGHT VENTRICLE The right ventricle is normal size. There is normal right ventricular wall thickness. The right ventr icular systolic function is normal. ATRIA The left atrium size is normal. The right atrium is mildly dilated. Interatrial septum bowed toward t he left, consistent with elevated right atrial pressures. AORTIC VALVE The aortic valve is normal in structure and function. Doppler and Color Flow revealed no significant aortic regurgitation. There is no significant aortic valvular stenosis. MITRAL VALVE The mitral valve is normal in structure and function. There is no evidence of mitral valve prolapse. There is no mitral valve stenosis. Doppler and Color-flow revealed trace mitral regurgitation. TRICUSPID VALVE The tricuspid valve is normal in structure and function. Doppler and Color Flow revealed trace to mil d tricuspid regurgitation with an estimated PAP of 27 mmHg. There is no tricuspid valve stenosis. PULMONIC VALVE The pulmonary valve is normal in structure and function. Doppler and Color Flow revealed trace to mil d pulmonic valvular regurgitation. GREAT VESSELS The aortic root is normal in size. The IVC is normal in size and collapses >50% with inspiration. PERICARDIAL EFFUSION There is no evidence of significant pericardial effusion. Critical Notification Critical Value: No <Conclusion> The left ventricular systolic function is normal. The Ejection Fraction is 55-60%. There is normal LV segmental wall motion. Transmitral Doppler flow pattern is Grade I-abnormal relaxation pattern. Pacer wire noted in RA/RV. Trace mitral regurgitation. Trace to mild tricuspid regurgitation with an estimated PAP of 27 mmHg. There is no evidence of significant pericardial effusion. Signed by : Garrett Castro, Electronically Approved : 10/14/2019 15:33:42
== END | disposition home or self-care (01) ==
LOC: ECHO 12:30
PROVIDERS: ATTEND Internal Medicine Infectious Disease
DX: I08.8 Other rheumatic multiple valve diseases (principal); I49.3 Ventricular premature depolarization; I11.0 Hypertensive heart disease with heart failure; I50.9 Heart failure, unspecified; E78.00 Pure hypercholesterolemia, unspecified; Z88.8 Allergy status to other drugs, medicaments and biological substances
CPT/HCPCS: 93306

== ENCOUNTER → 2019-12-14 | Outpatient (CLI) | payer MEDICARE ==
[2019-06-27 18:00] VITALS: BP 124/57
[~2019-12-14] MED LIST changes: +MECL-75 PO; -MECL12.52 PO; +MECL12.573 PO; -MECL25TA3 PO
--- NOTE | 2019-12-14 14:27 | NUR ---
pt monitored during MRI by RN. Pacemaker rep at bedside
--- NOTE | 2019-12-14 15:32 | RAD ---
MRI Lumbar Spine without contrast History: Low back pain Technique: Multiplanar, multi sequential noncontrast MR imaging was performed of the lumbar spine. Comparison: September 06, 2018 Findings: Lumbar vertebral body stature is unchanged. There is again straightening of the lumbar spine. There is again advanced degenerative disease throughout the lumbar spine. There is again grade 1 anterior spondylolisthesis at L3-4, negligible anterior spondylolisthesis at L2-3. Conus terminates at the mid aspect of L2. There is bway-xo-fwwdrecy levoscoliosis centered near T12-L1. There is again T2 hyperintense lesion of the T10 vertebral body probably a hemangioma, fairly similar. There is a small focus of STIR hyperintense signal of the anterior, inferior L3 vertebral body about 0.7 cm fairly similar, may be small atypical hemangioma. Barely included, there is some edema of the visualized sacrum. There are some T2 hyperintense foci of the visualized right kidney, largest about 1.9 cm, statistically most likely cysts. T10-11: This level was not included on the axial images. There is buckling of the ligamentum flavum and facet degenerative change, likely mild left and at least moderate right neural foramina compromise. There is likely mild spinal stenosis. T12-L1: There is facet degenerative change and buckling of the ligamentum flavum. There is hdak-zg-flcukoir narrowing of the right neural foramen. Left neural foramen and spinal canal are adequate. L1-L2: There is buckling of the ligamentum flavum and facet degenerative change. There is minimal disc osteophyte complex. There is very mild narrowing of the far right lateral recess and right neural foramen, left neural foramen adequate. L2-L3: There is facet degenerative change. There is very minimal disc osteophyte complex. There is left laminectomy defect. Spinal canal and neural foramina are adequate. L3-L4: There is left laminectomy defect. This facet hypertrophic change. There is partial uncovering the posterior aspect of the disc due to spondylolisthesis. Spinal canal is overall adequate. Neural foramina are adequate. L4-L5: There is again facet degenerative change. There is left laminectomy defect. There is disc osteophyte complex and bulge as seen previously. There is similar degree of overall mild attenuation of the thecal sac including minimal narrowing of the far lateral recesses bilaterally. There is again moderate narrowing of the left neural foramen with disc osteophyte complex contacting undersurface exiting left L4 nerve root in the neural foramen and proximal extraforaminal region. There is moderate to severe narrowing of the right neural foramen by disc osteophyte complex and facet with contact exiting right L4 nerve root in the neural foramen and extraforaminal region part by disc osteophyte complex and bulge as seen previously. There is again appearance of clumping of the nerve roots located in the more central aspect of the thecal sac such as at the mid to superior aspect of L4 extending into the sacrum. L5-S1: There is again disc osteophyte complex, spinal canal overall adequate. There is again appearance of clumping of the descending nerve roots located more centrally in the thecal sac. There is again ixjk-pa-eemowtui narrowing of the left neural foramen by disc osteophyte complex and facet with contact undersurface exiting left L5 nerve root, also mild narrowing greater distally of the right neural foramen with contact undersurface exiting right L5 nerve root in the extraforaminal region. Impression: 1. Not fully included, there is edema of the visualized sacrum, primary concern for recent insufficiency fracture. 2. There is again multilevel advanced lumbar degenerative disc disease. There is mild abnormal alignment as stated. There is lumbar levoscoliosis. 3. There is lumbar neural foramina compromise as described, more significant narrowing on the right at L4-5, lesser degree narrowing on the left at L4-5 and bilaterally at L5-S1. 4. There is again clumping of the nerve roots of the inferior lumbar spine and sacrum as may be seen with sequela of arachnoiditis. Electronically signed by: Umang Larkin MD (12/14/2019 3:29 PM) [id number]
== END | disposition home or self-care (01) ==
LOC: MRI 13:21
PROVIDERS: ATTEND Family Medicine
DX: M51.36 Other intervertebral disc degeneration, lumbar region (principal); M43.16 Spondylolisthesis, lumbar region; M41.85 Other forms of scoliosis, thoracolumbar region; M53.85 Other specified dorsopathies, thoracolumbar region; M48.05 Spinal stenosis, thoracolumbar region; M25.78 Osteophyte, vertebrae; M47.816 Spondylosis without myelopathy or radiculopathy, lumbar region
CPT/HCPCS: 72148

== ENCOUNTER → 2019-12-23 | Outpatient (CLI) | payer MEDICARE ==
[2019-06-27 18:00] VITALS: BP 124/57
--- NOTE | 2019-12-23 15:00 | NUR ---
Pt here for MRI of pelvis. [employer] pacemaker rep here to adjust pacemaker for MRI. Pt tolerated well, VSS throughout. After completion of MRI, pt escorted out per wc. GURU RN
--- NOTE | 2019-12-23 16:40 | RAD ---
MR of the musculoskeletal pelvis HISTORY: Insufficiency fractures. Pain after fall. TECHNIQUE: Routine multiplanar sequences are obtained. FINDINGS: Marrow edema within the right and left sacral ala with corresponding low T1 signal. This is bilaterally symmetric. The appearance and pattern most compatible with bilateral sacral ala fractures, either from stress/insufficiency etiology or from trauma. No displacement. Bones appear otherwise intact without other fracture or aggressive bone destruction. The sacroiliac joints appear intact. Pubic symphysis intact with some degenerative change. No significant effusion at either hip. No evidence of para labral cyst. Gluteus minimus and medius tendinosis bilaterally. Hamstring tendon attachments are intact. Iliopsoas tendons intact. Rectus femoris and sartorius tendon attachments are intact. Prostate gland is enlarged, and indents the inferior urinary bladder.. Urinary bladder wall thickening, may be due to chronic outlet obstruction. IMPRESSION: 1. Findings compatible with bilateral sacral ala fractures. These could be insufficiency fractures, or related to recent trauma. No displacement. 2. Prostatomegaly. Urinary bladder wall thickening may be due to chronic outlet obstruction, unless there are clinical findings of cystitis. Electronically signed by: Rodo Garnica MD (12/23/2019 4:37 PM) [facility]
== END | disposition home or self-care (01) ==
LOC: MRI 15:07
PROVIDERS: ATTEND Neurological Surgery
DX: N40.0 Benign prostatic hyperplasia without lower urinary tract symptoms (principal); N32.89 Other specified disorders of bladder; W19.XXXA Unspecified fall, initial encounter; Y93.89 Activity, other specified; Y92.89 Other specified places as the place of occurrence of the external cause; Y99.8 Other external cause status
CPT/HCPCS: 72195

== ENCOUNTER → 2020-02-27 | Outpatient (CLI) | payer MEDICARE ==
[2019-06-27 18:00] VITALS: BP 124/57
[~2020-02-27] MED LIST changes: +IOHEXOL 180 MG/ML 10 ML VIAL. ONE; +ONDA-84 PO; +methylPREDNISolone ACETATE 40 MG/ML VIAL. ONE; +methylPREDNISolone ACETATE 80 MG/ML VIAL. ONE
--- NOTE | 2020-02-27 13:02 | PAIN ---
DATE OF SERVICE: 02/27/2020 PROGRESS NOTE FOR PAIN CLINIC DIAGNOSES: 1. Lumbar radiculopathy with lumbar degenerative disk disease, lumbar spinal stenosis and post-lumbar laminectomy syndrome. 2. Cervical radiculopathy with cervical degenerative disk disease. HISTORY OF PRESENT ILLNESS: The patient is an 84-year-old male who returns for followup status post lumbar epidural steroid injection, last seen 01/31/2019 just over a year ago. The patient reports he did very well, near 100% improvement. The patient fell this past 11/2019 and had a sacral insufficiency fracture, which is well-healed now and the pain has gone in his tailbone, but he had increased pain in the back into the lower extremities, especially on the left side, the posterior gluteus, posterior thigh, posterior calf, some on the right as well, but mostly on the left side. The patient reports that he was using a walker for a while, but is not using it anymore. He did see his neurosurgeon who is recommending conservative treatment at this time. The patient describes the pain as aching and burning in the low back, shooting and stabbing in the legs, rates a 10 on a scale of 10 at its worst over the past week, 7 on average, 3 at its least and is a 3 today. The patient did have a new MRI scan too which was reviewed with the patient showing some previous surgery as well as lumbar neural foraminal compromise, more significant narrowing on the right at L4-L5, lesser degree on the left L4-L5 and bilaterally L5-S1. The patient reports no loss of motor function, no new motor or sensory deficits. It is still worse with walking, standing, changing positions, better with sitting or lying down, relieves the pain completely. PHYSICAL EXAMINATION: VITAL SIGNS: The patient's blood pressure 116/56, pulse 68, respirations 18, temperature 98.6 degrees Fahrenheit, weight is 156 pounds. GENERAL: The patient is awake, alert, oriented, appropriate, very pleasant demeanor. HEENT: Shows normocephalic, atraumatic. Extraocular movements are intact and symmetrical. Oral cavity shows mucous membranes moist and pink. NECK: Shows anterior throat supple. Swallow reflex symmetrical. CHEST: Shows normal on inspection. Breath sounds are clear to auscultation bilaterally. The patient does have a new pacemaker in the subclavicular distribution noted with well-healed surgical scar. HEART: Shows S1, S2 clear. No murmurs auscultated. ABDOMEN: Soft, nontender, nondistended. No palpable organomegaly is noted. No rebound or guarding demonstrated. BACK: Shows spine grossly in the midline. Slight exaggeration of cervical lordotic flattening, significant increase in thoracic kyphosis from previous exam and some flattening of lumbar lordotic curvature with well-healed surgical scarring noted. Lumbar paraspinous muscle shows symmetrical on inspection, on palpation shows some moderate tenderness diffusely throughout the upper, middle and lower distribution of paraspinous muscles bilaterally without radiation. EXTREMITIES: Lower extremities show deep tendon reflexes at 2+ in the patellar, 1+ tendo-calcaneus tendons. Motor exam is strong with 5/5 dorsiflexion, extension, quadriceps and hamstring flexion. Peripheral pulses are 1+ posterior tibia. No peripheral edema bilaterally. Options were discussed with the patient. The patient's old chart was reviewed as his current medication regimen updated. Current review of systems updated today as well. We will proceed with a lumbar epidural steroid injection today with fluoroscopic guidance. Risks were again discussed including, but not limited to bleeding, infection, possibility of epidural hematoma, subsequent neurological compromise, dural puncture, headaches, spinal cord and/or nerve damage, side effects of steroid medication and poor results regarding pain control. The patient understands and wished to proceed. The patient will return to clinic in approximately 2 weeks for followup. He was counseled as to return appointment, activity level and side effects to be aware of. DIAGNOSIS: Lumbar radiculopathy with lumbar degenerative disk disease, lumbar spinal stenosis and lumbar post-laminectomy syndrome. PROCEDURE: Lumbar epidural steroid injection, translaminar approach at L5-S1 level using C-arm fluoroscopic guidance under sterile prep and drape using local anesthetic. MEDICATION INJECTED: A total of 120 mg Depo-Medrol plus 10 mL of preservative-free normal saline and 2 mL of contrast. CONDITION AT DISCHARGE: Stable. The patient tolerated procedure well, had no complications. KIMBERLEE MEDINA MD DR: IVANA/angela JOB#: [id number] / [id number]
== END ==
LOC: PNCL 11:43
PROVIDERS: ATTEND Anesthesiology
DX: M51.16 Intervertebral disc disorders with radiculopathy, lumbar region (principal); M48.061 Spinal stenosis, lumbar region without neurogenic claudication; M96.1 Postlaminectomy syndrome, not elsewhere classified; M50.10 Cervical disc disorder with radiculopathy, unspecified cervical region
CPT/HCPCS: 62323; J1030; J1040; Q9965

== ENCOUNTER → 2020-03-20 | Outpatient (CLI) | payer MEDICARE ==
[2019-06-27 18:00] VITALS: BP 124/57
--- NOTE | 2020-03-20 21:59 | PAIN ---
DATE OF SERVICE: 03/20/2020 PROGRESS NOTE FOR PAIN CLINIC DIAGNOSES: Lumbar radiculopathy with lumbar degenerative disk disease, lumbar spinal stenosis and lumbar post-laminectomy syndrome. HISTORY OF PRESENT ILLNESS: The patient is an 84-year-old male who returns for followup status post lumbar epidural steroid injection x 1 recently on 02/26. The patient did very well with about 60% improvement in the low back and especially in the left greater than right lower extremity. The patient reports he is doing fairly well except for when he is doing some yard work, bending and stooping, repetitive motions, bending and standing is causing some significant pain bilaterally, getting worse on the left side with radiation to posterior gluteus, posterior thigh, posterior calf on both legs. The patient reports the pain is a 9 on a scale of 10 at its worst over the past week, 6 on average and 3 at its least and is a 3 today. The patient reports it is aching, tingling, radiating at times in the low back, initially was doing much better with doing walking greater distances, doing some household activities with greater ease, but still fairly limited. The patient reports it is better with sitting or lying down. It does not awaken him from sleep at night. The patient reports no new motor or sensory deficits, no new bowel or bladder incontinence or other complaints. PHYSICAL EXAMINATION: VITAL SIGNS: The patient's blood pressure is 122/81, pulse 85, respirations 18, temperature is 98.2 degrees Fahrenheit, height is 5 feet 8 inches, weight is 155 pounds. GENERAL: The patient is awake, alert, oriented, appropriate, very pleasant demeanor. HEENT: Shows normocephalic, atraumatic. Extraocular movements are intact and symmetrical. Oral cavity shows mucous membranes moist and pink. Dentition is intact. NECK: Shows anterior throat supple without palpable lymphadenopathy noted. Swallow reflex symmetrical. CHEST: Shows normal on inspection. Breath sounds are clear bilaterally. HEART: Shows S1, S2 clear. No murmurs auscultated. ABDOMEN: Soft, nontender, nondistended. No palpable organomegaly is noted. No rebound or guarding demonstrated. BACK: Shows spine grossly in the midline. Increased thoracic kyphosis and some flattening of lumbar lordotic curvature with well-healed surgical scar noted. Lumbar paraspinous muscle shows symmetrical on inspection, on palpation shows some moderate tenderness diffusely bilaterally, but only diffusely without significant radiation. The patient has good rotational motion of lumbar spine, both laterally as well as extension and flexion without significant increase in pain. EXTREMITIES: Lower extremities show deep tendon reflexes at 1+ in patellar and tendo calcaneus tendons are equal. Motor exam is strong with 5/5 dorsiflexion, extension and equal. Peripheral pulses are 1+. No peripheral edema bilaterally. Options were discussed with the patient. The patient's old chart was reviewed as his current medication regimen updated. Current review of systems updated today as well and we will proceed with a second in the series of lumbar epidural steroid injection today with fluoroscopic guidance. Risks were again discussed including, but not limited to bleeding, infection, possibility of epidural hematoma, subsequent neurological compromise, dural puncture, headaches, spinal cord and/or nerve damage, side effects of steroid medication and poor results regarding pain control. The patient understands and wished to proceed. The patient will return to clinic in approximately 2 weeks for followup. He was counseled on return appointment, activity level and side effects to be aware of. DIAGNOSES: Lumbar radiculopathy with lumbar degenerative disk disease and lumbar spinal stenosis, lumbar post-laminectomy syndrome. PROCEDURE: Lumbar epidural steroid injection, translaminar approach at L5-S1 level using C-arm fluoroscopic guidance under sterile prep and drape using local anesthetic. MEDICATION INJECTED: A total of 120 mg Depo-Medrol plus 10 mL of preservative-free normal saline and 2 mL of contrast. CONDITION AT DISCHARGE: Stable. The patient tolerated procedure well, had no complications. KIMBERLEE MEDINA MD DR: IVANA/angela JOB#: [id number] / [id number]
== END ==
LOC: PNCL 09:54
PROVIDERS: ATTEND Anesthesiology
DX: M51.16 Intervertebral disc disorders with radiculopathy, lumbar region (principal); M48.061 Spinal stenosis, lumbar region without neurogenic claudication; M96.1 Postlaminectomy syndrome, not elsewhere classified
CPT/HCPCS: 62323; J1030; J1040; Q9965

== ENCOUNTER → 2020-04-17 | Outpatient (CLI) | payer MEDICARE ==
[2019-06-27 18:00] VITALS: BP 124/57
[~2020-04-17] MED LIST changes: +ALEN70TA3 PO
--- NOTE | 2020-04-17 12:55 | PAIN ---
DATE OF SERVICE: 04/17/2020 PROGRESS NOTE FOR PAIN CLINIC DIAGNOSES: Lumbar radiculopathy with lumbar degenerative disk disease, lumbar spinal stenosis and lumbar post-laminectomy syndrome. HISTORY OF PRESENT ILLNESS: The patient is an 84-year-old male who returns for followup status post lumbar epidural steroid injection x 2. The patient reports about 80% improvement initially, but now about 70% overall. The patient reports it is a "good amount" of decreased pain in the low back and primarily in the left lower extremity, but also in the right. The patient reports some pain in the lateral aspect of the thighs when getting up from a seated position occasionally which is a sharp pain, which is brief. Otherwise, the pain across the low back into the posterior gluteus, posterior thigh, posterior calf, more on the left than the right. The patient reports it is an 8 on a scale of 10 at its worst over the past week, 5 on average, 3 at its least and is a 3 today. The patient reports it is aching, sharp, cramping at times, burning and stabbing in the back and shooting in the leg. The patient reports it does not awaken him from sleep, he sleeps 8+ hours at a time without difficulty. Reports initially was doing much better with doing walking distances, household activities and traveling with greater ease. The patient reports no new motor or sensory deficits, no new bowel or bladder incontinence or other complaints. PHYSICAL EXAMINATION: VITAL SIGNS: The patient's blood pressure 130/90, pulse 88, respirations 18, temperature 98.2 degrees Fahrenheit, height is 5 feet 10 inches, weight is 155 pounds. GENERAL: The patient is awake, alert, oriented, appropriate, very pleasant demeanor. HEENT: Shows normocephalic, atraumatic. Extraocular movements are intact and symmetrical. Oral cavity: Mucous membranes moist and pink. Dentition is intact. NECK: Shows anterior throat supple without palpable lymphadenopathy noted. Swallow reflex symmetrical. CHEST: Shows normal on inspection. Breath sounds are clear bilaterally. HEART: Shows S1, S2 clear. No murmurs auscultated. ABDOMEN: Soft, nontender, nondistended. No palpable organomegaly is noted. No rebound or guarding demonstrated. BACK: Shows spine grossly in the midline. Increased thoracic kyphosis and some minor flattening of lumbar lordotic curvature with well-healed surgical scar noted. Lumbar paraspinous muscle shows symmetrical on inspection, on palpation shows some moderate tenderness diffusely throughout the upper, middle and lower distribution of paraspinous muscles, but only diffusely without significant radiation. The patient has good rotational motion of lumbar spine, but without significant pain reported. EXTREMITIES: The patient's lower extremities show deep tendon reflexes 2+ in the patellar, 1+ tendo-calcaneus tendons. Motor exam is strong with 5/5 dorsiflexion, extension and equal bilaterally. Peripheral pulses are 1+. No peripheral edema is noted. Options were discussed with the patient. The patient's old chart was reviewed as his current medication regimen updated. Current review of systems updated today as well. We will proceed with a third in the series of lumbar epidural steroid injection today with fluoroscopic guidance. Risks were again discussed including, but not limited to bleeding, infection, possibility of epidural hematoma, subsequent neurological compromise, dural puncture, headaches, spinal cord and/or nerve damage, side effects of steroid medication and poor results regarding pain control. The patient understands and wished to proceed. The patient will return to clinic in approximately 2 weeks for followup. He was counseled as to return appointment, activity level and side effects to be aware of. DIAGNOSES: Lumbar radiculopathy with lumbar degenerative disk disease, lumbar spinal stenosis and lumbar post-laminectomy syndrome. PROCEDURE: Lumbar epidural steroid injection, translaminar approach L5-S1 level using C-arm fluoroscopic guidance under sterile prep and drape using local anesthetic. MEDICATION INJECTED: A total of 120 mg Depo-Medrol plus 10 mL preservative-free normal saline and 2 mL of contrast. CONDITION AT DISCHARGE: Stable. The patient tolerated procedure well, had no complications. KIMBERLEE MEDINA MD DR: IVANA/angela JOB#: [id number] / [id number]
== END | disposition home or self-care (01) ==
LOC: PNCL 10:41
PROVIDERS: ATTEND Anesthesiology
DX: M51.16 Intervertebral disc disorders with radiculopathy, lumbar region (principal); M48.061 Spinal stenosis, lumbar region without neurogenic claudication; I11.0 Hypertensive heart disease with heart failure; I50.9 Heart failure, unspecified; E78.5 Hyperlipidemia, unspecified; E78.00 Pure hypercholesterolemia, unspecified; Z79.82 Long term (current) use of aspirin; Z79.899 Other long term (current) drug therapy
CPT/HCPCS: 62323; J1030; J1040; Q9965

== ENCOUNTER → 2020-07-11 | Outpatient (CLI) | payer MEDICARE ==
[2019-06-27 18:00] VITALS: BP 124/57
[~2020-07-11] MED LIST changes: +GADOTERATE 7.5 MMOL/15ML VIAL. IVP ONE; -IOHEXOL 180 MG/ML 10 ML VIAL. ONE; -methylPREDNISolone ACETATE 40 MG/ML VIAL. ONE; -methylPREDNISolone ACETATE 80 MG/ML VIAL. ONE
[2020-07-11 13:18] LABS: BASO % 1 % (0-3); EOS # 0.3 x10^3/uL (0.0-0.7); EOS % 6 % (0-3); HEMATOCRIT 42.8 % (39.0-53.0); HEMOGLOBIN 14.4 g/dL (13.0-17.5); LYMPH # 1.5 x10^3/uL (1.0-4.8); LYMPH % 27 % (24-48); MEAN CORPUSCULAR HEMOGLOBIN 34 pg (25-35); MEAN CORPUSCULAR HGB CONC 34 g/dL (31-37); MEAN CORPUSCULAR VOLUME 100 fL (79-100); MONO # 0.5 x10^3/uL (0.0-1.1); MONO % 10 % (0-9); NEUT # 3.2 x10^3/uL (1.8-7.7); NEUT % 57 % (31-73); PLATELET COUNT 170 x10^3/uL (140-400); RED BLOOD COUNT 4.28 x10^6/uL (4.30-5.70); WHITE BLOOD COUNT 5.6 x10^3/uL (4.0-11.0)
[2020-07-11 13:30] LABS: C-REACTIVE PROTEIN 0.5 mg/L (0-3.3); CALCIUM 8.4 mg/dL (8.5-10.1); CREATININE 1.8 mg/dL (0.7-1.3); GFR 36.2; POTASSIUM 5.3 mmol/L (3.5-5.1)
--- NOTE | 2020-07-11 16:01 | NUR ---
[employer] PM rep here and set pt's pm tov-paced at 65 for the MRI. b/p at start of MRI was 141/73, afterwards 150/81. pt tolerated MRI w/o problem, PM rep returned PPM to previous settings.
--- NOTE | 2020-07-11 17:46 | RAD ---
Study: MRI of the left foot with and without contrast INDICATION: Nonhealing left foot wound. COMPARISON: Left foot radiographs 06/14/2020. TECHNIQUE: Multiplanar MR imaging of the left foot performed both prior to and after the intravenous administration of 14 cc Dotarem. FINDINGS: The study is limited by a large amount of noise. Reportedly the region of concern involves the second toe. It appears as if there is a wound along the medial aspect of the second ray proximal phalanx but this is difficult to confirm by MRI especially given the degree of noise the distal portion of the second ray proximal phalanx does appear somewhat dusky on the T1 sequences, reference image 22 series 4 and image 16 series 9, but it is extremely difficult to assess for any associated enhancement or T2 signal elevation. 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 There are also degenerative changes across the TMT joints most notably the second through fourth considering that the fifth MTP joint is excluded from the [id number]. No localized fluid collection is seen. Grossly intact tendons. Poorly assessed capsuloligamentous structures. IMPRESSION: 1. The study is significantly limited due to a large amount of noise. This results in incomplete fat suppression and spurious signal that is difficult to differentiate from artifact or true pathology. There does appear to be a wound at the medial aspect of the second ray proximal phalanx and potential marrow signal changes of the mid to distal second proximal phalanx but it is not possible to confirm the presence or absence of osteomyelitis at this location. 2. Advanced degenerative changes at the great toe MTP joint. Less pronounced arthrosis but still moderate at the second through fourth TMT joints. Electronically signed by: LEEANNE STOKES MD (07/11/2020 5:43 PM) [place] [id number]
== END | disposition home or self-care (01) ==
LOC: MRI 12:54
PROVIDERS: ATTEND Emergency Medicine Undersea and Hyperbaric Medicine
DX: S91.102A Unspecified open wound of left great toe without damage to nail, initial encounter (principal); M19.072 Primary osteoarthritis, left ankle and foot; X58.XXXA Exposure to other specified factors, initial encounter; Y93.89 Activity, other specified; Y92.89 Other specified places as the place of occurrence of the external cause; Y99.8 Other external cause status
CPT/HCPCS: 36415; 73720; 80048; 85025; 86140; A9575

== ENCOUNTER → 2020-09-21 | Outpatient (CLI) | payer MEDICARE ==
[2019-06-27 18:00] VITALS: BP 124/57
[~2020-09-21] MED LIST changes: -AMIO200T4 PO; +AMIO200T6 PO; -GADOTERATE 7.5 MMOL/15ML VIAL. IVP ONE; +IOHEXOL 180 MG/ML 10 ML VIAL. ONE; +methylPREDNISolone ACETATE 40 MG/ML VIAL. ONE; +methylPREDNISolone ACETATE 80 MG/ML VIAL. ONE
--- NOTE | 2020-09-21 13:04 | PDOC ---
Progress Note - Pain Clinic Date of Service: DOS: DATE: 09/21/20 TIME: 13:00 Diagnosis: Dx: Lumbar radiculopathy with lumbar degenerative disc disease and lumbar spinal stenosis with postlaminectomy syndrome Cervical radiculopathy with degenerative disc disease History or Present Illness: HPI: 84-year-old male returns for follow-up status post lumbar epidural steroid injections x3. Most recently seen April 17, 2020, patient did very well with about 50% improvement overall for the first 3 to 6 weeks doing much better but t he pain returning down the low back into the right greater than left lower extremity at this time. Patient reports pain in both lower extremities but the right one is more noticeable here over the last few weeks. Patient reports no new motor or sensory deficits no new bowel or bladder incontinence no new injuries or accidents he is aware of rib rates the pain is a 9 on a scale of 10 at its worst 7 on average and a 4 and least is a 7 today. Patient scribes pain is aching and tight in the low back constant sometimes unbearable on and off in intensity worse with walking standing changing position better with sitting or laying down does not awaken her from sleep at night. She reports no new motor or sensory deficits no bowel or bladder incontinence Physical Exam: VS: Blood pressure is 143/81 pulse 70 respirations 18 temperature 99.4 F height is 5 foot 10 inches weight is 153 pounds PE: PHYSICAL EXAMINATION: GENERAL: The patient is awake, alert, oriented, appropriate, very pleasant demeanor HEENT: Shows normocephalic, atraumatic. Extraocular movements are intact and symmetrical. Oral cavity: Mucous membranes moist and pink. NECK: Shows anterior throat supple without palpable lymphadenopathy noted. Swa llow reflex symmetrical. CHEST: Shows normal on inspection. Breath sounds are clear bilaterally, distant but clear without rales rhonchi or wheezes. HEART: Shows S1, S2 clear. No murmurs auscultated. ABDOMEN: Soft, nontender, nondistended. No palpable organomegaly is noted. No rebound or guarding demonstrated. BACK: Shows spine grossly in the midline. Normal-appearing cervical lordotic curvature. There is slightly increased thoracic kyphosis, some minor flattening of the lumbar lordotic curvature. Lumbar paraspinous muscles show symmetrical on inspection, on palpation shows some moderate tenderness diffusely throughout the upper, middle and lower distribution of the paraspinous muscles without specific trigger points, without radiation of pain. The patient has good rotational motion of the lumbar spine, both laterally as well as extension and flexion without significant difficulty. No tenderness over the spinous processes, sacrum or sacroiliac regions. EXTREMITIES: Lower extremities show deep tendon reflexes 2+ in the patellar and tendo calcaneus tendons. Motor exam is 5 on a scale of 5 with right dorsiflexion, extension, quadriceps and hamstring flexion and 5/5 on the left. Peripheral pulses are 1+ posterior tibial. No peripheral edema is noted bi laterally. Lower extremities are warm and dry to touch, equal in color and appearance. SKIN: Shows warm and dry, good turgor. No edema. No sores, rashes or bruising throughout. Procedure: Procedure: Options were discussed with the patient. Patient chart was reviewed his his current medication regimen updated current review of systems updated today as well. We will proceed with a first in the series lumbar epidural steroid injection today with fluoroscopic guidance. Risks were discussed including but not limited to: Bleeding, infection, possibility of epidural hematoma and subsequent neurological compromise, dural puncture, headaches, spinal cord and/or nerve damage, side effects of steroid medication, and poor results regarding pain control. Patient understands wished to proceed. Patient will return to the clinic in approximate 2 weeks for follow-up, was counseled as return appointment activity level and side effects to be aware of. Medication Injected: Med Injected: Procedure is lumbar epidural steroid injection under local anesthetic using sterile prep and drape at the L5-S1 level using C-arm fluoroscopic guidance in both AP and lateral views medications injected is 120 mg Depo-Medrol + 10 mL preservative-free normal saline and 2 mL contrast- condition at discharge is stable patient tolerated procedure well had no complications. Condition at Discharge: Condition at Discharge: Condition at discharge is stable, patient tolerated procedure well and had no complications. KIMBERLEE MEDINA MD Sep 21, 2020 13:04
== END | disposition home or self-care (01) ==
LOC: PNCL 11:40
PROVIDERS: ATTEND Anesthesiology
DX: M51.16 Intervertebral disc disorders with radiculopathy, lumbar region (principal); M48.061 Spinal stenosis, lumbar region without neurogenic claudication; M50.10 Cervical disc disorder with radiculopathy, unspecified cervical region; M96.1 Postlaminectomy syndrome, not elsewhere classified; I11.0 Hypertensive heart disease with heart failure; I50.9 Heart failure, unspecified; I25.10 Atherosclerotic heart disease of native coronary artery without angina pectoris; E78.00 Pure hypercholesterolemia, unspecified; M19.90 Unspecified osteoarthritis, unspecified site; K21.9 Gastro-esophageal reflux disease without esophagitis; N40.0 Benign prostatic hyperplasia without lower urinary tract symptoms; E03.9 Hypothyroidism, unspecified; F41.9 Anxiety disorder, unspecified; F32.9 Major depressive disorder, single episode, unspecified; Z85.828 Personal history of other malignant neoplasm of skin; Z79.899 Other long term (current) drug therapy; Z79.82 Long term (current) use of aspirin; Z98.890 Other specified postprocedural states; Z86.73 Personal history of transient ischemic attack (TIA), and cerebral infarction without residual deficits; Z82.49 Family history of ischemic heart disease and other diseases of the circulatory system; Z88.1 Allergy status to other antibiotic agents; Z88.8 Allergy status to other drugs, medicaments and biological substances
CPT/HCPCS: 62323; J1030; J1040; Q9965

== ENCOUNTER → 2020-10-11 | Outpatient (CLI) | payer MEDICARE ==
[2019-06-27 18:00] VITALS: BP 124/57
[~2020-10-11] MED LIST changes: -MECL12.573 PO; +MECL12.574 PO
--- NOTE | 2020-10-11 10:59 | PDOC ---
Progress Note - Pain Clinic Date of Service: DOS: DATE: 10/11/20 TIME: 10:56 Diagnosis: Dx: Lumbar radiculopathy with lumbar degenerative disc disease and lumbar spinal stenosis with postlaminectomy syndrome Cervical radiculopathy with cervical degenerative disc disease History or Present Illness: HPI: 84-year-old male returns follow-up status post lumbar epidurals injection x1 September 21, 2020 patient reports doing well but 60% improvement after the last injection pain returning low back and right lower extremity worse with walking standing potentially bending or raking using a vacuum with repetitive motions with the bending of the low back. Patient reports initially doing much better with distance walking doing household activities greater ease and comfort travel with greater ease as well. Now the pain is returning in the low back and in the right lower extremity mostly in the posterior gluteus posterior thigh and lateral thigh patient scribes pain is sharp and shooting on and off in intensity better with sitting or laying down generally does not awaken him from sleep at night. Patient ports pain is a 9 on scale 10 is worst over the past week 5 on average 3 days least is a 5 today. Physical Exam: VS: Blood pressure is 139/88 pulse 73 respirations 20 temperature is 97.6 was Fahrenheit height 5 feet 10 inches weight 153 pounds PE: PHYSICAL EXAMINATION: GENERAL: The patient is awake, alert, oriented, appropriate, very pleasant demeanor HEENT: Shows normocephalic, atraumatic. Extraocular movements are intact and symmetrical. Oral cavity: Mucous membranes moist and pink. NECK: Shows anterior throat supple without palpable lymphadenopathy noted. Swallow reflex symmetrical. CHEST: Shows normal on inspection. Breath sounds are clear bilaterally. HEART: Shows S1, S2 clear. No murmurs auscultated. ABDOMEN: Soft, nontender, nondistended. No palpable organomegaly is noted. No rebound or guarding demonstrated. BACK: Shows spine grossly in the midline. Normal-appearing cervical lordotic curvature. There is slightly increased thoracic kyphosis, some minor flattening of the lumbar lordotic curvature. Lumbar paraspinous muscles show symmetrical on inspection, on palpation shows some moderate tenderness diffusely throughout the upper, middle and lower distribution of the paraspinous muscles, but without specific trigger points, without radiation of pain. The patient has good rotational motion of the lumbar spine, both laterally as well as extension and flexion without significant difficulty. No tenderness over the spinous processes, sacrum or sacroiliac regions. EXTREMITIES: Lower extremities show deep tendon reflexes 2+ in the patellar and tendo calcaneus tendons. Motor exam is 5 on a scale of 5 with right dorsiflexion, extension, quadriceps and hamstring flexion and 5/5 on the left. Peripheral pulses are 1+ posterior tibial. No peripheral edema is noted bilaterally. Lower extremities are warm and dry to touch, equal in color and appearance. SKIN: Shows warm and dry, good turgor. No edema. No sores, rashes or bruising throughout. Procedure: Procedure: Options were discussed with the patient. Patient's old chart was reviewed his his current medication regimen updated current review of systems updated today as well. We will proceed with a second in the series lumbar epidural steroid injection today with fluoroscopic guidance. Risks were discussed including but not limited to: Bleeding, infection, possibility of epidural hematoma and subs equent neurological compromise, dural puncture, headaches, spinal cord and/or nerve damage, side effects of steroid medication, and poor results regarding pain control. Patient understands wished to proceed. Patient will return to clinic in approximately 2 weeks for follow-up was counseled as to return appointment activity level and side effects to be aware of. Medication Injected: Med Injected: Procedure is lumbar epidural steroid injection under local anesthetic using st erile prep and drape at the L5-S1 level using C-arm fluoroscopic guidance in both AP and lateral views medications injected is 120 mg Depo-Medrol + 10 mL preservative-free normal saline and 2 mL contrast- condition at discharge is stable patient tolerated procedure well had no complications. Condition at Discharge: Condition at Discharge: Condition at discharge is stable, patient tolerated procedure well had no immediate complications. KIMBERLEE MEDINA MD Oct 11, 2020 10:59
== END | disposition home or self-care (01) ==
LOC: PNCL 10:26
PROVIDERS: ATTEND Anesthesiology
DX: M51.16 Intervertebral disc disorders with radiculopathy, lumbar region (principal); M48.061 Spinal stenosis, lumbar region without neurogenic claudication; M50.10 Cervical disc disorder with radiculopathy, unspecified cervical region; M96.1 Postlaminectomy syndrome, not elsewhere classified; I11.0 Hypertensive heart disease with heart failure; I50.9 Heart failure, unspecified; E78.00 Pure hypercholesterolemia, unspecified; K21.9 Gastro-esophageal reflux disease without esophagitis; N40.1 Benign prostatic hyperplasia with lower urinary tract symptoms; M19.90 Unspecified osteoarthritis, unspecified site; F41.9 Anxiety disorder, unspecified; F32.9 Major depressive disorder, single episode, unspecified; I25.10 Atherosclerotic heart disease of native coronary artery without angina pectoris; Z85.828 Personal history of other malignant neoplasm of skin; E03.9 Hypothyroidism, unspecified; Z79.82 Long term (current) use of aspirin; Z79.899 Other long term (current) drug therapy; Z98.890 Other specified postprocedural states; Z88.8 Allergy status to other drugs, medicaments and biological substances; Z82.49 Family history of ischemic heart disease and other diseases of the circulatory system; Z80.0 Family history of malignant neoplasm of digestive organs
CPT/HCPCS: 62323; J1030; J1040; Q9965

== ENCOUNTER → 2020-11-07 | Outpatient (CLI) | payer MEDICARE ==
[2019-06-27 18:00] VITALS: BP 124/57
[~2020-11-07] MED LIST changes: -IOHEXOL 180 MG/ML 10 ML VIAL. ONE; -methylPREDNISolone ACETATE 40 MG/ML VIAL. ONE; -methylPREDNISolone ACETATE 80 MG/ML VIAL. ONE
[2020-11-07 11:07] LABS: CALCIUM 8.3 mg/dL (8.5-10.1); CREATININE 1.3 mg/dL (0.7-1.3); GFR 52.7; POTASSIUM 5.1 mmol/L (3.5-5.1); TOTAL BILIRUBIN 0.6 mg/dL (0.2-1.0); TOTAL PROTEIN 6.1 g/dL (6.4-8.2)
[2020-11-07 11:21] LABS: CHOLESTEROL/HDL RATIO 2.5
== END ==
LOC: LAB 10:16
PROVIDERS: ATTEND Internal Medicine Cardiovascular Disease
DX: E78.5 Hyperlipidemia, unspecified (principal)
CPT/HCPCS: 36415; 80053; 80061; 83721

== ENCOUNTER → 2020-11-28 | Outpatient (CLI) | payer MEDICARE ==
[2019-06-27 18:00] VITALS: BP 124/57
--- NOTE | 2020-11-28 17:07 | CARD ---
MR#: [id number] Date of Study: 11/28/2020 Ordering Physician: KAELA GOMES, Referring Physician: KAELA GOMES, Tech: Claritza Jackson [facility] APPROVED REPORT EXAM: Two-dimensional and M-mode echocardiogram with Doppler and color Doppler. Other Information Quality : Good INDICATION Dizziness and Vertigo Dyspnea Surgery/Intervention Pacemaker: Date: 06/21/19 2D DIMENSIONS RVDd3.9 (2.9-3.5cm)Left Atrium(2D)4.2 (1.6-4.0cm) IVSd0.9 (0.7-1.1cm)Aortic Root(2D)3.4 (2.0-3.7cm) LVDd5.1 (3.9-5.9cm)LVOT Diameter2.2 (1.8-2.4cm) PWd0.9 (0.7-1.1cm)LVDs3.2 (2.5-4.0cm) FS (%) 20.0 %SV83.8 ml Aortic Valve AoV Peak Karthik.111.0cm/sAoV VTI23.5cm AO Peak GR.4.9mmHgLVOT Peak Karthik.92.2cm/s AO Mean GR.3mmHgAVA (VMAX)3.28cm2 AKSHAT (VTI)3.10cm2 Mitral Valve MV E Uogsglgc50.9cm/sMV DECEL [id number] MV A Eunwpdzr742.4cm/sE/A Ratio0.6 Tricuspid Valve TR P. [id number]/sRAP [id number] TR Peak Gr.50meHvVADY54ivTj Pulmonary Vein S1 Nfqeekec35.7cm/sD2 Tccsfkvg75.9cm/s LEFT VENTRICLE The left ventricle is normal size. There is normal left ventricular wall thickness. Left ventricle sy stolic function is moderately impaired. The Ejection Fraction is 35-40%. Apical motion consistent wit h pacemaker activation. Transmitral Doppler flow pattern is Grade I-abnormal relaxation pattern. RIGHT VENTRICLE The right ventricle is mildly dilated. Systolic function is mildly reduced. There are device leads in the right ventricle and atrium. ATRIA The left atrium is mildly dilated. The right atrium is mildly dilated. The interatrial septum is inta ct with no evidence for an atrial septal defect or patent foramen ovale as noted on 2-D or Doppler im aging. AORTIC VALVE The aortic valve is mildly thickened but opens well. Doppler and Color Flow revealed no significant a ortic regurgitation. There is no significant aortic valvular stenosis. MITRAL VALVE The mitral valve is calcified but opens well. Mitral annular calcification is mild. There is no evide nce of mitral valve prolapse. There is no mitral valve stenosis. Doppler and Color-flow revealed mild to moderate mitral regurgitation. TRICUSPID VALVE The tricuspid valve is normal in structure and function. Doppler and Color Flow revealed mild tricusp id regurgitation. The PA pressure was estimated at 37 mmHg. There is no tricuspid valve stenosis. PULMONIC VALVE The pulmonary valve is normal in structure and function. Doppler and Color Flow revealed mild to mode rate pulmonic valvular regurgitation. There is no pulmonic valvular stenosis. GREAT VESSELS The aortic root is normal in size. The ascending aorta is mildly dilated at 3.5 cm. The IVC is normal in size and collapses >50% with inspiration. PERICARDIAL EFFUSION There is no evidence of significant pericardial effusion. Critical Notification Critical Value: No <Conclusion> The left ventricle is normal size. Left ventricle systolic function is moderately impaired. The Ejection Fraction is 35-40%. Apical motion consistent with pacemaker activation. Doppler and Color Flow revealed no significant aortic regurgitation. There is no significant aortic valvular stenosis. Doppler and Color-flow revealed mild to moderate mitral regurgitation. Doppler and Color Flow revealed mild tricuspid regurgitation. The PA pressure was estimated at 37 mmHg. The ascending aorta is mildly dilated at 3.5 cm. Signed by : Marco A Villagomez MD Electronically Approved : 11/28/2020 17:07:14
== END ==
LOC: ECHO 14:51
PROVIDERS: ATTEND Internal Medicine Cardiovascular Disease
DX: I08.8 Other rheumatic multiple valve diseases (principal); Z95.0 Presence of cardiac pacemaker
CPT/HCPCS: 93306

== ENCOUNTER → 2020-11-30 | Outpatient (CLI) | payer MEDICARE ==
[2019-06-27 18:00] VITALS: BP 124/57
[~2020-11-30] MED LIST changes: +ALEN70TA71 PO; +FERR236T2 PO; +FURO20TA3 PO; +GLUC100018 PO; +GLUC1TAB71 PO; +HYDR25TA PO; -MECL12.574 PO; +MECL12.582 PO; +TRIA15OI TP
== END ==
LOC: LAB 12:10
PROVIDERS: ATTEND Internal Medicine Cardiovascular Disease
DX: Z01.812 Encounter for preprocedural laboratory examination (principal); I25.5 Ischemic cardiomyopathy; R06.00 Dyspnea, unspecified; Z20.822 Contact with and (suspected) exposure to COVID-19
CPT/HCPCS: U0003

== ENCOUNTER 2020-12-04 06:56 | Inpatient (IN) | payer MEDICARE ==
[~2020-12-04] VITALS: Ht 177.8 cm; Wt 71.2 kg
[2020-12-04] VITALS (17 sets, daily range): BP systolic 113–173; BP diastolic 56–93
[~2020-12-04 06:56] MED LIST changes: -ALEN70TA71 PO; -FERR236T2 PO; -FURO20TA3 PO; -GLUC100018 PO; -GLUC1TAB71 PO; -HYDR25TA PO; -TRIA15OI TP
[2020-12-04 07:30] LABS: HEMATOCRIT 37.9 % (39.0-53.0); HEMOGLOBIN 12.6 g/dL (13.0-17.5); RED BLOOD COUNT 3.81 x10^6/uL (4.30-5.70); RED CELL DISTRIBUTION WIDTH 14.4 % (11.5-14.5); WHITE BLOOD COUNT 6.7 x10^3/uL (4.0-11.0)
[2020-12-04] MEDS ORDERED: HEPARIN for ARTERIAL LINE 1,500 ML ONE (07:35)
[2020-12-04] MEDS ORDERED: IODIXANOL 320 MG/ML 100 ML VIAL. ONE (07:35)
[2020-12-04] MEDS ORDERED: LIDOCAINE 1% Multi-Dose 20 ML VIAL. ONE ×2 (07:35→09:13)
[2020-12-04 07:39] LABS: CALCIUM 8.3 mg/dL (8.5-10.1); CREATININE 1.7 mg/dL (0.7-1.3); GFR 38.7; POTASSIUM 5.5 mmol/L (3.5-5.1)
[2020-12-04] MEDS ORDERED: MIDAZOLAM HCL/PF 2 MG/2 ML VIAL. ONE (08:08)
[2020-12-04] MEDS ORDERED: fentaNYL PF VIAL 100 MCG/2 ML VIAL ONE (08:08)
[2020-12-04] MEDS ORDERED: fentaNYL PF VIAL 100 MCG/2 ML VIAL IV ONE (08:15)
[2020-12-04] MEDS ORDERED: MIDAZOLAM HCL/PF 2 MG/2 ML VIAL. IV ONE (08:15)
[2020-12-04] MEDS ORDERED: IODIXANOL 320 MG/ML 100 ML VIAL. IART ONE (08:15)
[2020-12-04] MEDS ORDERED: GLUC1TAB71 PO (08:33)
[2020-12-04] MEDS ORDERED: FERR236T2 PO (08:33)
[2020-12-04] MEDS ORDERED: ATOR20TA58 PO (08:33)
[2020-12-04] MEDS ORDERED: ALEN70TA71 PO (08:33)
[2020-12-04] MEDS ORDERED: GLUC100018 PO (08:33)
[2020-12-04] MEDS ORDERED: FURO20TA3 PO (08:33)
[2020-12-04] MEDS ORDERED: MECL-75 PO (08:33)
--- NOTE | 2020-12-04 08:58 | PDOC1 ---
History and Physical Visit Information Date of Admission: Source: Patient History of Present Illness History of Present Illness Daryn is a pleasant 84-year-old man coming into the hospital today for a planned right and left heart catheterization in setting of exertional dyspnea, new onset cardiomyopathy. He denies any syncope or palpitations Past Medical History Cardiovascular: AFIB, CAD, Hyperlipidemia Renal/: Chronic renal insuff Past Surgical History Past Surgical History: Pacemaker Current Medications Current Medications Current Medications Fentanyl Citrate (Fentanyl 2ml Vial) 100 mcg 1X ONCE IV ; Start 12/04/20 at 08:15; Stop 12/04/20 at 08:17; Status DC Fentanyl Citrate (Fentanyl 2ml Vial) 100 mcg STK-MED ONCE .ROUTE ; Start 12/04/20 at 08:08; Stop 12/04/20 at 08:09; Status DC Heparin Sodium/ Sodium Chloride 1,500 ml @ As Directed STK-MED ONCE .ROUTE ; Start 12/04/20 at 07:35; Stop 12/04/20 at 07:36; Status DC Heparin Sodium/ Sodium Chloride (HEPARIN for ARTERIAL LINE FLUSH) 1,000 unit 1X ONCE IART ; Start 12/04/20 at 08:15; Stop 12/04/20 at 08:17; Status DC Heparin Sodium/ Sodium Chloride (HEPARIN for ARTERIAL LINE FLUSH) 1,000 unit 1X ONCE IART ; Start 12/04/20 at 08:15; Stop 12/04/20 at 08:17; Status DC Iodixanol (Visipaque 320) 100 ml 1X ONCE IART ; Start 12/04/20 at 08:15; Stop 12/04/20 at 08:17; Status DC Iodixanol (Visipaque 320) 100 ml STK-MED ONCE .ROUTE ; Start 12/04/20 at 07:35; Stop 12/04/20 at 07:35; Status DC Lidocaine HCl (Lidocaine 1% 20ml Vial) 20 ml 1X ONCE INJ ; Start 12/04/20 at 08:15; Stop 12/04/20 at 08:17; Status DC Lidocaine HCl (Lidocaine 1% 20ml Vial) 20 ml STK-MED ONCE .ROUTE ; Start 12/04/20 at 07:35; Stop 12/04/20 at 07:35; Status DC Midazolam HCl (Versed) 2 mg 1X ONCE IV ; Start 12/04/20 at 08:15; Stop 12/04/20 at 08:17; Status DC Midazolam HCl (Versed) 2 mg STK-MED ONCE .ROUTE ; Start 12/04/20 at 08:08; Stop 12/04/20 at 08:09; Status DC Allergies Allergies Allergies Coded Allergies Type Severity Reaction Last Updated Verified colchicine Adverse Reaction Intermediate Nausea 02/01/19 Yes Social History Smoke: No ALCOHOL: none Drugs: None Lives: Alone Family History Comments Noncontributory ROS Review of System Negative for 10 out of 14 systems reviewed unless otherwise mentioned above in HPI Physical Exam General: Alert, Oriented X3 HEENT: Atraumatic Lungs: Clear to auscultation Heart: Regular rate CHEST: Clear to auscultation Abdomen: Normal bowel sounds Extremities: No clubbing Skin: No rashes Neuro: Normal gait Vitals VITALS Vital Signs Date Time Temp Pulse Resp B/P (MAP) Pulse Ox O2 Delivery O2 Flow Rate FiO2 12/04/20 08:09 Room Air 12/04/20 08:04 98.8 69 20 125/72 (89) 97 98.8 Labs Labs Laboratory Tests Test 12/04/20 07:24 White Blood Count 6.7 x10^3/uL (4.0-11.0) Red Blood Count 3.81 x10^6/uL (4.30-5.70) Hemoglobin 12.6 g/dL (13.0-17.5) Hematocrit 37.9 % (39.0-53.0) Mean Corpuscular Volume 100 fL (79-100) Mean Corpuscular Hemoglobin 33 pg (25-35) Mean Corpuscular Hemoglobin Concent 33 g/dL (31-37) Red Cell Distribution Width 14.4 % (11.5-14.5) Platelet Count 163 x10^3/uL (140-400) Prothrombin Time 14.0 SEC (11.7-14.0) Prothromb Time International Ratio 1.1 (0.8-1.1) Sodium Level 140 mmol/L (136-145) Potassium Level 5.5 mmol/L (3.5-5.1) Chloride Level 106 mmol/L (98-107) Carbon Dioxide Level 27 mmol/L (21-32) Anion Gap 7 (6-14) Blood Urea Nitrogen 33 mg/dL (8-26) Creatinine 1.7 mg/dL (0.7-1.3) Estimated GFR (Cockcroft-Gault) 38.7 Glucose Level 93 mg/dL (70-99) Calcium Level 8.3 mg/dL (8.5-10.1) Laboratory Tests Test 12/04/20 07:24 White Blood Count 6.7 x10^3/uL (4.0-11.0) Red Blood Count 3.81 x10^6/uL (4.30-5.70) Hemoglobin 12.6 g/dL (13.0-17.5) Hematocrit 37.9 % (39.0-53.0) Mean Corpuscular Volume 100 fL (79-100) Mean Corpuscular Hemoglobin 33 pg (25-35) Mean Corpuscular Hemoglobin Concent 33 g/dL (31-37) Red Cell Distribution Width 14.4 % (11.5-14.5) Platelet Count 163 x10^3/uL (140-400) Prothrombin Time 14.0 SEC (11.7-14.0) Prothromb Time International Ratio 1.1 (0.8-1.1) Sodium Level 140 mmol/L (136-145) Potassium Level 5.5 mmol/L (3.5-5.1) Chloride Level 106 mmol/L (98-107) Carbon Dioxide Level 27 mmol/L (21-32) Anion Gap 7 (6-14) Blood Urea Nitrogen 33 mg/dL (8-26) Creatinine 1.7 mg/dL (0.7-1.3) Estimated GFR (Cockcroft-Gault) 38.7 Glucose Level 93 mg/dL (70-99) Calcium Level 8.3 mg/dL (8.5-10.1) ECG EKG: NSR VTE Prophylaxis Ordered VTE Prophylaxis Devices: No VTE Pharmacological Prophylaxi: No Assessment/Plan Assessment/Plan 1. Plan for a right and left heart catheterization due to worsening cardiomyopathy and dyspnea Justicifation of Admission Dx: Justifications for Admission: Justification of Admission Dx: N/A KAELA GOMES MD Dec 04, 2020 08:58
--- NOTE | 2020-12-04 08:59 | PDOC ---
MODERATE SEDATION ASSESSMENT RISKS/ALTERNATIVES Risks/Alternatives Risks and alternatives of this type of sedation and procedure discussed with: RISK/ALTERNATIVES: Patient H & P ON CHART H & P H & P on chart and reviewed for co-morbid conditions and appropriate labs. H&P ON CHART: Yes STATUS PREG STATUS ASSESSED: N/A MEDS/ALLERGIES REVIEWED Meds/Allergies Reviewed Medications and Allergies including time and route of recently administered narcotics and sedatives. MEDS/ALLERGIES REVIEWED: Yes ASA RATING ASA RATING: II AIRWAY ASSESSMENT Airway Assessment Airway patency, oral function limitations, presence of caps, crowns, dentures, partials, and ability to extend neck assessed. AIRWAY ASSESSMENT: Yes MALLAMPATI SCORE MALLAMPATI SCORE: II PRE-SEDATION ASSESSMENT PRE-SEDATION ASSESSMENT: Yes KAELA GOMES MD Dec 04, 2020 08:59
[2020-12-04] MEDS: LIDOCAINE 1% Multi-Dose 20 ML VIAL. INJ ONE ×2 (09:09→09:12)
[2020-12-04] MEDS ORDERED: NITROGLYCERIN 200 MCG/2 ML SYRINGE FOR CATH/VASC LAB. ONE (09:38)
[2020-12-04] MEDS ORDERED: HEPARIN for IV BOLUS 10,000 UNIT/10 ML VIAL. ONE (09:40)
[2020-12-04] MEDS: NITROGLYCERIN 200 MCG/2 ML SYRINGE FOR CATH/VASC LAB. IART ONE (09:45)
[2020-12-04] MEDS ORDERED: HEPARIN for IV BOLUS 10,000 UNIT/10 ML VIAL. IV ONE (09:45)
[2020-12-04] MEDS ORDERED: CLOPIDOGREL BISULFATE 75 MG TABLET ONE (10:19)
[2020-12-04] MEDS ORDERED: CLOPIDOGREL BISULFATE 75 MG TABLET PO ONE (10:30)
[2020-12-04] MEDS: BENZOCAINE/MENTHOL LOZENGE. PO PRN ×2 (11:36→16:36)
[2020-12-04] MEDS ORDERED: ONDANSETRON ODT 4 MG TAB.RAPDIS. PO PRN (13:00)
[2020-12-04] MEDS: AMIODARONE HCL 200 MG TABLET. PO SCH (13:39)
[2020-12-04] MEDS: FUROSEMIDE 20 MG TABLET PO SCH (13:40)
[2020-12-04] MEDS: TAMSULOSIN 0.4 MG CAP.ER.24H. PO SCH (13:40)
[2020-12-04] MEDS: GABAPENTIN 300 MG CAPSULE. PO SCH ×2 (13:54→20:47)
[2020-12-04] MEDS ORDERED: MECLIZINE HCL 12.5 MG TABLET. PO PRN (14:00)
[2020-12-04] MEDS ORDERED: ATORVASTATIN CALCIUM 20 MG TABLET PO SCH (14:00)
[2020-12-04] MEDS ORDERED: MECLIZINE HCL 12.5 MG TABLET. PO SCH (14:00)
--- NOTE | 2020-12-04 15:53 | CARD ---
MR#: [id number] Date of Study: 12/04/2020 Ordering Physician: KAELA DARNELL, Referring Physician: KAELA DARNELL, Tech: Gabriela Hart APPROVED REPORT Technologist: Gabriela Hart Nurse: Mely Monroy RN Procedure(s) performed: fl time: 16.3 mins dose: 120 gycm2 contrast: 110 ml moderate sedation: 90 MIN LHC, Coronary angiography, bypass angiography iFR of the RCA PCI of the RCA [facility] Clinical Frailty Scale [facility] Clinical Frailty Scale: Moderately Frail Heart Failure Heart Failure: Yes If Yes, Newly Diagnosed: No If Yes, HF Type: Diastolic Systolic If Yes, NYHA Class: Class II CASE TECHNIQUE IV conscious sedation was used throughout procedure with appropriate monitoring and was performed in the presence of a registered nurse who was an independent trained observer other than the physician p erforming the procedure. During this case, Fluoroscopy and low osmolar contrast were used for imaging . Specimen(s) Removed: N/A Estimated Blood loss: 20 cc's. PROCEDURE NARRATIVE Clinical summation: 84-year-old male with new onset worsening exertional dyspnea, fatigue and new cardiomyopathy with eje ction fraction of 30 to 35%. Procedure details: After appropriate informed consent the patient was brought to the catheterization laboratory. The [facility] groin was prepped and draped in usual sterile fashion. Under 1% lidocaine local anesthesia a 6 F rench sheath was placed in the right common femoral artery and a 5 Czech sheath was placed in the [facility] common femoral vein via the modified Seldinger technique. Next, a right heart catheterization wa s performed and pressures and saturations were obtained. Subsequently, a left coronary angiogram fr ee and bypass angiography was performed with a JL4, JR4 and AJIT catheters. Findings: Aorta 120/80 LVEDP 15 mmHg Right heart cath: RA 10 mmHg RV 49/10 PA 39/19, 21 Wedge 18 mmHg PA saturation 75%, arterial saturation 98% Ramya cardiac output: 5.8 L/min Coronary angiography: Left main is a moderate caliber vessel with moderate diffuse disease LAD is a moderate caliber vessel with severe diffuse disease of up to 90% in proximal to mid occlusio n. The distal vessel is seen to fill via a patent AJIT graft. D1 is a very small caliber vessel with severe diffuse disease Left circumflex is a moderate caliber vessel with a proximal 90% stenosis OM1 is a moderate caliber vessel with a proximal 90% stenosis, there is competitive flow seen via a p atent vein graft RCA is a large caliber dominant vessel with a patent proximal stent and a mid to distal 70 to 80% jose nosis. RPDA is a small to moderate caliber vessel occluded in the midsegment and seen to fill via left to ri ght collaterals from the LAD RPL is a small to moderate caliber vessel with mild luminal irregularities Bypass angiography: ONEILL to the LAD is widely patent without anastomotic stenosis SVG sequential graft to the obtuse marginal is patent without anastomotic stenosis SVG to D1 has a proximal 80% stenosis and severe diffuse disease at the distal anastomosis Interventional technique: A IFR study was performed of the right coronary artery lesion. Heparin was used for anticoagulation. Through a 6 Czech JR4 guide catheter a IFR wire was placed in the distal RCA after appropriate nor malization and intracoronary glycerin administration. And IFR value was measured at approximately 0. 9 at the threshold of ischemia. Given the patient's symptoms, threshold levels of ischemia and lack of any other clear signs to account for his dyspnea a intervention was planned. The IFR wire was rem lynda and a Prowater wire was placed in the distal RCA and balloon angioplasty was performed with a 3. 5 x 15 mm balloon and the lesion was stented with a 4.0 x 30 mm drug-eluting stent. Final angiograph y demonstrated excellent stent expansion was KINA-3 flow in the vessel no evidence of guide or wire r elated complications. The right groin sheath were removed and hemostasis was achieved with a an Claudia o-Seal device in the right common femoral artery and manual compression of the right common femoral v ein. KINA Flow KINA Flow (Pre-Intervention): KINA-3 KINA Flow (Post-Intervention): KINA-3 Conclusion 1. Normal left-sided filling pressures 2. Mildly elevated right-sided filling pressures without any significant pulmonary hypertension 3. Severe three-vessel coronary artery disease with 4-4 bypass grafts patent 4. Successful PCI of the mid to distal RCA with implantation of a 4.0 x 30 mm drug-eluting stent Recommendations 1. Aspirin 81 mg daily 2. Plavix 75 mg daily 3. Cardiac rehabilitation 4. Medical optimization for chronic renal sufficiency, cardiomyopathy. Consider outpatient evaluati on for upgrade to a BiV ICD depending on patient's preference and improvement in EF. Signed by : Kaela Darnell, Electronically Approved : 12/04/2020 15:53:04
[2020-12-04] MEDS: CARVEDILOL 6.25 MG TABLET. PO SCH (16:36)
[2020-12-04] MEDS: ASPIRIN ENTERIC COATED 81 MG TABLET.DR. PO SCH (20:46)
[2020-12-04] MEDS: traMADol 50 MG TABLET PO SCH (20:47)
[2020-12-04] MEDS: DOXYCYCLINE HYCLATE 100 MG TABLET PO SCH (20:47)
[2020-12-04] MEDS ORDERED: NON FORMULARY ITEM (Ubidecarenone (Co Q-10) 200 MG) PO SCH (21:00)
[2020-12-05 02:24] VITALS: BP 119/61
[2020-12-05 07:00] VITALS: BP 160/79
[2020-12-05] MEDS ORDERED: LEVOTHYROXINE 75 MCG TABLET PO SCH (07:00)
[2020-12-05] MEDS ORDERED: FERROUS SULFATE 325 MG TABLET. PO SCH (08:00)
[2020-12-05] MEDS ORDERED: CALCIUM CARB/VIT D3 500/200 TABLET. PO SCH (09:00)
[2020-12-05] MEDS ORDERED: CLOPIDOGREL BISULFATE 75 MG TABLET PO SCH (09:00)
[2020-12-05] MEDS: AMIODARONE HCL 200 MG TABLET. PO SCH (09:00)
[2020-12-05] MEDS ORDERED: MULTIVITAMIN with MINERAL TABLET. PO SCH (09:00)
[2020-12-05] MEDS ORDERED: NON FORMULARY ITEM (Glucosamine Sulfate 2KCL (Glucosamine) 1,000 MG) PO SCH (09:00)
[2020-12-05] MEDS ORDERED: CELECOXIB 100 MG CAPSULE. PO SCH (09:00)
[2020-12-05] MEDS ORDERED: VENLAFAXINE XR 37.5 MG CAP.ER.24H. PO SCH (09:00)
[2020-12-05] MEDS: ASPIRIN ENTERIC COATED 81 MG TABLET.DR. PO SCH (09:17)
[2020-12-05] MEDS: CARVEDILOL 6.25 MG TABLET. PO SCH (09:18)
[2020-12-05] MEDS: GABAPENTIN 300 MG CAPSULE. PO SCH (09:18)
[2020-12-05] MEDS: DOXYCYCLINE HYCLATE 100 MG TABLET PO SCH (09:18)
[2020-12-05] MEDS: FUROSEMIDE 20 MG TABLET PO SCH (09:19)
[2020-12-05] MEDS: TAMSULOSIN 0.4 MG CAP.ER.24H. PO SCH (09:19)
[2020-12-05] MEDS: traMADol 50 MG TABLET PO SCH (09:20)
[2020-12-05 09:27] LABS: CALCIUM 8.3 mg/dL (8.5-10.1); CREATININE 1.5 mg/dL (0.7-1.3); GFR 44.7; POTASSIUM 5.1 mmol/L (3.5-5.1)
[2020-12-05 10:36] VITALS: BP 124/70
--- NOTE | 2020-12-05 11:20 | NUR ---
SS following for discharge planning. SS reviewed pt chart and discussed with pt RN. Pt is from home and is currently on room air. Pt had heart cath on 12/04/2020. Discharge plan is to home when medically ready. SS will continue to follow for discharge planning.
[2020-12-05] MEDS ORDERED: CLOP75TA PO (13:58)
[2020-12-05] MEDS ORDERED: ATOR40TA59 PO (13:58)
[2020-12-05] MEDS ORDERED: METO-239 PO (13:58)
--- NOTE | 2020-12-05 14:04 | PDOC3 ---
Discharge Summary Visit Information Date of Admission: Dec 04, 2020 Date of Discharge: Dec 05, 2020 Admitting Diagnosis Comment: CAD Cardiomyopathy Chronic systolic CHF Hypertension Hyperlipidemia SSS s/p PPM CKD Final Diagnosis CAD Cardiomyopathy Chronic systolic CHF Hypertension Hyperlipidemia SSS s/p PPM EDE on CKD Brief Hospital Course Allergies Allergies Coded Allergies Type Severity Reaction Last Updated Verified colchicine Adverse Reaction Intermediate Nausea 02/01/19 Yes Vital Signs Vital Signs Date Time Temp Pulse Resp B/P (MAP) Pulse Ox O2 Delivery O2 Flow Rate FiO2 12/05/20 10:36 98.3 68 18 124/70 (88) 95 Room Air 98.3 12/04/20 21:47 2.0 Lab Results Laboratory Tests Test 12/04/20 07:24 12/04/20 11:00 12/05/20 08:50 White Blood Count 6.7 x10^3/uL (4.0-11.0) Red Blood Count 3.81 x10^6/uL (4.30-5.70) Hemoglobin 12.6 g/dL (13.0-17.5) Hematocrit 37.9 % (39.0-53.0) Mean Corpuscular Volume 100 fL (79-100) Mean Corpuscular Hemoglobin 33 pg (25-35) Mean Corpuscular Hemoglobin Concent 33 g/dL (31-37) Red Cell Distribution Width 14.4 % (11.5-14.5) Platelet Count 163 x10^3/uL (140-400) Prothrombin Time 14.0 SEC (11.7-14.0) Prothromb Time International Ratio 1.1 (0.8-1.1) Sodium Level 140 mmol/L (136-145) 139 mmol/L (136-145) Potassium Level 5.5 mmol/L (3.5-5.1) 5.1 mmol/L (3.5-5.1) Chloride Level 106 mmol/L (98-107) 107 mmol/L (98-107) Carbon Dioxide Level 27 mmol/L (21-32) 27 mmol/L (21-32) Anion Gap 7 (6-14) 5 (6-14) Blood Urea Nitrogen 33 mg/dL (8-26) 29 mg/dL (8-26) Creatinine 1.7 mg/dL (0.7-1.3) 1.5 mg/dL (0.7-1.3) Estimated GFR (Cockcroft-Gault) 38.7 44.7 Glucose Level 93 mg/dL (70-99) 84 mg/dL (70-99) Calcium Level 8.3 mg/dL (8.5-10.1) 8.3 mg/dL (8.5-10.1) Activated Clotting Time 192 sec (92-181) Magnesium Level 2.0 mg/dL (1.8-2.4) Laboratory Tests Test 12/05/20 08:50 Sodium Level 139 mmol/L (136-145) Potassium Level 5.1 mmol/L (3.5-5.1) Chloride Level 107 mmol/L (98-107) Carbon Dioxide Level 27 mmol/L (21-32) Anion Gap 5 (6-14) Blood Urea Nitrogen 29 mg/dL (8-26) Creatinine 1.5 mg/dL (0.7-1.3) Estimated GFR (Cockcroft-Gault) 44.7 Glucose Level 84 mg/dL (70-99) Calcium Level 8.3 mg/dL (8.5-10.1) Magnesium Level 2.0 mg/dL (1.8-2.4) Brief Hospital Course Mr. Murdock is a 84 old male who presented for right and left heart cath given exertional dyspnea, new onset cardiomyopathy. Right heart cath noted normal left-sided filling pressures. Right-sided filling pressures mildly elevated without any significant pulmonary hypertension. Left heart cath noted with severe three-vessel coronary artery disease with 4-4 bypass grafts patent. The RCA was additionally noted with 70-80% mid to distal stenosis. Previously placed proximal stent was patent. He underwent successful PCI of the mid to distal RCA with implantation of a 4.0 x 30 mm drug-eluting stent. He tolerated procedure well and was monitoring overnight without complications. Lasix was discontinued due to EDE on CKD, hyperkalemia. Repeat labs showed improved renal function and resolved hyperkalemia. Coreg was converted to Toprol due to low-end blood pressure. Blood pressure will not currently tolerate addition of ACEi/ARB. Will re-evaluate on an outpatient basis. Encouraged adequate oral hydration and daily weight monitoring. Will re-evaluate LVEF on an outpatient basis with consideration of upgrade to a BiV ICD if LVEF remains depressed. He will resume outpatient cardiac rehab and follow up in our office with Dr. Darnell as scheduled. Assessment Assessment Lung CTA. Heart tones regular. Right femoral arteriotomy site soft, clean, and dry. No hematoma present. Bilateral neurovascular status intact. No edema. Discharge Information Condition at Discharge: Stable Follow Up: Weeks (6 weeks ) Disposition/Orders: D/C to Home Scheduled Alendronate Sodium (Alendronate Sodium) 70 Mg Tablet, 1 TAB PO WEEKLY for osteoporosis, #4 Ref 3 (Reported) Entered as Reported by: NADIYA SERVIN on 12/04/20 0833 Last Taken: Unknown Dose on 12/03/20 Last Action: Converted on 12/04/20 1243 by EDIS STODDARD APRN Amiodarone Hcl (Amiodarone Hcl) 200 Mg Tablet, 1 TAB PO DAILY for arrhytmia MDD 1 for 30 Days, #30 Ref 1 Prescribed by: TORITO FARMER on 06/22/19 1458 Last Taken: Unknown Dose on 12/03/20 Last Action: Continued on 12/04/20 1243 by EDIS STODDARD APRN Aspirin (Aspir 81) 81 Mg Tablet.dr, 1 TAB PO HS for blood thiner, #90 Ref 3 (Reported) Entered as Reported by: DENAE TILLEY on 07/14/16 2214 Last Taken: Unknown Dose on 12/03/20 Last Action: Continued on 12/04/20 1243 by EDIS STODDARD APRN Atorvastatin Calcium (Atorvastatin Calcium) 20 Mg Tablet, 1 TAB PO HS for HLD, #30 Ref 5 (Reported) Entered as Reported by: NADIYA SERVIN on 12/04/20 0833 Last Taken: Unknown Dose on 12/03/20 Last Action: Edited on 12/04/20 1355 by JOSE GIBBONS Calcium Carb & Cit/Vitamin D3 (Citracal + D Er Tablet) 1 Each Tablet.er, 1 EACH PO DAILY for calcium supplement, (Reported) Entered as Reported by: COLTEN HO on 10/27/13 1311 Last Taken: Unknown Dose on 12/03/20 Last Action: Converted on 12/04/20 1243 by EDIS STODDARD APRN Carvedilol (Carvedilol ) 6.25 Mg Tablet, 6.25 MG PO BIDWMEALS for CHF for 30 Days, #60 Prescribed by: CLAUS GREENFIELD MD on 02/02/19 1225 Last Taken: Unknown Dose on 12/03/20 Last Action: Continued on 12/04/20 124 by EDIS STODDARD APRN Celecoxib (Celebrex) 200 Mg Capsule, 1 CAP PO DAILY, #30 (Reported) Entered as Reported by: DENAE TILLEY on 07/14/16 2244 Last Taken: Unknown Dose on 12/04/20 Last Action: Converted on 12/04/20 124 by EDIS STODDARD APRN Doxycycline Hyclate (Doxycycline Hyclate) 100 Mg Tablet, 1 TAB PO BID for tick bite, #14 (Reported) Entered as Reported by: GATO RUSHING on 02/27/20 1236 Last Taken: Unknown Dose on 12/03/20 Last Action: Continued on 12/04/20 124 by EDIS STODDARD APRN Ferrous Gluconate (Iron) 236 Mg Tablet, 1 TAB PO DAILY for supplement for 30 Days, #30 Ref 0 (Reported) Entered as Reported by: NADIYA SERVIN on 12/04/20 0833 Last Taken: Unknown Dose on 12/03/20 Last Action: Converted on 12/04/201242 by EDIS STODDARD APRN Furosemide (Furosemide) 20 Mg Tablet, 1 TAB PO DAILY for CHF, #90 Ref 1 (Reported) Entered as Reported by: NADIYA SERVIN on 12/04/20 0833 Last Taken: Unknown Dose on 12/03/20 Last Action: Continued on 12/04/20 124 by EDIS STODDARD APRN Gabapentin (Gabapentin) 600 Mg Tablet, 600 MG PO BID for NEUROGENIC PAIN, (Reported) Entered as Reported by: JENNIFER YOST on 12/09/18 0350 Last Taken: Unknown Dose on 12/03/20 Last Action: Converted on 12/04/20 124 by EDIS STODDARD APRN Glucosamine Sulfate 2KCL (Glucosamine) 1,000 Mg Tablet, 1,000 MG PO DAILY for SUPPLEMENT, (Reported) Entered as Reported by: NADIYA SERVIN on 12/04/20 0833 Last Taken: Unknown Dose on 12/03/20 Last Action: Converted on 12/04/20 124 by EDIS STODDARD APRN Glucosamine/D3/Boswellia Nia (Osteo Bi-Flex Caplet) 1 Each Tablet, 1 EACH PO D AILY for supplement, (Reported) Entered as Reported by: NADIYA SERVIN on 12/04/20832 Last Taken: Unknown Dose on 12/03/20 Last Action: New Order on 12/04/20832 by NADIYA SERVIN Lactobacillus Acidophilus (Probiotic) 1 Each Capsule, 1 EACH PO Thursday and for probiotic, (Reported) Entered as Reported by: SHIRIN VALDES on 01/15/18 0914 Last Taken: Unknown Dose on 12/03/20 Last Action: Converted on 12/04/20 124 by EDIS STODDARD APRN Levothyroxine Sodium (Levothyroxine Sodium) 75 Mcg Tablet, 1 TAB PO DAILY, #30 Ref 5 (Reported) Entered as Reported by: GATO RUSHING on 07/01/18 1455 Last Taken: Unknown Dose on 12/03/20 Last Action: Continued on 12/04/20 124 by EDIS STODDARD APRN Meclizine Hcl (Meclizine Hcl) 25 Mg Tablet, 1 TAB PO TID for motion sickness, #90 (Reported) Entered as Reported by: NADIYA SERVIN on 12/04/20832 Last Taken: Unknown Dose on 12/03/20 Last Action: Edited on 12/04/20 1355 by JOSE GIBBONS Multivitamin (Daily Vitamin) 1 Each Tablet, 1 EACH PO DAILY for vitamin supplement, (Reported) Entered as Reported by: COLTEN HO on 10/27/13 1312 Last Taken: Unknown Dose on 12/03/20 Last Action: Converted on 12/04/201242 by EDIS STODDARD APRN Ondansetron Hcl (Ondansetron Hcl) 4 Mg Tablet, 1 TAB PO PRN Q6HRS for primary, #10 Ref 1 (Reported) Entered as Reported by: GATO RUSHING on 02/27/20 1236 Last Taken: Unknown Dose on 12/03/20 Last Action: Converted on 12/04/201242 by EDIS STODDARD APRN Tamsulosin Hcl (Flomax) 0.4 Mg Cap.er.24h, 1 CAP PO DAILY for urine hesistancy, #30 Ref 11 (Reported) Entered as Reported by: SURESH WOLF on 12/25/15 1138 Last Taken: Unknown Dose on 12/03/20 Last Action: Continued on 12/04/20 1243 by EDIS STODDARD APRN Tramadol Hcl (Tramadol Hcl) 50 Mg Tablet, 1 TAB PO BID, #60 (Reported) Entered as Reported by: DENAE TILLEY on 07/14/16 2244 Last Taken: Unknown Dose on 12/04/20 Last Action: Continued on 12/04/20 1243 by EDIS STODDARD APRN Ubidecarenone (Co Q-10) 200 Mg Capsule, 200 MG PO HS for supplement, (Reported) Not taken while in hosp. May resume at home as directed. Entered as Reported by: COLTEN HO on 10/27/13 1313 Last Taken: Unknown Dose on 12/03/20 Last Action: Converted on 12/04/20 124 by EDIS STODDARD APRN Venlafaxine Hcl (Venlafaxine Hcl Er) 37.5 Mg Cap.er.24h, 37.5 MG PO DAILY, (R eported) Entered as Reported by: SHIRIN VALDES on 01/15/18 0914 Last Taken: Unknown Dose on 12/04/20 Last Action: Continued on 12/04/20 1243 by EDIS STODDARD APRN Patient Instructions Patient Instructions GENERAL INSTRUCTIONS: 1. Your dressing should be removed prior to leaving the hospital. 2. It is OK to shower the day after your procedure. 3. If you received stents, be sure to carry your stent information card with you in your wallet/purse at all times. 4. Call the office immediately at [phone] if you notice any fever or if there is redness, worsening tenderness/pain, increased bruising, or drainage from the puncture site. 5. Should you have bleeding from the site, lie down immediately & put pressure on the site. The pressure should be hard enough to stop the bleeding. Have the nearest person call 911. DO NOT try to drive to the ER with active bleeding. 6. If you notice a change in color, coolness to touch, or loss of feeling in the affected extremity, come to the emergency room. Please have someone drive you or call 911 if no one is available. DO NOT drive yourself. 7. If you normally take glucophage (metformin), please do not take this medicine for 48 hours following your procedure. 8. DO NOT STOP TAKING YOUR PLAVIX OR ASPIRIN UNLESS IT IS CLEARED BY A VIRTUAL CLASSROOM MANAGER OF YOUR PIN DRAFTING MACHINE OPERATOR AT OUR OFFICE. 9. QUIT SMOKING: the [place] [employer], [place], & [place] have cessation resources available on their websites 10. Please have someone available to drive you home from the hospital as you may be limited by sedation medications given during the procedure. Femoral (Groin) access: 1. Do no lifting, pushing, pulling, bending, stooping, or recurrent stair climbing for 3 days following your procedure. 2. Once past the first 3 days, do not do any HEAVY exertion or lifting for one week following the procedure. No gym workouts, running, lifting greater than a gallon of milk, etc 3. Do not submerge in bath or pool for one week. OK to drive 3 days following your procedure, but if going long distance, do not go alone & take hourly breaks to get out of car and walk around. Radial Artery (Wrist) access: 1. No pushing, pulling, lifting, typing, or anything that requires repetitive use/movement of the affected wrist for 3 days following your procedure. 2. OK to drive the day following your procedure. (This is because of effects of sedating medications.) Call the office at [phone] for any questions or concerns. Justicifation of Admission Dx: Justifications for Admission: Justification of Admission Dx: N/A EDIS STODDARD APRN Dec 05, 2020 14:04
[2020-12-05 14:38] VITALS: BP 137/67
--- NOTE | 2020-12-05 19:08 | NUR ---
Discharge Note: BRAULIO PRESTON [address] Discharge instructions and discharge home medications reviewed with Patient and a copy given. All questions have been answered and understanding verbalized. The following instructions and handouts were given: diet, medications, post cath care, bp, follow up with primary and with Dr. Darnell. Discontinued lines and drains: IV removed, no lines present. Patient discharged to Home. left by wheelchair to private vehicle.
[2020-12-05] MEDS ORDERED: ATORVASTATIN CALCIUM 20 MG TABLET PO SCH (21:00)
[2020-12-06] MEDS ORDERED: METOPROLOL SUCC 24HR ER 25 MG TAB.ER.24H. PO SCH (09:00)
[2020-12-06] MEDS ORDERED: LACTOBACILLUS RHAMNOSUS GG 1 CAPSULE. PO SCH (16:00)
[2020-12-11] MEDS ORDERED: NON FORMULARY ITEM (Alendronate Sodium 1 TAB) PO SCH (09:00)
[2021-03-27] MEDS ORDERED: HYDR25TA PO (16:59)
[2021-03-27] MEDS ORDERED: FURO20TA3 PO (16:59)
[2021-03-27] MEDS ORDERED: TRIA15OI TP (16:59)
== END 2020-12-05 15:35 | disposition home or self-care (01) | DRG 246 ==
LOC: CCL 06:56 → 2 NORTH 10:10
PROVIDERS: ADMIT Internal Medicine Cardiovascular Disease; ATTEND Internal Medicine Cardiovascular Disease
PROC: B2111ZZ Fluoroscopy of Multiple Coronary Arteries using Low Osmolar Contrast (ICD-10-PCS; principal; 2020-12-04)
PROC: 027034Z Dilation of Coronary Artery, One Artery with Drug-eluting Intraluminal Device, Percutaneous Approach (ICD-10-PCS; 2020-12-04)
PROC: B2181ZZ Fluoroscopy of Left Internal Mammary Bypass Graft using Low Osmolar Contrast (ICD-10-PCS; 2020-12-04)
PROC: B2131ZZ Fluoroscopy of Multiple Coronary Artery Bypass Grafts using Low Osmolar Contrast (ICD-10-PCS; 2020-12-04)
PROC: 4A023N8 Measurement of Cardiac Sampling and Pressure, Bilateral, Percutaneous Approach (ICD-10-PCS; 2020-12-04)
DX: I25.10 Atherosclerotic heart disease of native coronary artery without angina pectoris (principal); N17.0 Acute kidney failure with tubular necrosis; I13.0 Hypertensive heart and chronic kidney disease with heart failure and stage 1 through stage 4 chronic kidney disease, or unspecified chronic kidney disease; I50.22 Chronic systolic (congestive) heart failure; N17.9 Acute kidney failure, unspecified; E78.5 Hyperlipidemia, unspecified; E87.5 Hyperkalemia; I42.9 Cardiomyopathy, unspecified; I48.91 Unspecified atrial fibrillation; N18.9 Chronic kidney disease, unspecified; Z95.0 Presence of cardiac pacemaker; Z88.8 Allergy status to other drugs, medicaments and biological substances
CPT/HCPCS: 92928; 93461; 93571; G0269; 36415; 80048; 83735; 85027; 85347; 85610; 99152; 99153; C1725; C1760; C1769; C1773; C1874; C1887; C1892; J1644; J2250; J3010; J3490; Q9967; C1771; G0378

== ENCOUNTER → 2021-01-11 | Outpatient (CLI) | payer MEDICARE ==
[~2021-01-11] MED LIST changes: +ALEN70TA71 PO; +FERR236T2 PO; +FURO20TA3 PO; +GLUC100018 PO; +GLUC1TAB71 PO
--- NOTE | 2021-01-11 13:56 | RAD ---
EXAM: Chest, 2 views. HISTORY: Dyspnea. COMPARISON: 06/27/2019 FINDINGS: 2 views of the chest are obtained. There is blunting of the left costophrenic angle likely due to basilar pleural scarring. No convincing pleural effusion is seen. The heart is stable in size. There are median sternotomy changes. There is a cardiac pacemaker in expected position. There are singh rgical clips overlying the upper abdomen. There is a hiatal hernia. There has been incidental bilater al distal clavicular resection. IMPRESSION: Stable suspected left basilar pleural parenchymal scarring. No acute pulmonary finding. Electronically signed by: Salina Miles MD (01/11/2021 1:54 PM) [id number]
== END ==
LOC: RAD 12:41
PROVIDERS: ATTEND Internal Medicine Pulmonary Disease
DX: J98.4 Other disorders of lung (principal); K44.9 Diaphragmatic hernia without obstruction or gangrene; Z95.0 Presence of cardiac pacemaker
CPT/HCPCS: 71046

== ENCOUNTER → 2021-03-27 | Outpatient (CLI) | payer MEDICARE ==
[~2021-03-27] MED LIST changes: +HYDR25TA PO; +IOHEXOL 180 MG/ML 10 ML VIAL. ONE; +TRIA15OI TP; +methylPREDNISolone ACETATE 40 MG/ML VIAL. ONE; +methylPREDNISolone ACETATE 80 MG/ML VIAL. ONE
--- NOTE | 2021-03-27 14:46 | PDOC4 ---
PROCEDURE Procedure Patient was consented for lumbar epidural steroid injection. Risks were dis cussed including but not limited to: Bleeding, infection, possibility of epidural hematoma and subsequent neurological compromise, dural puncture, headaches, spinal cord and/or nerve damage, side effects of steroid medication, and poor results regarding pain control. Patient understands and wished to proceed. Procedure is lumbar epidural steroid injection under local anesthetic using sterile prep and drape at the L5-S1 level using C-arm fluoroscopic guidance in both AP and lateral views medications injected is 120 mg Depo-Medrol +10mL preservative-free normal saline and 2 mL contrast- condition at discharge is stable patient tolerated procedure well had no complications. KIMBERLEE MEDINA MD March 27, 2021 14:46
--- NOTE | 2021-03-27 14:46 | PDOC ---
Progress Note - Pain Clinic Date of Service: DOS: DATE: 03/27/21 TIME: 14:43 Diagnosis: Dx: Lumbar radiculopathy with lumbar degenerative disc disease and lumbar spinal stenosis and post lumbar laminectomy syndrome/cervical radiculopathy cervical degenerative disc disease History or Present Illness: HPI: 85-year-old male returns in follow-up status post lumbar epidural steroid injection most recently October 11, 2020. Patient reports he did very well with this with about 60 to 75% improvement but only for about a month or so following the injection. Patient reports the pain is returning down the and into the right greater than left lower extremity posterior gluteus posterior thigh posterior calf patient reports aching sharp shooting and stabbing in the leg can be dull and aching in the back as well on and off in intensity better with sitting or laying down worse with walking standing changing positions and has been not red waking him from sleep but very rarely. Patient reports some 9 on scale 10 is worse over the past week 7 on average/and is a 5 today. Patient reports no new motor or sensory deficits no new bowel or bladder incontinence or other complaints. 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 Physical Exam: VS: Blood pressure is 121/78 pulse 72 respirations 16 temperature 98.3 F weight is 162 pounds PE: PHYSICAL EXAMINATION: GENERAL: The patient is awake, alert, oriented, appropriate, very pleasant demeanor HEENT: Shows normocephalic, atraumatic. Extraocular movements are intact and symmetrical. Oral cavity: Mucous membranes moist and pink. NECK: Shows anterior throat supple without palpable lymphadenopathy noted. Swallow reflex symmetrical. CHEST: Shows normal on inspection. Breath sounds are clear bilaterally distant but clear. HEART: Shows S1, S2 clear. No murmurs auscultated. ABDOMEN: Soft, nontender, nondistended. No palpable organomegaly is noted. No rebound or guarding demonstrated. BACK: Shows spine grossly in the midline. Normal-appearing cervical lordotic curvature. There is slightly increased thoracic kyphosis, some minor flattening of the lumbar lordotic curvature. Lumbar paraspinous muscles show symmetrical on inspection, on palpation shows some moderate tenderness diffusely throughout the upper, middle and lower distribution of the paraspinous muscles, but without specific trigger points, without radiation of pain. The patient has good rotational motion of the lumbar spine, both laterally as well as extension and flexion without significant difficulty. EXTREMITIES: Lower extremities show deep tendon reflexes 2+ in the patellar and tendo calcaneus tendons. Motor exam is 5 on a scale of 5 with right dorsiflexion, extension, quadriceps and hamstring flexion and 5/5 on the left. Peripheral pulses are 1+ posterior tibial. No peripheral edema is noted bilaterally. Lower extremities are warm and dry. SKIN: Shows warm and dry, good turgor. No edema. No sores, rashes or bruising throughout. Procedure: Procedure: Options were discussed with patient. Patient's old chart was reviewed his current medication regimen updated current review of systems updated today as well. We will proceed with a third in the series lumbar epidural steroid injection with fluoroscopic guidance. Risks were discussed including but not limited to: Bleeding, infection, possibility of epidural hematoma and subsequent neurological compromise, dural puncture, headaches, spinal cord and/or nerve damage, side effects of steroid medication, and poor results regarding pain control. Patient understands and wished to proceed. Patient will return to clinic in approximately 4 weeks for follow-up, was counseled as return appointment activity level and side effects to be aware. Medication Injected: Med Injected: Procedure is lumbar epidural steroid injection under local anesthetic using sterile prep and drape at the L5-S1 level using C-arm fluoroscopic guidance in both AP and lateral views medications injected is 120 mg Depo-Medrol +10mL preservative-free normal saline and 2 mL contrast- condition at discharge is stable patient tolerated procedure well had no complications. Condition at Discharge: Condition at Discharge: Condition at discharge stable, patient already the procedure well and had no complications. KIMBERLEE MEDINA MD March 27, 2021 14:46
== END | disposition home or self-care (01) ==
LOC: PNCL 13:27
PROVIDERS: ATTEND Anesthesiology
DX: M51.16 Intervertebral disc disorders with radiculopathy, lumbar region (principal); M48.061 Spinal stenosis, lumbar region without neurogenic claudication; M50.10 Cervical disc disorder with radiculopathy, unspecified cervical region; M96.1 Postlaminectomy syndrome, not elsewhere classified; I25.10 Atherosclerotic heart disease of native coronary artery without angina pectoris; E78.00 Pure hypercholesterolemia, unspecified; I11.0 Hypertensive heart disease with heart failure; I50.9 Heart failure, unspecified; K21.9 Gastro-esophageal reflux disease without esophagitis; M19.90 Unspecified osteoarthritis, unspecified site; E03.9 Hypothyroidism, unspecified; F41.9 Anxiety disorder, unspecified; F32.9 Major depressive disorder, single episode, unspecified; N40.0 Benign prostatic hyperplasia without lower urinary tract symptoms; Z85.828 Personal history of other malignant neoplasm of skin; Z86.73 Personal history of transient ischemic attack (TIA), and cerebral infarction without residual deficits; Z79.899 Other long term (current) drug therapy; Z98.890 Other specified postprocedural states; Z79.82 Long term (current) use of aspirin; Z88.8 Allergy status to other drugs, medicaments and biological substances
CPT/HCPCS: 62323; J1030; J1040; Q9965

== ENCOUNTER → 2021-04-17 | Outpatient (CLI) | payer MEDICARE ==
[~2021-04-17] MED LIST changes: -IOHEXOL 180 MG/ML 10 ML VIAL. ONE; -methylPREDNISolone ACETATE 40 MG/ML VIAL. ONE; -methylPREDNISolone ACETATE 80 MG/ML VIAL. ONE
== END ==
LOC: LAB 14:42
PROVIDERS: ATTEND Internal Medicine Advanced Heart Failure and Transplant Cardiology
DX: I50.20 Unspecified systolic (congestive) heart failure (principal); R79.89 Other specified abnormal findings of blood chemistry
CPT/HCPCS: 36415; 83036

== ENCOUNTER 2021-07-16 11:21 | Inpatient (IN) | payer MEDICARE ==
[~2021-07-16] VITALS: Ht 177.8 cm; Wt 66.7 kg
[~2021-07-16 11:21] MED LIST changes: -DOXY100C2 PO; +DOXY100C3 PO
--- NOTE | 2021-07-16 11:35 | PHYS DOC ---
Past Medical History Past Medical History: Anxiety, Arthritis, CAD, CHF, High Cholesterol, Hyp ertension, Other Additional Past Medical Histor: CABG x 4 in 2009, Lyme Disease, HIATAL HERNIA Past Surgical History: Coronary Bypass Surgery, Knee Replacement, Pacemaker, Other Additional Past Surgical Histo: CABG x4 in 2009,BX rotator,BX inguinal hernia repair, R KNEE REPL. BACK Smoking Status: Never Smoker Alcohol Use: None Drug Use: None General Adult EDM: Chief Complaint: RAPID HEART RATE HPI: HPI: 85-year-old male past medical history of CAD, CKD, hypertension, hyperlipidemia, HFrEF w/AICD (on Lasix 40 mg and Plavix), hypothyroidism & SSS w/PM, presents to the ED sent in from the [facility] after he was being evaluated for a toe problem, concern for heart rate of 140 and shortness of breath. Patient states he has been struggling with intermittent episodes of shortness of breath but today it started at 11 AM stating " I had to take a big gulp of air." Reports shortness of breath has resolved. Follows at (referred by Dr. Darnell) is on amiodarone drip that was started in May through a PICC line. Has not received his Covid vaccine. Denies any syncope near syncopal events. Denies any electrical shocks from his AICD. Reports his right heart chamber is not be ating well. Review of Systems: Review of Systems: Constitutional: Denies fever or chills. [] Eyes: Denies change in visual acuity. [] HENT: Denies nasal congestion or sore throat. [] Respiratory: Denies cough or mopped assist Cardiovascular: Denies chest pain or edema. [] GI: Denies abdominal pain, nausea, vomiting, bloody stools or diarrhea. [] : Denies dysuria or hematuria Musculoskeletal: Denies back pain or joint pain. [] Integument: Denies rash or diaphoresis Neurologic: Denies headache, focal weakness or sensory changes. [] Endocrine: Denies polyuria or polydipsia. [] Lymphatic: Denies swollen glands. [] Psychiatric: Denies depression or anxiety. [] Heart Score: C/O Chest Pain: No Risk Factors: Risk Factors: DM, Current or recent (<one month) smoker, HTN, HLP, family history of CAD, obesity. Risk Scores: Score 0 - 3: 2.5% MACE over next 6 weeks - Discharge Home Score 4 - 6: 20.3% MACE over next 6 weeks - Admit for Clinical Observation Score 7 - 10: 72.7% MACE over next 6 weeks - Early Invasive Strategies Allergies: Allergies: Allergies Coded Allergies Type Severity Reaction Last Updated Verified colchicine Adverse Reaction Intermediate Nausea 02/01/19 Yes Physical Exam: PE: Constitutional: Well developed, well nourished, no acute distress, non-toxic appearance. HENT: Normocephalic, atraumatic, Eyes: EOMI, conjunctiva normal, no discharge. Neck: Normal range of motion, supple, Cardiovascular: S1/2 present, tachycardic Lungs & Thorax: Speaking in full sentences, bilateral equal chest rise, no tachypnea or increased work of breathing Abdomen: soft, no tenderness, Skin: Warm, dry, no erythema, no rash. [] Back: No tenderness, no CVA tenderness. [] Extremities: No tenderness, no cyanosis, no lower extremity edema, 2nd right toe with no signs of infection, minimal skin breakdown over the view edge of toe Neurologic: Alert and oriented X 3, normal motor function, normal sensory func tion, no focal deficits noted. [] Psychologic: Affect normal, judgement normal, mood normal. [] EKG: EKG: Tachycardia 130 bpm, right axis deviation, QTC 499, right bundle branch block present w/strain ( T wave inversions V2 and V3), T wave inversion in 3 and aVF, no ST elevation or ST depression, no active chest pain Radiology/Procedures: Radiology/Procedures: []IMAGING REPORT Signed PATIENT: BRAULIO PRESTON JACCOUNT: [id number] : 1935 LOCATION: ER AGE: 85 SEX: M EXAM STATUS: PRE ER ORD. PHYSICIAN: LISE LEA DO REASON: CHEST PAIN PROCEDURE: PORTABLE CHEST 1V EXAM: Chest, single view. HISTORY: Chest pain. COMPARISON: 01/11/2021 FINDINGS: A frontal view of the chest is obtained. There is no infiltrate, pleural effusion or pneumothorax. There is stable blunting of the left costophrenic angle likely due to basilar pleural thickening. There is a stable cardiac silhouette and evidence of prior CABG. There is a cardiac pacemaker defibrillator in expected position. There is a right internal jugular catheter with the tip overlying expected location of the superior cavoatrial junction. There are calcified granulomas. There are surgical clips within the left upper quadrant. There has been distal right clavicular resection and there is superior migration of the right humeral head due to a suspected chronic rotator cuff tear. IMPRESSION: Chronic appearing interstitial changes and stable postoperative findings. Electronically signed by: Salina Chandler MD (07/16/2021 11:53 AM) [id number] DICTATED and SIGNED BY: SALINA CHANDLER MD DATE: 07/16/21 [id number] Course & Med Decision Making: Course & Med Decision Making Pertinent Labs and Imaging studies reviewed. (See chart for details) Concern for intermittent dyspnea in the setting of tachycardia that has resolved. Labs show NSTEMI and chronic kidney disease. I spoke to April with cardiology-no heparin drip at this time. Interrogation pending. Will admit to medicine/cvc unit for further medical management. I have spoken with the patient and/or caregivers. I have explained the patient 's condition, diagnosis and treatment plan based on the information available to me at this time. I have answered the patient's and/or caregivers questions and answered any concerns. The patient and/or caregivers have as good an understanding of the patient's diagnosis, condition and treatment plan as can be expected at this point. The patient has been stabilized within the capability of the emergency department. The patient will be transported for further care and management or will be moved to an observation or inpatient service. I have communicated with the staff or medical practitioner taking over this patient's care. Dragamos Disclaimer: Tamy Disclaimer: This electronic medical record was generated, in whole or in part, using a voice recognition dictation system. Departure Departure Impression: Primary Impression: Non-STEMI (non-ST elevated myocardial infarction) Additional Impressions: Dyspnea CKD (chronic kidney disease) Disposition: ADMITTED INPATIENT Admitting Physician: NISH (Dr. Herzog) Condition: GUARDED Referrals: TESSA SWANSON MD (PCP) LISE LEA DO Jul 16, 2021 11:35
--- NOTE | 2021-07-16 11:55 | RAD ---
EXAM: Chest, single view. HISTORY: Chest pain. COMPARISON: 01/11/2021 FINDINGS: A frontal view of the chest is obtained. There is no infiltrate, pleural effusion or pneumo thorax. There is stable blunting of the left costophrenic angle likely due to basilar pleural thicken ing. There is a stable cardiac silhouette and evidence of prior CABG. There is a cardiac pacemaker de fibrillator in expected position. There is a right internal jugular catheter with the tip overlying e xpected location of the superior cavoatrial junction. There are calcified granulomas. There are surgi gaby clips within the left upper quadrant. There has been distal right clavicular resection and there is superior migration of the right humeral head due to a suspected chronic rotator cuff tear. IMPRESSION: Chronic appearing interstitial changes and stable postoperative findings. Electronically signed by: Salina Miles MD (07/16/2021 11:53 AM) [id number]
[2021-07-16 12:06] LABS: BASO % 1 % (0-3); EOS # 0.3 x10^3/uL (0.0-0.7); EOS % 5 % (0-3); HEMATOCRIT 38.5 % (39.0-53.0); HEMOGLOBIN 12.8 g/dL (13.0-17.5); LYMPH # 1.6 x10^3/uL (1.0-4.8); LYMPH % 26 % (24-48); MEAN CORPUSCULAR HEMOGLOBIN 33 pg (25-35); MEAN CORPUSCULAR HGB CONC 33 g/dL (31-37); MEAN CORPUSCULAR VOLUME 98 fL (79-100); MONO # 0.5 x10^3/uL (0.0-1.1); MONO % 9 % (0-9); NEUT # 3.7 x10^3/uL (1.8-7.7); NEUT % 60 % (31-73); PLATELET COUNT 161 x10^3/uL (140-400); RED BLOOD COUNT 3.91 x10^6/uL (4.30-5.70); RED CELL DISTRIBUTION WIDTH 13.5 % (11.5-14.5); WHITE BLOOD COUNT 6.2 x10^3/uL (4.0-11.0)
[2021-07-16 12:23] LABS: CALCIUM 8.4 mg/dL (8.5-10.1); CREATININE 1.6 mg/dL (0.7-1.3); GFR 41.4; POTASSIUM 4.5 mmol/L (3.5-5.1)
[2021-07-16 12:29] LABS: ALBUMIN 3.1 g/dL (3.4-5.0); DIRECT BILIRUBIN 0.1 mg/dL (0.0-0.2); TOTAL BILIRUBIN 0.4 mg/dL (0.2-1.0); TOTAL PROTEIN 5.9 g/dL (6.4-8.2)
--- NOTE | 2021-07-16 13:40 | PDOC1 ---
History and Physical Date of Admission Date of Admission DATE: 07/16/21 TIME: 13:40 Identification/Chief Complaint Chief Complaint chest tightness, rapid HR SOA more SOA in the last 3 days and denies any chest pain. History of Present Illness History of Present Illness 85 YR OLD MALE WITH ASHD Seen at wound care today with rapid heart rate, transferred to ER where troponin i was elevated, noted to have chest tightness as well AND SHORTNESS OF BREATH PMH ICM and has had CABG / recently had PCI/MAXWELL to LAD early this yr. Bi-V ICD placed 05/2021 at [facility] TROPONIN 0.161 in ER more SOA in the last 3 days and denies any chest pain. RECENT BYPASS Angiography SVG sequential graft to the obtuse marginal is patent without anastomotic stenosis SVG to D1 has a proximal 80% stenosis and severe diffuse disease at the distal anastomosis tachycardia likely paroxysmal atrial flutter. likely potentiating his SOA C hronic diastolic/systolic CHF: clinically compensated.Reported below his baseline wt of 155 at 150 / ICM: Recent EF at 25% Severe mitral annular calcification with moderate to severe mitral valve regurgitation. Aortic valve sclerosis without stenosis. ON RECENT ECHO CAD: CABG and PCI in the past. Clinically stable CR 1.6 TSH 8.442 plan ADMIT / CONSULT CARDIOLOGY Past Medical History Past Medical History Past Medical History Past Medical History: Anxiety, Arthritis, CAD, CHF, High Cholesterol, Hypertension, Other Additional Past Medical Histor: CABG x 4 in 2008, Lyme Disease, HIATAL HERNIA Past Surgical History: Coronary Bypass Surgery, Knee Replacement, Pacemaker, Other Additional Past Surgical Histo: CABG x4 in 2008,BX rotator,BX inguinal hernia repair, R KNEE REPL. BACK [facility] and has had CABG in the past and recently had PCI/MAXWELL to LAD early this yr. He also had Bi-V ICD placed 05/2021 at [facility] Smoking Status: Never Smoker Alcohol Use: None Drug Use: None FHX HTN Cardiovascular: AFIB, CAD, Hyperlipidemia CENTRAL NERVOUS SYSTEM: TIA GI: Constipation, GERD Hepatobiliary: No pertinent hx Psych: No pertinent hx Musculoskeletal: low back pain, Osteoarthritis Renal/: Chronic renal insuff Endocrine: Hypothyroidism Past Surgical History Past Surgical History: Pacemaker Family History Family History: Cancer, Diabetes, Heart Disease, Osteo Arthiritis, Stroke Social History Smoke: No ALCOHOL: none Drugs: None Current Problem List Problem List Problems Medical Problems: (1) CKD (chronic kidney disease) Status: Acute (2) Dyspnea Status: Acute (3) Non-STEMI (non-ST elevated myocardial infarction) Status: Acute Current Medications Current Medications Active Scripts Active Metoprolol Succinate ( Xl ) (Metoprolol Succinate) 25 Mg Tab.er.24h 25 Mg PO DAILY 30 Days Atorvastatin Calcium 40 Mg Tablet 1 Tab PO QHS 30 Days Clopidogrel (Clopidogrel Bisulfate) 75 Mg Tablet 75 Mg PO DAILYWBKFT 30 Days Amiodarone Hcl 200 Mg Tablet 1 Tab PO DAILY MDD 1 30 Days Reported Hydroxyzine Hcl 25 Mg Tablet 1 Tab PO BID PRN Triamcinolone Acetonide 0.1% Oint (Triamcinolone Acetonide) 15 Gm Oint...g. 1 Franco TP BID PRN MIX WITH EUCERIN DIRECTED BY PHYSICIAN Furosemide 20 Mg Tablet 1 Tab PO DAILY Alendronate Sodium 70 Mg Tablet 1 Tab PO WEEKLY Osteo Bi-Flex Caplet (Glucosamine/D3/Boswellia Nia) 1 Each Tablet 1 Each PO DAILY Meclizine Hcl 25 Mg Tablet 1 Tab PO TID Ondansetron Hcl 4 Mg Tablet 1 Tab PO PRN Q6HRS Doxycycline Hyclate 100 Mg Tablet 1 Tab PO BID Gabapentin 600 Mg Tablet 600 Mg PO BID Levothyroxine Sodium 75 Mcg Tablet 1 Tab PO DAILY Probiotic (Lactobacillus Acidophilus) 1 Each Capsule 1 Each PO THURSDAY AND THURSDAY Venlafaxine Hcl Er (Venlafaxine Hcl) 37.5 Mg Cap.er.24h 37.5 Mg PO DAILY Tramadol Hcl 50 Mg Tablet 1 Tab PO BID Celebrex (Celecoxib) 200 Mg Capsule 1 Cap PO DAILY Aspir 81 (Aspirin) 81 Mg Tablet.dr 1 Tab PO HS Flomax (Tamsulosin Hcl) 0.4 Mg Cap.er.24h 1 Cap PO DAILY Co Q-10 (Ubidecarenone) 200 Mg Capsule 200 Mg PO HS Not taken while in hosp. May resume at home as directed. Daily Vitamin (Multivitamin) 1 Each Tablet 1 Each PO DAILY Citracal + D Er Tablet (Calcium Carb & Cit/Vitamin D3) 1 Each Tablet.er 1 Each PO DAILY Allergies Allergies: Coded Allergies: colchicine (Verified Adverse Reaction, Intermediate, Nausea, 02/01/19) ROS Review of System more SOA in the last 3 days and denies any chest pain. General: YES: Fatigue; No: Chills, Night Sweats, Malaise, Appetite, Other PSYCHOLOGICAL ROS: No: Anxiety, Behavioral Disorder, Concentration difficultie, Decreased libido, Depression, Disorientation, Hallucinations, Hostility, Irritablity, Memory difficulties, Mood Swings, Obsessive thoughts, Physical abuse, Sexual abuse, Sleep disturbances, Suicidal ideation, Other Eyes: No Blurry vision, No Decreased vision, No Double vision, No Dry eyes, No Excessive tearing, No Eye Pain, No Itchy Eyes, No Loss of vision, No Photophobia, No Scotomata, No Uses contacts, No Uses glasses, No Other HEENT: No: Heacaches, Visual Changes, Hearing change, Nasal congestion, Nasal discharge, Oral lesions, Sinus pain, Sore Throat, Epistaxis, Sneezing, Snoring, Tinnitus, Vertigo, Vocal changes, Other ALLERGY AND IMMUNOLOGY: No: Hives, Insect Bite Sensitivity, Itchy/Watery Eyes, Nasal Congestion, Post Nasal Drip, Seasonal Allergies, Other Hematological and Lymphatic: No: Bleeding Problems, Blood Clots, Blood Transfusions, Brusing, Night Sweats, Pallor, Swollen Lymph Nodes, Other ENDOCRINE: No: Breast Changes, Galactorrhea, Hair Pattern Changes, Hot Flashes, Malaise/lethargy, Mood Swings, Palpitations, Polydipsia/polyuria, Skin Changes, Temperature Intolerance, Unexpected Weight Changes, Other Breast: No New/Changing Breast Lumps, No Nipple changes, No Nipple discharge, No Other Respiratory: YES: Shortness of breath, SOB with excertion; No: Cough, Hemoptysis, Orthopnea, Pleuritic Pain, Sputum Changes, Stridor, Tachypnea, Wheezing, Other Cardiovascular: yes Chest Pain, yes Other (CHEST TIGHTNESS ) Gastrointestinal: No Nausea, No Vomiting, No Abdominal Pain, No Diarrhea, No Constipation, No Melena, No Hematochezia, No Other Genitourinary: No Dysuria, No Frequency, No Incontinence, No Hematuria, No Retention, No Discharge, No Urgency, No Pain, No Flank Pain, No Other, No , No , No , No , No , No , No Musculoskeletal: Yes Gait Disturbance, Yes Joint Stiffness; No Joint Pain, No Joint Swelling, No Muscle Pain, No Muscular Weakness, No Pain In:, No Swelling In:, No Other Neurological: Yes Gait Disturbance; No Behavorial Changes, No Bowel/Bladder ControlChng, No Confusion, No Dizziness, No Headaches, No Impaired Coord/balance, No Memory Loss, No Numbness/Tingling, No Seizures, No Speech Problems, No Tremors, No Visual Ch anges, No Weakness, No Other Skin: Yes Dry Skin; No Eczema, No Hair Changes, No Lumps, No Mole Changes, No Mottling, No Nail Changes, No Pruritus, No Rash, No Skin Lesion Changes, No Other, No Acne Physical Exam General: Alert, Oriented X3, Cooperative, No acute distress HEENT: PERRLA, EOMI, Mucous membr. moist/pink Lungs: Clear to auscultation, Normal air movement Heart: RRR, no thrills, no jug vein distention Breasts: Not examined Abdomen: Normal bowel sounds, Soft Rectal Exam: not examined PELVIC: Examination not indicated Extremities: No cyanosis Neuro: Normal speech, Cranial nerves 3-12 NL Psych/Mental Status: Mental status NL, Mood NL Vitals Vitals Vital Signs Date Time Temp Pulse Resp B/P (MAP) Pulse Ox O2 Delivery O2 Flow Rate FiO2 07/16/21 11:30 98.1 131 16 106/77 (87) 99 Room Air 98.1 Labs Labs Laboratory Tests Test 07/16/21 11:44 White Blood Count 6.2 x10^3/uL (4.0-11.0) Red Blood Count 3.91 x10^6/uL (4.30-5.70) Hemoglobin 12.8 g/dL (13.0-17.5) Hematocrit 38.5 % (39.0-53.0) Mean Corpuscular Volume 98 fL (79-100) Mean Corpuscular Hemoglobin 33 pg (25-35) Mean Corpuscular Hemoglobin Concent 33 g/dL (31-37) Red Cell Distribution Width 13.5 % (11.5-14.5) Platelet Count 161 x10^3/uL (140-400) Neutrophils (%) (Auto) 60 % (31-73) Lymphocytes (%) (Auto) 26 % (24-48) Monocytes (%) (Auto) 9 % (0-9) Eosinophils (%) (Auto) 5 % (0-3) Basophils (%) (Auto) 1 % (0-3) Neutrophils # (Auto) 3.7 x10^3/uL (1.8-7.7) Lymphocytes # (Auto) 1.6 x10^3/uL (1.0-4.8) Monocytes # (Auto) 0.5 x10^3/uL (0.0-1.1) Eosinophils # (Auto) 0.3 x10^3/uL (0.0-0.7) Basophils # (Auto) 0.0 x10^3/uL (0.0-0.2) Sodium Level 143 mmol/L (136-145) Potassium Level 4.5 mmol/L (3.5-5.1) Chloride Level 109 mmol/L (98-107) Carbon Dioxide Level 25 mmol/L (21-32) Anion Gap 9 (6-14) Blood Urea Nitrogen 29 mg/dL (8-26) Creatinine 1.6 mg/dL (0.7-1.3) Estimated GFR (Cockcroft-Gault) 41.4 Glucose Level 130 mg/dL (70-99) Calcium Level 8.4 mg/dL (8.5-10.1) Magnesium Level 2.0 mg/dL (1.8-2.4) Total Bilirubin 0.4 mg/dL (0.2-1.0) Direct Bilirubin 0.1 mg/dL (0.0-0.2) Aspartate Amino Transf (AST/SGOT) 31 U/L (15-37) Alanine Aminotransferase (ALT/SGPT) 25 U/L (16-63) Alkaline Phosphatase 73 U/L (46-116) Troponin I Quantitative 0.090 ng/mL (0.000-0.055) HU-Hsg-C-Type Natriuretic Peptide 2318 pg/mL (0-449) Total Protein 5.9 g/dL (6.4-8.2) Albumin 3.1 g/dL (3.4-5.0) Lipase 56 U/L (73-393) Thyroid Stimulating Hormone (TSH) 8.422 uIU/mL (0.358-3.74) Laboratory Tests Test 07/16/21 11:44 White Blood Count 6.2 x10^3/uL (4.0-11.0) Red Blood Count 3.91 x10^6/uL (4.30-5.70) Hemoglobin 12.8 g/dL (13.0-17.5) Hematocrit 38.5 % (39.0-53.0) Mean Corpuscular Volume 98 fL (79-100) Mean Corpuscular Hemoglobin 33 pg (25-35) Mean Corpuscular Hemoglobin Concent 33 g/dL (31-37) Red Cell Distribution Width 13.5 % (11.5-14.5) Platelet Count 161 x10^3/uL (140-400) Neutrophils (%) (Auto) 60 % (31-73) Lymphocytes (%) (Auto) 26 % (24-48) Monocytes (%) (Auto) 9 % (0-9) Eosinophils (%) (Auto) 5 % (0-3) Basophils (%) (Auto) 1 % (0-3) Neutrophils # (Auto) 3.7 x10^3/uL (1.8-7.7) Lymphocytes # (Auto) 1.6 x10^3/uL (1.0-4.8) Monocytes # (Auto) 0.5 x10^3/uL (0.0-1.1) Eosinophils # (Auto) 0.3 x10^3/uL (0.0-0.7) Basophils # (Auto) 0.0 x10^3/uL (0.0-0.2) Sodium Level 143 mmol/L (136-145) Potassium Level 4.5 mmol/L (3.5-5.1) Chloride Level 109 mmol/L (98-107) Carbon Dioxide Level 25 mmol/L (21-32) Anion Gap 9 (6-14) Blood Urea Nitrogen 29 mg/dL (8-26) Creatinine 1.6 mg/dL (0.7-1.3) Estimated GFR (Cockcroft-Gault) 41.4 Glucose Level 130 mg/dL (70-99) Calcium Level 8.4 mg/dL (8.5-10.1) Magnesium Level 2.0 mg/dL (1.8-2.4) Total Bilirubin 0.4 mg/dL (0.2-1.0) Direct Bilirubin 0.1 mg/dL (0.0-0.2) Aspartate Amino Transf (AST/SGOT) 31 U/L (15-37) Alanine Aminotransferase (ALT/SGPT) 25 U/L (16-63) Alkaline Phosphatase 73 U/L (46-116) Troponin I Quantitative 0.090 ng/mL (0.000-0.055) NK-Ape-D-Type Natriuretic Peptide 2318 pg/mL (0-449) Total Protein 5.9 g/dL (6.4-8.2) Albumin 3.1 g/dL (3.4-5.0) Lipase 56 U/L (73-393) Thyroid Stimulating Hormone (TSH) 8.422 uIU/mL (0.358-3.74) Images Images PATIENT: BRAULIO PRESTON JACCOUNT: [id number] : 1935 LOCATION: ER AGE: 85 SEX: M EXAM STATUS: PRE ER ORD. PHYSICIAN: LISE LEA DO REASON: CHEST PAIN PROCEDURE: PORTABLE CHEST 1V EXAM: Chest, single view. HISTORY: Chest pain. COMPARISON: 01/11/2021 FINDINGS: A frontal view of the chest is obtained. There is no infiltrate, pleural effusion or pneumothorax. There is stable blunting of the left costophrenic angle likely due to basilar pleural thickening. There is a stable cardiac silhouette and evidence of prior CABG. There is a cardiac pacemaker defibrillator in expected position. There is a right internal jugular catheter with the tip overlying expected location of the superior cavoatrial junction. There are calcified granulomas. There are surgical clips within the left upper quadrant. There has been distal right clavicular resection and there is superior migration of the right humeral head due to a suspected chronic rotator cuff tear. IMPRESSION: Chronic appearing interstitial changes and stable postoperative findings. Electronically signed by: Gissell Chandler MD (07/16/2021 11:53 AM) [id number] DICTATED and SIGNED BY: GISSELL CHANDLER MD DATE: 07/16/21 [id number] Coronary angiography: PMC Left main is a moderate caliber vessel with moderate diffuse disease LAD is a moderate caliber vessel with severe diffuse disease of up to 90% in proximal to mid occlusion. The distal vessel is seen to fill via a patent AJIT graft. D1 is a very small caliber vessel with severe diffuse disease Left circumflex is a moderate caliber vessel with a proximal 90% stenosis OM1 is a moderate caliber vessel with a proximal 90% stenosis, there is competit christianne flow seen via a patent vein graft RCA is a large caliber dominant vessel with a patent proximal stent and a mid to distal 70 to 80% stenosis. RPDA is a small to moderate caliber vessel occluded in the midsegment and seen to fill via left to right collaterals from the LAD RPL is a small to moderate caliber vessel with mild luminal irregularities Bypass angiography: ONEILL to the LAD is widely patent without anastomotic stenosis SVG sequential graft to the obtuse marginal is patent without anastomotic jose nosis SVG to D1 has a proximal 80% stenosis and severe diffuse disease at the distal anastomosis VTE Prophylaxis Ordered VTE Prophylaxis Devices: Yes VTE Pharmacological Prophylaxi: Yes Assessment/Plan Assessment/Plan IMPRESSION NSTEMI VS type 2 STRAIN ICM and has had CABG / recently had PCI/MAXWELL to LAD early this yr. Bi-V ICD placed 05/2021 at [facility] tachycardia likely paroxysmal atrial flutter. likely potentiating his SOA Chronic diastolic/systolic CHF: clinically compensated.Reported below his baseline wt of 155 at 150 ICM: Recent EF at 25% CAD: CABG and PCI in the past. stable CKD Severe mitral annular calcification with moderate to severe mitral valve regurgitation. Aortic valve sclerosis without stenosis. RECENT ECHO PLAN ADMIT= CONSULT CARDIOLOGY HOME MEDS DVT PROPHYLAXIS start toprol. interrogate device FOR AFIB burden Justifications for Admission Other Justification KAYLEN RO MD Jul 16, 2021 13:40
--- NOTE | 2021-07-16 14:16 | PDOC2 ---
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 He is known for ICM and has had CABG in the past and recently had PCI/MAXWELL to LAD early this yr. He also had Bi-V ICD placed 05/2021 at [facility]. He is in HF program overseen by HF clinic and utilizes milrinone drip. He has been getting more SOA in the last 3 days and denies any chest pain. He has been having palpitations and was SOA at that time as well and he checked his O2 sat and was 50% and he put back his O2 and was better. Upon admission he has been noted with tachycardia. He denies any n/v. No dizziness or passing out. He has been compliant with his medications. No prior hx of VTE and no leg pains. No fever or chills. No orthopnea or PND. His Left l ower leg is always edematous due to vein graft procurement when he had his CABG. PAST MEDICAL HISTORY Cardiovascular: CAD, CHF, HTN, Hyperlipidemia, Pulmonary hypertension, Other (SSS, ICM; orthostasis) Pulmonary: COPD (?) CENTRAL NERVOUS SYSTEM: Carpal Tunnel Syndrome GI: GERD Heme/Onc: Anemia NOS Hepatobiliary: Cholelithiasis Musculoskeletal: low back pain, Osteoarthritis Rheumatologic: No pertinent hx Infectious disease: No pertinent hx Renal/: Chronic renal insuff (CKD3), Benign prostatic enlarg., Other (nephrolithiasis) Endocrine: No pertinent hx Dermatology: No pertinent hx PAST SURGICAL HISTORY Past Surgical History: CABG (x4), Hernia Repair (hiatal), Other (PCI) FAMILY HISTORY Family History: Hypertension SOCIAL HISTORY Smoke: No ALCOHOL: none Drugs: None Lives: with Family ALLERGIES ALLERGIES: Coded Allergies: colchicine (Verified Adverse Reaction, Intermediate, Nausea, 02/01/19) ROS Review of System 14 point ROS evaluated with pertinent positives noted per HPI PHYSICAL EXAM General: Alert, Oriented X3, Cooperative, No acute distress HEENT: Atraumatic, Mucous membr. moist/pink Lungs: Other (diminished bases) Heart: Regular rate (AV paced), Other (distant heart sounds) Abdomen: Soft Extremities: No cyanosis, Other (2+ LLE pitting edema trace to RLE) Skin: No breakdown, No significant lesion Neuro: Normal speech, Sensation intact Psych/Mental Status: Mental status NL, Mood NL MUSCULOSKELETAL: Osteoarthritic changes both hands VITALS/I&O VITALS/I&O: Vital Signs Date Time Temp Pulse Resp B/P (MAP) Pulse Ox O2 Delivery O2 Flow Rate FiO2 07/16/21 11:30 98.1 131 16 106/77 (87) 99 Room Air 98.1 LABS Lab: Laboratory Tests Test 07/16/21 11:44 White Blood Count 6.2 x10^3/uL (4.0-11.0) Red Blood Count 3.91 x10^6/uL (4.30-5.70) L Hemoglobin 12.8 g/dL (13.0-17.5) L Hematocrit 38.5 % (39.0-53.0) L Mean Corpuscular Volume 98 fL (79-100) Mean Corpuscular Hemoglobin 33 pg (25-35) Mean Corpuscular Hemoglobin Concent 33 g/dL (31-37) Red Cell Distribution Width 13.5 % (11.5-14.5) Platelet Count 161 x10^3/uL (140-400) Neutrophils (%) (Auto) 60 % (31-73) Lymphocytes (%) (Auto) 26 % (24-48) Monocytes (%) (Auto) 9 % (0-9) Eosinophils (%) (Auto) 5 % (0-3) H Basophils (%) (Auto) 1 % (0-3) Neutrophils # (Auto) 3.7 x10^3/uL (1.8-7.7) Lymphocytes # (Auto) 1.6 x10^3/uL (1.0-4.8) Monocytes # (Auto) 0.5 x10^3/uL (0.0-1.1) Eosinophils # (Auto) 0.3 x10^3/uL (0.0-0.7) Basophils # (Auto) 0.0 x10^3/uL (0.0-0.2) Sodium Level 143 mmol/L (136-145) Potassium Level 4.5 mmol/L (3.5-5.1) Chloride Level 109 mmol/L (98-107) H Carbon Dioxide Level 25 mmol/L (21-32) Anion Gap 9 (6-14) Blood Urea Nitrogen 29 mg/dL (8-26) H Creatinine 1.6 mg/dL (0.7-1.3) H Estimated GFR (Cockcroft-Gault) 41.4 Glucose Level 130 mg/dL (70-99) H Calcium Level 8.4 mg/dL (8.5-10.1) L Magnesium Level 2.0 mg/dL (1.8-2.4) Total Bilirubin 0.4 mg/dL (0.2-1.0) Direct Bilirubin 0.1 mg/dL (0.0-0.2) Aspartate Amino Transferase (AST) 31 U/L (15-37) Alanine Aminotransferase (ALT) 25 U/L (16-63) Alkaline Phosphatase 73 U/L (46-116) Troponin I Quantitative 0.090 ng/mL (0.000-0.055) CD-Bzs-Y-Type Natriuretic Peptide 2318 pg/mL (0-449) H Total Protein 5.9 g/dL (6.4-8.2) L Albumin 3.1 g/dL (3.4-5.0) L Lipase 56 U/L (73-393) L Thyroid Stimulating Hormone (TSH) 8.422 uIU/mL (0.358-3.74) H Laboratory Tests 07/16/21 11:44 Laboratory Tests 07/16/21 11:44 HEART CATH HEART CATH 04/29/2021 echocardiogram [facility] There is limited endocardial definition even with the use of left ventricular contrast. Global left ventricular hypokinesis is noted. The mid to basal lateral segments appear mildly hypokinetic. All other left ventricular segments are moderately or severely hypokinetic. Overall left ventricular systolic function is severely impaired.The estimated left ventricular ejection fraction is likely in the range of 20 to 25%. Moderate left ventricular enlargement. Left ventricular diastolic dysfunction. The right ventricle is not visualized well. Limited images suggest moderate right ventricular enlargement with moderately impaired right ventricular systolic function. Limited images suggest severe left atrial enlargement and moderate right atrial enlargement. Severe mitral annular calcification with moderate to severe mitral valve regurgitation. Aortic valve sclerosis without stenosis. No pericardial effusion is seen. 04/30/2021 right heart catheterization FINDINGS: Blood pressure is 100/63 with a mean arterial pressure of 77. The heart rate is 65. Right atrial pressures are 5. RV pressures are 25/6. PA is 28/12 with a mean PA of 17. The pulmonary artery occlusive pressure was 8, giving a transpulmonary gradient of 9 and a pulmonary vascular resistance of 2.7 Wood units. Cardiac output by thermodilution was 3.2 L per minute with an index of 1.71 L per minute per sq m. The estimated Ramya was 3.28 L per minute with an index of 1.75 L per minute per sq m. The A-VO2 difference is 6.57. Aortic sat is 97, RA sat 63, PA sat 64. Coronary angiography: PMC Left main is a moderate caliber vessel with moderate diffuse disease LAD is a moderate caliber vessel with severe diffuse disease of up to 90% in proximal to mid occlusion. The distal vessel is seen to fill via a patent AJIT graft. D1 is a very small caliber vessel with severe diffuse disease Left circumflex is a moderate caliber vessel with a proximal 90% stenosis OM1 is a moderate caliber vessel with a proximal 90% stenosis, there is compet itive flow seen via a patent vein graft RCA is a large caliber dominant vessel with a patent proximal stent and a mid to distal 70 to 80% stenosis. RPDA is a small to moderate caliber vessel occluded in the midsegment and seen to fill via left to right collaterals from the LAD RPL is a small to moderate caliber vessel with mild luminal irregularities Bypass angiography: ONEILL to the LAD is widely patent without anastomotic stenosis SVG sequential graft to the obtuse marginal is patent without anastomotic stenosis SVG to D1 has a proximal 80% stenosis and severe diffuse disease at the distal a nastomosis Interventional technique: A IFR study was performed of the right coronary artery lesion. Heparin was used for anticoagulation. Through a 6 Uzbek JR4 guide catheter a IFR wire was placed in the distal RCA after appropriate normalization and intracoronary glycerin administration. And IFR value was measured at approximately 0.9 at the threshold of ischemia. Given the patient's symptoms, threshold levels of ischemia and lack of any other clear signs to account for his dyspnea a inte rvention was planned. The IFR wire was removed and a Prowater wire was placed in the distal RCA and balloon angioplasty was performed with a 3.5 x 15 mm balloon and the lesion was stented with a 4.0 x 30 mm drug-eluting stent. Final angiography demonstrated excellent stent expansion was KINA-3 flow in the vessel no evidence of guide or wire related complications. The right groin sheath were removed and hemostasis was achieved with a an Angio-Seal device in the right common femoral artery and manual compression of the right common femoral vein. KINA Flow KINA Flow (Pre-Intervention): KINA-3 KINA Flow (Post-Intervention): KINA-3 Conclusion 1. Normal left-sided filling pressures 2. Mildly elevated right-sided filling pressures without any significant pulmonary hypertension 3. Severe three-vessel coronary artery disease with 4-4 bypass grafts patent 4. Successful PCI of the mid to distal RCA with implantation of a 4.0 x 30 mm drug-eluting stent Recommendations 1. Aspirin 81 mg daily 2. Plavix 75 mg daily 3. Cardiac rehabilitation 4. Medical optimization for chronic renal sufficiency, cardiomyopathy. Consider outpatient evaluation for upgrade to a BiV ICD depending on patient's preference and improvement in EF. DATE: 12/04/20 [id number] 0 ASSESSMENT/PLAN ASSESSMENT/PLAN 1. Arrhythmia: noted with tachycardia likely paroxysmal atrial flutter. likely potentiating his SOA 2. Chronic diastolic/systolic CHF: clinically compensated.Reported below his baseline wt of 155 at 150 3. ICM: Recent EF at 25% 4. CAD: CABG and PCI in the past. Clinically stable 5. POLYTECHNIC REGISTRAR-D: [place] bi V pacing with recent interrogation as noted below Presently AV pacing 6. COPD? 7. HLP 8. Mild troponin elevation: Demand mediated, type 2 due to arrhythmia 9. CKD3: his baseline is 1.7 Cr 10. Hypoxia: noted 50% RA at home better upon admission 11. Hypothyroidism: TSH at 8. Unclear if he is still on replacement. Defer to PCP Recommendations 1. Check DDIMER. 2. He is not on BB per [facility] as he is on milrinone. Will start toprol. Will interrogate device and note AFIB burden 3. Restart ASA and plavix. Nitrates, hold hydralazine. Continue statin and lasix therapy 4. Discussed with RN, will verify accuracy of his meds 5. Continue milrinone drip his home dose is 0.125mcg Chart reviewed from [facility] POLYTECHNIC REGISTRAR-D upgrade on 05/02/2021. -Device check on 06/10/2021 showed normal function, battery 6 years, frequent PVCs, heart failure diagnostics stable, BiV pacing 92%. GDMT: milrinone 0.125 mcg/kg/min, Farxiga 5mg daily, hydralazine 10mg 3 times daily, isosorbide dinitrate 10 mg 3 times daily, furosemide alternating 40 mg to 80 mg every other day (spironolactone previously held due to hypotension/kidney function, not a candidate beta-sera while on inotrope) -Dry weight 155 pounds Title: Remote Check 07/02/2021 Alert transmission received for 3 chamber POLYTECHNIC REGISTRAR-D . Device/lead function: within expected limits. Battery: 6yrs Presenting EGM shows -BiVp w/PVCs 70's/min. Events: Atrial: 12sec AT/AF episode on 06/23 showing short run of parox AT ~187bpm w/VS and BiVp peak V rate~87bpm Ventricular: 1 NSVT on 07/01 @ 2201 showing ~7sec of NSVT ~205bpm abrupt onset/termination observed. 91% BiVpaced Next in-office follow up expected w/RAD on August(post implant check). Title: Heart Failure Diagnostic: Stable * Heart failure diagnostics assessed through the device * Status: Stable * No overt HF present KAELA GOMES MD 07/17/21 1045: CARDIAC CONSULT ASSESSMENT/PLAN ASSESSMENT/PLAN Late entry for 07/16/21 The patient was seen and interviewed as well as examined at the bedside. The chart was reviewed. The case was discussed. Agree with the plan of care. TORITO FARMER APRN Jul 16, 2021 14:16 KAELA GOMES MD Jul 17, 2021 10:45
[2021-07-16 14:49] LABS: BILIRUBIN,URINE NEGATIVE (NEG); CLARITY,URINE CLEAR; COLOR,URINE YELLOW; NITRITE,URINE NEGATIVE (NEG); PH,URINE 5.5 (<5.0-8.0); PROTEIN,URINE NEGATIVE (NEG-TRACE); UROBILINOGEN,URINE 0.2 mg/dL (0.2 mg/dL)
[2021-07-16 14:54] LABS: BACTERIA,URINE 0 /HPF (0-FEW); HYALINE CASTS, URINE FEW /HPF; RBC,URINE 0 /HPF (0-2); WBC,URINE 0 /HPF (0-4)
[2021-07-16 14:55] LABS: BARBITURATES NEG (NEG); BENZODIAZEPINES NEG (NEG); CANNABINOIDS NEG (NEG); COCAINE NEG (NEG); METHADONE NEG (NEG); OPIATES NEG (NEG); PHENCYCLIDINE NEG (NEG)
[2021-07-16 14:59] LABS: AMPHETAMINE/METHAMPHETAMINE NEG (NEG)
[2021-07-16] MEDS ORDERED: METOPROLOL IV PUSH 5 MG/5 ML VIAL. IVP PRN (15:00)
--- NOTE | 2021-07-16 15:25 | EKG ---
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
--- NOTE | 2021-07-16 15:27 | EKG ---
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1935 Requested By: LISE LEA Order Number: [id number] Reading MD: Measurements Intervals [place] Rate: 79 P: 151 MI: 294 QRS: 94 QRSD: 148 T: -75 QT: 444 QTc: 510 Interpretive Statements SUPRAVENTRICULAR RHYTHM COMPLEX(ES) WITH ABERRANT INTRAVENTRICULAR CONDUCTION ATRIAL PREMATURE COMPLEX(ES) PROLONGED MI INTERVAL RIGHTWARD AXIS NON SPECIFIC INTRAVENTRICULAR BLOCK QRS(T) CONTOUR ABNORMALITY CONSISTENT WITH ANTEROSEPTAL INFARCT PROBABLY OLD ABNORMAL ECG RI6.01 Compared to ECG 07/16/2021 11:28:16 Supraventricular rhythm now present First degree AV block now present Myocardial infarct finding now present Supraventricular tachycardia no longer present Right ventricular hypertrophy no longer present Early repolarization no longer present
[2021-07-16] MEDS ORDERED: ALBUTEROL SULFATE 2.5 MG/3 ML NEBU. NEB PRN (15:30)
[2021-07-16] MEDS ORDERED: 0.9 % SODIUM CHLORIDE 10 ML DISP.SYRIN. IV PRN (15:30)
[2021-07-16] MEDS ORDERED: ONDANSETRON PF 4 MG/2 ML VIAL. IV PRN (15:30)
[2021-07-16] MEDS ORDERED: DOCUSATE SODIUM 100 MG CAPSULE. PO PRN (15:30)
[2021-07-16] MEDS ORDERED: LORazepam 0.5 MG TABLET PO PRN (15:30)
[2021-07-16] MEDS ORDERED: guaiFENesin ORAL 200 MG/10 ML LIQUID. PO PRN (15:30)
[2021-07-16] MEDS ORDERED: ACETAMINOPHEN 325 MG TABLET. PO PRN (15:30)
[2021-07-16] MEDS ORDERED: MECLIZINE HCL 12.5 MG TABLET. PO PRN (15:45)
[2021-07-16 16:00] VITALS: BP 160/77
[2021-07-16] MEDS ORDERED: MILRINONE IV PRN (16:30)
[2021-07-16] MEDS ORDERED: DEXTROSE IV PRN (16:30)
[2021-07-16] MEDS: ENOXAPARIN 40 MG/0.4 ML SYRINGE. SQ SCH (16:43)
--- NOTE | 2021-07-16 18:51 | NUR ---
Dr. Castro notified of 3rd triponon of 0.233. Pt denies chest pain. Orders received for cardiac diet.
[2021-07-16 19:45] VITALS: BP 163/67
[2021-07-16] MEDS: ISOSORBIDE DINITRATE 10 MG TABLET. PO SCH (20:50)
[2021-07-16] MEDS ORDERED: NON FORMULARY ITEM (Ubidecarenone (Co Q-10) 200 MG) PO SCH (21:00)
[2021-07-16] MEDS ORDERED: ATORVASTATIN CALCIUM 40 MG TABLET. PO SCH (21:00)
[2021-07-16] MEDS ORDERED: ASPIRIN ENTERIC COATED 81 MG TABLET.DR. PO SCH (21:00)
[2021-07-16 22:55] VITALS: BP 167/73
[2021-07-17 03:05] VITALS: BP 153/89
[2021-07-17 07:00] VITALS: BP 143/81
[2021-07-17] MEDS ORDERED: LEVOTHYROXINE 75 MCG TABLET PO SCH (07:00)
[2021-07-17] MEDS ORDERED: CLOPIDOGREL BISULFATE 75 MG TABLET PO SCH (08:00)
[2021-07-17] MEDS ORDERED: TAMSULOSIN 0.4 MG CAP.ER.24H. PO SCH ×2 (09:00→21:00)
[2021-07-17] MEDS ORDERED: METOPROLOL SUCC 24HR ER 25 MG TAB.ER.24H. PO SCH (09:00)
[2021-07-17] MEDS ORDERED: CALCIUM CARB/VIT D3 500/200 TABLET. PO SCH (09:00)
[2021-07-17] MEDS ORDERED: MULTIVITAMIN with MINERAL TABLET. PO SCH (09:00)
[2021-07-17] MEDS ORDERED: FUROSEMIDE 20 MG TABLET PO SCH (09:00)
[2021-07-17] MEDS ORDERED: FUROSEMIDE 40 MG TABLET. PO SCH (09:00)
[2021-07-17] MEDS ORDERED: NON FORMULARY ITEM (Glucosamine/D3/Boswellia Serra (Osteo Bi-Flex Caplet) 1 EACH) PO SCH (09:00)
[2021-07-17] MEDS ORDERED: AMIODARONE HCL 200 MG TABLET. PO SCH ×2 (09:00→14:00)
--- NOTE | 2021-07-17 09:20 | PDOC ---
PROGRESS NOTES Date of Service: DATE: 07/17/21 TIME: 09:19 Chief Complaint Chief Complaint Assessment/Plan Assessment/Plan IMPRESSION NSTEMI VS type 2 STRAIN ICM and has had CABG / recently had PCI/MAXWELL to LAD early this yr. Bi-V ICD placed 05/2021 at [facility] tachycardia likely paroxysmal atrial flutter. likely potentiating his SOA Chronic diastolic/systolic CHF: clinically compensated.Reported below his baseline wt of 155 at 150 ICM: Recent EF at 25% CAD: CABG and PCI in the past. stable CKD Severe mitral annular calcification with moderate to severe mitral valve regurgitation. Aortic valve sclerosis without stenosis. RECENT ECHO ckd LABILE HTN, uncontrolled PLAN ADMIT= CONSULT CARDIOLOGY HOME MEDS DVT PROPHYLAXIS start toprol. interrogate device FOR AFIB burden Nephrology consult IV BP CONTROL PRN Justifications for Admission Other Justification History of Present Illness History of Present Illness Identification/Chief Complaint Chief Complaint chest tightness, rapid HR SOA more SOA in the last 3 days and denies any chest pain. History of Present Illness History of Present Illness 85 YR OLD MALE WITH ASHD Seen at wound care today with rapid heart rate, transferred to ER where troponin i was elevated, noted to have chest tightness as well AND SHORTNESS OF BREATH PMH ICM and has had CABG / recently had PCI/MAXWELL to LAD early this yr. Bi-V ICD placed 05/2021 at [facility] TROPONIN 0.161 in ER more SOA in the last 3 days and denies any chest pain. RECENT BYPASS Angiography SVG sequential graft to the obtuse marginal is patent without anastomotic stenosis SVG to D1 has a proximal 80% stenosis and severe diffuse disease at the distal anastomosis tachycardia likely paroxysmal atrial flutter. likely potentiating his SOA Chronic diastolic/systolic CHF: clinically compensated.Reported below his baseline wt of 155 at 150 / ICM: Recent EF at 25% Severe mitral annular calcification with moderate to severe mitral valve regurgitation. Aortic valve sclerosis without stenosis. ON RECENT ECHO CAD: CABG and PCI in the past. Clinically stable CR 1.6 TSH 8.442 plan ADMIT / CONSULT CARDIOLOGY Past Medical History Past Medical History Past Medical History Past Medical History: Anxiety, Arthritis, CAD, CHF, High Cholesterol, Hypertension, Other Additional Past Medical Histor: CABG x 4 in 2008, Lyme Disease, HIATAL HERNIA Past Surgical History: Coronary Bypass Surgery, Knee Replacement, Pacemaker, Other Additional Past Surgical Histo: CABG x4 in 2009,BX rotator,BX inguinal hernia repair, R KNEE REPL. BACK ICM and has had CABG in the past and recently had PCI/MAXWELL to LAD early this yr. He also had Bi-V ICD placed 05/2021 at [facility] Smoking Status: Never Smoker Alcohol Use: None Drug Use: None FHX HTN Cardiovascular: AFIB, CAD, Hyperlipidemia CENTRAL NERVOUS SYSTEM: TIA GI: Constipation, GERD Hepatobiliary: No pertinent hx Psych: No pertinent hx Musculoskeletal: low back pain, Osteoarthritis Renal/: Chronic renal insuff Endocrine: Hypothyroidism Past Surgical History Past Surgical History: Pacemaker Family History Family History: Cancer, Diabetes, Heart Disease, Osteo Arthiritis, Stroke Social History Smoke: No ALCOHOL: none Drugs: None Current Problem List Problem List Problems Medical Problems: (1) CKD (chronic kidney disease) Status: Acute (2) Dyspnea Status: Acute (3) Non-STEMI (non-ST elevated myocardial infarction) Status: Acute Current Medications Current Medications Active Scripts Active Metoprolol Succinate ( Xl ) (Metoprolol Succinate) 25 Mg Tab.er.24h 25 Mg PO DAILY 30 Days Atorvastatin Calcium 40 Mg Tablet 1 Tab PO QHS 30 Days Clopidogrel (Clopidogrel Bisulfate) 75 Mg Tablet 75 Mg PO DAILYWBKFT 30 Days Amiodarone Hcl 200 Mg Tablet 1 Tab PO DAILY MDD 1 30 Days Reported Hydroxyzine Hcl 25 Mg Tablet 1 Tab PO BID PRN Triamcinolone Acetonide 0.1% Oint (Triamcinolone Acetonide) 15 Gm Oint...g. 1 Franco TP BID PRN MIX WITH EUCERIN DIRECTED BY PHYSICIAN Furosemide 20 Mg Tablet 1 Tab PO DAILY Alendronate Sodium 70 Mg Tablet 1 Tab PO WEEKLY Osteo Bi-Flex Caplet (Glucosamine/D3/Boswellia Nia) 1 Each Tablet 1 Each PO DAILY Meclizine Hcl 25 Mg Tablet 1 Tab PO TID Ondansetron Hcl 4 Mg Tablet 1 Tab PO PRN Q6HRS Doxycycline Hyclate 100 Mg Tablet 1 Tab PO BID Gabapentin 600 Mg Tablet 600 Mg PO BID Levothyroxine Sodium 75 Mcg Tablet 1 Tab PO DAILY Probiotic (Lactobacillus Acidophilus) 1 Each Capsule 1 Each PO THURSDAY AND THURSDAY Venlafaxine Hcl Er (Venlafaxine Hcl) 37.5 Mg Cap.er.24h 37.5 Mg PO DAILY Tramadol Hcl 50 Mg Tablet 1 Tab PO BID Celebrex (Celecoxib) 200 Mg Capsule 1 Cap PO DAILY Aspir 81 (Aspirin) 81 Mg Tablet.dr 1 Tab PO HS Flomax (Tamsulosin Hcl) 0.4 Mg Cap.er.24h 1 Cap PO DAILY Co Q-10 (Ubidecarenone) 200 Mg Capsule 200 Mg PO HS Not taken while in hosp. May resume at home as directed. Daily Vitamin (Multivitamin) 1 Each Tablet 1 Each PO DAILY Citracal + D Er Tablet (Calcium Carb & Cit/Vitamin D3) 1 Each Tablet.er 1 Each PO DAILY Allergies Allergies: Coded Allergies: colchicine (Verified Adverse Reaction, Intermediate, Nausea, 02/01/19) ROS Review of System more SOA in the last 3 days and denies any chest pain. General: YES: Fatigue; No: Chills, Night Sweats, Malaise, Appetite, Other PSYCHOLOGICAL ROS: No: Anxiety, Behavioral Disorder, Concentration difficultie, Decreased libido, Depression, Disorientation, Hallucinations, Hostility, Irritablity, Memory difficulties, Mood Swings, Obsessive thoughts, Physical abuse, Sexual abuse, Sleep disturbances, Suicidal ideation, Other Eyes: No Blurry vision, No Decreased vision, No Double vision, No Dry eyes, No Excessive tearing, No Eye Pain, No Itchy Eyes, No Loss of vision, No Photophobia, No Scotomata, No Uses contacts, No Uses glasses, No Other HEENT: No: Heacaches, Visual Changes, Hearing change, Nasal congestion, Nasal discharge, Oral lesions, Sinus pain, Sore Throat, Epistaxis, Sneezing, Snoring, Tinnitus, Vertigo, Vocal changes, Other ALLERGY AND IMMUNOLOGY: No: Hives, Insect Bite Sensitivity, Itchy/Watery Eyes, Nasal Congestion, Post Nasal Drip, Seasonal Allergies, Other Hematological and Lymphatic: No: Bleeding Problems, Blood Clots, Blood Transfusions, Brusing, Night Sweats, Pallor, Swollen Lymph Nodes, Other ENDOCRINE: No: Breast Changes, Galactorrhea, Hair Pattern Changes, Hot Flashes, Malaise/lethargy, Mood Swings, Palpitations, Polydipsia/polyuria, Skin Changes, Temperature Intolerance, Unexpected Weight Changes, Other Breast: No New/Changing Breast Lumps, No Nipple changes, No Nipple discharge, No Other Respiratory: YES: Shortness of breath, SOB with excertion; No: Cough, Hemoptysis, Orthopnea, Pleuritic Pain, Sputum Changes, Stridor, Tachypnea, Wheezing, Other Cardiovascular: yes Chest Pain, yes Other (CHEST TIGHTNESS ) Gastrointestinal: No Nausea, No Vomiting, No Abdominal Pain, No Diarrhea, No Constipation, No Melena, No Hematochezia, No Other Genitourinary: No Dysuria, No Frequency, No Incontinence, No Hematuria, No Retention, No Discharge, No Urgency, No Pain, No Flank Pain, No Other, No , No , No , No , No , No , No Musculoskeletal: Yes Gait Disturbance, Yes Joint Stiffness; No Joint Pain, No Joint Swelling, No Muscle Pain, No Muscular Weakness, No Pain In:, No Swelling In:, No Other Neurological: Yes Gait Disturbance; No Behavorial Changes, No Bowel/Bladder ControlChng, No Confusion, No Dizziness, No Headaches, No Impaired Coord/balance, No Memory Loss, No Numbness/Tingling, No Seizures, No Speech Problems, No Tremors, No Visual Changes, No Weakness, No Other Skin: Yes Dry Skin; No Eczema, No Hair Changes, No Lumps, No Mole Changes, No Mottling, No Nail Changes, No Pruritus, No Rash, No Skin Lesion Changes, No Other, No Acne Vitals Vitals Vital Signs Date Time Temp Pulse Resp B/P (MAP) Pulse Ox O2 Delivery O2 Flow Rate FiO2 07/17/21 08:10 Room Air 07/17/21 07:00 97.7 81 20 143/81 (101) 99 97.7 Physical Exam General: Alert, Oriented X3, Cooperative, No acute distress Heart: Regular rate (AV paced), Other (distant heart sounds) Lungs: Clear Abdomen: Normal bowel sounds, Soft Extremities: No cyanosis, Other (2+ LLE pitting edema trace to RLE) Skin: No breakdown, No significant lesion Labs LABS Laboratory Tests Test 07/16/21 11:44 07/16/21 14:15 07/16/21 14:40 07/16/21 14:46 White Blood Count 6.2 x10^3/uL (4.0-11.0) Red Blood Count 3.91 x10^6/uL (4.30-5.70) Hemoglobin 12.8 g/dL (13.0-17.5) Hematocrit 38.5 % (39.0-53.0) Mean Corpuscular Volume 98 fL (79-100) Mean Corpuscular Hemoglobin 33 pg (25-35) Mean Corpuscular Hemoglobin Concent 33 g/dL (31-37) Red Cell Distribution Width 13.5 % (11.5-14.5) Platelet Count 161 x10^3/uL (140-400) Neutrophils (%) (Auto) 60 % (31-73) Lymphocytes (%) (Auto) 26 % (24-48) Monocytes (%) (Auto) 9 % (0-9) Eosinophils (%) (Auto) 5 % (0-3) Basophils (%) (Auto) 1 % (0-3) Neutrophils # (Auto) 3.7 x10^3/uL (1.8-7.7) Lymphocytes # (Auto) 1.6 x10^3/uL (1.0-4.8) Monocytes # (Auto) 0.5 x10^3/uL (0.0-1.1) Eosinophils # (Auto) 0.3 x10^3/uL (0.0-0.7) Basophils # (Auto) 0.0 x10^3/uL (0.0-0.2) Sodium Level 143 mmol/L (136-145) Potassium Level 4.5 mmol/L (3.5-5.1) Chloride Level 109 mmol/L (98-107) Carbon Dioxide Level 25 mmol/L (21-32) Anion Gap 9 (6-14) Blood Urea Nitrogen 29 mg/dL (8-26) Creatinine 1.6 mg/dL (0.7-1.3) Estimated GFR (Cockcroft-Gault) 41.4 Glucose Level 130 mg/dL (70-99) Calcium Level 8.4 mg/dL (8.5-10.1) Magnesium Level 2.0 mg/dL (1.8-2.4) Total Bilirubin 0.4 mg/dL (0.2-1.0) Direct Bilirubin 0.1 mg/dL (0.0-0.2) Aspartate Amino Transf (AST/SGOT) 31 U/L (15-37) Alanine Aminotransferase (ALT/SGPT) 25 U/L (16-63) Alkaline Phosphatase 73 U/L (46-116) Troponin I Quantitative 0.090 ng/mL (0.000-0.055) 0.161 ng/mL (0.000-0.055) ZG-Xqi-Y-Type Natriuretic Peptide 2318 pg/mL (0-449) Total Protein 5.9 g/dL (6.4-8.2) Albumin 3.1 g/dL (3.4-5.0) Lipase 56 U/L (73-393) Thyroid Stimulating Hormone (TSH) 8.422 uIU/mL (0.358-3.74) Urine Collection Type Unknown Urine Color Yellow Urine Clarity Clear Urine pH 5.5 (<5.0-8.0) Urine Specific [place] 1.010 (1.000-1.030) Urine Protein Negative mg/dL (NEG-TRACE) Urine Glucose (UA) 500 mg/dL (NEG) Urine Ketones (Stick) Negative mg/dL (NEG) Urine Blood Negative (NEG) Urine Nitrite Negative (NEG) Urine Bilirubin Negative (NEG) Urine Urobilinogen Dipstick 0.2 mg/dL (0.2 mg/dL) Urine Leukocyte Esterase Negative (NEG) Urine RBC 0 /HPF (0-2) Urine WBC 0 /HPF (0-4) Urine Bacteria 0 /HPF (0-FEW) Urine Hyaline Casts Few /HPF Urine Opiates Screen Neg (NEG) Urine Methadone Screen Neg (NEG) Urine Barbiturates Neg (NEG) Urine Phencyclidine Screen Neg (NEG) Urine Amphetamine/Methamphetamine Neg (NEG) Urine Benzodiazepines Screen Neg (NEG) Urine Cocaine Screen Neg (NEG) Urine Cannabinoids Screen Neg (NEG) Urine Ethyl Alcohol Neg (NEG) D-Dimer (Vijaya) 0.56 ug/mlFEU (0.00-0.50) Test 07/16/21 17:50 Troponin I Quantitative 0.233 ng/mL (0.000-0.055) Assessment and Plan Assessmemt and Plan Problems Medical Problems: (1) CKD (chronic kidney disease) Status: Acute (2) Dyspnea Status: Acute (3) Non-STEMI (non-ST elevated myocardial infarction) Status: Acute Comment Review of Relevant I have reviewed the following items nimisha (where applicable) has been applied. Labs Laboratory Tests Test 07/16/21 11:44 07/16/21 14:15 07/16/21 14:40 07/16/21 14:46 White Blood Count 6.2 x10^3/uL (4.0-11.0) Red Blood Count 3.91 x10^6/uL (4.30-5.70) Hemoglobin 12.8 g/dL (13.0-17.5) Hematocrit 38.5 % (39.0-53.0) Mean Corpuscular Volume 98 fL (79-100) Mean Corpuscular Hemoglobin 33 pg (25-35) Mean Corpuscular Hemoglobin Concent 33 g/dL (31-37) Red Cell Distribution Width 13.5 % (11.5-14.5) Platelet Count 161 x10^3/uL (140-400) Neutrophils (%) (Auto) 60 % (31-73) Lymphocytes (%) (Auto) 26 % (24-48) Monocytes (%) (Auto) 9 % (0-9) Eosinophils (%) (Auto) 5 % (0-3) Basophils (%) (Auto) 1 % (0-3) Neutrophils # (Auto) 3.7 x10^3/uL (1.8-7.7) Lymphocytes # (Auto) 1.6 x10^3/uL (1.0-4.8) Monocytes # (Auto) 0.5 x10^3/uL (0.0-1.1) Eosinophils # (Auto) 0.3 x10^3/uL (0.0-0.7) Basophils # (Auto) 0.0 x10^3/uL (0.0-0.2) Sodium Level 143 mmol/L (136-145) Potassium Level 4.5 mmol/L (3.5-5.1) Chloride Level 109 mmol/L (98-107) Carbon Dioxide Level 25 mmol/L (21-32) Anion Gap 9 (6-14) Blood Urea Nitrogen 29 mg/dL (8-26) Creatinine 1.6 mg/dL (0.7-1.3) Estimated GFR (Cockcroft-Gault) 41.4 Glucose Level 130 mg/dL (70-99) Calcium Level 8.4 mg/dL (8.5-10.1) Magnesium Level 2.0 mg/dL (1.8-2.4) Total Bilirubin 0.4 mg/dL (0.2-1.0) Direct Bilirubin 0.1 mg/dL (0.0-0.2) Aspartate Amino Transf (AST/SGOT) 31 U/L (15-37) Alanine Aminotransferase (ALT/SGPT) 25 U/L (16-63) Alkaline Phosphatase 73 U/L (46-116) Troponin I Quantitative 0.090 ng/mL (0.000-0.055) 0.161 ng/mL (0.000-0.055) DL-Quy-H-Type Natriuretic Peptide 2318 pg/mL (0-449) Total Protein 5.9 g/dL (6.4-8.2) Albumin 3.1 g/dL (3.4-5.0) Lipase 56 U/L (73-393) Thyroid Stimulating Hormone (TSH) 8.422 uIU/mL (0.358-3.74) Urine Collection Type Unknown Urine Color Yellow Urine Clarity Clear Urine pH 5.5 (<5.0-8.0) Urine Specific [place] 1.010 (1.000-1.030) Urine Protein Negative mg/dL (NEG-TRACE) Urine Glucose (UA) 500 mg/dL (NEG) Urine Ketones (Stick) Negative mg/dL (NEG) Urine Blood Negative (NEG) Urine Nitrite Negative (NEG) Urine Bilirubin Negative (NEG) Urine Urobilinogen Dipstick 0.2 mg/dL (0.2 mg/dL) Urine Leukocyte Esterase Negative (NEG) Urine RBC 0 /HPF (0-2) Urine WBC 0 /HPF (0-4) Urine Bacteria 0 /HPF (0-FEW) Urine Hyaline Casts Few /HPF Urine Opiates Screen Neg (NEG) Urine Methadone Screen Neg (NEG) Urine Barbiturates Neg (NEG) Urine Phencyclidine Screen Neg (NEG) Urine Amphetamine/Methamphetamine Neg (NEG) Urine Benzodiazepines Screen Neg (NEG) Urine Cocaine Screen Neg (NEG) Urine Cannabinoids Screen Neg (NEG) Urine Ethyl Alcohol Neg (NEG) D-Dimer (Vijaya) 0.56 ug/mlFEU (0.00-0.50) Test 07/16/21 17:50 Troponin I Quantitative 0.233 ng/mL (0.000-0.055) Laboratory Tests Test 07/16/21 11:44 07/16/21 14:15 07/16/21 14:40 07/16/21 14:46 White Blood Count 6.2 x10^3/uL (4.0-11.0) Red Blood Count 3.91 x10^6/uL (4.30-5.70) Hemoglobin 12.8 g/dL (13.0-17.5) Hematocrit 38.5 % (39.0-53.0) Mean Corpuscular Volume 98 fL (79-100) Mean Corpuscular Hemoglobin 33 pg (25-35) Mean Corpuscular Hemoglobin Concent 33 g/dL (31-37) Red Cell Distribution Width 13.5 % (11.5-14.5) Platelet Count 161 x10^3/uL (140-400) Neutrophils (%) (Auto) 60 % (31-73) Lymphocytes (%) (Auto) 26 % (24-48) Monocytes (%) (Auto) 9 % (0-9) Eosinophils (%) (Auto) 5 % (0-3) Basophils (%) (Auto) 1 % (0-3) Neutrophils # (Auto) 3.7 x10^3/uL (1.8-7.7) Lymphocytes # (Auto) 1.6 x10^3/uL (1.0-4.8) Monocytes # (Auto) 0.5 x10^3/uL (0.0-1.1) Eosinophils # (Auto) 0.3 x10^3/uL (0.0-0.7) Basophils # (Auto) 0.0 x10^3/uL (0.0-0.2) Sodium Level 143 mmol/L (136-145) Potassium Level 4.5 mmol/L (3.5-5.1) Chloride Level 109 mmol/L (98-107) Carbon Dioxide Level 25 mmol/L (21-32) Anion Gap 9 (6-14) Blood Urea Nitrogen 29 mg/dL (8-26) Creatinine 1.6 mg/dL (0.7-1.3) Estimated GFR (Cockcroft-Gault) 41.4 Glucose Level 130 mg/dL (70-99) Calcium Level 8.4 mg/dL (8.5-10.1) Magnesium Level 2.0 mg/dL (1.8-2.4) Total Bilirubin 0.4 mg/dL (0.2-1.0) Direct Bilirubin 0.1 mg/dL (0.0-0.2) Aspartate Amino Transf (AST/SGOT) 31 U/L (15-37) Alanine Aminotransferase (ALT/SGPT) 25 U/L (16-63) Alkaline Phosphatase 73 U/L (46-116) Troponin I Quantitative 0.090 ng/mL (0.000-0.055) 0.161 ng/mL (0.000-0.055) EK-Nbi-W-Type Natriuretic Peptide 2318 pg/mL (0-449) Total Protein 5.9 g/dL (6.4-8.2) Albumin 3.1 g/dL (3.4-5.0) Lipase 56 U/L (73-393) Thyroid Stimulating Hormone (TSH) 8.422 uIU/mL (0.358-3.74) Urine Collection Type Unknown Urine Color Yellow Urine Clarity Clear Urine pH 5.5 (<5.0-8.0) Urine Specific [place] 1.010 (1.000-1.030) Urine Protein Negative mg/dL (NEG-TRACE) Urine Glucose (UA) 500 mg/dL (NEG) Urine Ketones (Stick) Negative mg/dL (NEG) Urine Blood Negative (NEG) Urine Nitrite Negative (NEG) Urine Bilirubin Negative (NEG) Urine Urobilinogen Dipstick 0.2 mg/dL (0.2 mg/dL) Urine Leukocyte Esterase Negative (NEG) Urine RBC 0 /HPF (0-2) Urine WBC 0 /HPF (0-4) Urine Bacteria 0 /HPF (0-FEW) Urine Hyaline Casts Few /HPF Urine Opiates Screen Neg (NEG) Urine Methadone Screen Neg (NEG) Urine Barbiturates Neg (NEG) Urine Phencyclidine Screen Neg (NEG) Urine Amphetamine/Methamphetamine Neg (NEG) Urine Benzodiazepines Screen Neg (NEG) Urine Cocaine Screen Neg (NEG) Urine Cannabinoids Screen Neg (NEG) Urine Ethyl Alcohol Neg (NEG) D-Dimer (Vijaya) 0.56 ug/mlFEU (0.00-0.50) Test 07/16/21 17:50 Troponin I Quantitative 0.233 ng/mL (0.000-0.055) Medications Current Medications Aspirin (Ecotrin) 81 mg HS PO Last administered on 07/16/21at 20:50; Start 07/16/21 at 21:00 Atorvastatin Calcium (Lipitor) 40 mg QHS PO Last administered on 07/16/21at 20:50; Start 07/16/21 at 21:00 Clopidogrel Bisulfate (Plavix) 75 mg DAILYWBKFT PO ; Start 07/17/21 at 08:00 Metoprolol Succinate (Toprol Xl) 25 mg DAILY PO ; Start 07/17/21 at 09:00 Metoprolol Tartrate (Lopressor Vial) 5 mg PRN Q6HRS PRN IVP TACHYCARDIA; Start 07/16/21 at 15:00 Isosorbide Dinitrate (Isordil) 10 mg TID PO Last administered on 07/16/21at 20:50; Start 07/16/21 at 21:00 Furosemide (Lasix) 40 mg DAILY PO ; Start 07/17/21 at 09:00 Sodium Chloride (Normal Saline Flush) 3 ml QSHIFT PRN IV AFTER MEDS AND BLOOD DRAWS; Start 07/16/21 at 15:30 Ondansetron HCl (Zofran) 4 mg PRN Q4HRS PRN IV NAUSEA/VOMITING; Start 07/16/21 at 15:30 Acetaminophen (Tylenol) 650 mg PRN Q4HRS PRN PO TEMP OVER 100.4F OR MILD PAIN; Start 07/16/21 at 15:30 Docusate Sodium (Colace) 100 mg PRN BID PRN PO HARD STOOLS; Start 07/16/21 at 15:30 Albuterol Sulfate (Ventolin Neb Soln) 2.5 mg PRN Q4HRS PRN NEB SHORTNESS OF BREATH; Start 07/16/21 at 15:30 Guaifenesin (Robitussin) 200 mg PRN Q4HRS PRN PO COUGH; Start 07/16/21 at 15:30 Lorazepam (Ativan) 0.5 mg PRN Q4HRS PRN PO ANXIETY / AGITATION; Start 07/16/21 at 15:30 Enoxaparin Sodium (Lovenox 40mg Syringe) 40 mg Q24H SQ Last administered on 07/16/21at 16:43; Start 07/16/21 at 16:00 Amiodarone HCl (Cordarone) 200 mg DAILY PO ; Start 07/17/21 at 09:00; Stop 07/16/21 at 15:37; Status DC Furosemide (Lasix) 20 mg DAILY PO ; Start 07/17/21 at 09:00; Status Cancel Levothyroxine Sodium (Synthroid) 75 mcg DAILY07 PO Last administered on 07/17/21at 07:04; Start 07/17/21 at 07:00 Tamsulosin HCl (Flomax) 0.4 mg DAILY PO ; Start 07/17/21 at 09:00 Non-Formulary Medication (Alendronate Sodium ) 1 tab WEEKLY PO ; Start 07/23/21 at 09:00; Status UNV Calcium/Vitamin D (Oscal D 500mg/ 200uts) 1 tab DAILY PO ; Start 07/17/21 at 09:00 Non-Formulary Medication (Glucosamine/D3/ Boswellia Nia (Osteo Bi-Flex Caplet)) 1 each DAILY PO ; Start 07/17/21 at 09:00; Status UNV Meclizine HCl (Antivert) 25 mg PRN TID PRN PO DIZZINESS; Start 07/16/21 at 15: 45 Multivitamins (Thera M Plus) 1 tab DAILY PO ; Start 07/17/21 at 09:00 Non-Formulary Medication (Ubidecarenone (Co Q-10)) 200 mg HS PO ; Start 07/16/21 at 21:00; Status UNV Non-Formulary Medication (MILRINONE PUMP [id number] in 166ml D5W) 1 ea CONT PRN IV SEE ADMIN INSTRUCTIONS; Start 07/16/21 at 16:30 Active Scripts Active Metoprolol Succinate ( Xl ) (Metoprolol Succinate) 25 Mg Tab.er.24h 25 Mg PO DAILY 30 Days Atorvastatin Calcium 40 Mg Tablet 1 Tab PO QHS 30 Days Clopidogrel (Clopidogrel Bisulfate) 75 Mg Tablet 75 Mg PO DAILYWBKFT 30 Days Amiodarone Hcl 200 Mg Tablet 1 Tab PO DAILY MDD 1 30 Days Reported Hydroxyzine Hcl 25 Mg Tablet 1 Tab PO BID PRN Triamcinolone Acetonide 0.1% Oint (Triamcinolone Acetonide) 15 Gm Oint...g. 1 Franco TP BID PRN MIX WITH EUCERIN DIRECTED BY PHYSICIAN Furosemide 20 Mg Tablet 1 Tab PO DAILY Alendronate Sodium 70 Mg Tablet 1 Tab PO WEEKLY Osteo Bi-Flex Caplet (Glucosamine/D3/Boswellia Nia) 1 Each Tablet 1 Each PO DAILY Meclizine Hcl 25 Mg Tablet 1 Tab PO TID Ondansetron Hcl 4 Mg Tablet 1 Tab PO PRN Q6HRS Doxycycline Hyclate 100 Mg Tablet 1 Tab PO BID Gabapentin 600 Mg Tablet 600 Mg PO BID Levothyroxine Sodium 75 Mcg Tablet 1 Tab PO DAILY Probiotic (Lactobacillus Acidophilus) 1 Each Capsule 1 Each PO THURSDAY AND THURSDAY Venlafaxine Hcl Er (Venlafaxine Hcl) 37.5 Mg Cap.er.24h 37.5 Mg PO DAILY Tramadol Hcl 50 Mg Tablet 1 Tab PO BID Celebrex (Celecoxib) 200 Mg Capsule 1 Cap PO DAILY Aspir 81 (Aspirin) 81 Mg Tablet.dr 1 Tab PO HS Flomax (Tamsulosin Hcl) 0.4 Mg Cap.er.24h 1 Cap PO DAILY Co Q-10 (Ubidecarenone) 200 Mg Capsule 200 Mg PO HS Not taken while in hosp. May resume at home as directed. Daily Vitamin (Multivitamin) 1 Each Tablet 1 Each PO DAILY Citracal + D Er Tablet (Calcium Carb & Cit/Vitamin D3) 1 Each Tablet.er 1 Each PO DAILY Vitals/I & O Vital Sign - Last 24 Hours 07/16/21 07/16/21 07/16/21 07/16/21 11:30 12:09 12:24 12:54 Temp 98.1 98.1 Pulse 131 80 78 80 Resp 16 16 B/P (MAP) 106/77 (87) 127/75 (92) 135/86 (102) 127/76 (93) Pulse Ox 99 96 96 96 O2 Delivery Room Air Room Air Room Air Room Air 07/16/21 07/16/21 07/16/21 07/16/21 13:24 13:39 13:54 14:39 Pulse 70 78 74 78 B/P (MAP) 134/68 (90) 131/62 (85) 155/66 (95) 150/67 (94) Pulse Ox 98 98 97 98 O2 Delivery Room Air Room Air Room Air Room Air 07/16/21 07/16/21 07/16/21 07/16/21 15:24 16:00 19:45 20:00 Temp 97.5 97.5 97.5 97.5 Pulse 72 79 73 Resp 20 20 B/P (MAP) 164/84 (110) 160/77 (104) 163/67 (99) Pulse Ox 98 98 98 O2 Delivery Room Air Room Air Room Air Room Air 07/16/21 07/16/21 07/17/21 07/17/21 20:50 22:55 03:05 07:00 Temp 98.5 98.7 97.7 98.5 98.7 97.7 Pulse 73 76 70 81 Resp 20 20 20 B/P (MAP) 163/67 167/73 (104) 153/89 (110) 143/81 (101) Pulse Ox 98 96 99 O2 Delivery Room Air Room Air Room Air 07/17/21 08:10 O2 Delivery Room Air Intake and Output 07/16/21 07/16/21 07/17/21 15:00 23:00 07:00 Intake Total 0 ml 100 ml Output Total 200 ml 500 ml Balance -200 ml -400 ml Justicifation of Admission Dx: Justifications for Admission: Justification of Admission Dx: N/A KAYLEN RO MD Jul 17, 2021 09:20
[2021-07-17] MEDS: ISOSORBIDE DINITRATE 10 MG TABLET. PO SCH ×2 (09:33→14:25)
[2021-07-17 11:00] VITALS: BP 181/79
--- NOTE | 2021-07-17 12:35 | NUR ---
SS following for discharge planning. SS reviewed pt chart and discussed with pt RN. Pt is from home and is currently on room air. Cardiology consulted. SS will continue to follow for discharge planning.
--- NOTE | 2021-07-17 12:37 | PDOC ---
TORITO FARMER AGILE BUSINESS ANALYST 07/17/21 1237: CARDIO Progress Notes Date and Time Date of Service 07/17/2021 Time of Evaluation 1200 Subjective Subjective: No Chest Pain, No shortness of breath, No Palpitations Vitals Vitals Vital Signs Date Time Temp Pulse Resp B/P (MAP) Pulse Ox O2 Delivery O2 Flow Rate FiO2 07/17/21 09:33 81 143/81 07/17/21 08:10 Room Air 07/17/21 07:00 97.7 20 99 97.7 Weight Weight [ ] Input and Output Intake and Output Intake and Output 07/17/21 07:00 Intake Total 100 ml Output Total 700 ml Balance -600 ml Intake Oral 100 ml Output Urine Total 700 ml Laboratory Labs Laboratory Tests Test 07/16/21 14:15 07/16/21 14:40 07/16/21 14:46 07/16/21 17:50 Troponin I Quantitative 0.161 ng/mL (0.000-0.055) 0.233 ng/mL (0.000-0.055) Urine Collection Type Unknown Urine Color Yellow Urine Clarity Clear Urine pH 5.5 (<5.0-8.0) Urine Specific [place] 1.010 (1.000-1.030) Urine Protein Negative mg/dL (NEG-TRACE) Urine Glucose (UA) 500 mg/dL (NEG) Urine Ketones (Stick) Negative mg/dL (NEG) Urine Blood Negative (NEG) Urine Nitrite Negative (NEG) Urine Bilirubin Negative (NEG) Urine Urobilinogen Dipstick 0.2 mg/dL (0.2 mg/dL) Urine Leukocyte Esterase Negative (NEG) Urine RBC 0 /HPF (0-2) Urine WBC 0 /HPF (0-4) Urine Bacteria 0 /HPF (0-FEW) Urine Hyaline Casts Few /HPF Urine Opiates Screen Neg (NEG) Urine Methadone Screen Neg (NEG) Urine Barbiturates Neg (NEG) Urine Phencyclidine Screen Neg (NEG) Urine Amphetamine/Methamphetamine Neg (NEG) Urine Benzodiazepines Screen Neg (NEG) Urine Cocaine Screen Neg (NEG) Urine Cannabinoids Screen Neg (NEG) Urine Ethyl Alcohol Neg (NEG) D-Dimer (Vijaya) 0.56 ug/mlFEU (0.00-0.50) Physical Exam HEENT: Neck Supple W Full Motion Chest: Symmetric LUNGS: Clear to Auscultation Heart: RRR (SR with intermitent paccing), no thrills, no jug vein distention Abdomen: Soft N/T Extremities: No Edema, No Calf Tenderness Neurology: alert, oriented, follow commands Assessment Assessment 1. Arrhythmia: NSVT likely potentiating his SOA. Could not ascertain AFIB burden with prior setting. 2. Chronic diastolic/systolic CHF: clinically compensated. 3. ICM: Recent EF at 25% 4. CAD: CABG and PCI in the past. 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 Interrogation revealed periods of NSVTs Presently SR with intermittent pacing with periods of NSVT and frequent PVCs. 6. COPD? 7. HLP 8. Mild troponin elevation: peaked at 0.24 Demand mediated, type 2 due to arrhythmia 9. CKD3: his baseline is 1.7 Cr 10. Hypoxia: noted 50% RA at home better upon admission 11. Hypothyroidism: TSH at 8. in replacement. Defer to PCP Recommendations 1. Continue toprol. Will start on amiodarone. HVR zone monitoring adjusted by rep. 2. Continue ASA and plavix. Nitrates, hold hydralazine. Continue statin and lasix therapy 3. Continue milrinone drip his home dose is 0.125mcg 4. BMP and Mg today. Justicifation of Admission Dx: Justifications for Admission: Justification of Admission Dx: N/A KAELA GOMES MD 07/17/21 2020: CARDIO Progress Notes Plan Plan Pt. seen and examined. Agree with above SHOE LASTER note. Discussed with nursing staff This evening was called by nursing staff that patient and family were irate and wanting to go home. Primary team unavailable for discharge. I had a thorough discussion with patient and family regarding discharge and they feel comfortable and want to go home DC order placed. Only med change is initiation of amidoarone therapy at 400mg daily. Script was given to the them. He has f/u in 2 weeks at [facility] for HF clinic. He will see us in f/u in 3 months. His renal function is improved compared to baseline. TORITO FARMER APRN Jul 17, 2021 12:37 KAELA GOMES MD Jul 17, 2021 20:20
[2021-07-17] MEDS ORDERED: AMIODARONE 150 MG in IV DEXTROSE 5% 100ML 100 ML IV ONE (13:30)
[2021-07-17 13:34] LABS: CALCIUM 8.6 mg/dL (8.5-10.1); CREATININE 1.5 mg/dL (0.7-1.3); GFR 44.6; MAGNESIUM 2.1 mg/dL (1.8-2.4); POTASSIUM 4.5 mmol/L (3.5-5.1)
[2021-07-17] MEDS ORDERED: hydrALAZINE 20 MG/ML VIAL. IVP PRN (14:30)
[2021-07-17 15:00] VITALS: BP 124/69
[2021-07-17 17:30] VITALS: BP 116/66
[2021-07-17] MEDS: ENOXAPARIN 40 MG/0.4 ML SYRINGE. SQ SCH (18:11)
--- NOTE | 2021-07-17 21:10 | DISCH ---
DISCHARGE INSTRUCTIONS Condition on Discharge Condition on Discharge: Guarded Activity After Discharge Activity Instructions for Disc: Activity as tolerated Bathing Instructions: No Tub Bath until see Lifting Instructions after Dis: No heavy lifting, Do not lift >10 pounds Exercise Instruction after Dis: Exercise per Card. Rehab Driving Instructions after Dis: Do not drive today Weight Bearing Status after Di: As tolerated Diet after Discharge Diet after Discharge: Cardiac Additional Diet Restrictions: resume home diet Diet Texture: Regular Liquid Texture: Thin Liquid, No Liquids Swallowing Supervision: None needed Wound Incision Care Wound/Incision Care: Other, see below Checks after Discharge Checks after discharge: Check blood press - daily Contacting the after DC Call your doctor for: Concerns you may have Follow-Up Follow up with: see [facility] SOON, DR GOMES 2 WEEKS Treatment/Equipment after DC Adaptive Equipment Issued: KAYLEN Etienne MD Jul 17, 2021 21:10
--- NOTE | 2021-07-17 21:13 | PDOC3 ---
Discharge Summary Date of Admission: Jul 16, 2021 Date of Discharge: Jul 17, 2021 Follow-Up: Other ( 5-10 DAYS [facility]) Admitting Diagnosis comment: Assessment/Plan Assessment/Plan CONSULTS CARDIOLOGY D/C MEDS SEE MAR DISCHARGE DX NSTEMI VS type 2 STRAIN ICM and has had CABG / recently had PCI/MAXWELL to LAD early this yr. Bi-V ICD placed 05/2021 at [facility] tachycardia likely paroxysmal atrial flutter. likely potentiating his SOA Chronic diastolic/systolic CHF: clinically compensated.Reported below his baseline wt of 155 at 150 ICM: Recent EF at 25% CAD: CABG and PCI in the past. stable CKD Severe mitral annular calcification with moderate to severe mitral valve regurgitation. Aortic valve sclerosis without stenosis. RECENT ECHO ckd LABILE HTN, uncontrolled PLAN ADMIT= CONSULT CARDIOLOGY HOME MEDS DVT PROPHYLAXIS start toprol. interrogate device FOR AFIB burden Nephrology consult IV BP CONTROL PRN Justifications for Admission Other Justification History of Present Illness History of Present Illness Identification/Chief Complaint Chief Complaint chest tightness, rapid HR SOA more SOA in the last 3 days and denies any chest pain. History of Present Illness History of Present Illness 85 YR OLD MALE WITH ASHD Seen at wound care today with rapid heart rate, transferred to ER where troponin i was elevated, noted to have chest tightness as well AND SHORTNESS OF BREATH H ICM and has had CABG / recently had PCI/MAXWELL to LAD early this yr. Bi-V ICD placed 05/2021 at [facility] TROPONIN 0.161 in ER more SOA in the last 3 days and denies any chest pain. RECENT BYPASS Angiography SVG sequential graft to the obtuse marginal is patent without anastomotic stenosis SVG to D1 has a proximal 80% stenosis and severe diffuse disease at the distal anastomosis tachycardia likely paroxysmal atrial flutter. likely potentiating his SOA Chronic diastolic/systolic CHF: clinically compensated.Reported below his baseline wt of 155 at 150 / ICM: Recent EF at 25% Severe mitral annular calcification with moderate to severe mitral valve regurgitation. Aortic valve sclerosis without stenosis. ON RECENT ECHO CAD: CABG and PCI in the past. Clinically stable CR 1.6 TSH 8.442 plan ADMIT / CONSULT CARDIOLOGY Past Medical History Past Medical History Past Medical History Past Medical History: Anxiety, Arthritis, CAD, CHF, High Cholesterol, Hypertension, Other Additional Past Medical Histor: CABG x 4 in 2008, Lyme Disease, HIATAL HERNIA Past Surgical History: Coronary Bypass Surgery, Knee Replacement, Pacemaker, Other Additional Past Surgical Histo: CABG x4 in 2009,BX rotator,BX inguinal hernia repair, R KNEE REPL. BACK ICM and has had CABG in the past and recently had PCI/MAXWELL to LAD early this yr. He also had Bi-V ICD placed 05/2021 at [facility] Smoking Status: Never Smoker Alcohol Use: None Drug Use: None FHX HTN Cardiovascular: AFIB, CAD, Hyperlipidemia CENTRAL NERVOUS SYSTEM: TIA GI: Constipation, GERD Hepatobiliary: No pertinent hx Psych: No pertinent hx Musculoskeletal: low back pain, Osteoarthritis Renal/: Chronic renal insuff Endocrine: Hypothyroidism Past Surgical History Past Surgical History: Pacemaker Family History Family History: Cancer, Diabetes, Heart Disease, Osteo Arthiritis, Stroke Social History Smoke: No ALCOHOL: none Drugs: None Current Problem List Problem List Problems Medical Problems: (1) CKD (chronic kidney disease) Status: Acute (2) Dyspnea Status: Acute (3) Non-STEMI (non-ST elevated myocardial infarction) Status: Acute Current Medications Current Medications Active Scripts Active Metoprolol Succinate ( Xl ) (Metoprolol Succinate) 25 Mg Tab.er.24h 25 Mg PO DAILY 30 Days Atorvastatin Calcium 40 Mg Tablet 1 Tab PO QHS 30 Days Clopidogrel (Clopidogrel Bisulfate) 75 Mg Tablet 75 Mg PO DAILYWBKFT 30 Days Amiodarone Hcl 200 Mg Tablet 1 Tab PO DAILY MDD 1 30 Days Reported Hydroxyzine Hcl 25 Mg Tablet 1 Tab PO BID PRN Triamcinolone Acetonide 0.1% Oint (Triamcinolone Acetonide) 15 Gm Oint...g. 1 Franco TP BID PRN MIX WITH EUCERIN DIRECTED BY PHYSICIAN Furosemide 20 Mg Tablet 1 Tab PO DAILY Alendronate Sodium 70 Mg Tablet 1 Tab PO WEEKLY Osteo Bi-Flex Caplet (Glucosamine/D3/Boswellia Nia) 1 Each Tablet 1 Each PO DAILY Meclizine Hcl 25 Mg Tablet 1 Tab PO TID Ondansetron Hcl 4 Mg Tablet 1 Tab PO PRN Q6HRS Doxycycline Hyclate 100 Mg Tablet 1 Tab PO BID Gabapentin 600 Mg Tablet 600 Mg PO BID Levothyroxine Sodium 75 Mcg Tablet 1 Tab PO DAILY Probiotic (Lactobacillus Acidophilus) 1 Each Capsule 1 Each PO THURSDAY AND THURSDAY Venlafaxine Hcl Er (Venlafaxine Hcl) 37.5 Mg Cap.er.24h 37.5 Mg PO DAILY Tramadol Hcl 50 Mg Tablet 1 Tab PO BID Celebrex (Celecoxib) 200 Mg Capsule 1 Cap PO DAILY Aspir 81 (Aspirin) 81 Mg Tablet.dr 1 Tab PO HS Flomax (Tamsulosin Hcl) 0.4 Mg Cap.er.24h 1 Cap PO DAILY Co Q-10 (Ubidecarenone) 200 Mg Capsule 200 Mg PO HS Not taken while in hosp. May resume at home as directed. Daily Vitamin (Multivitamin) 1 Each Tablet 1 Each PO DAILY Citracal + D Er Tablet (Calcium Carb & Cit/Vitamin D3) 1 Each Tablet.er 1 Each PO DAILY Allergies Allergies: Coded Allergies: colchicine (Verified Adverse Reaction, Intermediate, Nausea, 02/01/19) ROS Review of System more SOA in the last 3 days and denies any chest pain. General: YES: Fatigue; No: Chills, Night Sweats, Malaise, Appetite, Other PSYCHOLOGICAL ROS: No: Anxiety, Behavioral Disorder, Concentration difficultie, Decreased libido, Depression, Disorientation, Hallucinations, Hostility, Irritablity, Memory difficulties, Mood Swings, Obsessive thoughts, Physical abuse, Sexual abuse, Sleep disturbances, Suicidal ideation, Other Eyes: No Blurry vision, No Decreased vision, No Double vision, No Dry eyes, No Excessive tearing, No Eye Pain, No Itchy Eyes, No Loss of vision, No Photophobia, No Scotomata, No Uses contacts, No Uses glasses, No Other HEENT: No: Heacaches, Visual Changes, Hearing change, Nasal congestion, Nasal d ischarge, Oral lesions, Sinus pain, Sore Throat, Epistaxis, Sneezing, Snoring, Tinnitus, Vertigo, Vocal changes, Other ALLERGY AND IMMUNOLOGY: No: Hives, Insect Bite Sensitivity, Itchy/Watery Eyes, Nasal Congestion, Post Nasal Drip, Seasonal Allergies, Other Hematological and Lymphatic: No: Bleeding Problems, Blood Clots, Blood Transfusions, Brusing, Night Sweats, Pallor, Swollen Lymph Nodes, Other ENDOCRINE: No: Breast Changes, Galactorrhea, Hair Pattern Changes, Hot Flashes, Malaise/lethargy, Mood Swings, Palpitations, Polydipsia/polyuria, Skin Changes, Temperature Intolerance, Unexpected Weight Changes, Other Breast: No New/Changing Breast Lumps, No Nipple changes, No Nipple discharge, No Other Respiratory: YES: Shortness of breath, SOB with excertion; No: Cough, Hemoptysis, Orthopnea, Pleuritic Pain, Sputum Changes, Stridor, Tachypnea, Wheezing, Other Cardiovascular: yes Chest Pain, yes Other (CHEST TIGHTNESS ) Gastrointestinal: No Nausea, No Vomiting, No Abdominal Pain, No Diarrhea, No Constipation, No Melena, No Hematochezia, No Other Genitourinary: No Dysuria, No Frequency, No Incontinence, No Hematuria, No Retention, No Discharge, No Urgency, No Pain, No Flank Pain, No Other, No , No , No , No , No , No , No Musculoskeletal: Yes Gait Disturbance, Yes Joint Stiffness; No Joint Pain, No Joint Swelling, No Muscle Pain, No Muscular Weakness, No Pain In:, No Swelling In:, No Other Neurological: Yes Gait Disturbance; No Behavorial Changes, No Bowel/Bladder ControlChng, No Confusion, No Dizziness, No Headaches, No Impaired Coord/balance, No Memory Loss, No Numbness/Tingling, No Seizures, No Speech Problems, No Tremors, No Visual Changes, No Weakness, No Other Skin: Yes Dry Skin; No Eczema, No Hair Changes, No Lumps, No Mole Changes, No Mottling, No Nail Changes, No Pruritus, No Rash, No Skin Lesion Changes, No Other, No Acne Vitals Vitals Vital Signs Date Time Temp Pulse Resp B/P (MAP) Pulse Ox O2 Delivery O2 Flow Rate FiO2 07/17/21 08:10 Room Air 07/17/21 07:00 97.7 81 20 143/81 (101) 99 97.7 Physical Exam General: Alert, Oriented X3, Cooperative, No acute distress Heart: Regular rate (AV paced), Other (distant heart sounds) Lungs: Clear Abdomen: Normal bowel sounds, Soft Extremities: No cyanosis, Other (2+ LLE pitting edema trace to RLE) Skin: No breakdown, No significant lesion FINAL DIAGNOSIS Problems Medical Problems: (1) CKD (chronic kidney disease) Status: Acute (2) Dyspnea Status: Acute (3) Non-STEMI (non-ST elevated myocardial infarction) Status: Acute Brief Hospital Course Mr. Murdock is a 85 old [sex] who presented with [NSTEMI ] CONDITION AT DISCHARGE: Improved Discharge Medications Current Medications Aspirin (Ecotrin) 81 mg HS PO Last administered on 07/16/21at 20:50; Start 07/16/21 at 21:00 Atorvastatin Calcium (Lipitor) 40 mg QHS PO Last administered on 07/16/21at 20:50; Start 07/16/21 at 21:00 Clopidogrel Bisulfate (Plavix) 75 mg DAILYWBKFT PO Last administered on 07/17/21at 09:34; Start 07/17/21 at 08:00 Metoprolol Succinate (Toprol Xl) 25 mg DAILY PO Last administered on 07/17/21at 09:32; Start 07/17/21 at 09:00 Metoprolol Tartrate (Lopressor Vial) 5 mg PRN Q6HRS PRN IVP TACHYCARDIA; Start 07/16/21 at 15:00 Isosorbide Dinitrate (Isordil) 10 mg TID PO Last administered on 07/17/21at 14:25; Start 07/16/21 at 21:00 Furosemide (Lasix) 40 mg DAILY PO Last administered on 07/17/21at 09:33; Start 07/17/21 at 09:00 Sodium Chloride (Normal Saline Flush) 3 ml QSHIFT PRN IV AFTER MEDS AND BLOOD DRAWS; Start 07/16/21 at 15:30 Ondansetron HCl (Zofran) 4 mg PRN Q4HRS PRN IV NAUSEA/VOMITING; Start 07/16/21 at 15:30 Acetaminophen (Tylenol) 650 mg PRN Q4HRS PRN PO TEMP OVER 100.4F OR MILD PAIN Last administered on 07/17/21at 09:32; Start 07/16/21 at 15:30 Docusate Sodium (Colace) 100 mg PRN BID PRN PO HARD STOOLS; Start 07/16/21 at 15:30 Albuterol Sulfate (Ventolin Neb Soln) 2.5 mg PRN Q4HRS PRN NEB SHORTNESS OF BREATH; Start 07/16/21 at 15:30 Guaifenesin (Robitussin) 200 mg PRN Q4HRS PRN PO COUGH; Start 07/16/21 at 15:30 Lorazepam (Ativan) 0.5 mg PRN Q4HRS PRN PO ANXIETY / AGITATION; Start 07/16/21 at 15:30 Enoxaparin Sodium (Lovenox 40mg Syringe) 40 mg Q24H SQ Last administered on 07/17/21at 18:11; Start 07/16/21 at 16:00 Amiodarone HCl (Cordarone) 200 mg DAILY PO ; Start 07/17/21 at 09:00; Stop 07/16/21 at 15:37; Status DC Furosemide (Lasix) 20 mg DAILY PO ; Start 07/17/21 at 09:00; Status Cancel Levothyroxine Sodium (Synthroid) 75 mcg DAILY07 PO Last administered on 07/17/21at 07:04; Start 07/17/21 at 07:00 Tamsulosin HCl (Flomax) 0.4 mg DAILY PO ; Start 07/17/21 at 09:00; Stop 07/17/21 at 09:42; Status DC Non-Formulary Medication (Alendronate Sodium ) 1 tab WEEKLY PO ; Start 07/23/21 at 09:00; Status UNV Calcium/Vitamin D (Oscal D 500mg/ 200uts) 1 tab DAILY PO Last administered on 07/17/21at 09:31; Start 07/17/21 at 09:00 Non-Formulary Medication (Glucosamine/D3/ Boswellia Nia (Osteo Bi-Flex Caplet)) 1 each DAILY PO ; Start 07/17/21 at 09:00; Status UNV Meclizine HCl (Antivert) 25 mg PRN TID PRN PO DIZZINESS; Start 07/16/21 at 15:45 Multivitamins (Thera M Plus) 1 tab DAILY PO Last administered on 07/17/21at 09:33; Start 07/17/21 at 09:00 Non-Formulary Medication (Ubidecarenone (Co Q-10)) 200 mg HS PO ; Start 07/16/21 at 21:00; Status UNV Non-Formulary Medication (MILRINONE PUMP [id number] in 166ml D5W) 1 ea CONT PRN IV SEE ADMIN INSTRUCTIONS; Start 07/16/21 at 16:30 Tamsulosin HCl (Flomax) 0.4 mg QHS PO ; Start 07/17/21 at 21:00 Amiodarone HCl (Cordarone) 400 mg DAILY PO Last administered on 07/17/21at 14:25; Start 07/17/21 at 14:00 Amiodarone HCl 150 mg/Dextrose 103 ml @ 618 mls/hr 1X ONCE IV Last administered on 07/17/21at 14:06; Start 07/17/21 at 13:30; Stop 07/17/21 at 13:39; Status DC Hydralazine HCl (Apresoline Inj) 10 mg PRN Q4HRS PRN IVP ELEVATED BP, SEE COMMENTS; Start 07/17/21 at 14:30 Active Scripts Active Metoprolol Succinate ( Xl ) (Metoprolol Succinate) 25 Mg Tab.er.24h 25 Mg PO DAILY 30 Days Atorvastatin Calcium 40 Mg Tablet 1 Tab PO QHS 30 Days Clopidogrel (Clopidogrel Bisulfate) 75 Mg Tablet 75 Mg PO DAILYWBKFT 30 Days Amiodarone Hcl 200 Mg Tablet 1 Tab PO DAILY MDD 1 30 Days Reported Hydroxyzine Hcl 25 Mg Tablet 1 Tab PO BID PRN Triamcinolone Acetonide 0.1% Oint (Triamcinolone Acetonide) 15 Gm Oint...g. 1 Franco TP BID PRN MIX WITH EUCERIN DIRECTED BY PHYSICIAN Furosemide 20 Mg Tablet 1 Tab PO DAILY Alendronate Sodium 70 Mg Tablet 1 Tab PO WEEKLY Meclizine Hcl 25 Mg Tablet 1 Tab PO TID Gabapentin 600 Mg Tablet 600 Mg PO BID Levothyroxine Sodium 75 Mcg Tablet 1 Tab PO DAILY Venlafaxine Hcl Er (Venlafaxine Hcl) 37.5 Mg Cap.er.24h 37.5 Mg PO DAILY Celebrex (Celecoxib) 200 Mg Capsule 1 Cap PO DAILY Aspir 81 (Aspirin) 81 Mg Tablet.dr 1 Tab PO HS Flomax (Tamsulosin Hcl) 0.4 Mg Cap.er.24h 1 Cap PO DAILY Citracal + D Er Tablet (Calcium Carb & Cit/Vitamin D3) 1 Each Tablet.er 1 Each PO DAILY Vital Signs Vital Signs Date Time Temp Pulse Resp B/P (MAP) Pulse Ox O2 Delivery O2 Flow Rate FiO2 07/17/21 17:30 116/66 (83) 07/17/21 15:00 98.2 71 20 96 Room Air 98.2 Labs Laboratory Tests Test 07/16/21 11:44 07/16/21 14:15 07/16/21 14:40 07/16/21 14:46 White Blood Count 6.2 x10^3/uL (4.0-11.0) Red Blood Count 3.91 x10^6/uL (4.30-5.70) Hemoglobin 12.8 g/dL (13.0-17.5) Hematocrit 38.5 % (39.0-53.0) Mean Corpuscular Volume 98 fL (79-100) Mean Corpuscular Hemoglobin 33 pg (25-35) Mean Corpuscular Hemoglobin Concent 33 g/dL (31-37) Red Cell Distribution Width 13.5 % (11.5-14.5) Platelet Count 161 x10^3/uL (140-400) Neutrophils (%) (Auto) 60 % (31-73) Lymphocytes (%) (Auto) 26 % (24-48) Monocytes (%) (Auto) 9 % (0-9) Eosinophils (%) (Auto) 5 % (0-3) Basophils (%) (Auto) 1 % (0-3) Neutrophils # (Auto) 3.7 x10^3/uL (1.8-7.7) Lymphocytes # (Auto) 1.6 x10^3/uL (1.0-4.8) Monocytes # (Auto) 0.5 x10^3/uL (0.0-1.1) Eosinophils # (Auto) 0.3 x10^3/uL (0.0-0.7) Basophils # (Auto) 0.0 x10^3/uL (0.0-0.2) Sodium Level 143 mmol/L (136-145) Potassium Level 4.5 mmol/L (3.5-5.1) Chloride Level 109 mmol/L (98-107) Carbon Dioxide Level 25 mmol/L (21-32) Anion Gap 9 (6-14) Blood Urea Nitrogen 29 mg/dL (8-26) Creatinine 1.6 mg/dL (0.7-1.3) Estimated GFR (Cockcroft-Gault) 41.4 Glucose Level 130 mg/dL (70-99) Calcium Level 8.4 mg/dL (8.5-10.1) Magnesium Level 2.0 mg/dL (1.8-2.4) Total Bilirubin 0.4 mg/dL (0.2-1.0) Direct Bilirubin 0.1 mg/dL (0.0-0.2) Aspartate Amino Transf (AST/SGOT) 31 U/L (15-37) Alanine Aminotransferase (ALT/SGPT) 25 U/L (16-63) Alkaline Phosphatase 73 U/L (46-116) Troponin I Quantitative 0.090 ng/mL (0.000-0.055) 0.161 ng/mL (0.000-0.055) MK-Mdz-H-Type Natriuretic Peptide 2318 pg/mL (0-449) Total Protein 5.9 g/dL (6.4-8.2) Albumin 3.1 g/dL (3.4-5.0) Lipase 56 U/L (73-393) Thyroid Stimulating Hormone (TSH) 8.422 uIU/mL (0.358-3.74) Urine Collection Type Unknown Urine Color Yellow Urine Clarity Clear Urine pH 5.5 (<5.0-8.0) Urine Specific [place] 1.010 (1.000-1.030) Urine Protein Negative mg/dL (NEG-TRACE) Urine Glucose (UA) 500 mg/dL (NEG) Urine Ketones (Stick) Negative mg/dL (NEG) Urine Blood Negative (NEG) Urine Nitrite Negative (NEG) Urine Bilirubin Negative (NEG) Urine Urobilinogen Dipstick 0.2 mg/dL (0.2 mg/dL) Urine Leukocyte Esterase Negative (NEG) Urine RBC 0 /HPF (0-2) Urine WBC 0 /HPF (0-4) Urine Bacteria 0 /HPF (0-FEW) Urine Hyaline Casts Few /HPF Urine Opiates Screen Neg (NEG) Urine Methadone Screen Neg (NEG) Urine Barbiturates Neg (NEG) Urine Phencyclidine Screen Neg (NEG) Urine Amphetamine/Methamphetamine Neg (NEG) Urine Benzodiazepines Screen Neg (NEG) Urine Cocaine Screen Neg (NEG) Urine Cannabinoids Screen Neg (NEG) Urine Ethyl Alcohol Neg (NEG) D-Dimer (Vijaya) 0.56 ug/mlFEU (0.00-0.50) Test 07/16/21 17:50 07/17/21 13:15 Troponin I Quantitative 0.233 ng/mL (0.000-0.055) Sodium Level 140 mmol/L (136-145) Potassium Level 4.5 mmol/L (3.5-5.1) Chloride Level 105 mmol/L (98-107) Carbon Dioxide Level 32 mmol/L (21-32) Anion Gap 3 (6-14) Blood Urea Nitrogen 24 mg/dL (8-26) Creatinine 1.5 mg/dL (0.7-1.3) Estimated GFR (Cockcroft-Gault) 44.6 Glucose Level 104 mg/dL (70-99) Calcium Level 8.6 mg/dL (8.5-10.1) Magnesium Level 2.1 mg/dL (1.8-2.4) Laboratory Tests Test 07/17/21 13:15 Sodium Level 140 mmol/L (136-145) Potassium Level 4.5 mmol/L (3.5-5.1) Chloride Level 105 mmol/L (98-107) Carbon Dioxide Level 32 mmol/L (21-32) Anion Gap 3 (6-14) Blood Urea Nitrogen 24 mg/dL (8-26) Creatinine 1.5 mg/dL (0.7-1.3) Estimated GFR (Cockcroft-Gault) 44.6 Glucose Level 104 mg/dL (70-99) Calcium Level 8.6 mg/dL (8.5-10.1) Magnesium Level 2.1 mg/dL (1.8-2.4) Allergies Allergies Coded Allergies Type Severity Reaction Last Updated Verified colchicine Adverse Reaction Intermediate Nausea 02/01/19 Yes Disposition/Orders: D/C to Home Justicifation of Admission Dx: Justifications for Admission: Justification of Admission Dx: N/A KAYLEN RO MD Jul 17, 2021 21:12
[2021-07-23] MEDS ORDERED: NON FORMULARY ITEM (Alendronate Sodium 1 TAB) PO SCH (09:00)
== END 2021-07-17 21:22 | disposition home or self-care (01) | DRG 281 ==
LOC: ER 11:21 → 6 SOUTH 13:29
PROVIDERS: ADMIT Family Medicine; ATTEND Family Medicine
PROC: 4B02XTZ Measurement of Cardiac Defibrillator, External Approach (ICD-10-PCS; principal; 2021-07-17)
DX: I48.92 Unspecified atrial flutter (principal); I21.A1 Myocardial infarction type 2; I13.0 Hypertensive heart and chronic kidney disease with heart failure and stage 1 through stage 4 chronic kidney disease, or unspecified chronic kidney disease; I50.42 Chronic combined systolic (congestive) and diastolic (congestive) heart failure; E78.00 Pure hypercholesterolemia, unspecified; K44.9 Diaphragmatic hernia without obstruction or gangrene; Z96.659 Presence of unspecified artificial knee joint; I49.5 Sick sinus syndrome; K80.20 Calculus of gallbladder without cholecystitis without obstruction; K59.00 Constipation, unspecified; K21.9 Gastro-esophageal reflux disease without esophagitis; G56.00 Carpal tunnel syndrome, unspecified upper limb; N18.30 Chronic kidney disease, stage 3 unspecified; I49.3 Ventricular premature depolarization; I25.10 Atherosclerotic heart disease of native coronary artery without angina pectoris; F41.9 Anxiety disorder, unspecified; I47.2 Ventricular tachycardia; I08.0 Rheumatic disorders of both mitral and aortic valves; E78.5 Hyperlipidemia, unspecified; E03.9 Hypothyroidism, unspecified; I25.5 Ischemic cardiomyopathy; I48.91 Unspecified atrial fibrillation; M19.90 Unspecified osteoarthritis, unspecified site; Z95.1 Presence of aortocoronary bypass graft; Z88.8 Allergy status to other drugs, medicaments and biological substances; Z95.810 Presence of automatic (implantable) cardiac defibrillator; Z87.442 Personal history of urinary calculi; Z86.73 Personal history of transient ischemic attack (TIA), and cerebral infarction without residual deficits; Z83.3 Family history of diabetes mellitus; Z80.9 Family history of malignant neoplasm, unspecified; Z82.61 Family history of arthritis; Z82.3 Family history of stroke; Z82.49 Family history of ischemic heart disease and other diseases of the circulatory system; Z79.899 Other long term (current) drug therapy; Z79.82 Long term (current) use of aspirin
CPT/HCPCS: 36415; 71045; 80048; 80076; 80307; 81001; 83690; 83735; 83880; 84443; 84484; 85025; 85379; 93005; J0282; J1650; J7060; 99285-25; G0378

== ENCOUNTER → 2021-08-21 | Outpatient (CLI) | payer MEDICARE ==
[~2021-08-21] MED LIST changes: +AMIO400T5 PO; +BIFI4CAP PO; +BUPIVACAINE MPF 0.25% 10 ML VIAL. ONE; +DAPA10TA PO; +FLUT9.9S NS; +IOHEXOL 180 MG/ML 10 ML VIAL. ONE; +ISOS30TA19 PO; +MILR20PI IV; +MULT-246 PO; +ONDA4TAB12 PO; +UBID10CA5 PO; +methylPREDNISolone ACETATE 80 MG/ML VIAL. ONE
--- NOTE | 2021-08-21 11:56 | PDOC ---
Progress Note - Pain Clinic Date of Service: DOS: DATE: 08/21/21 TIME: 11:50 Diagnosis: Dx: Lumbar radiculopathy with lumbar degenerative disease lumbar spinal stenosis with post lumbar laminectomy syndrome Cervical radiculopathy with cervical degenerative disc disease Left knee joint pain with osteoarthritis History or Present Illness: HPI: 85-year-old male returns for follow-up status post lumbar epidural steroid injection March 27, 2021 patient reports did very well with this about 80% improvement for the first 3 months his main complaint however is left knee pain she has significant osteoarthritis in the left knee and had been previously treated with injections and Synvisc injections with his orthopedic surgeon who has relocated. Patient reports worse with standing walking put all of his weight on his left leg such as climbing on a stair or step, better with resting sitting and generally does not awaken him from sleep at night. Patient reports his pain in the knee is an 8 on scale 10 is worse over the past week [address] for its least and is a 6 today. Patient reports a stabbing aching can be dull can be sharp on and off again with weightbearing. Patient is low back has significant pain still low back right lower extremity with the radiating pain in the posterior gluteus lateral thigh anterior thigh medial thigh into the posterior calf as well. Patient reports no bowel or bladder incontinence. Physical Exam: VS: Blood pressure is 169/67 pulse 63 respirations 18 temp is 98.3 F height is 5 feet 10 inches weight is 152 pound PE: PHYSICAL EXAMINATION: GENERAL: The patient is awake, alert, oriented, appropriate, very pleasant in demeanor HEENT: Shows normocephalic, atraumatic. Extraocular movements are intact and symmetrical. Oral cavity: Mucous membranes moist and pink. NECK: Shows anterior throat supple without palpable lymphadenopathy noted. Swallow reflex is symmetrical. CHEST: Shows normal on inspection. Breath sounds are clear bilaterally. HEART: Shows S1, S2 clear. No murmurs auscultated. ABDOMEN: Soft, nontender, nondistended. No palpable organomegaly is noted. BACK: Shows spine grossly in the midline. Normal-appearing cervical lordotic curvature. There is slightly increased thoracic kyphosis, some minor flattening of the lumbar lordotic curvature. Lumbar paraspinous muscles show symmetrical on inspection, on palpation shows some moderate tenderness diffusely throughout the upper, middle and lower distribution of the paraspinous muscles without spe cific trigger points, without radiation of pain. The patient has good rotational motion of the lumbar spine, both laterally as well as extension and flexion without significant difficulty. EXTREMITIES: Lower extremities show deep tendon reflexes 2 in the patellar and tendo calcaneus tendons. Motor exam is 5 on a scale of 5 with right dorsiflexion, extension, quadriceps and hamstring flexion and 5/5 on the left. Peripheral pulses are 1+ posterior tibial. No peripheral edema is noted bilaterally. Lower extremities are warm and dry to touch, equal in color and appearance. Patient's left knee shows some moderate tenderness with medial palpation of the medial collateral ligament as well as over the inferior patella but with good range of motion without specific ratcheting or crepitus. Right knee shows full rotation as well. SKIN: Shows warm and dry, good turgor. No edema. No sores, rashes or bruising throughout. Procedure: Procedure: Options discussed with patient. Patient's old chart was reviewed as his current medication regimen updated current review of systems updated today as well. We will proceed with a left intra-articular knee joint injection today with fluoroscopic guidance. Risks are discussed including but not limited to bleeding infection possibility of intravascular injection and sequelae spread local anesthetic numbness side effects steroid medications post arthroscopy portals regarding pain control. Patient understands wished to proceed. Patient return to clinic in approximately 3 weeks for follow-up, was counseled as return appointment, activity level, and side effects to be aware of. Medication Injected: Med Injected: Under sterile prep and drape patient in supine position using C-arm fluoroscopic guidance patient's left knee was sterilely prepped and draped in usual fashion. Using C-arm fluoroscopy the medial aspect of the knee joint was identified and visualized and using 1% lidocaine 25-gauge needle of the area of the skin overlying the medial knee compartment was anesthetized. Using a 25-gauge quickie needle with stylette the joint was entered under direct visualization without difficulty. Stylet was removed at this time 2 cc of contrast was then injected with good spread within the knee joint itself without washout or uptake. At this time solution containing 3 cc of 0.25 bupivacaine and 80 mg Depo-Medrol, was then injected. Needle was withdrawn and sterile bandage applied. Patient tolerated procedure well and had no complications. Condition at Discharge: Condition at Discharge: Initial discharge is stable, patient tolerated procedure well and had no complications. KIMBERLEE MEDINA MD Aug 21, 2021 11:56
--- NOTE | 2021-08-21 11:57 | PDOC4 ---
Procedure Note: ICD 10 Code: ICD 10 Code: M2 5.562 M1 7.12 Procedure Note: Patient was consented for left intra-articular knee joint injection with fluoroscopic guidance. Risks were discussed including but not limited to bleeding infection possibility of intravascular injection sequelae spread local anesthetic numbness side effects steroid medication exposure fluoroscopy and portals were in pain control. Patient understands wished to proceed. Under sterile prep and drape patient in supine position using C-arm fluoroscopic guidance patient's left knee was sterilely prepped and draped in usual fashion. Using C-arm fluoroscopy the medial aspect of the knee joint was identified and visualized and using 1% lidocaine 25-gauge needle of the area of the skin overlying the medial knee compartment was anesthetized. Using a 25-gauge quickie needle with stylette the joint was entered under direct visualization without difficulty. Stylet was removed at this time 2 cc of contrast was then injected with good spread within the knee joint itself without washout or uptake. At this time solution containing 3 cc of 0.25 bupivacaine and 80 mg Depo-Medrol, was then injected. Needle was withdrawn and sterile bandage applied. Patient tolerated procedure well and had no complications. KIMBERLEE MEDINA MD Aug 21, 2021 11:57
== END | disposition home or self-care (01) ==
LOC: PNCL 11:15
PROVIDERS: ATTEND Anesthesiology
DX: M17.12 Unilateral primary osteoarthritis, left knee (principal); M51.16 Intervertebral disc disorders with radiculopathy, lumbar region; M48.061 Spinal stenosis, lumbar region without neurogenic claudication; M96.1 Postlaminectomy syndrome, not elsewhere classified; M50.10 Cervical disc disorder with radiculopathy, unspecified cervical region; I11.0 Hypertensive heart disease with heart failure; I50.9 Heart failure, unspecified; I25.10 Atherosclerotic heart disease of native coronary artery without angina pectoris; E78.00 Pure hypercholesterolemia, unspecified; J44.9 Chronic obstructive pulmonary disease, unspecified; K21.9 Gastro-esophageal reflux disease without esophagitis; E03.9 Hypothyroidism, unspecified; F41.9 Anxiety disorder, unspecified; F32.9 Major depressive disorder, single episode, unspecified; N40.0 Benign prostatic hyperplasia without lower urinary tract symptoms; Z86.73 Personal history of transient ischemic attack (TIA), and cerebral infarction without residual deficits; Z85.828 Personal history of other malignant neoplasm of skin; Z79.899 Other long term (current) drug therapy; Z79.82 Long term (current) use of aspirin; Z98.890 Other specified postprocedural states; Z88.8 Allergy status to other drugs, medicaments and biological substances
CPT/HCPCS: 20610; 77002; J1040; J3490; Q9965

== ENCOUNTER → 2021-09-11 | Outpatient (CLI) | payer MEDICARE ==
[~2021-09-11] MED LIST changes: +AMIO200T53 PO; -AMIO200T6 PO; -BUPIVACAINE MPF 0.25% 10 ML VIAL. ONE; +methylPREDNISolone ACETATE 40 MG/ML VIAL. ONE; -methylPREDNISolone ACETATE 80 MG/ML VIAL. ONE
--- NOTE | 2021-09-11 12:12 | PDOC ---
Progress Note - Pain Clinic Date of Service: DOS: DATE: 09/11/21 TIME: 12:09 Diagnosis: Dx: Lumbar radiculopathy with lumbar degenerative disease lumbar spinal stenosis lumbar postlaminectomy syndrome Cervical radiculopathy with cervical degenerative disease Left knee joint pain with osteoarthritis History or Present Illness: HPI: 85-year-old male returns in follow-up status post left knee joint injection last seen August [id number] patient reports he did well but only for a few days and the pain returned once he started walking more consistently and weightbearing with his left leg. Patient reports his chief complaint today is low back and right lower extremity pain with pain rating the posterior gluteus posterior lateral thigh lateral anterior thigh anteromedial thigh medial lower leg and into the calf on the right side as well worse with walking standing changing positions better with sitting or laying down patient reports it is an 8 on scale 10 is worse over the past week 7 on average and a 1 at its least is a 7 today. Patient reports is better with sitting or lying down generally does not awaken her from sleep at night sleeps from 6 to 10 hours most nights patient reports initially was doing much better with distance walking doing household activities travel with greater ease and comfort now the pain is significant not only in the left knee but also in the low back and the right leg. Patient reports no loss of motor function no new bowel or bladder incontinence. Physical Exam: VS: Blood pressure is 136/75 pulse 60 respirations 18 temperature 98.3 F weight is 153 pounds PE: PHYSICAL EXAMINATION: GENERAL: The patient is awake, alert, oriented, appropriate, very pleasant in demeanor HEENT: Shows normocephalic, atraumatic. Extraocular movements are intact and symmetrical. Oral cavity: Mucous membranes moist and pink. NECK: Shows anterior throat supple without palpable lymphadenopathy noted. Swallow reflex is symmetrical. CHEST: Shows normal on inspection. Breath sounds are clear bilaterally, distant but no rales or rhonchi. Patient has intravenous delivery device in the right central aspect of the upper chest. HEART: Shows S1, S2 clear. No murmurs auscultated. ABDOMEN: Soft, nontender, nondistended. No palpable organomegaly is noted. BACK: Shows spine grossly in the midline. Normal-appearing cervical lordotic curvature. There is slightly increased thoracic kyphosis, some minor flattening of the lumbar lordotic curvature, with well-healed midline surgical scar. Lumbar paraspinous muscles show symmetrical on inspection, on palpation shows some moderate tenderness diffusely throughout the upper, middle and lower distribution of the paraspinous muscles bilaterally, but without specific trigger points, without radiation of pain. The patient has good rotational motion of the lumbar spine, both laterally as well as extension and flexion with out significant difficulty. EXTREMITIES: Lower extremities show deep tendon reflexes 2+ in the patellar and tendo calcaneus tendons. Motor exam is 5 on a scale of 5 with right dorsiflexion, extension, quadriceps and hamstring flexion and 5/5 on the left. Peripheral pulses are 1+ posterior tibial. No peripheral edema is noted bilaterally. Lower extremities are warm and dry. SKIN: Shows warm and dry, good turgor. No edema. No sores, rashes or bruising throughout. Procedure: Procedure: Options were discussed with the patient. Patient's old chart was reviewed his current medication regimen updated current review of systems updated today as well. We will proceed with a lumbar epidural steroid injection today with fluoroscopic guidance. Risks were discussed including but not limited to: Bleeding, infection, possibility of epidural hematoma and subsequent neurological compromise, dural puncture, headaches, spinal cord and/or nerve damage, side effects of steroid medication, and poor results regarding pain control. Patient understands and wished to proceed. Patient will return to the clinic in approximately 2 weeks for follow-up, was counseled as return appointment, typical, and side effects beware of. Medication Injected: Med Injected: Procedure is lumbar epidural steroid injection under local anesthetic using sterile prep and drape at the L5-S1 level using C-arm fluoroscopic guidance in both AP and lateral views medications injected is 120 mg Depo-Medrol +10mL preservative-free normal saline and 2 mL contrast- condition at discharge is stable patient tolerated procedure well had no complications. Condition at Discharge: Condition at Discharge: Condition at discharge stable, patient Carolyn the procedure well and had no complications. KIMBERLEE MEDINA MD Sep 11, 2021 12:12
--- NOTE | 2021-09-11 12:14 | PDOC4 ---
Procedure Note: ICD 10 Code: ICD 10 Code: M54.16 M4 8.06 M51.36 M96.1 Procedure Note: Patient was consented for lumbar epidural steroid injection with fluoroscopic guidance. Risks were discussed including but not limited to: Bleeding, infection, possibility of epidural hematoma and subsequent neurological compromise, dural puncture, headaches, spinal cord and/or nerve damage, side effects of steroid medication, and poor results regarding pain control. Patient understands and wished to proceed. Procedure is lumbar epidural steroid injection under local anesthetic using sterile prep and drape at the L5-S1 level using C-arm fluoroscopic guidance in both AP and lateral views medications injected is 120 mg Depo-Medrol +10mL preservative-free normal saline and 2 mL contrast- condition at discharge is stable patient tolerated procedure well had no complications. KIMBERLEE MEDINA MD Sep 11, 2021 12:14
== END | disposition home or self-care (01) ==
LOC: PNCL 11:23
PROVIDERS: ATTEND Anesthesiology
DX: M51.16 Intervertebral disc disorders with radiculopathy, lumbar region (principal); M48.061 Spinal stenosis, lumbar region without neurogenic claudication; M96.1 Postlaminectomy syndrome, not elsewhere classified; G89.29 Other chronic pain; M50.10 Cervical disc disorder with radiculopathy, unspecified cervical region; I11.0 Hypertensive heart disease with heart failure; I50.9 Heart failure, unspecified; I25.10 Atherosclerotic heart disease of native coronary artery without angina pectoris; I25.2 Old myocardial infarction; E78.00 Pure hypercholesterolemia, unspecified; J44.9 Chronic obstructive pulmonary disease, unspecified; E03.9 Hypothyroidism, unspecified; F32.9 Major depressive disorder, single episode, unspecified; K21.9 Gastro-esophageal reflux disease without esophagitis; F41.9 Anxiety disorder, unspecified; Z98.890 Other specified postprocedural states; Z79.899 Other long term (current) drug therapy; Z86.73 Personal history of transient ischemic attack (TIA), and cerebral infarction without residual deficits; Z96.651 Presence of right artificial knee joint
CPT/HCPCS: 62323; J1030; Q9965

== ENCOUNTER → 2021-09-20 | Outpatient (CLI) | payer MEDICARE ==
[~2021-09-20] MED LIST changes: -IOHEXOL 180 MG/ML 10 ML VIAL. ONE; -methylPREDNISolone ACETATE 40 MG/ML VIAL. ONE
--- NOTE | 2021-09-20 14:27 | RAD ---
Bilateral lower extremity arterial duplex ultrasound 09/20/2021 INDICATION: Pressure ulcer. Peripheral vascular disease. Pain in the bilateral toes. Discussion: Ultrasound evaluation of the major arteries of the bilateral lower extremities including color Doppler imaging spectral analysis was performed. Finally biphasic waveforms are seen throughout the right lower extremity triphasic on the left. No fo gaby elevation of velocities consistent with a hemodynamically significant stenosis is identified. No major arterial occlusion or aneurysm is seen. No other focal sonographic abnormality is identified. I nterrogated vessels including the common femoral artery, deep femoral artery, superficial femoral art sapna, popliteal artery, posterior tibial artery, peroneal artery, anterior tibial artery, dorsalis ped is artery bilaterally. IMPRESSION: No sonographic evidence of hemodynamically significant stenosis involving the major arter ies of either lower extremity Electronically signed by: Tushar Beltran MD (09/20/2021 2:25 PM) [id number]
== END ==
LOC: MRI 13:25
PROVIDERS: ATTEND Podiatrist
DX: L97.522 Non-pressure chronic ulcer of other part of left foot with fat layer exposed (principal); I73.9 Peripheral vascular disease, unspecified; M79.662 Pain in left lower leg
CPT/HCPCS: 93922; 93925

== ENCOUNTER → 2021-10-09 | Outpatient (CLI) | payer MEDICARE ==
[~2021-10-09] MED LIST changes: +IOHEXOL 180 MG/ML 10 ML VIAL. ONE; +methylPREDNISolone ACETATE 40 MG/ML VIAL. ONE; +methylPREDNISolone ACETATE 80 MG/ML VIAL. ONE
--- NOTE | 2021-10-09 12:05 | PDOC ---
Progress Note - Pain Clinic Date of Service: DOS: DATE: 10/09/21 TIME: 12:02 Diagnosis: Dx: Lumbar radiculopathy with lumbar degenerative disease lumbar spinal stenosis lumbar postlaminectomy syndrome Cervical radiculopathy with cervical degenerative disc disease Left knee joint pain with osteoarthritis History or Present Illness: HPI: 85-year-old male returns for follow-up status post lumbar epidural steroid injection x1 last seen September 11, 2021. Patient remains off Plavix and reports that he was doing much better greater than 50% improvement in the low back and right lower extremity pain patient reports pain is still in the posterior gluteus lateral thigh anterior thigh medial thigh medial lower leg also some pain in the left knee patient reports is increasing his distance walking doing household activities greater ease and comfort and driving with better comfort also sleeping better at night patient reports it still does not awaken her from sleep at night but he still does not sleep well patient reports pain is 8 on scale 10 is worse over the past week 6 on average for its least is a 4 today patient reports that sharp and shooting in the back tingling and stabbing in the back as well as radiating the leg on and off in intensity worse with walking standing changing positions again better with sitting or laying down. Patient reports no bowel or bladder incontinence. Physical Exam: VS: Blood pressure is 126/34 pulse 61 respirations 18 temperature 97.3 F height is 5 foot 10 inches weight is 149 pounds. PE: PHYSICAL EXAMINATION: GENERAL: The patient is awake, alert, oriented, appropriate, very pleasant in demeanor HEENT: Shows normocephalic, atraumatic. Extraocular movements are intact and symmetrical. Oral cavity: Mucous membranes moist and pink. NECK: Shows anterior throat supple without palpable lymphadenopathy noted. Swallow reflex symmetrical. CHEST: Shows normal on inspection. Breath sounds are clear bilaterally, distant but no rales or rhonchi. HEART: Shows S1, S2 clear. No murmurs auscultated. ABDOMEN: Soft, nontender, nondistended. No palpable organomegaly is noted. BACK: Shows spine grossly in the midline. Normal-appearing cervical lordotic curvature. There is significantly increased thoracic kyphosis, some flattening of the lumbar lordotic curvature with well-healed midline surgical scarring. Lumbar paraspinous muscles show symmetrical on inspection, on palpation shows some moderate tenderness diffusely throughout the upper, middle and lower distribution of the paraspinous muscles, but without specific trigger points, without radiation of pain. The patient has good rotational motion of the lumbar spine, both laterally as well as extension and flexion without significant difficulty. No tenderness over the spinous processes, sacrum or sacroiliac regions. EXTREMITIES: Lower extremities show deep tendon reflexes 2+ in the patellar and tendo calcaneus tendons. Motor exam is 5 on a scale of 5 with right dorsiflexion, extension, quadriceps and hamstring flexion and 5/5 on the left. Peripheral pulses are 1+ posterior tibial. No peripheral edema is noted bilaterally. Lower extremities are warm and dry. SKIN: Shows warm and dry, good turgor. No edema. No sores, rashes or bruising throughout. Procedure: Procedure: Options were discussed with the patient. Patient chart was reviewed his current medication regimen updated current review of systems updated today as well. We will proceed with a lumbar epidural steroid action today with fluoroscopic guidance. Risks were discussed including but not limited to: Bleeding, infection, possibility of epidural hematoma and subsequent neurological compromise, dural puncture, headaches, spinal cord and/or nerve damage, side effects of steroid medication, and poor results regarding pain control. Patient understands and wished to proceed. Patient will return to clinic in approximate 2 weeks for follow-up, was counseled as return appointment, activity level, and side effect to be aware. Medication Injected: Med Injected: Procedure is lumbar epidural steroid injection under local anesthetic using sterile prep and drape at the L5-S1 level using C-arm fluoroscopic guidance in both AP and lateral views medications injected is 120 mg Depo-Medrol +10mL preservative-free normal saline and 2 mL contrast- condition at discharge is stable patient tolerated procedure well had no complications. Condition at Discharge: Condition at Discharge: Condition at discharge stable, patient tolerated procedure well and had no complications. KIMBERLEE MEDINA MD Oct 09, 2021 12:05
--- NOTE | 2021-10-09 12:06 | PDOC4 ---
Procedure Note: ICD 10 Code: ICD 10 Code: M54.16 M51.36 M4 8.06 M 96.1 Procedure Note: Patient was consented for lumbar epidural steroid injection with fluoroscopic guidance risks were discussed including but not limited to: Bleeding, infection, possibility of epidural hematoma and subsequent neurological compromise, dural puncture, headaches, spinal cord and/or nerve damage, side effects of steroid medication, and poor results regarding pain control. Patient understands and wished to proceed. Procedure is lumbar epidural steroid injection under local anesthetic using sterile prep and drape at the L5-S1 level using C-arm fluoroscopic guidance in both AP and lateral views medications injected is 120 mg Depo-Medrol +10mL preservative-free normal saline and 2 mL contrast- condition at discharge is stable patient tolerated procedure well had no complications. KIMBERLEE MEDINA MD Oct 09, 2021 12:06
== END | disposition home or self-care (01) ==
LOC: PNCL 11:08
PROVIDERS: ATTEND Anesthesiology
DX: M51.16 Intervertebral disc disorders with radiculopathy, lumbar region (principal); M48.061 Spinal stenosis, lumbar region without neurogenic claudication; M96.1 Postlaminectomy syndrome, not elsewhere classified; M50.10 Cervical disc disorder with radiculopathy, unspecified cervical region; M17.12 Unilateral primary osteoarthritis, left knee; I11.0 Hypertensive heart disease with heart failure; I50.9 Heart failure, unspecified; I48.91 Unspecified atrial fibrillation; E78.00 Pure hypercholesterolemia, unspecified; E03.9 Hypothyroidism, unspecified; I25.10 Atherosclerotic heart disease of native coronary artery without angina pectoris; J44.9 Chronic obstructive pulmonary disease, unspecified; K21.9 Gastro-esophageal reflux disease without esophagitis; F41.9 Anxiety disorder, unspecified; F32.9 Major depressive disorder, single episode, unspecified; Z86.73 Personal history of transient ischemic attack (TIA), and cerebral infarction without residual deficits; Z85.828 Personal history of other malignant neoplasm of skin; Z79.82 Long term (current) use of aspirin; Z79.899 Other long term (current) drug therapy; Z98.890 Other specified postprocedural states; Z88.8 Allergy status to other drugs, medicaments and biological substances
CPT/HCPCS: 62323; J1030; J1040; Q9965

== ENCOUNTER → 2022-01-08 | Outpatient (CLI) | payer MEDICARE ==
[~2022-01-08] MED LIST changes: +DEXAMETHASONE PRES.FREE 10 MG/ML VIAL. ONE; -methylPREDNISolone ACETATE 40 MG/ML VIAL. ONE; -methylPREDNISolone ACETATE 80 MG/ML VIAL. ONE
--- NOTE | 2022-01-08 14:00 | PDOC ---
Progress Note - Pain Clinic Date of Service: DOS: DATE: 01/08/22 TIME: 13:57 Diagnosis: Dx: Lumbar radiculopathy with lumbar degenerative disc disease lumbar spinal stenosis and lumbar postlaminectomy syndrome Cervical radiculopathy with cervical degenerative disc disease Left knee joint pain with osteoarthritis History or Present Illness: HPI: 86-year-old male returns for follow-up last seen October 09, 2021 underwent lumbar epidural steroid injection with about 80% improvement for about 5 weeks patient reports the pain is returning now in the low back and into the right greater than left lower extremity but also more pain in the right mid upper back which he is not had before but is most noticeable at this time patient reports on the right flank just beneath the ribs no injury or accident that he is aware of no causative reason that he is aware of pain to increase in the right mid back patient reports a 7 on scale 10 is worse over the past week 5 on average 4 to [place] is a 5 today patient reports its aching and sharp and shooting in the right lower extremity posterior gluteus lateral thigh anterior thigh and posterior calf patient reports on and off in intensity worse with walking standing changing positions better with sitting or laying down generally does not awaken him from sleep at night. Patient reports no bowel or bladder incontinence. Some mild weakness of the right lower extremity with ambulation patient is using a cane today. Physical Exam: VS: Blood pressure is 144 pulse 60 respirations 18 temperature 99.0 F height is 5 feet 10 inches weight is 152 pounds. PE: PHYSICAL EXAMINATION: GENERAL: The patient is awake, alert, oriented, appropriate, very pleasant in demeanor HEENT: Shows normocephalic, atraumatic. Extraocular movements are intact and symmetrical. Oral cavity: Mucous membranes moist and pink. NECK: Shows anterior throat supple without palpable lymphadenopathy noted. Swallow reflex symmetrical. CHEST: Shows normal on inspection. Breath sounds are clear bilaterally, no rales or rhonchi. HEART: Shows S1, S2 clear. No murmurs auscultated. ABDOMEN: Soft, nontender, nondistended. No palpable organomegaly is noted. BACK: Shows spine grossly in the midline. Normal-appearing cervical lordotic curvature. There is significantly increased thoracic kyphosis, some flattening of the lumbar lordotic curvature, with well-healed surgical scarring. Lumbar paraspinous muscles show symmetrical on inspection, on palpation shows some moderate tenderness diffusely throughout the upper, middle and lower distribution of the paraspinous muscles without specific trigger points, without radiation of pain. The patient has good rotational motion of the lumbar spine, both laterally as well as extension and flexion without significant difficulty. No tenderness over the spinous processes, sacrum or sacroiliac regions. EXTREMITIES: Lower extremities show deep tendon reflexes 2+ in the patellar and tendo calcaneus tendons. Motor exam is 5 on a scale of 5 with right dorsiflex ion, extension, quadriceps and hamstring flexion and 5/5 on the left. Peripheral pulses are 1 posterior tibial. No peripheral edema is noted bilaterally. Lower extremities are warm and dry. SKIN: Shows warm and dry, good turgor. No edema. No sores, rashes or bruising throughout. Procedure: Procedure: Options were discussed with the patient. Patient's old chart was reviewed his current medication regimen updated current review of systems updated today as well. We will proceed with a lumbar epidural steroid injections today with fluoroscopic guidance. Risks were discussed including but not limited to: Bleeding, infection, possibility of epidural hematoma and subsequent neurological compromise, dural puncture, headaches, spinal cord and/or nerve damage, side effects of steroid medication, and poor results regarding pain control. Patient understands and wished to proceed. Patient return to clinic in approximately 2 weeks for follow-up, was counseled as to return appointment, activity level, and side effects to be aware of. Medication Injected: Med Injected: Procedure is lumbar epidural steroid injection under local anesthetic using sterile prep and drape at the L5-S1 level using C-arm fluoroscopic guidance in both AP and lateral views medications injected is 20 mg dexamethasone +10mL preservative-free normal saline and 2 mL contrast- condition at discharge is stable patient tolerated procedure well had no complications. Condition at Discharge: Condition at Discharge: Condition at discharge stable, patient tolerated the procedure well and had no complications. KIMBERLEE MEDINA MD Jan 08, 2022 14:00
--- NOTE | 2022-01-08 14:01 | PDOC4 ---
Procedure Note: ICD 10 Code: ICD 10 Code: M54.16 M51.36 M4 8.06 M 96.1 Procedure Note: Patient was consented for lumbar epidural steroid injection with fluoroscopic guidance. Risks were discussed including but not limited to: Bleeding, infection, possibility of epidural hematoma and subsequent neurological compromise, dural puncture, headaches, spinal cord and/or nerve damage, side effects of steroid medication, and poor results regarding pain control. Patient understands and wished to proceed. Procedure is lumbar epidural steroid injection under local anesthetic using sterile prep and drape at the L5-S1 level using C-arm fluoroscopic guidance in both AP and lateral views medications injected is 20 mg dexamethasone +10mL preservative-free normal saline and 2 mL contrast- condition at discharge is stable patient tolerated procedure well had no complications. KIMBERLEE MEDINA MD Jan 08, 2022 14:01
== END | disposition home or self-care (01) ==
LOC: PNCL 12:42
PROVIDERS: ATTEND Anesthesiology
DX: M51.16 Intervertebral disc disorders with radiculopathy, lumbar region (principal); M48.061 Spinal stenosis, lumbar region without neurogenic claudication; M96.1 Postlaminectomy syndrome, not elsewhere classified; M50.10 Cervical disc disorder with radiculopathy, unspecified cervical region; M17.12 Unilateral primary osteoarthritis, left knee; I11.0 Hypertensive heart disease with heart failure; I50.9 Heart failure, unspecified; I25.10 Atherosclerotic heart disease of native coronary artery without angina pectoris; E78.00 Pure hypercholesterolemia, unspecified; E03.9 Hypothyroidism, unspecified; M19.90 Unspecified osteoarthritis, unspecified site; N40.0 Benign prostatic hyperplasia without lower urinary tract symptoms; F41.9 Anxiety disorder, unspecified; F32.9 Major depressive disorder, single episode, unspecified; Z86.73 Personal history of transient ischemic attack (TIA), and cerebral infarction without residual deficits; Z85.828 Personal history of other malignant neoplasm of skin; Z79.82 Long term (current) use of aspirin; Z79.84 Long term (current) use of oral hypoglycemic drugs; Z79.899 Other long term (current) drug therapy; Z98.890 Other specified postprocedural states; Z88.8 Allergy status to other drugs, medicaments and biological substances
CPT/HCPCS: 62323; J1100; Q9965

== ENCOUNTER → 2022-03-07 | Outpatient (CLI) | payer MEDICARE ==
[~2022-03-07] MED LIST changes: -DEXAMETHASONE PRES.FREE 10 MG/ML VIAL. ONE; +HYLAN G-F 20 48 MG/6 ML SYRINGE INT ART ONE
--- NOTE | 2022-03-07 12:35 | PDOC ---
Progress Note - Pain Clinic Date of Service: DOS: DATE: 03/07/22 TIME: 12:30 Diagnosis: Dx: Lumbar radiculopathy with lumbar degenerative disease lumbar spinal stenosis lumbar postlaminectomy syndrome Cervical radiculopathy with cervical degenerative disc disease Left knee joint pain with osteoarthritis History or Present Illness: HPI: 86-year-old male returns for follow-up status post lumbar epidural steroid injection January 08, 2022. Patient reports that he did very well his chief complaint today is left knee joint pain significantly worse with walking standing putting his weight on the left knee better with sitting or laying down he has been wearing a knee brace which is helpful but does not relieve the pain significantly patient report is worse with climbing on a step or stair putting all his weight on his left knee and significant pain in the anterior knee also in the posterior knee with full sensation patient rates as a 9 on scale 10 is worse over the past week for an average 3 its least and is a 9 today patient ports aching and shooting tingling burning on and off in intensity worse with ambulation standing walking and especially putting all his weight on his left leg with stairs or steps as noted. Patient reports no loss of motor function no bowel or bladder incontinence. Physical Exam: VS: Blood pressure is 140/66 pulse 60 respirations are 20 temperature 98.5 F weight is 153 pounds. PE: PHYSICAL EXAMINATION: GENERAL: The patient is awake, alert, oriented, appropriate, very pleasant in demeanor HEENT: Shows normocephalic, atraumatic. Extraocular movements are intact and symmetrical. NECK: Shows anterior throat supple without palpable lymphadenopathy noted. Swallow reflex symmetrical. CHEST: Shows normal on inspection. Breath sounds are clear bilaterally, distant but no rales or rhonchi auscultated. HEART: Shows S1, S2 clear. No murmurs auscultated. ABDOMEN: Soft, nontender, nondistended. No palpable organomegaly is noted. BACK: Shows spine grossly in the midline. Normal-appearing cervical lordotic curvature. There is significantly increased thoracic kyphosis, some minor flattening of the lumbar lordotic curvature. Lumbar paraspinous muscles show symmetrical on inspection, on palpation shows some moderate tenderness diffusely throughout the upper, middle and lower distribution of the paraspinous muscles without specific trigger points, without radiation of pain. The patient has good rotational motion of the lumbar spine, both laterally as well as extension and flexion without significant difficulty. No tenderness over the spinous processes, sacrum or sacroiliac regions. EXTREMITIES: Lower extremities show deep tendon reflexes 2+ in the patellar and tendo calcaneus tendons. Motor exam is 5 on a scale of 5 with right dorsiflexion, extension, quadriceps and hamstring flexion and 5/5 on the left. Peripheral pulses are 1+ posterior tibial. No peripheral edema is noted bilaterally. Lower extremities are warm and dry. Patient's left knee shows significant tenderness with palpation in the medial aspect and inferior to the patella also in the posterior aspect of the popliteal fossa without any palpable masses patient does have good popliteal pulse which is 2+ bilaterally. Patient's left knee shows good range of motion passively without significant crepitus or ratcheting. SKIN: Shows warm and dry, good turgor. No edema. No sores, rashes or bruising throughout. Procedure: Procedure: Options were discussed with the patient. Patient's chart was reviewed his his current medication regimen updated current review of systems updated today as well. We will proceed with a left intra-articular knee joint injection with Synvisc 1 with fluoroscopic guidance. Risk discussed including but not limited to bleeding infection possibility of intravascular injection sequelae spread of local anesthetic and numbness extravasation of Synvisc as well as poor results regarding pain control and exposure to fluoroscopy. Patient understands wished to proceed. Patient will return to clinic in approximately 2 weeks for follow- up, was counseled as return appointment, activity level, and side effects to be aware of. Medication Injected: Med Injected: Under sterile prep and drape patient in supine position using C-arm fluoroscopic guidance patient's left knee was sterilely prepped and draped in usual fashion. Using C-arm fluoroscopy the medial aspect of the left knee joint was identified and visualized and using 1% lidocaine 25-gauge needle of the area of the skin overlying the medial knee compartment was anesthetized. Using a 22-gauge quickie needle with stylette the joint was entered under direct visualization without difficulty. Stylet was removed at this time 1.5 cc of contrast was then injected with good spread within the knee joint itself without washout or uptake. Aspiration yielded approximately 2 cc of synovial fluid, at this time Synvisc 1 was injected, total of 6 cc. Patient tolerated the procedure well and had no complications. Condition at Discharge: Condition at Discharge: Condition at discharge stable, paced tolerated procedure well and had no complications. KIMBERLEE MEDINA MD March 07, 2022 12:35
--- NOTE | 2022-03-07 12:36 | PDOC4 ---
Procedure Note: ICD 10 Code: ICD 10 Code: M2 5.562 M17.12 Procedure Note: Patient was consented for left intra-articular knee joint Synvisc 1 injection with fluoroscopic guidance. Risks are discussed including but not limited to bleeding infection possibility of intravascular injection sequelae spread of local anesthetic numbness Synvisc extravasation as well as poor results regarding pain control and exposure fluoroscopy. Under sterile prep and drape patient in supine position using C-arm fluoroscopic guidance patient's left knee was sterilely prepped and draped in usual fashion. Using C-arm fluoroscopy the medial aspect of the left knee joint was identified and visualized and using 1% lidocaine 25-gauge needle of the area of the skin overlying the medial knee compartment was anesthetized. Using a 22-gauge quickie needle with stylette the joint was entered under direct visualization without difficulty. Stylet was removed at this time 1.5 cc of contrast was then injected with good spread within the knee joint itself without washout or uptake. Aspiration yielded approximately 2 cc of synovial fluid, at this time Synvisc 1 was injected, total of 6 cc. Patient tolerated the procedure well and had no complications. KIMBERLEE MEDINA MD March 07, 2022 12:36
== END | disposition home or self-care (01) ==
LOC: PNCL 11:11
PROVIDERS: ATTEND Anesthesiology
DX: M17.12 Unilateral primary osteoarthritis, left knee (principal); M51.16 Intervertebral disc disorders with radiculopathy, lumbar region; M48.061 Spinal stenosis, lumbar region without neurogenic claudication; M96.1 Postlaminectomy syndrome, not elsewhere classified; M50.10 Cervical disc disorder with radiculopathy, unspecified cervical region; I25.10 Atherosclerotic heart disease of native coronary artery without angina pectoris; I11.0 Hypertensive heart disease with heart failure; I50.9 Heart failure, unspecified; E78.00 Pure hypercholesterolemia, unspecified; J44.9 Chronic obstructive pulmonary disease, unspecified; K21.9 Gastro-esophageal reflux disease without esophagitis; E03.9 Hypothyroidism, unspecified; F41.9 Anxiety disorder, unspecified; F32.9 Major depressive disorder, single episode, unspecified; Z79.899 Other long term (current) drug therapy; Z98.890 Other specified postprocedural states; Z79.82 Long term (current) use of aspirin; Z88.8 Allergy status to other drugs, medicaments and biological substances
CPT/HCPCS: 20610; 77002; J7325; Q9965